=== PATIENT | male | born 1950 | race Caucasian/White ===

== ENCOUNTER 2016-12-30 13:12 | Emergency (ER) | payer MEDICARE, BC ==
[~2016-12-30] VITALS: Ht 177.8 cm; Wt 104.3 kg
[~2016-12-30 13:12] MED LIST: ACHD5005 PO; ASPI-808 PO; ASPI-983 PO; ASPI-999 PO; CIPR500T4 PO; CLOP75TA28 PO; CPR500T PO; LEVO100T PO; LEVOTHROID; LISI-556 PO; MELO15TA39 PO; NAPR-243 PO; OMEP20CA12 PO; OXYC-471 PO; PRAV40TA2 PO
--- OUTSIDE RECORDS SUMMARY | 2016-12-30 13:22 | XMS REPORT | Continuity of Care Document ---
Author Author [facility] Organization [facility] Address Unknown Phone Unavailable Allergies Active Description Code Type Severity Reaction Onset Reported/Identified Relationship to Patient Clinical Status Yes NKANo Known Allergies NKA Miscellaneous Allergy Unknown N/ A 09/03/2007 Medications Problems Date Dx Coded Attending Type Code Diagnosis Diagnosed By 08/11/2013 SASHA AGUILAR MD Ot 592.0 CALCULUS OF KIDNEY 08/11/2013 SASHA AGUILAR MD Ot 789.00 ABDOMINAL PAIN, UNSPECIFIED SITE 09/15/2015 SASHA AGUILAR MD Ot F12.10 CANNABIS ABUSE, UNCOMPLICATED 09/15/2015 SASHA AGUILAR MD Ot F17.210 NICOTINE DEPENDENCE, CIGARETTES, UNCOMPL 09/15/2015 SASHA AGUILAR MD Ot N39.0 URINARY TRACT INFECTION, SITE NOT SPECIF 08/17/2016 BAIMA, ELSA L JANITOR AND CLEANER Ot I10 ESSENTIAL (PRIMARY) HYPERTENSION 08/17/2016 BAIMA, ELSA L JANITOR AND CLEANER Ot R06.02 SHORTNESS OF BREATH 08/17/2016 BAIMA, ELSA L JANITOR AND CLEANER Ot R07.89 OTHER CHEST PAIN 08/17/2016 BAIMA, ELSA L JANITOR AND CLEANER Ot I10 ESSENTIAL (PRIMARY) HYPERTENSION 08/17/2016 BAIMA, ELSA L JANITOR AND CLEANER Ot R06.02 SHORTNESS OF BREATH 08/17/2016 BAIMA, ELSA L JANITOR AND CLEANER Ot R07.89 OTHER CHEST PAIN 09/06/2016 BAIMA, ELSA L JANITOR AND CLEANER Ot I10 ESSENTIAL (PRIMARY) HYPERTENSION 09/06/2016 BAIMA, ELSA L JANITOR AND CLEANER Ot R06.02 SHORTNESS OF BREATH 09/06/2016 BAIMA, ELSA L JANITOR AND CLEANER Ot R07.89 OTHER CHEST PAIN 09/09/2016 BAIMA, ELSA L JANITOR AND CLEANER Ot I10 ESSENTIAL (PRIMARY) HYPERTENSION 09/09/2016 BAIMA, ELSA L JANITOR AND CLEANER Ot R06.02 SHORTNESS OF BREATH 09/09/2016 BAIMA, ELSA L JANITOR AND CLEANER Ot R07.89 OTHER CHEST PAIN 09/16/2016 PATRICIA WELLS L Ot F17.210 NICOTINE DEPENDENCE, CIGARETTES, UNCOMPL 09/16/2016 PATRICIA WELLS L Ot I10 ESSENTIAL (PRIMARY) HYPERTENSION 09/16/2016 PATRICIA WELLS Ot I44.4 LEFT ANTERIOR FASCICULAR BLOCK 09/16/2016 PATRICIA WELLS L Ot I45.10 UNSPECIFIED RIGHT BUNDLE-BRANCH BLOCK 09/16/2016 PATRICIA WELLS L Ot R07.89 OTHER CHEST PAIN 09/16/2016 PATRICIA WELLS Ot R07.9 CHEST PAIN, UNSPECIFIED 09/16/2016 PATRICIA WELLS Ot Z79.899 OTHER PENITENTIARY (CURRENT) DRUG THERAPY 09/19/2016 PATRICIA WELLS Ot F17.210 NICOTINE DEPENDENCE, CIGARETTES, UNCOMPL 09/19/2016 PATRICIA WELLS Ot I10 ESSENTIAL (PRIMARY) HYPERTENSION 09/19/2016 PATRICIA WELLS Ot I44.4 LEFT ANTERIOR FASCICULAR BLOCK 09/19/2016 PATRICIA WELLS Ot I45.10 UNSPECIFIED RIGHT BUNDLE-BRANCH BLOCK 09/19/2016 PATRICIA WELLS Ot R07.89 OTHER CHEST PAIN 09/19/2016 PATRICIA WELLS L Ot R07.9 CHEST PAIN, UNSPECIFIED 09/19/2016 PATRICIA WELLS Ot Z79.899 OTHER PENITENTIARY (CURRENT) DRUG THERAPY 09/19/2016 BAIELSA BOJORQUEZ JANITOR AND CLEANER Ot I10 ESSENTIAL (PRIMARY) HYPERTENSION 09/19/2016 BAIELSA BOJORQUEZ JANITOR AND CLEANER Ot R06.02 SHORTNESS OF BREATH 09/19/2016 BAIMAELSA L JANITOR AND CLEANER Ot R07.89 OTHER CHEST PAIN 09/28/2016 VALERIE COSTELLO FACC, RADHIKA FACP CCDS Ot B19.20 UNSPECIFIED VIRAL HEPATITIS C WITHOUT HE 09/28/2016 VALERIE COSTELLO FACC, ALI FACP CCDS Ot E03.9 HYPOTHYROIDISM, UNSPECIFIED 09/28/2016 VALERIE COSTELLO FACC, ALI FACP CCDS Ot F17.210 NICOTINE DEPENDENCE, CIGARETTES , UNCOMPL 09/28/2016 VALERIE COSTELLO FACC, ALI FACP CCDS Ot I25.10 ATHSCL HEART DISEASE OF [place] CORONARY 09/28/2016 VALERIE COSTELLO FACC, RADHIKA FACP CCDS Ot I49.3 VENTRICULAR PREMATURE DEPOLARIZATION 09/28/2016 VALERIE COSTELLO FACC, RADHIKA FACP CCDS Ot R06.02 SHORTNESS OF BREATH 09/28/2016 VALERIE COSTELLO FACC, ALI FACP CCDS Ot R07.2 PRECORDIAL PAIN 09/28/2016 VALERIE COSTELLO FACC, ALI FACP CCDS Ot R94.39 ABNORMAL RESULT OF OTHER CARDIOVASCULAR 09/28/2016 VALERIE COSTELLO FACC, RADHIKA FACP CCDS Ot Z79.02 PENITENTIARY (CURRENT) USE OF ANTITHROMBOTI 09/28/2016 VALERIE COSTELLO FACC, RADHIKA FACP CCDS Ot Z79.899 OTHER PENITENTIARY (CURRENT) DRUG THERAPY 10/07/2016 ELSA SANDHU JANITOR AND CLEANER Ot I10 ESSENTIAL (PRIMARY) HYPERTENSION 10/07/2016 ELSA SANDHU JANITOR AND CLEANER Ot R06.02 SHORTNESS OF BREATH 10/07/2016 ELSA SANDHU JANITOR AND CLEANER Ot R07.89 OTHER CHEST PAIN 10/07/2016 JEANCARLOS CARROLL SKOOG MACHINE OPERATOR Ot I10 ESSENTIAL (PRIMARY) HYPERTENSION 10/07/2016 JEANCARLOS CARROLL SKOOG MACHINE OPERATOR Ot 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 10/07/2016 JEANCARLOS CARROLL SKOOG MACHINE OPERATOR Ot Z79.02 VOCATIONAL COUNSELOR (CURRENT) USE OF ANTITHROMBOTI 10/07/2016 JEANCARLOS CARROLL SKOOG MACHINE OPERATOR Ot Z79.82 PENITENTIARY (CURRENT) USE OF ASPIRIN 10/07/2016 JEANCARLOS CARROLL SKOOG MACHINE OPERATOR Ot Z79.899 OTHER PENITENTIARY (CURRENT) DRUG THERAPY 10/10/2016 JEANCARLOS CARROLL SKOOG MACHINE OPERATOR Ot I10 ESSENTIAL (PRIMARY) HYPERTENSION 10/10/2016 JEANCARLOS CARROLL SKOOG MACHINE OPERATOR Ot 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 10/10/2016 JEANCARLOS CARROLL SKOOG MACHINE OPERATOR Ot Z79.02 VOCATIONAL COUNSELOR (CURRENT) USE OF ANTITHROMBOTI 10/10/2016 JEANCARLOS CARROLL SKOOG MACHINE OPERATOR Ot Z79.82 PENITENTIARY (CURRENT) USE OF ASPIRIN 10/10/2016 JEANCARLOS CARROLL SKOOG MACHINE OPERATOR Ot Z79.899 OTHER PENITENTIARY (CURRENT) DRUG THERAPY 11/01/2016 VALERIE MD FACC, ALI FACP CCDS Ot B19.20 UNSPECIFIED VIRAL HEPATITIS C WITHOUT HE 11/01/2016 VALERIE COSTELLO FACC, ALI FACP CCDS Ot E03.9 HYPOTHYROIDISM, UNSPECIFIED 11/01/2016 VALERIE COSTELLO FACC, ALI FACP CCDS Ot F17.210 NICOTINE DEPENDENCE, CIGARETTES , UNCOMPL 11/01/2016 VALERIE COSTELLO FACC, ALI FACP CCDS Ot I25.10 ATHSCL HEART DISEASE OF [place] CORONARY 11/01/2016 VALERIE COSTELLO FACC, ALI FACP CCDS Ot I49.3 VENTRICULAR PREMATURE DEPOLARIZATION 11/01/2016 VALERIE COSTELLO FACC, ALI FACP CCDS Ot R06.02 SHORTNESS OF BREATH 11/01/2016 VALERIE COSTELLO FACC, ALI FACP CCDS Ot R07.2 PRECORDIAL PAIN 11/01/2016 VALERIE COSTELLO FACC, ALI FACP CCDS Ot R94.39 ABNORMAL RESULT OF OTHER CARDIOVASCULAR 11/01/2016 VALERIE GANNC, ALI FACP CCDS Ot Z79.02 PENITENTIARY (CURRENT) USE OF ANTITHROMBOTI 11/01/2016 VALERIE GANN, ALI FACP CCDS Ot Z79.899 OTHER VOCATIONAL COUNSELOR (CURRENT) DRUG THERAPY 11/03/2016 VALERIE GANNC, ALI FACP CCDS Ot B19.20 UNSPECIFIED VIRAL HEPATITIS C WITHOUT HE 11/03/2016 VALERIE GANN, ALI FACP CCDS Ot E03.9 HYPOTHYROIDISM, UNSPECIFIED 11/03/2016 VALERIE GANNC, ALI FACP CCDS Ot F17.210 NICOTINE DEPENDENCE, CIGARETTES , UNCOMPL 11/03/2016 VALERIE COSTELLO FACC, ALI FACP CCDS Ot I25.10 ATHSCL HEART DISEASE OF [place] CORONARY 11/03/2016 VALERIE COSTELLO FACC, ALI FACP CCDS Ot I49.3 VENTRICULAR PREMATURE DEPOLARIZATION 11/03/2016 VALERIE COSTELLO FACC, ALI FACP CCDS Ot R06.02 SHORTNESS OF BREATH 11/03/2016 VALERIE COSTELLO FACC, ALI FACP CCDS Ot R07.2 PRECORDIAL PAIN 11/03/2016 VALERIE COSTELLO FACC, ALI FACP CCDS Ot R94.39 ABNORMAL RESULT OF OTHER CARDIOVASCULAR 11/03/2016 VALERIE GANNC, ALI FACP CCDS Ot Z79.02 PENITENTIARY (CURRENT) USE OF ANTITHROMBOTI 11/03/2016 VALERIE COSTELLO FAC, RADHIKA JOLLEY CCDS Ot Z79.899 OTHER VOCATIONAL COUNSELOR (CURRENT) DRUG THERAPY Procedures Results Test Result Range Complete blood count (CBC) with automated white blood cell (WBC) differential - 09/16/16 16:00 Blood leukocytes automated count (number/volume) 8.3 10*3/ uL 4.3-11.0 Blood erythrocytes automated count (number/volume) 4.50 10*6 /uL 4.35-5.85 Venous blood hemoglobin measurement (mass/volume) 15.0 g/dL 13.3-17.7 Blood hematocrit (volume fraction) 43 % 40-54 Automated erythrocyte mean corpuscular volume 96 [foz_us] 80-99 Automated erythrocyte mean corpuscular hemoglobin (mass per erythrocyte) 33 pg 25-34 Automated erythrocyte mean corpuscular hemoglobin concentration measurement ( mass/volume) 35 g/dL 32-36 Automated erythrocyte distribution width ratio 13.0 % 10.0-14.5 Automated blood platelet count (count/volume) 188 10*3/uL 130-400 Automated blood platelet mean volume measurement 12.8 [foz_ us] 7.4-10.4 Automated blood neutrophils/100 leukocytes 60 % 42-75 Automated blood lymphocytes/100 leukocytes 29 % 12-44 Blood monocytes/100 leukocytes 10 % 0-12 Automated blood eosinophils/100 leukocytes 2 % 0-10 Automated blood basophils/100 leukocytes 0 % 0-10 Blood neutrophils automated count (number/volume) 4.9 10*3 1.8-7.8 Blood lymphocytes automated count (number/volume) 2.4 10*3 1.0-4.0 Blood monocytes automated count (number/volume) 0.8 10*3 0.0-1.0 Automated eosinophil count 0.1 10*3/uL 0.0-0.3 Automated blood basophil count (count/volume) 0.0 10*3/uL 0.0-0.1 PT panel in platelet poor plasma by coagulation assay - 09/16/16 16:00 Prothrombin time (PT) in platelet poor plasma by coagulation assay 14.6 s 12.2-14.7 INR in platelet poor plasma or blood by coagulation assay 1.2 0.8-1.4 Activated partial thromboplastin time (aPTT) in platelet poor plasma bycoagulation assay - 09/16/16 16:00 Activated partial thromboplastin time (aPTT) in platelet poor plasma bycoagulation assay 41 s 24-35 Comprehensive metabolic panel - 09/16/16 16:00 Serum or plasma sodium measurement (moles/volume) 138 mmol/ L 135-145 Serum or plasma potassium measurement (moles/volume) 4.4 mmol/L 3.6-5.0 Serum or plasma chloride measurement (moles/volume) 105 mmol /L 98-107 Carbon dioxide 23 mmol/L 21-32 Serum or plasma anion gap determination (moles/volume) 10 mmol/L 5-14 Serum or plasma urea nitrogen measurement (mass/volume) 23 mg/dL 7-18 Serum or plasma creatinine measurement (mass/volume) 0.79 mg /dL 0.60-1.30 Serum or plasma urea nitrogen/creatinine mass ratio 29 NRG Serum or plasma creatinine measurement with calculation of estimated glomerular filtration rate > NRG Serum or plasma glucose measurement (mass/volume) 94 mg/dL 70-105 Serum or plasma calcium measurement (mass/volume) 9.2 mg/dL 8.5-10.1 Serum or plasma total bilirubin measurement (mass/volume) 0.4 mg/dL 0.1-1.0 Serum or plasma alkaline phosphatase measurement (enzymatic activity/volume) 113 U/L 40-136 Serum or plasma aspartate aminotransferase measurement (enzymatic activity/ volume) 31 U/L 5-34 Serum or plasma alanine aminotransferase measurement (enzymatic activity/volume ) 29 U/L 0-55 Serum or plasma protein measurement (mass/volume) 6.7 g/dL 6.4-8.2 Serum or plasma albumin measurement (mass/volume) 4.3 g/dL 3.2-4.5 Magnesium - 09/16/16 16:00 Magnesium 2.3 mg/dL 1.8-2.4 Serum or plasma troponin i.cardiac measurement (mass/volume) - 09/16/16 16:00 Serum or plasma troponin i.cardiac measurement (mass/volume) < ng/mL <0.30 Myoglobin, serum - 09/16/16 16:00 Myoglobin, serum 56.5 ng/mL 10.0-92.0 Fibrin D-dimer FEU measurement in platelet poor plasma (mass/volume) - 16:00 Fibrin D-dimer FEU measurement in platelet poor plasma (mass/volume) 0.35 ug/mL 0.00-0.49 Serum or plasma troponin i.cardiac measurement (mass/volume) - 09/16/16 18:15 Serum or plasma troponin i.cardiac measurement (mass/volume) < ng/mL <0.30 Automated blood complete blood count (hemogram) panel - 09/27/16 09:38 Blood leukocytes automated count (number/volume) 9.1 10*3/ uL 4.3-11.0 Blood erythrocytes automated count (number/volume) 4.93 10*6 /uL 4.35-5.85 Venous blood hemoglobin measurement (mass/volume) 16.3 g/dL 13.3-17.7 Blood hematocrit (volume fraction) 47 % 40-54 Automated erythrocyte mean corpuscular volume 96 [foz_us] 80-99 Automated erythrocyte mean corpuscular hemoglobin (mass per erythrocyte) 33 pg 25-34 Automated erythrocyte mean corpuscular hemoglobin concentration measurement ( mass/volume) 35 g/dL 32-36 Automated erythrocyte distribution width ratio 13.0 % 10.0-14.5 Automated blood platelet count (count/volume) 201 10*3/uL 130-400 Automated blood platelet mean volume measurement 11.1 [foz_ us] 7.4-10.4 PT panel in platelet poor plasma by coagulation assay - 09/27/16 09:38 Prothrombin time (PT) in platelet poor plasma by coagulation assay 13.3 s 12.2-14.7 INR in platelet poor plasma or blood by coagulation assay 1.0 0.8-1.4 Activated partial thromboplastin time (aPTT) in platelet poor plasma bycoagulation assay - 09/27/16 09:38 Activated partial thromboplastin time (aPTT) in platelet poor plasma bycoagulation assay 38 s 24-35 Comprehensive metabolic panel - 09/27/16 09:38 Serum or plasma sodium measurement (moles/volume) 140 mmol/ L 135-145 Serum or plasma potassium measurement (moles/volume) 4.3 mmol/L 3.6-5.0 Serum or plasma chloride measurement (moles/volume) 106 mmol /L 98-107 Carbon dioxide 28 mmol/L 21-32 Serum or plasma anion gap determination (moles/volume) 6 mmol/L 5-14 Serum or plasma urea nitrogen measurement (mass/volume) 22 mg/dL 7-18 Serum or plasma creatinine measurement (mass/volume) 0.85 mg /dL 0.60-1.30 Serum or plasma urea nitrogen/creatinine mass ratio 26 NRG Serum or plasma creatinine measurement with calculation of estimated glomerular filtration rate > NRG Serum or plasma glucose measurement (mass/volume) 93 mg/dL 70-105 Serum or plasma calcium measurement (mass/volume) 9.3 mg/dL 8.5-10.1 Serum or plasma total bilirubin measurement (mass/volume) 0.7 mg/dL 0.1-1.0 Serum or plasma alkaline phosphatase measurement (enzymatic activity/volume) 107 U/L 40-136 Serum or plasma aspartate aminotransferase measurement (enzymatic activity/ volume) 25 U/L 5-34 Serum or plasma alanine aminotransferase measurement (enzymatic activity/volume ) 32 U/L 0-55 Serum or plasma protein measurement (mass/volume) 7.3 g/dL 6.4-8.2 Serum or plasma albumin measurement (mass/volume) 4.6 g/dL 3.2-4.5 Lipid 1996 panel - 09/27/16 09:38 Serum or plasma triglyceride measurement (mass/volume) 65 mg /dL <150 Serum or plasma cholesterol measurement (mass/volume) 138 mg /dL < 200 Serum or plasma cholesterol in HDL measurement (mass/volume) 49 mg/dL 40-60 Cholesterol in LDL [mass/volume] in serum or plasma by direct assay 73 mg/dL 1-129 Serum or plasma cholesterol in VLDL measurement (mass/volume) 13 mg/dL 5-40 Methicillin resistant Staphylococcus aureus (MRSA) screening culture - 09:38 MRSA SCREEN RESULT MRSA [facility] Automated blood complete blood count (hemogram) panel - 09/28/16 05:35 Blood leukocytes automated count (number/volume) 9.9 10*3/ uL 4.3-11.0 Blood erythrocytes automated count (number/volume) 4.55 10*6 /uL 4.35-5.85 Venous blood hemoglobin measurement (mass/volume) 15.1 g/dL 13.3-17.7 Blood hematocrit (volume fraction) 44 % 40-54 Automated erythrocyte mean corpuscular volume 97 [foz_us] 80-99 Automated erythrocyte mean corpuscular hemoglobin (mass per erythrocyte) 33 pg 25-34 Automated erythrocyte mean corpuscular hemoglobin concentration measurement ( mass/volume) 34 g/dL 32-36 Automated erythrocyte distribution width ratio 13.1 % 10.0-14.5 Automated blood platelet count (count/volume) 176 10*3/uL 130-400 Automated blood platelet mean volume measurement 11.8 [foz_ us] 7.4-10.4 Whole blood basic metabolic panel - 09/28/16 05:35 Serum or plasma sodium measurement (moles/volume) 138 mmol/ L 135-145 Serum or plasma potassium measurement (moles/volume) 4.2 mmol/L 3.6-5.0 Serum or plasma chloride measurement (moles/volume) 105 mmol /L 98-107 Carbon dioxide 24 mmol/L 21-32 Serum or plasma anion gap determination (moles/volume) 9 mmol/L 5-14 Serum or plasma urea nitrogen measurement (mass/volume) 19 mg/dL 7-18 Serum or plasma creatinine measurement (mass/volume) 0.76 mg /dL 0.60-1.30 Serum or plasma urea nitrogen/creatinine mass ratio 25 NRG Serum or plasma creatinine measurement with calculation of estimated glomerular filtration rate > NRG Serum or plasma glucose measurement (mass/volume) 86 mg/dL 70-105 Serum or plasma calcium measurement (mass/volume) 8.8 mg/dL 8.5-10.1 Complete blood count (CBC) with automated white blood cell (WBC) differential - 10/07/16 15:10 Blood leukocytes automated count (number/volume) 8.5 10*3/ uL 4.3-11.0 Blood erythrocytes automated count (number/volume) 4.37 10*6 /uL 4.35-5.85 Venous blood hemoglobin measurement (mass/volume) 14.4 g/dL 13.3-17.7 Blood hematocrit (volume fraction) 42 % 40-54 Automated erythrocyte mean corpuscular volume 97 [foz_us] 80-99 Automated erythrocyte mean corpuscular hemoglobin (mass per erythrocyte) 33 pg 25-34 Automated erythrocyte mean corpuscular hemoglobin concentration measurement ( mass/volume) 34 g/dL 32-36 Automated erythrocyte distribution width ratio 12.8 % 10.0-14.5 Automated blood platelet count (count/volume) 213 10*3/uL 130-400 Automated blood platelet mean volume measurement 11.1 [foz_ us] 7.4-10.4 Automated blood neutrophils/100 leukocytes 66 % 42-75 Automated blood lymphocytes/100 leukocytes 22 % 12-44 Blood monocytes/100 leukocytes 8 % 0-12 Automated blood eosinophils/100 leukocytes 3 % 0-10 Automated blood basophils/100 leukocytes 1 % 0-10 Blood neutrophils automated count (number/volume) 5.6 10*3 1.8-7.8 Blood lymphocytes automated count (number/volume) 1.9 10*3 1.0-4.0 Blood monocytes automated count (number/volume) 0.7 10*3 0.0-1.0 Automated eosinophil count 0.3 10*3/uL 0.0-0.3 Automated blood basophil count (count/volume) 0.0 10*3/uL 0.0-0.1 Encounters ACCT No. Visit Date/Time Discharge Status Pt. Type Provider Facility Loc./Unit Complaint [id number] 10/07/2016 14:22:00 2015 15:45:00 DIS Emergency JEANCARLOS CARROLL APRN [facility] ER POST CATH LEG BRUISING/KNOT [id number] 09/27/2016 09:08:00 2015 10:50:00 DIS Outpatient VALERIE COSTELLO FACC, RADHIKA JOLLEY CCDS [facility] CATH CAD,ANGINA,SOB,HTN [id number] 09/16/2016 15:56:00 2015 19:14:00 DIS Emergency PATRICIA WELLS [facility] ER CHEST PAIN [id number] 09/15/2015 08:19:00 2014 10:22:00 DIS Emergency SASHA AGUILAR MD [facility] ER KIDNEY PAIN [id number] 01/02/2014 11:28:00 2013 23:59:59 CLS Outpatient [id number] 08/10/2013 23:02:00 2012 01:57:00 DIS Emergency SASHA AGUILAR MD [facility] ER L SIDE PAIN; NO INJ [id number] 12/30/2016 13:16:00 ACT Emergency SASHA AGUILAR MD [facility] ER BACK/NECK/LEG PAIN [id number] 08/16/2016 07:57:00 ACT Outpatient ELSA SANDHU [facility] CARD SOB,CHEST DISCOMFORT,HTN
[2016-12-30] MEDS ORDERED: CYCL5TAB PO (13:58)
[2016-12-30 14:44] LABS: BASOPHILS # (AUTO) 0.1 10^3/uL (0.0-0.1); BASOPHILS % (AUTO) 1 % (0-10); EOSINOPHILS # (AUTO) 0.1 10^3/uL (0.0-0.3); EOSINOPHILS % (AUTO) 1 % (0-10); LYMPHOCYTES # (AUTO) 1.4 X 10^3 (1.0-4.0); LYMPHOCYTES % (AUTO) 17 % (12-44); MEAN CORPUSCULAR HEMOGLOBIN 33 PG (25-34); MEAN CORPUSCULAR HGB CONC 34 G/DL (32-36); MEAN CORPUSCULAR VOLUME 97 FL (80-99); MEAN PLATELET VOLUME 11.9 FL (7.4-10.4); MONOCYTES # (AUTO) 0.7 X 10^3 (0.0-1.0); MONOCYTES % (AUTO) 8 % (0-12); NEUTROPHILS % (AUTO) 73 % (42-75); PLATELET COUNT 194 10^3/uL (130-400); RED BLOOD COUNT 3.98 10^6/uL (4.35-5.85); RED CELL DISTRIBUTION WIDTH 13.5 % (10.0-14.5); WHITE BLOOD COUNT 8.3 10^3/uL (4.3-11.0)
--- NOTE | 2016-12-30 14:45 | ED Back Pain ---
General Chief Complaint: Back Problems Stated Complaint: BACK/NECK/LEG PAIN Nursing Triage Note: pt reports he has lower back, neck, l shoulder, and r leg pain. pt denies any injury. pt reports he talked to DR. Parker yesterday and was placed on muscle relaxers. Pt reprots he has trouble sleeping because of the pain. Nursing Sepsis Screen: No Definite Risk Source of Information: Patient Exam Limitations: No Limitations History of Present Illness Time Seen by Provider: 14:42 Initial Comments To ER with 3 days of severe neck and low back pain that radiates down right leg. No injury, fevers, or chills. [facility]. Currently a patient of Dr Cliff Parker who placed pt on muscle relaxers a few days ago, pt denies improvement. No loss of bowel or bladder control. Hes been taking quite a bit of aleve and tylenol at home for the pain with initially some improvement. However, it no longer seems to be helping. 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 Location: C-Spine, Lumbar Spine Severity: Moderate Associated Symptoms: No numbness in legs/feet, No tingling in legs/feet, No sensory/motor loss, lower back painNo loss of bladder control, No loss of bowel control Allergies and Home Medications Allergies Coded Allergies: NKANo Known Allergies (Verified Allergy, Unknown, 09/03/07) Home Medications Aspirin 81 Mg Tablet. 81 MG PO DAILY (Reported) Clopidogrel Bisulfate 75 Mg Tablet 75 MG PO DAILY (Reported) Cyclobenzaprine HCl 5 Mg Tablet 5 MG PO TID (Reported) Hydrocodone/Acetaminophen 1 Each Tablet #14 1 EACH PO Q4H PRN PRN SEVERE PAIN Prescribed by: JEANCARLOS CARROLL on 12/30/161538 Levothyroxine Sodium 100 Mcg Tablet 100 MCG PO DAILY (Reported) Lisinopril 5 Mg Tablet 5 MG PO DAILY (Reported) Meloxicam 15 Mg Tablet 15 MG PO DAILY (Reported) Omeprazole 20 Mg Capsule. 20 MG PO DAILY (Reported) Pravastatin Sodium 40 Mg Tablet 20 MG PO DAILY (Reported) TAKES 1/2 (40MG) TABLET Prednisone 20 Mg Tab #8 40 MG PO DAILY Prescribed by: JEANCARLOS CARROLL on 12/30/161538 Constitutional: see HPINo chills, No fever EENTM: see HPI Respiratory: no symptoms reported Cardiovascular: no symptoms reported Genitourinary: no symptoms reported Musculoskeletal: no symptoms reported Skin: no symptoms reported Psychiatric/Neurological: No Symptoms Reported Past Iwrjcnd-Wlhkze-Frrlif Hx Patient Social History Alcohol Use: Past History Recreational Drug Use: No Smoking Status: Former Smoker Type Used: Cigarettes Recent Foreign Travel: No Contact w/Someone Who Travel: No Recent Infectious Disease Expo: No Recent Hopitalizations: No Immunizations Up To Date Date of Pneumonia Vaccine: May 24, 2016 Date of Influenza Vaccine: Jul 11, 2016 Surgeries HX Surgeries: Yes Surgeries: Adenoidectomy, Coronary Stent, Tonsillectomy Respiratory Hx Respiratory Disorders: No Cardiovascular Hx Cardiac Disorders: Yes Cardiac Disorders: Coronary Artery Disease, High Cholesterol, Hypertension Neurological Hx Neurological Disorders: No Reproductive System Hx Reproductive Disorders: No Genitourinary Hx Genitourinary Disorders: No Genitourinary Disorders: Kidney Stones Gastrointestinal Hx Gastrointestinal Disorders: Yes Gastrointestinal Disorders: Gastroesophageal Reflux Musculoskeletal Hx Musculoskeletal Disorders: Yes (TORN LIGAMENTS IN BACK,COMP.FX.) Musculoskeletal Disorders: Chronic Back Pain Endocrine Hx Endocrine Disorders: Yes Endocrine Disorders: Hypothyroidsim HEENT HX ENT Disorders: No Cancer Hx Cancer: No Psychosocial Hx Psychiatric Problems: No Blood Transfusions Hx Blood Disorders: No Family Medical History Significant Family History: No Pertinent Family Hx Physical Exam Vital Signs Vital Sign - Last 12Hours 12/30/16 13:51 Temp 98.8 Pulse 107 Resp 16 B/P 124/94 Pulse Ox 93 Capillary Refill : Less Than 3 Seconds General Appearance: No Apparent Distress WD/WN HEENT: PERRL/EOMI TMs Normal Neck: Full Range of Motion Normal Inspection Respiratory: Normal Breath Sounds No Accessory Muscle Use No Respiratory Distress Gastrointestinal: Normal Bowel Sounds Non Tender Soft Back: Normal Inspection Other (c spine tender to palpation on right side. ) Extremity: Normal Capillary Refill Normal Inspection Neurologic/Psychiatric: Alert Oriented x3 No Motor/Sensory Deficits Skin: Normal Color Warm/Dry Progress/Results/Core Measures Results/Orders Lab Results Laboratory Tests Test 12/30/16 14:35 12/30/16 15:38 Range/Units Anion Gap 11 5-14 MMOL/L BUN/Creatinine Ratio 34 Basophils # (Auto) 0.1 0.0-0.1 10^3/uL Basophils (%) (Auto) 1 0-10 % Blood Urea Nitrogen 31 H 7-18 MG/DL Calcium Level 9.3 8.5-10.1 MG/DL Carbon Dioxide Level 21 21-32 MMOL/L Chloride Level 107 98-107 MMOL/L Creatinine 0.92 0.60-1.30 MG/DL Eosinophils # (Auto) 0.1 0.0-0.3 10^3/uL Eosinophils (%) (Auto) 1 0-10 % Estimat Glomerular Filtration Rate > 60 Glucose Level 117 H 70-105 MG/DL Hematocrit 39 L 40-54 % Hemoglobin 13.2 L 13.3-17.7 G/DL Lymphocytes # (Auto) 1.4 1.0-4.0 X 10^3 Lymphocytes (%) (Auto) 17 12-44 % Mean Corpuscular Hemoglobin 33 25-34 PG Mean Corpuscular Hemoglobin Concent 34 32-36 G/DL Mean Corpuscular Volume 97 80-99 FL Mean Platelet Volume 11.9 H 7.4-10.4 FL Monocytes # (Auto) 0.7 0.0-1.0 X 10^3 Monocytes (%) (Auto) 8 0-12 % Neutrophils # (Auto) 6.0 1.8-7.8 X 10^3 Neutrophils (%) (Auto) 73 42-75 % Platelet Count 194 130-400 10^3/uL Potassium Level 4.9 3.6-5.0 MMOL/L Red Blood Count 3.98 L 4.35-5.85 10^6/uL Red Cell Distribution Width 13.5 10.0-14.5 % Sodium Level 139 135-145 MMOL/L White Blood Count 8.3 4.3-11.0 10^3/uL Ur Tricyclic Antidepressants Screen NEGATIVE NEGATIVE Urine Amphetamines Screen NEGATIVE NEGATIVE Urine Bacteria MODERATE H /HPF Urine Barbiturates Screen NEGATIVE NEGATIVE Urine Benzodiazepines Screen NEGATIVE NEGATIVE Urine Bilirubin NEGATIVE NEGATIVE Urine Cannabinoids Screen POSITIVE H NEGATIVE Urine Casts NONE /LPF Urine Clarity CLEAR Urine Cocaine Screen NEGATIVE NEGATIVE Urine Color YELLOW Urine Crystals NONE /LPF Urine Culture Indicated NO Urine Glucose (UA) NEGATIVE NEGATIVE Urine Ketones NEGATIVE NEGATIVE Urine Leukocyte Esterase 1+ H NEGATIVE Urine Methadone Screen NEGATIVE NEGATIVE Urine Methamphetamines Screen NEGATIVE NEGATIVE Urine Mucus NEGATIVE /LPF Urine Nitrite NEGATIVE NEGATIVE Urine Opiates Screen NEGATIVE NEGATIVE Urine Oxycodone Screen NEGATIVE NEGATIVE Urine Phencyclidine Screen NEGATIVE NEGATIVE Urine Propoxyphene Screen NEGATIVE NEGATIVE Urine Protein 1+ H NEGATIVE Urine RBC NONE /HPF Urine RBC (Auto) 1+ H NEGATIVE Urine Specific [place] 1.025 H 1.016-1.022 Urine Squamous Epithelial Cells 2-5 /HPF Urine Urobilinogen NORMAL NORMAL MG/DL Urine WBC NONE /HPF Urine pH 5 5-9 My Orders Orders-JEANCARLOS CARROLL APRN Cbc With Automated Diff (12/30/16 14:22) Ua Culture If Indicated (12/30/16 14:22) Basic Metabolic Panel (12/30/16 14:22) Drug Screen Stat (Urine) (12/30/16 14:22) Saline Lock/Iv-Start (12/30/16 14:22) Ct Cervical Spine Wo (12/30/16 14:39) Ct Lumbar Spine Wo (12/30/16 14:39) Fentanyl Injection (Sublimaze Injection (12/30/16 14:45) Fentanyl Injection (Sublimaze Injection (12/30/16 15:30) Chest 1 View, Ap/Pa Only (12/30/16 15:33) Medications Given in ED Current Medications Medications Dose Ordered Sig/Dariusz Route Start Time Stop Time Status Last Admin Dose Admin Fentanyl Citrate 50 mcg ONCE ONCE IVP 12/30/16 14:45 12/30/16 14:46 DC 12/30/16 14:49 50 MCG Fentanyl Citrate 50 mcg ONCE ONCE IVP 12/30/16 15:30 12/30/16 15:31 DC 12/30/16 15:49 50 MCG Vital Signs/I&O Vital Sign - Last 12Hours 12/30/16 13:51 Temp 98.8 Pulse 107 Resp 16 B/P 124/94 Pulse Ox 93 Blood Pressure Mean: 104 Diagnostic Imaging Diagonstic Imaging: Xray Comments NAME: NICK TRACY [facility] REC#: [id number] PT STATUS: REG ER : 1950 PHYSICIAN: JEANCARLOS CARROLL APRN ADMIT DATE: 12/30/16/ER Draft Date of Exam:12/30/16 CT CERVICAL SPINE WO PROCEDURE: CT cervical spine without contrast. TECHNIQUE: Multiple contiguous axial images were obtained through the cervical spine without the use of intravenous contrast. Sagittal and coronal reformations were then performed. INDICATION: Neck pain. No known injury. CORRELATION STUDY: None. FINDINGS: There is reversal of normal cervical lordosis. Trace anterolisthesis C2 on C3. There is moderate anterior wedging and loss of height of the C4 vertebral body. Intervertebral disc herniation is noted in the posterior superior C4 endplate. Odontoid intact. C2-C3 level with mild loss of height. No significant canal or foraminal narrowing. C3-C4 level with moderate to marked loss of disc space height. Prominent asymmetric endplate spurring noted on the left with significant left foraminal narrowing. Right foramina with minimal narrowing. There is slight asymmetric splaying of the posterior elements with facets otherwise normal in alignment. C4-C5 level with very mild loss of disc space height. Mild endplate osteophyte formation is noted. There is slight asymmetric right foraminal narrowing with left foramina maintained. C5-C6 level with moderate loss of disc space height. Posterior disc and osteophyte formation which results in rather significant bilateral foraminal narrowing flattening the ventral thecal sac. AP dimension of spinal canal at 7-8 mm. C6-C7 level with moderate loss of disc space height. Rather prominent endplate osteophyte results in rather significant bilateral foraminal narrowing. Slight asymmetric right spinal canal narrowing. Overall dimension of the AP dimension of spinal canal narrowed to 8 mm. C7-T1 level unremarkable. Paraspinal soft tissues demonstrate prevertebral soft tissue to be unremarkable. There is some asymmetry at the inferior margin of the hypopharynx slightly more prominent on the left compared to the right just below the arytenoid cartilage. IMPRESSION: 1. Straightening of normal cervical lordosis, likely chronic. 2. Rather pronounced multilevel cervical spondylosis. Rather marked severity endplate osteophyte formation results in significant spinal canal and foraminal narrowing most pronounced at C5-C6 and C6-C7 levels and to a lesser degree C3-C4 level on the left. 3. Suggestion of asymmetric appearance about the soft tissues of the inferior hypopharynx. Clinical correlation regarding symptoms or clinical findings in this area. Dictated on workstation # [id number] Dict: 12/30/16 1512 Trans: 12/30/16 1526 [id number] Interpreted by: ALONZO LOPEZ DO Electronically signed by: NAME: NICK TRACY [facility] REC#: [id number] PT STATUS: REG ER : 1950 PHYSICIAN: JEANCARLOS CARROLL APRN ADMIT DATE: 12/30/16/ER Draft Date of Exam:12/30/16 CT LUMBAR SPINE WO PROCEDURE: CT lumbar spine without contrast. TECHNIQUE: Multiple contiguous axial images were obtained through the lumbar spine without the use of intravenous contrast. Sagittal and coronal reformations were then performed. INDICATION: Lumbar spine pain. Right hip into the right leg pain. No known injury. FINDINGS: Reformatted images demonstrate relatively normal alignment of the lumbar spine. There is moderate loss of height of approximately 50% of the superior L3 vertebral body, appearing to be nonacute. Remaining lumbar vertebral body heights overall are fairly well preserved without evidence for acute-appearing compression deformity. L5-S1 level with llogyqhr-wi-elpioy loss of disc space height. Prominent endplate osteophytes result in mild bilateral foraminal narrowing, slightly greater on the left where there is slight flattening of the exiting nerve roots. L4-L5 level with hypertrophy of the ligamentum flavum and facet joints resulting in moderate trefoil-type spinal canal narrowing. Disc and osteophyte formation results in mild bilateral foraminal narrowing with slight abutment of the exiting nerve roots. L3-L4 level with mild loss of disc space height. Ligamentum and facet hypertrophy result in mild trefoil-type spinal canal configuration. Foramina are without significant stenosis. L2-L3 level with mild loss of disc space height. Mild broad-based disc bulge and osteophyte formation without significant foraminal narrowing. Minimal trefoil-type spinal canal configuration. L1 and L2 level is without significant canal or foraminal narrowing. T12-L1 level is unremarkable. IMPRESSION: 1. Negative for acute compression deformity of the lumbar spine. Nonacute compression deformity with less than 50% vertebral body height at L2 level. 2. Rather prominent multilevel lumbar spondylosis with disc and osteophyte formation resulting in mild foraminal narrowing along with scattered areas of trefoil-type spinal canal narrowing owing to ligamentum and facet hypertrophy. Most pronounced area of foraminal narrowing is at L5-S1 level. Dictated on workstation # [id number] Dict: 12/30/16 1517 Trans: 12/30/16 1531 [id number] Interpreted by: ALONZO LOPEZ DO Electronically signed by: Departure Impression Impression: Primary Impression: Back pain Qualified Code: M54.5 - Low back pain Disposition: 01 HOME, SELF-CARE Condition: Stable Departure-Patient Inst. Decision time for Depature: 15:38 Referrals: CLIFF PARKER MD (PCP/Family) Primary Care Physician Patient Instructions: Low Back Pain (DC), Upper Back Pain (DC) Add. Discharge Instructions: 1. Medication as directed 2. Follow-up with Dr. Parker next week. I will send him a copy of these reports 3. All discharge instructions reviewed with patient and/or family. Voiced understanding. Scripts Hydrocodone/Acetaminophen ([place] 5-325 Tablet)1 Each Tablet1 Each PO Q4H PRN SEVERE PAIN #14 TAB Prov:JEANCARLOS CARROLL APRN 12/30/16 Prednisone 20 Mg Tab40 Mg PO DAILY #8 TAB Prov:JEANCARLOS CARROLL APRN 12/30/16 Copy Copies To 1: CLIFF PARKER MD, PETER J APRN Dec 30, 2016 14:45
[2016-12-30] MEDS: fentaNYL INJECTION 100 MCG/2 ML AMP IVP ONE ×2 (14:49→15:49)
[2016-12-30 15:00] LABS: ANION GAP 11 MMOL/L (5-14); BLOOD UREA NITROGEN 31 MG/DL (7-18); BUN/CREATININE RATIO 34; CALCIUM 9.3 MG/DL (8.5-10.1); CARBON DIOXIDE 21 MMOL/L (21-32); CHLORIDE 107 MMOL/L (98-107); CREATININE SERUM 0.92 MG/DL (0.60-1.30); GFR ESTIMATED > 60; GLUCOSE 117 MG/DL (70-105); SODIUM 139 MMOL/L (135-145)
[2016-12-30 15:01] LABS: POTASSIUM 4.9 MMOL/L (3.6-5.0)
--- NOTE | 2016-12-30 15:26 | Diagnostic Imaging Report ---
PROCEDURE: CT cervical spine without contrast. TECHNIQUE: Multiple contiguous axial images were obtained through the cervical spine without the use of intravenous contrast. Sagittal and coronal reformations were then performed. INDICATION: Neck pain. No known injury. CORRELATION STUDY: None. FINDINGS: There is reversal of normal cervical lordosis. Trace anterolisthesis C2 on C3. There is moderate anterior wedging and loss of height of the C4 vertebral body. Intervertebral disc herniation is noted in the posterior superior C4 endplate. Odontoid intact. C2-C3 level with mild loss of height. No significant canal or foraminal narrowing. C3-C4 level with moderate to marked loss of disc space height. Prominent asymmetric endplate spurring noted on the left with significant left foraminal narrowing. Right foramina with minimal narrowing. There is slight asymmetric splaying of the posterior elements with facets otherwise normal in alignment. C4-C5 level with very mild loss of disc space height. Mild endplate osteophyte formation is noted. There is slight asymmetric right foraminal narrowing with left foramina maintained. C5-C6 level with moderate loss of disc space height. Posterior disc and osteophyte formation which results in rather significant bilateral foraminal narrowing flattening the ventral thecal sac. AP dimension of spinal canal at 7-8 mm. C6-C7 level with moderate loss of disc space height. Rather prominent endplate osteophyte results in rather significant bilateral foraminal narrowing. Slight asymmetric right spinal canal narrowing. Overall dimension of the AP dimension of spinal canal narrowed to 8 mm. C7-T1 level unremarkable. Paraspinal soft tissues demonstrate prevertebral soft tissue to be unremarkable. There is some asymmetry at the inferior margin of the hypopharynx slightly more prominent on the left compared to the right just below the arytenoid cartilage. IMPRESSION: 1. Straightening of normal cervical lordosis, likely chronic. 2. Rather pronounced multilevel cervical spondylosis. Rather marked severity endplate osteophyte formation results in significant spinal canal and foraminal narrowing most pronounced at C5-C6 and C6-C7 levels and to a lesser degree C3-C4 level on the left. 3. Suggestion of asymmetric appearance about the soft tissues of the inferior hypopharynx. Clinical correlation regarding symptoms or clinical findings in this area. Dictated by: Dictated on workstation # [id number]
--- NOTE | 2016-12-30 15:32 | Diagnostic Imaging Report ---
PROCEDURE: CT lumbar spine without contrast. TECHNIQUE: Multiple contiguous axial images were obtained through the lumbar spine without the use of intravenous contrast. Sagittal and coronal reformations were then performed. INDICATION: Lumbar spine pain. Right hip into the right leg pain. No known injury. FINDINGS: Reformatted images demonstrate relatively normal alignment of the lumbar spine. There is moderate loss of height of approximately 50% of the superior L3 vertebral body, appearing to be nonacute. Remaining lumbar vertebral body heights overall are fairly well preserved without evidence for acute-appearing compression deformity. L5-S1 level with ckktttdm-ry-nqolbt loss of disc space height. Prominent endplate osteophytes result in mild bilateral foraminal narrowing, slightly greater on the left where there is slight flattening of the exiting nerve roots. L4-L5 level with hypertrophy of the ligamentum flavum and facet joints resulting in moderate trefoil-type spinal canal narrowing. Disc and osteophyte formation results in mild bilateral foraminal narrowing with slight abutment of the exiting nerve roots. L3-L4 level with mild loss of disc space height. Ligamentum and facet hypertrophy result in mild trefoil-type spinal canal configuration. Foramina are without significant stenosis. L2-L3 level with mild loss of disc space height. Mild broad-based disc bulge and osteophyte formation without significant foraminal narrowing. Minimal trefoil-type spinal canal configuration. L1 and L2 level is without significant canal or foraminal narrowing. T12-L1 level is unremarkable. IMPRESSION: 1. Negative for acute compression deformity of the lumbar spine. Nonacute compression deformity with less than 50% vertebral body height at L2 level. 2. Rather prominent multilevel lumbar spondylosis with disc and osteophyte formation resulting in mild foraminal narrowing along with scattered areas of trefoil-type spinal canal narrowing owing to ligamentum and facet hypertrophy. Most pronounced area of foraminal narrowing is at L5-S1 level. Dictated by: Dictated on workstation # [id number]
[2016-12-30] MEDS ORDERED: HYDR-757 PO (15:39)
[2016-12-30] MEDS ORDERED: PRD20T PO (15:39)
[2016-12-30 15:46] LABS: BILIRUBIN,URINE NEGATIVE (NEGATIVE); KETONES,URINE NEGATIVE (NEGATIVE); LEUKOCYTE ESTERASE ,URINE 1+ (NEGATIVE); NITRITE,URINE NEGATIVE (NEGATIVE); PH,URINE 5 (5-9); PROTEIN,URINE 1+ (NEGATIVE); UROBILINOGEN,URINE NORMAL (NORMAL)
--- NOTE | 2016-12-30 16:07 | Diagnostic Imaging Report ---
INDICATION: Back and left shoulder pain. FINDINGS: There is again noted chronic elevation of left hemidiaphragm with blunting of left costophrenic angle. No acute infiltrates are seen. The lungs are well-aerated. The heart is not enlarged. No hilar adenopathy. No evidence of pulmonary edema. No pneumothorax or pleural effusion. IMPRESSION: 1. No acute abnormalities with chronic elevation of the left hemidiaphragm and blunting of left costophrenic angle. Dictated by: Dictated on workstation # [id number]
[2016-12-30 16:24] VITALS: BP 126/71
== END 2016-12-30 16:24 | disposition home or self-care (01) ==
LOC: EDUNIT# 13:12 → ER 13:16
DX: M47.812 Spondylosis without myelopathy or radiculopathy, cervical region (principal); M47.26 Other spondylosis with radiculopathy, lumbar region; M48.06 Spinal stenosis, lumbar region; I10 Essential (primary) hypertension; I25.10 Atherosclerotic heart disease of native coronary artery without angina pectoris; Z79.899 Other long term (current) drug therapy; Z79.82 Long term (current) use of aspirin; Z95.5 Presence of coronary angioplasty implant and graft
CPT/HCPCS: 36415; 71010; 72125; 72131; 80048; 80306; 81000; 85025; 96374; 96376

== ENCOUNTER 2017-01-10 18:30 | Inpatient (IN) | payer MEDICARE, BC ==
[~2017-01-10] VITALS: Ht 177.8 cm; Wt 98.4 kg
[~2017-01-10 18:30] MED LIST changes: -DEXA4TAB PO; -DOCU-143 PO; -DOCU100C37 PO; -FAMO20TA3 PO; -FAMO20TA5 PO; -FENT1PAT10 TD; -FENT1PAT59 TD; -FENT1PAT8 TD; -FENT1PAT9 TD; -FURO40TA4 PO; -IPRA3AMP IH; -IPRA3AMP INH; -LACT10SO PO; -LACT20SO2 PO; -MORP-34 PO; -MORP15TA PO; -OXYC10TA7 PO; -OXYC5TAB71 PO; -Oxycodone Hcl PO; -POLY17PO23 PO; -POTA10TA10 PO; -PRAV20TA3 PO; -RT-ALBUINH IH; -TRAZ-28 PO; -[UNRECOGNIZED DRUG - CODE] TD
[2017-01-10 19:00] VITALS: BP 112/77
--- NOTE | 2017-01-10 19:23 | History & Physical ---
History of Present Illness History of Present Illness Reason for visit/HPI 66 yo M well known to me from clinic- with intractable back pain- MRI obtained today for evaluation of his back pain. The MRI demonstrated suspected metastatic disease to infracarina and diffuse involvement of the cervical/ thoracic/lumbar spine, with lesions in the portion of the visualized liver. Patient is having unrelenting back pain- oxycodone 5mg is not helping much- he is unable to sleep. Duration for past couple weeks with worsening. I made the decision to admit him for pain control as well as obtain CT head/chest/abdomen/ pelvis for further evaluation. Suspect the primary cancer is hepatic. Pt has history of hepatitis C that was treated with interferon in 1998. Recent labs demonstrated + hep c antibody but undetectable hepatitis C RNA. Patient has not had a colonoscopy. He quit smoking September 2016 after he got a RCA stent placed by Dr. Mesa. He has not drank etoh for years. Patient would like to be full code until he can get a Will written then would like to change it to DNR. Date of Admission Jan 10, 2017 at 18:36 I consulted on this patient on 01/10/17 19:14 Attending Physician Cliff Parker MD Admitting Physician Cliff Parker MD Consult Allergies and Home Medications Allergies Coded Allergies: NKANo Known Allergies (Verified Allergy, Unknown, 09/03/07) Home Medications Aspirin 81 Mg Tablet. 81 MG PO DAILY (Reported) Clopidogrel Bisulfate 75 Mg Tablet 75 MG PO DAILY (Reported) Cyclobenzaprine HCl 5 Mg Tablet 5 MG PO TID (Reported) Hydrocodone/Acetaminophen 1 Each Tablet #14 1 EACH PO Q4H PRN PRN SEVERE PAIN Prescribed by: JEANCARLOS CARROLL on 12/30/16 1539 Levothyroxine Sodium 100 Mcg Tablet 100 MCG PO DAILY (Reported) Lisinopril 5 Mg Tablet 5 MG PO DAILY (Reported) Meloxicam 15 Mg Tablet 15 MG PO DAILY (Reported) Omeprazole 20 Mg Capsule. 20 MG PO DAILY (Reported) Pravastatin Sodium 40 Mg Tablet 20 MG PO DAILY (Reported) TAKES 1/2 (40MG) TABLET Prednisone 20 Mg Tab #8 40 MG PO DAILY Prescribed by: JEANCARLOS CARROLL on 12/30/16 1539 Past Lxoygqx-Gjnuja-Vvzjni Hx Patient Social History Marrital Status: single Employed/Student: employed Alcohol Use: Denies Use Smoking Status: Former Smoker Type Used: Cigarettes Recent Foreign Travel: No Contact w/other who traveled: No Recent Hopitalizations: No Immunizations Up To Date Date of Pneumonia Vaccine: May 24, 2016 Date of Influenza Vaccine: Jul 11, 2016 Surgeries HX Surgeries: Yes Surgeries: Adenoidectomy, Coronary Stent (Sep 2016), Tonsillectomy Respiratory Hx Respiratory Disorders: No Cardiovascular Hx Cardiovascular Disorders: Yes Cardiac Disorders: Coronary Artery Disease, High Cholesterol, Hypertension Neurological Hx Neurological Disorders: No Reproductive System Hx Reproductive Disorders: No Genitourinary Hx Genitourinary Disorders: No Genitourinary Disorders: Kidney Stones Gastrointestinal Hx Gastrointestinal Disorders: Yes Gastrointestinal Disorders: Gastroesophageal Reflux Musculoskeletal Hx Musculoskeletal Disorders: Yes (TORN LIGAMENTS IN BACK,COMP.FX.) Musculoskeletal Disorders: Chronic Back Pain Endocrine Hx Endocrine Disorders: Yes Endocrine Disorders: Hypothyroidsim HEENT HX ENT Disorders: No Cancer Hx Cancer: No Psychosocial Hx Psychiatric Problems: No Blood Transfusions Hx Blood Disorders: No Family Medical History Significant Family History: No Pertinent Family Hx Review of Systems Review of Systems General: No Chills, Night Sweats HEENT: No Head Aches, No Visual Changes Pulmonary: Dyspnea Cough Cardiovascular: : Chest Pain (right side, upper abdomen) Gastrointestinal: : Constipation: NauseaNo: Abdominal Pain, Vomiting Genitourinary: No Dysuria, No Frequency Musculoskeletal: : back pain (intractable): neck painNo: shoulder pain Neurological: : Weakness Physical Exam Vital Signs Vital Sign - Last 12Hours 01/10/17 19:00 Temp 97.3 Pulse 124 Resp 22 B/P 112/77 Pulse Ox 92 O2 Delivery Room Air Capillary Refill : General Appearance: WD/WN Anxious Mild Distress (due to pain) HEENT: PERRL/EOMI Neck: Non Tender Supple Respiratory: Chest Non Tender Lungs Clear No Accessory Muscle Use No Respiratory Distress Cardiovascular: Regular Rate, Rhythm Other (trace edema-lower legs) Gastrointestinal: Non Tender Soft Distended (seems to be distended) Rectal: Deferred Back: No CVA Tenderness Vertebral Tenderness Extremity: Non Tender No Calf Tenderness Neurologic/Psychiatric: Alert Oriented x3 Normal Mood/Affect Skin: Warm/Dry (some bruising noted on arms) Assessment/Plan Assessment/Plan Assessment/Plan 66 yo M directly admitted 01/10/17 for : Intractable 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 cervical spinal stenosis- severe at C5/6, moderate C7 -pain management leukocytosis- no overt infection. rechecking CBC. hypothyroidism- continue levothyroxine h/o hepatitis C - treated with interferon 1998 coronary artery disease- s/p RCA stent 09/2016, Dr. Mesa continue plavix h/o kidney stone- stable, no issues COPD - MAT protocol Dispo: obtaining CT head/chest/ab/pelvis, will consult oncology. Likely will need radiation for palliative pain management. 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 Problems: Clinical Quality Measures DVT/VTE Risk/Contraindication: Contraindications-Pharm: Other *list below* Other: on plavix CLIFF PARKER MD Jan 10, 2017 19:23
[2017-01-10] MEDS ORDERED: CATHETER FLUSH 10 ML SYR IV PRN (19:30)
[2017-01-10] MEDS: NS IV 1000 ML 1,000 ML IV SCH (20:30)
[2017-01-10 20:44] LABS: BASOPHILS % (AUTO) 0 % (0-10); EOSINOPHILS % (AUTO) 0 % (0-10); LYMPHOCYTES # (AUTO) 1.2 X 10^3 (1.0-4.0); LYMPHOCYTES % (AUTO) 7 % (12-44); MEAN CORPUSCULAR HEMOGLOBIN 34 PG (25-34); MEAN CORPUSCULAR HGB CONC 35 G/DL (32-36); MEAN CORPUSCULAR VOLUME 95 FL (80-99); MEAN PLATELET VOLUME 10.9 FL (7.4-10.4); MONOCYTES # (AUTO) 1.2 X 10^3 (0.0-1.0); MONOCYTES % (AUTO) 7 % (0-12); NEUTROPHILS # (AUTO) 15.3 X 10^3 (1.8-7.8); NEUTROPHILS % (AUTO) 86 % (42-75); PLATELET COUNT 248 10^3/uL (130-400); RED BLOOD COUNT 4.11 10^6/uL (4.35-5.85); RED CELL DISTRIBUTION WIDTH 13.9 % (10.0-14.5); WHITE BLOOD COUNT 17.7 10^3/uL (4.3-11.0)
[2017-01-10] MEDS: fentaNYL PCA 300 MCG/30 ML VIAL IV PRN (20:44)
[2017-01-10 21:01] LABS: BAND NEUTROPHILS 1 %; BASOPHILS % (MANUAL) 1 %; EOSINOPHILS % (MANUAL) 0 %; LYMPHOCYTES % (MANUAL) 9 %; NEUTROPHILS % (MANUAL) 85 %
[2017-01-10 21:09] LABS: ALANINE AMINOTRANSFERASE 246 U/L (0-55); ALBUMIN 3.6 G/DL (3.2-4.5); ANION GAP 12 MMOL/L (5-14); ASPARTATE AMINO TRANSFERASE 166 U/L (5-34); BILIRUBIN,TOTAL 1.3 MG/DL (0.1-1.0); BLOOD UREA NITROGEN 30 MG/DL (7-18); BUN/CREATININE RATIO 32; CARBON DIOXIDE 21 MMOL/L (21-32); CHLORIDE 101 MMOL/L (98-107); CREATININE SERUM 0.95 MG/DL (0.60-1.30); GFR ESTIMATED > 60; GLUCOSE 101 MG/DL (70-105); LACTATE DEHYDROGENASE 1573 U/L (125-220); POTASSIUM 4.3 MMOL/L (3.6-5.0); SODIUM 134 MMOL/L (135-145); TOTAL PROTEIN 6.8 G/DL (6.4-8.2)
[2017-01-10 23:00] VITALS: BP 159/85
[2017-01-10] MEDS: DOCUSATE SODIUM 100 MG (COLACE) CAP PO SCH (23:13)
[2017-01-10] MEDS: POLYETHYLENE GLYCOL 17 GM (MIRALAX) PACK PO SCH (23:13)
[2017-01-11] MEDS: RT-ALBUTEROL/IPRATROPIUM 3 ML (DUONEB) VIAL INH PRN (01:08)
[2017-01-11 04:20] VITALS: BP 135/63
[2017-01-11] MEDS: NS IV 1000 ML 1,000 ML IV SCH ×4 (04:24→22:53)
[2017-01-11 05:49] LABS: BASOPHILS % (AUTO) 0 % (0-10); EOSINOPHILS % (AUTO) 0 % (0-10); LYMPHOCYTES # (AUTO) 1.1 X 10^3 (1.0-4.0); LYMPHOCYTES % (AUTO) 7 % (12-44); MEAN CORPUSCULAR HEMOGLOBIN 34 PG (25-34); MEAN CORPUSCULAR HGB CONC 35 G/DL (32-36); MEAN CORPUSCULAR VOLUME 96 FL (80-99); MEAN PLATELET VOLUME 10.6 FL (7.4-10.4); MONOCYTES # (AUTO) 1.1 X 10^3 (0.0-1.0); MONOCYTES % (AUTO) 7 % (0-12); NEUTROPHILS # (AUTO) 13.8 X 10^3 (1.8-7.8); NEUTROPHILS % (AUTO) 86 % (42-75); PLATELET COUNT 209 10^3/uL (130-400); RED BLOOD COUNT 3.72 10^6/uL (4.35-5.85); RED CELL DISTRIBUTION WIDTH 13.9 % (10.0-14.5); WHITE BLOOD COUNT 16.1 10^3/uL (4.3-11.0)
[2017-01-11 05:58] LABS: INR 1.2 (0.8-1.4); PROTHROMBIN TIME PATIENT 15.1 SEC (12.2-14.7)
[2017-01-11 06:07] LABS: ANION GAP 8 MMOL/L (5-14); BLOOD UREA NITROGEN 27 MG/DL (7-18); BUN/CREATININE RATIO 32; CALCIUM 8.9 MG/DL (8.5-10.1); CARBON DIOXIDE 23 MMOL/L (21-32); CHLORIDE 104 MMOL/L (98-107); CREATININE SERUM 0.84 MG/DL (0.60-1.30); GFR ESTIMATED > 60; GLUCOSE 111 MG/DL (70-105); MAGNESIUM 1.8 MG/DL (1.8-2.4); PHOSPHORUS 3.6 MG/DL (2.3-4.7); SODIUM 135 MMOL/L (135-145)
[2017-01-11] MEDS: RT-ALBUTEROL/IPRATROPIUM 3 ML (DUONEB) VIAL INH SCH ×3 (07:08→19:15)
[2017-01-11] MEDS: fentaNYL PCA 300 MCG/30 ML VIAL IV PRN ×2 (07:22→22:58)
--- NOTE | 2017-01-11 07:30 | Progress Note (SOAP) ---
Subjective Subjective 66 yo M with intractable neck and back pain- fentanyl has helped. Pt and nurse both report he did not sleep much at all. He is a worrier and stresses about things. He reports his neck pain is worse than his back pain. He looks forward to getting the CTs, eating a little bit and then hopefully fall asleep as he says he is exhausted from not sleeping much. Review of Systems General: No Chills, Night Sweats HEENT: No Head Aches, No Visual Changes Pulmonary: Dyspnea, Cough Cardiovascular: Chest Pain (right side, upper abdomen) Gastrointestinal: Constipation, Nausea, No: Abdominal Pain, Vomiting Genitourinary: No Dysuria, No Frequency Musculoskeletal: back pain (intractable), neck pain, No: shoulder pain Neurological: Weakness Objective Exam Vital Signs Vital Sign - Last 12Hours 01/10/17 01/11/17 19:00 04:20 Temp 97.3 Pulse 124 Resp 22 B/P (MAP) 112/77 Pulse Ox 92 O2 Delivery Room Air O2 Flow Rate 1.00 Capillary Refill : General Appearance: WD/WN, Anxious, Mild Distress (due to pain) HEENT: PERRL/EOMI Neck: Non Tender, Supple Respiratory: Chest Non Tender, Lungs Clear, No Accessory Muscle Use, No Respiratory Distress Cardiovascular: Regular Rate, Rhythm, Other (trace edema-lower legs) Gastrointestinal: Soft, Distended (seems to be distended from previous visits.) , Tenderness (mid abdomen) Rectal: Deferred Back: No CVA Tenderness, Vertebral Tenderness Extremity: Non Tender, No Calf Tenderness Neurologic/Psychiatric: Alert, Oriented x3, Normal Mood/Affect Skin: Warm/Dry (some bruising noted on arms) Results Lab Laboratory Tests 01/10/17 20:32: White Blood Count 17.7H, Red Blood Count 4.11L, Hemoglobin 13.8, Hematocrit 39L , Mean Corpuscular Volume 95, Mean Corpuscular Hemoglobin 34, Mean Corpuscular Hemoglobin Concent 35, Red Cell Distribution Width 13.9, Platelet Count 248, Mean Platelet Volume 10.9H, Neutrophils (%) (Auto) 86H, Lymphocytes (%) (Auto) 7L, Monocytes (%) (Auto) 7, Eosinophils (%) (Auto) 0, Basophils (%) (Auto) 0, Neutrophils # (Auto) 15.3H, Lymphocytes # (Auto) 1.2, Monocytes # (Auto) 1.2H, Eosinophils # (Auto) 0.0, Basophils # (Auto) 0.0, Neutrophils % (Manual) 85, Lymphocytes % (Manual) 9, Monocytes % (Manual) 4, Eosinophils % (Manual) 0, Basophils % (Manual) 1, Band Neutrophils 1, Blood Morphology Comment NORMAL, Sodium Level 134L, Potassium Level 4.3, Chloride Level 101, Carbon Dioxide Level 21, Anion Gap 12, Blood Urea Nitrogen 30H, Creatinine 0.95, Estimat Glomerular Filtration Rate > 60, BUN/Creatinine Ratio 32, Glucose Level 101, Calcium Level 10.0, Total Bilirubin 1.3H, Aspartate Amino Transf (AST/SGOT) 166H , Alanine Aminotransferase (ALT/SGPT) 246H, Alkaline Phosphatase 360H, Lactate Dehydrogenase 1573H, Total Protein 6.8, Albumin 3.6 01/11/17 05:41: White Blood Count 16.1H, Red Blood Count 3.72L, Hemoglobin 12.5L, Hematocrit 36L , Mean Corpuscular Volume 96, Mean Corpuscular Hemoglobin 34, Mean Corpuscular Hemoglobin Concent 35, Red Cell Distribution Width 13.9, Platelet Count 209, Mean Platelet Volume 10.6H, Neutrophils (%) (Auto) 86H, Lymphocytes (%) (Auto) 7L, Monocytes (%) (Auto) 7, Eosinophils (%) (Auto) 0, Basophils (%) (Auto) 0, Neutrophils # (Auto) 13.8H, Lymphocytes # (Auto) 1.1, Monocytes # (Auto) 1.1H, Eosinophils # (Auto) 0.0, Basophils # (Auto) 0.0, Sodium Level 135, Potassium Level 4.0, Chloride Level 104, Carbon Dioxide Level 23, Anion Gap 8, Blood Urea Nitrogen 27H, Creatinine 0.84, Estimat Glomerular Filtration Rate > 60, BUN/ Creatinine Ratio 32, Glucose Level 111H, Calcium Level 8.9, Albumin 3.0L, Prothrombin Time 15.1H, INR Comment 1.2, Phosphorus Level 3.6, Magnesium Level 1.8 Assessment/Plan Assessment/Plan Assessment/Plan 66 yo M directly admitted 01/10/17 for : 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 cervical spinal stenosis- severe at C5/6, moderate C7 -pain management leukocytosis- no overt infection. rechecking CBC. hypothyroidism- continue levothyroxine h/o hepatitis C - treated with interferon 1998 - hep C RNA undetected December 2016 coronary artery disease- s/p RCA stent 09/2016, Dr. Mesa continue plavix h/o kidney stone- stable, no issues COPD - MAT protocol Dispo: obtaining CT head/chest/ab/pelvis, will consult oncology. Likely will need radiation for palliative pain management. Case management consulted. Problems: Clinical Quality Measures DVT/VTE Risk/Contraindication: Risk Factor Score Per Nursin RFS Level Per Nursing on Admit: 2=Moderate Contraindications-Pharm: Other *list below* Other: on plavix JEFFREY PARKER MD Jan 11, 2017 07:30
[2017-01-11] MEDS ORDERED: IOHEXOL 350 MG/ML 150 ML (OMNIPAQUE 350) VIAL IV ONE (07:45)
[2017-01-11] MEDS ORDERED: CATHETER FLUSH 10 ML SYR IV PRN (07:45)
[2017-01-11] MEDS ORDERED: NS 100 ML (IVPB) BAG IV ONE (07:45)
[2017-01-11 08:00] VITALS: BP 157/79
[2017-01-11] MEDS ORDERED: PRAV20TA3 PO (08:30)
[2017-01-11] MEDS ORDERED: CLOPIDOGREL 75 MG (PLAVIX) TABLET PO SCH (09:00)
[2017-01-11] MEDS: DOCUSATE SODIUM 100 MG (COLACE) CAP PO SCH ×2 (09:25→20:32)
[2017-01-11] MEDS: ASPIRIN 81 MG CHEW (CHILDREN'S ASA) PO SCH (09:25)
--- NOTE | 2017-01-11 09:37 | Diagnostic Imaging Report ---
PROCEDURE: CT head with and without contrast. TECHNIQUE: Multiple contiguous axial images were obtained through the brain before and after the administration of intravenous contrast. INDICATION: Metastatic cancer evaluation. CONTRAST: 140 mL of intravenous contrast (Omnipaque 350) was administered intravenously. FINDINGS: The unenhanced phase demonstrates no intracranial hemorrhage, edema, or mass effect. Post contrast images demonstrate curvilinear enhancement in the right frontal lobe, compatible with a developmental venous anomaly. There is no suspicious enhancing mass identified. No hydrocephalus. No extra-axial fluid collection is seen. A mucus retention cyst in the left maxillary sinus is seen. The orbits appear symmetric. IMPRESSION: No intracranial hemorrhage. No evidence of metastasis. Dictated by: Dictated on workstation # [id number]
[2017-01-11] MEDS ORDERED: LEVOTHYROXINE 100 MCG (LEVOTHROID) TAB PO NR (10:15)
[2017-01-11] MEDS ORDERED: OXYC5TAB71 PO (10:36)
[2017-01-11] MEDS ORDERED: [UNRECOGNIZED DRUG - CODE] TD (10:36)
[2017-01-11] MEDS ORDERED: RT-ALBUINH IH (10:36)
--- NOTE | 2017-01-11 10:57 | Diagnostic Imaging Report ---
EXAMINATION: CT angiogram of the chest with multiplanar MIP technique reconstructions and CT scan of the abdomen performed with and without contrast. INDICATION: Dyspnea. Liver and chest masses suggested based on MRI studies of the spine. CONTRAST: 140 mL of Omnipaque 350 was administered intravenously. FINDINGS: CTA CHEST: There are encased branches of the left lower lobe pulmonary artery seen related to a large left hilar mass with narrowing and mostly partial occlusion involving particularly the lingular branches of the left pulmonary artery. There is also encasement and occlusion of the left lower lobe pulmonary vein. The mass also compresses the left lower lobe and the left upper lobe bronchi without complete occlusion. The maximum dimensions of the mass in the axial plane are 5.5 x 4.1 cm. There is also an infracarinal mass measuring 7.2 x 3.2 cm and there are enlarged right hilar lymph nodes up to 2.1 cm in size. Other mediastinal enlarged lymph nodes in the subaortic station measuring 1.9 cm and right paratracheal 1.9 cm nodes are also seen. Other than the encasement by tumor, the pulmonary arteries demonstrate no significant filling defects to suggest pulmonary embolism. There is a patchy area of consolidation seen in the lingula which could relate to atelectasis and other areas of minimal bibasilar atelectasis are seen. Mild nodularity is seen along the left major fissure, concerning for early pleural involvement by malignancy. There is no definitive dominant lung mass. Another nonspecific nodule measuring 8 mm along the minor fissure is seen. The heart size is slightly prominent. No pericardial effusion. No significant pleural effusion. The thoracic aorta is normal in caliber. There is no axillary lymphadenopathy. The widespread spine metastasis seen on the MRI is largely occult by CT scan. CT ABDOMEN AND PELVIS: There are innumerable liver masses, compatible with metastatic disease. The largest mass is in the inferior aspect of the right hepatic lobe measuring 7.3 cm. The entire liver parenchyma, however, is involved with masses with all hepatic segments involved. There are mildly enlarged lymph nodes seen in the mable hepatis and peripancreatic region including a 1.4 cm node abutting the anterior aspect of the pancreas. There is also a left adrenal nodule measuring 1.6 x 2.4 cm. An indeterminate splenic lesion measuring 1.5 cm is also seen. The gallbladder and right adrenal gland appear unremarkable. There is question of thickening along the posterior wall of the gastric antrum which is not well from the pancreas. There is no definite primary pancreatic parenchymal mass seen. The kidneys have symmetric enhancement and contrast excretion. A right perirenal retroperitoneal 1 cm presumably metastatic nodule is seen. The prostate is enlarged at 5.4 cm in transverse dimension. A tiny amount of free fluid in the pelvis is seen. There is no obvious colonic mass identified. The abdominal aorta is normal in caliber. No periaortic significantly enlarged lymph node is seen. The osseous structures demonstrate fusion of the SI joints. There is heterogenous density in the bone marrow with a mild degree of sclerosis and likely old L2 vertebral body fracture. The bone changes are suggestive of bone marrow metastasis with correlating mild sclerosis and significant occult component by CT scan, only seen by MRI. IMPRESSION: CTA CHEST: 1. There are large masses in the left hilum and infracarinal station with mildly enlarged right hilar and other mediastinal lymph nodes, compatible with metastasis. Left hilar lung cancer primary is a possibility. 2. There is encasement of bronchial and vascular branches around the left hilum as described. CT ABDOMEN AND PELVIS: 1. Innumerable liver masses with left adrenal, mable hepatis, splenic, and retroperitoneal metastasis seen. 2. Thickening in the posterior wall of the distal stomach not well from the adjacent portion of the pancreas raises the possibility of a gastric cancer primary. Consider endoscopic correlation. The findings were discussed with Dr. Cliff Lynch by Dr. Cabral at the time of dictation. Dictated by: Dictated on workstation # [id number]
[2017-01-11 12:00] VITALS: BP 161/84
--- NOTE | 2017-01-11 13:48 | Consultation ---
History of Present Illness History of Present Illness Patient Consulted On(ondina/time) 01/11/17 13:43 Date of Admission This is a 66-year-old male with a [id number] smoking history who quit late August 2016 when he was told that he had major occlusion of a coronary vessel and would need stent placement. He has known history of COPD, remote history of chronic hepatitis C treated with interferon in 1998 with SVR at serial testing. He reports putting in his sink about 3 weeks ago and developing low back pain as well as neck and shoulder pain which has been progressive and very severe. MRIs of C-spine, T-spine, and lumbar spine were done and revealed diffuse bony metastasis, no evidence of significant cord compression although moderate C5/6 spinal stenosis a mild S1 nerve root compression was seen. Lung and liver masses were noted on the study and subsequent CT scan of the chest and abdomen showed widespread liver metastasis as well as large hilar lymph node masses. Patient is currently taking Plavix and had had a dose this morning prior to my seeing him. I have reviewed the imaging studies with Dr. Cabral, radiologist's who feels that most likely primary is either lung or stomach. Patient has markedly abnormal LFTs now which were normal in September 2016. Allergies and Home Medications Allergies Coded Allergies: Norris Known Allergies (Verified Allergy, Unknown, 09/03/07) Home Medications Albuterol Sulfate 1 Puff Puff, 2 PUFF IH Q4H PRN for SHORTNESS OF BREATH, ( Reported) Aspirin 81 Mg Tablet.dr, 81 MG PO DAILY, (Reported) Clopidogrel Bisulfate 75 Mg Tablet, 75 MG PO DAILY, (Reported) Levothyroxine Sodium 100 Mcg Tablet, 100 MCG PO DAILY, (Reported) Lidocaine 700 Mg Adh..patch, 1 PATCH TD DAILY PRN for PAIN, (Reported) Lisinopril 5 Mg Tablet, 5 MG PO DAILY, (Reported) Omeprazole 20 Mg Capsule.dr, 20 MG PO DAILY, (Reported) Oxycodone HCl 5 Mg Tablet, 5 MG PO Q6H PRN for SEVERE PAIN, (Reported) Pravastatin Sodium 20 Mg Tablet, 20 MG PO DAILY, (Reported) Past [id number]-[id number] Hx Patient Social History Alcohol Use: Denies Use Recreational Drug Use: Yes Drug of Choice: MARIJUANA - COUPLE WEEKS AGO Smoking Status: Former Smoker Type Used: Cigarettes Recent Foreign Travel: No Contact w/Someone Who Travel: No Recent Infectious Disease Expo: No Recent Hopitalizations: No Physical Abuse Screen: No Sexual Abuse: No Immunizations Up To Date Date of Pneumonia Vaccine: May 24, 2016 Date of Influenza Vaccine: Jul 11, 2016 Seasonal Allergies Seasonal Allergies: No Surgeries HX Surgeries: Yes Surgeries: Adenoidectomy, Coronary Stent (Sep 2016), Tonsillectomy Respiratory Hx Respiratory Disorders: No Cardiovascular Hx Cardiac Disorders: Yes Cardiac Disorders: Coronary Artery Disease, High Cholesterol, Hypertension Neurological Hx Neurological Disorders: No Reproductive System Hx Reproductive Disorders: No Genitourinary Hx Genitourinary Disorders: No Genitourinary Disorders: Kidney Stones Gastrointestinal Hx Gastrointestinal Disorders: Yes Gastrointestinal Disorders: Gastroesophageal Reflux Musculoskeletal Hx Musculoskeletal Disorders: Yes (TORN LIGAMENTS IN BACK,COMP.FX.) Musculoskeletal Disorders: Chronic Back Pain Endocrine Hx Endocrine Disorders: Yes Endocrine Disorders: Hypothyroidsim HEENT HX ENT Disorders: No Cancer Hx Cancer: No Psychosocial Hx Psychiatric Problems: No Blood Transfusions Hx Blood Disorders: No Family Medical History Significant Family History: No Pertinent Family Hx Family Medial History: Patient reports no known family medical history. Review of Systems-General Respiratory: short of breath Musculoskeletal: back pain, neck pain, other (right shoulder pain) Physical Exam-General Problems Physical Exam Vital Signs Vital Sign - Last 12Hours 01/10/17 01/11/17 19:00 04:20 Temp 97.3 Pulse 124 Resp 22 B/P (MAP) 112/77 Pulse Ox 92 O2 Delivery Room Air O2 Flow Rate 1.00 Capillary Refill : General Appearance: no apparent distress HEENT: PERRL/EOMI Neck: non-tender Cardiovascular: regular rate, rhythm, no JVD Gastrointestinal: normal bowel sounds, non tender, soft, no organomegaly Rectal: deferred Back: no CVA tenderness, no vertebral tenderness Extremities: no pedal edema, no calf tenderness Neurologic/Psychiatric: clinical manager home care II-XII nml as tested, no motor/sensory deficits, alert, normal mood/affect, oriented x 3 Comments Laboratory Tests 01/10/17 20:32 01/11/17 05:41 Laboratory Tests 01/10/17 20:32: White Blood Count 17.7H, Red Blood Count 4.11L, Hematocrit 39L, Mean Platelet Volume 10.9H, Neutrophils (%) (Auto) 86H, Lymphocytes (%) (Auto) 7L, Neutrophils # (Auto) 15.3H, Monocytes # (Auto) 1.2H, Sodium Level 134L, Blood Urea Nitrogen 30H, Total Bilirubin 1.3H, Aspartate Amino Transf (AST/SGOT) 166H , Alanine Aminotransferase (ALT/SGPT) 246H, Alkaline Phosphatase 360H, Lactate Dehydrogenase 1573H 01/11/17 05:41: White Blood Count 16.1H, Red Blood Count 3.72L, Hematocrit 36L, Mean Platelet Volume 10.6H, Neutrophils (%) (Auto) 86H, Lymphocytes (%) (Auto) 7L, Neutrophils # (Auto) 13.8H, Monocytes # (Auto) 1.1H, Blood Urea Nitrogen 27H, Hemoglobin 12.5L, Prothrombin Time 15.1H, Glucose Level 111H, Albumin 3.0L 01/11/17 14:25: MRI of the C-spine done 01/10/17: The spinal canal demonstrates normal caliber, contour, and signal of the spinal cord. The foramen magnum and the upper cervical canal are widely patent. C2/3: No disc herniation or spinal canal stenosis. There is facet arthropathy with [id number] stenosis of the left neural foramen. The right neural foramen is patent. C3/4: No disc herniation and no spinal canal stenosis. The foramina demonstrate bilateral moderate stenosis. C4/5: There is a minimal disc spur complex with no significant spinal canal stenosis. There is bilateral foraminal stenosis,severe on the right and moderate on the left. C5/6: There is spur disc complex and posterior ligamentous thickening. This is associated with moderate spinal canal stenosis reducing the AP dimension of the central canal to 7.7 mm and resulting in minimal cord compression along the right side of the spinal cord with no cord signal abnormality. Bilateral severe foraminal stenosis is seen at this level. C6/7: There is a mild disc spur complex and posterior ligamentous hypertrophy reducing the AP dimension of the central canal to 8.6 mm, moderate canal stenosis with no cord compression. There is bilateral severe foraminal stenosis , worse on the right. C7/T1: No disc herniation, no spinal canal or foraminal stenosis. IMPRESSION: 1. Diffuse bone marrow abnormalities in the spine likely related to metastatic disease. 2. Multilevel degenerative changes with neural foraminal and spinal canal stenosis. 3. There is a likely old mild compression fracture of L4 vertebral body. MRI of the T-spine done 01/10/17:There is minimal disc herniation at the T3-4 level without significant spinal canal stenosis or cord compression. There is no spinal cord abnormality with normal caliber, contour, and signal. There is no significant spinal canal stenosis or foraminal narrowing at any level. There are diffuse bone marrow signal abnormalities in the thoracic spine, suggestive of metastasis. There are partially visualized multiple liver masses seen. There is also question of infracarinal enlarged lymph nodes. IMPRESSION: The findings are compatible with diffuse osseous metastasis with suggestion of liver metastasis and an infracarinal mass. Further evaluation with a CT scan of the chest, abdomen, and pelvis is recommended. MRI of the lumbar spine done in 01/10/17:IMPRESSION: 1. Diffuse metastases in the lumbar spine, the sacrum, and inthe liver. CT studies to look for primary neoplasm is suggested. 2. A 50% compression fracture of L2 vertebral body, likely old. 3. Tumor extension into the anterior epidural space in the upper sacrum and at the posterolateral aspect of the lower L3 level. The descending left S1 nerve root is compressed by the mass extension into the right lateral recess and the upper sacrum. Other findings as above. CT Angio of Chest and CT SCAN of Abdomen and Pelvis done 01/10/17: IMPRESSION: CTA CHEST: 1. There are large masses in the left hilum and infracarinal station with mildly enlarged right hilar and other mediastinal lymph nodes, compatible with metastasis. Left hilar lung cancer primary is a possibility. 2. There is encasement of bronchial and vascular branches around the left hilum as described. CT ABDOMEN AND PELVIS: 1. Innumerable liver masses with left adrenal, mable hepatis, splenic, and retroperitoneal metastasis seen. 2. Thickening in the posterior wall of the distal stomach not well from the adjacent portion of the pancreas raises the possibility of a gastric cancer primary. Consider endoscopic correlation. Assessment/Plan Assessment/Plan Admission Diagnosis/Plan 1. Uncontrolled cancer pain-receiving fentanyl RENTAL AGENT with adequate pain relief at present 2. Widespread metastatic disease involving liver, bone, diffuse vertebral body metastasis, multiple lymph nodes sites and possibly stomach; needs cancer evaluation and biopsy for tissue diagnosis. 3. Markedly abnormal LFTs of recent onset. LFTs were normal in September 2016. 4. History of hepatitis C treated in 1998 with interferon with successive noted negative viral titers 5. COPD 6. Ex heavy smoker 7. COPD status post stent placement and has been on Plavix 8. Hypothyroidism on levothyroxine PLAN: 1. Continue fentanyl RENTAL AGENT with medication adjustment to achieve effective pain control 2. Add Decadron 4mg po thrice (3X) daily. It will assist with controll of his bone pains. Cover mucosal linings with PPIs (Pepcid). 3. Hold Plavix for impending liver mass biopsy. (He received a dose of Plavix this morning). Hold aspirin also, if no objection from Dr. Chan dye tub tender. 4. AFP, PSA, beta-hCG today 5. Thank you for the opportunity to participate in this gentleman's care. We' ll follow with you Clinical Quality Measures DVT/VTE Risk/Contraindication: Risk Factor Score Per Nursin RFS Level Per Nursing on Admit: 2=Moderate Contraindications-Pharm: Other *list below* Other: on plavix NANCY WORTHY MD Jan 11, 2017 13:48
[2017-01-11 16:00] VITALS: BP 144/85
[2017-01-11 20:00] VITALS: BP 142/84
[2017-01-11] MEDS: FAMOTIDINE 20MG/2ML IV (PEPCID) IVP SCH (20:26)
[2017-01-11] MEDS: POLYETHYLENE GLYCOL 17 GM (MIRALAX) PACK PO SCH (20:26)
[2017-01-11] MEDS: DEXAMETHASONE 4 MG TAB (DECADRON) PO SCH (20:26)
[2017-01-12] VITALS: BP 139/81
[2017-01-12] MEDS: RT-ALBUTEROL/IPRATROPIUM 3 ML (DUONEB) VIAL INH PRN ×2 (02:06→11:36)
[2017-01-12] MEDS: DEXAMETHASONE 4 MG TAB (DECADRON) PO SCH ×3 (02:21→17:17)
[2017-01-12 03:51] VITALS: BP 155/75
[2017-01-12 05:52] LABS: BASOPHILS % (AUTO) 0 % (0-10); EOSINOPHILS % (AUTO) 0 % (0-10); LYMPHOCYTES # (AUTO) 0.6 X 10^3 (1.0-4.0); LYMPHOCYTES % (AUTO) 3 % (12-44); MEAN CORPUSCULAR HEMOGLOBIN 33 PG (25-34); MEAN CORPUSCULAR HGB CONC 34 G/DL (32-36); MEAN CORPUSCULAR VOLUME 96 FL (80-99); MEAN PLATELET VOLUME 11.1 FL (7.4-10.4); MONOCYTES # (AUTO) 0.8 X 10^3 (0.0-1.0); MONOCYTES % (AUTO) 4 % (0-12); NEUTROPHILS # (AUTO) 17.3 X 10^3 (1.8-7.8); NEUTROPHILS % (AUTO) 93 % (42-75); PLATELET COUNT 264 10^3/uL (130-400); RED BLOOD COUNT 4.12 10^6/uL (4.35-5.85); RED CELL DISTRIBUTION WIDTH 14.1 % (10.0-14.5); WHITE BLOOD COUNT 18.6 10^3/uL (4.3-11.0)
[2017-01-12] MEDS: LEVOTHYROXINE 100 MCG (LEVOTHROID) TAB PO SCH (06:10)
[2017-01-12 06:11] LABS: ALANINE AMINOTRANSFERASE 261 U/L (0-55); ALBUMIN 3.4 G/DL (3.2-4.5); ANION GAP 13 MMOL/L (5-14); ASPARTATE AMINO TRANSFERASE 209 U/L (5-34); BILIRUBIN,TOTAL 1.3 MG/DL (0.1-1.0); BLOOD UREA NITROGEN 22 MG/DL (7-18); BUN/CREATININE RATIO 27; CALCIUM 9.2 MG/DL (8.5-10.1); CARBON DIOXIDE 17 MMOL/L (21-32); CHLORIDE 104 MMOL/L (98-107); CREATININE SERUM 0.82 MG/DL (0.60-1.30); GFR ESTIMATED > 60; GLUCOSE 113 MG/DL (70-105); POTASSIUM 4.6 MMOL/L (3.6-5.0); SODIUM 134 MMOL/L (135-145); TOTAL PROTEIN 6.5 G/DL (6.4-8.2)
[2017-01-12] MEDS: fentaNYL PCA 300 MCG/30 ML VIAL IV PRN (07:11)
[2017-01-12 07:24] LABS: HCG TUMOR MARKER <2 mIU/mL (0-4)
[2017-01-12 07:25] LABS: ALPHA-FETO PROTEIN MARKER <1.5 ng/mL (1.5-10.0)
[2017-01-12 08:00] VITALS: BP 136/78
[2017-01-12] MEDS: RT-ALBUTEROL/IPRATROPIUM 3 ML (DUONEB) VIAL INH SCH ×3 (08:17→19:33)
--- NOTE | 2017-01-12 08:52 | Progress Note (SOAP) ---
Subjective Subjective 66 yo M with intractable neck and back pain- fentanyl has helped. Slept some during the day yesterday- his pain is not as bad during the day- but at night it worsens. Eating okay. No new complaints- he would like to go home for a few hours to gather his paperwork so he can work on his last will and testament. Dr. Katz oncology talked with pt yesterday and is on the case. Review of Systems General: No Chills, Night Sweats HEENT: No Head Aches, No Visual Changes Pulmonary: Dyspnea, Cough Cardiovascular: Chest Pain (right side, upper abdomen) Gastrointestinal: Constipation, Nausea, No: Abdominal Pain, Vomiting Genitourinary: No Dysuria, No Frequency Musculoskeletal: back pain (intractable), neck pain, No: shoulder pain Neurological: Weakness Objective Exam Vital Signs Vital Sign - Last 12Hours 01/10/17 01/11/17 19:00 04:20 Temp 97.3 Pulse 124 Resp 22 B/P (MAP) 112/77 Pulse Ox 92 O2 Delivery Room Air O2 Flow Rate 1.00 Capillary Refill : General Appearance: WD/WN, Anxious, Mild Distress (due to pain) HEENT: PERRL/EOMI Neck: Non Tender, Supple Respiratory: Chest Non Tender, Lungs Clear (decreased breath sounds in bases), No Accessory Muscle Use, No Respiratory Distress Cardiovascular: Regular Rate, Rhythm, Other (trace edema-lower legs) Gastrointestinal: Soft, Distended (seems to be distended from previous visits.) , Tenderness (mid abdomen) Rectal: Deferred Back: No CVA Tenderness, Vertebral Tenderness Extremity: Non Tender, No Calf Tenderness Neurologic/Psychiatric: Alert, Oriented x3, Normal Mood/Affect Skin: Warm/Dry (some bruising noted on arms) Results Lab Laboratory Tests 01/11/17 14:25: Alpha Fetoprotein <1.5, Prostate Specific Antigen 0.82, Tumor Marker HCG <2 01/12/17 05:06: White Blood Count 18.6H, Red Blood Count 4.12L, Hemoglobin 13.5, Hematocrit 40, Mean Corpuscular Volume 96, Mean Corpuscular Hemoglobin 33, Mean Corpuscular Hemoglobin Concent 34, Red Cell Distribution Width 14.1, Platelet Count 264, Mean Platelet Volume 11.1H, Neutrophils (%) (Auto) 93H, Lymphocytes (%) (Auto) 3L, Monocytes (%) (Auto) 4, Eosinophils (%) (Auto) 0, Basophils (%) (Auto) 0, Neutrophils # (Auto) 17.3H, Lymphocytes # (Auto) 0.6L, Monocytes # (Auto) 0.8, Eosinophils # (Auto) 0.0, Basophils # (Auto) 0.0, Sodium Level 134L, Potassium Level 4.6, Chloride Level 104, Carbon Dioxide Level 17L, Anion Gap 13, Blood Urea Nitrogen 22H, Creatinine 0.82, Estimat Glomerular Filtration Rate > 60, BUN /Creatinine Ratio 27, Glucose Level 113H, Calcium Level 9.2, Total Bilirubin 1.3H, Aspartate Amino Transf (AST/SGOT) 209H, Alanine Aminotransferase (ALT/SGPT ) 261H, Alkaline Phosphatase 402H, Total Protein 6.5, Albumin 3.4 Assessment/Plan Assessment/Plan Assessment/Plan 66 yo M directly admitted 01/10/17 for : Intractable back pain likely due to overuse, stenosis, metastatic cancer- fentanyl etcher enameling , oxycodone 10mg for breakthrough , dexamethasone 4mg -diffuse mets to cervical/thoracic/lumbar vertebra, hepatic lesions, infracarinal mass, upper sacral mass- anterior epidural space seen on MRI -suspect lung vs stomach as primary -CT head/chest/ab/pelvis 01/11/17 - lesions in hilar region, liver, posterior stomach- - LDH elevated >1500 new diagnosed cancer with metastasis- liver biopsy Monday01/16/17- holding plavix for 5 days. AFP, HCG, PSA- not elevated Dr. Katz consulted Elevated LFTs/Acute transaminitis- will monitor, suspect secondary from cancer involving the liver. cervical spinal stenosis- severe at C5/6, moderate C7 -pain management leukocytosis- no overt infection. monitor CBC. hypothyroidism- continue levothyroxine h/o hepatitis C - treated with interferon 1998 - hep C RNA undetected December 2016 coronary artery disease- s/p RCA stent 09/2016, Dr. Mesa holding plavix h/o kidney stone- stable, no issues COPD - MAT protocol h/o tobaccoism- quit ~Aug 2016 DVT ppx: SCDs Dispo: liver biopsy scheduled for 01.16.17 after holding plavix for 5 days.- Pt is working on his last will and testament. Problems: Clinical Quality Measures DVT/VTE Risk/Contraindication: Risk Factor Score Per Nursin RFS Level Per Nursing on Admit: 2=Moderate Contraindications-Pharm: Other *list below* Other: on plavix JEFFREY PARKER MD Jan 12, 2017 08:52
[2017-01-12] MEDS: ASPIRIN 81 MG CHEW (CHILDREN'S ASA) PO SCH (09:27)
[2017-01-12] MEDS: FAMOTIDINE 20MG/2ML IV (PEPCID) IVP SCH (09:27)
[2017-01-12] MEDS: DOCUSATE SODIUM 100 MG (COLACE) CAP PO SCH ×2 (09:27→20:34)
[2017-01-12] MEDS: NS IV 1000 ML 1,000 ML IV SCH (09:34)
[2017-01-12 12:00] VITALS: BP 139/91
--- NOTE | 2017-01-12 13:50 | Progress Note (SOAP) ---
Subjective Subjective/Events-last exam Pain is much better controlled. Objective Exam Vital Signs Date Time Temp Pulse Resp B/P (MAP) Pulse Ox O2 Delivery O2 Flow Rate FiO2 01/12/17 11:37 100 1.50 01/12/17 09:00 95 Room Air 01/12/17 08:18 94 1.50 01/12/17 08:00 97.7 112 22 136/78 94 Nasal Cannula 1.00 01/12/17 07:11 18 01/12/17 03:51 98.6 107 18 155/75 92 Nasal Cannula 1.00 01/12/17 02:07 92 2.00 01/12/17 00:00 98.7 94 18 139/81 93 Nasal Cannula 1.00 01/11/17 22:58 18 01/11/17 22:11 93 2.00 01/11/17 21:00 93 Room Air 01/11/17 20:00 98.0 112 18 142/84 92 Nasal Cannula 1.00 01/11/17 19:16 92 2.00 01/11/17 16:00 98.1 91 18 144/85 93 Nasal Cannula 1.00 01/11/17 14:15 93 1.00 I & O 01/12/17 07:00 Intake Total 2930 ml Output Total 1325 ml Balance 1605 ml Capillary Refill : General Appearance: No Apparent Distress, Chronically ill HEENT: PERRL/EOMI Respiratory: Crackles, Wheezing Cardiovascular: Regular Rate, Rhythm Gastrointestinal: normal bowel sounds, non tender, soft, no organomegaly Extremity: Non Tender, No Calf Tenderness Neurologic/Psychiatric: Alert, Oriented x3, No Motor/Sensory Deficits, Normal Mood/Affect, shirt finisher II-XII Norm as Tested Results Lab Laboratory Tests 01/10/17 20:32 01/11/17 05:41 01/12/17 05:06 Laboratory Tests 01/11/17 14:25: Alpha Fetoprotein <1.5, Prostate Specific Antigen 0.82, Tumor Marker HCG <2 01/12/17 05:06: White Blood Count 18.6H, Red Blood Count 4.12L, Hemoglobin 13.5, Hematocrit 40, Mean Corpuscular Volume 96, Mean Corpuscular Hemoglobin 33, Mean Corpuscular Hemoglobin Concent 34, Red Cell Distribution Width 14.1, Platelet Count 264, Mean Platelet Volume 11.1H, Neutrophils (%) (Auto) 93H, Lymphocytes (%) (Auto) 3L, Monocytes (%) (Auto) 4, Eosinophils (%) (Auto) 0, Basophils (%) (Auto) 0, Neutrophils # (Auto) 17.3H, Lymphocytes # (Auto) 0.6L, Monocytes # (Auto) 0.8, Eosinophils # (Auto) 0.0, Basophils # (Auto) 0.0, Sodium Level 134L, Potassium Level 4.6, Chloride Level 104, Carbon Dioxide Level 17L, Anion Gap 13, Blood Urea Nitrogen 22H, Creatinine 0.82, Estimat Glomerular Filtration Rate > 60, BUN /Creatinine Ratio 27, Glucose Level 113H, Calcium Level 9.2, Total Bilirubin 1.3H, Aspartate Amino Transf (AST/SGOT) 209H, Alanine Aminotransferase (ALT/SGPT ) 261H, Alkaline Phosphatase 402H, Total Protein 6.5, Albumin 3.4 Assessment/Plan Assessment/Plan Assess & Plan/Chief Complaint 1. Uncontrolled cancer pain-receiving fentanyl DIETARY ASSISTANT with adequate pain relief at present 2. Widespread metastatic disease involving liver, bone, diffuse vertebral body metastasis, multiple lymph nodes sites and possibly stomach; receiving cancer evaluation and biopsy for tissue diagnosis is pending and is planned for . a. PSA, beta-hCG today AFP are all normal; b. Markedly elevated LDH related to malignancy with a rapid cell turnover (possible lymphoma versus previously suggested lung <eg small cell> versus stomach); 3. Markedly abnormal LFTs of recent onset. LFTs were normal in September 2016. 4. History of hepatitis C treated in 1998 with interferon with successive noted negative viral titers 5. COPD 6. Ex heavy smoker 7. COPD status post stent placement and has been on Plavix 8. Hypothyroidism on levothyroxine PLAN: 1. Continue fentanyl DIETARY ASSISTANT with medication adjustment to achieve effective pain control 2. Add Decadron 4mg po thrice (3X) daily. It will assist with controll of his bone pains. Cover mucosal linings with PPIs (Pepcid). 3. Hold Plavix for impending liver mass biopsy. Clinical Quality Measures DVT/VTE Risk/Contraindication: Risk Factor Score Per Nursin RFS Level Per Nursing on Admit: 2=Moderate Contraindications-Pharm: Other *list below* Other: on plavix NANCY WORTHY MD Jan 12, 2017 13:50
[2017-01-12 16:00] VITALS: BP 137/84
[2017-01-12 20:00] VITALS: BP 149/82
[2017-01-12] MEDS: POLYETHYLENE GLYCOL 17 GM (MIRALAX) PACK PO SCH (20:34)
[2017-01-12] MEDS: FAMOTIDINE 20 MG (PEPCID) TABLET PO SCH (20:34)
[2017-01-13] VITALS: BP 141/83
[2017-01-13] MEDS: fentaNYL PCA 300 MCG/30 ML VIAL IV PRN ×2 (01:20→20:46)
[2017-01-13] MEDS: DEXAMETHASONE 4 MG TAB (DECADRON) PO SCH ×3 (01:27→20:47)
[2017-01-13 04:00] VITALS: BP 161/79
[2017-01-13 05:02] LABS: BASOPHILS % (AUTO) 0 % (0-10); EOSINOPHILS % (AUTO) 0 % (0-10); LYMPHOCYTES # (AUTO) 0.7 X 10^3 (1.0-4.0); LYMPHOCYTES % (AUTO) 4 % (12-44); MEAN CORPUSCULAR HEMOGLOBIN 33 PG (25-34); MEAN CORPUSCULAR HGB CONC 34 G/DL (32-36); MEAN CORPUSCULAR VOLUME 97 FL (80-99); MONOCYTES # (AUTO) 1.2 X 10^3 (0.0-1.0); MONOCYTES % (AUTO) 6 % (0-12); NEUTROPHILS # (AUTO) 16.9 X 10^3 (1.8-7.8); NEUTROPHILS % (AUTO) 90 % (42-75); PLATELET COUNT 236 10^3/uL (130-400); RED BLOOD COUNT 3.78 10^6/uL (4.35-5.85); RED CELL DISTRIBUTION WIDTH 14.2 % (10.0-14.5); WHITE BLOOD COUNT 18.7 10^3/uL (4.3-11.0)
[2017-01-13 05:21] LABS: ALANINE AMINOTRANSFERASE 235 U/L (0-55); ALBUMIN 3.2 G/DL (3.2-4.5); ANION GAP 12 MMOL/L (5-14); ASPARTATE AMINO TRANSFERASE 182 U/L (5-34); BILIRUBIN,TOTAL 1.2 MG/DL (0.1-1.0); BLOOD UREA NITROGEN 23 MG/DL (7-18); BUN/CREATININE RATIO 29; CALCIUM 9.1 MG/DL (8.5-10.1); CARBON DIOXIDE 18 MMOL/L (21-32); CHLORIDE 105 MMOL/L (98-107); CREATININE SERUM 0.79 MG/DL (0.60-1.30); GFR ESTIMATED > 60; GLUCOSE 112 MG/DL (70-105); POTASSIUM 4.6 MMOL/L (3.6-5.0); SODIUM 135 MMOL/L (135-145); TOTAL PROTEIN 6.1 G/DL (6.4-8.2)
[2017-01-13] MEDS: LEVOTHYROXINE 100 MCG (LEVOTHROID) TAB PO SCH (05:41)
[2017-01-13] MEDS: RT-ALBUTEROL/IPRATROPIUM 3 ML (DUONEB) VIAL INH SCH ×3 (07:08→20:27)
[2017-01-13 08:00] VITALS: BP 167/83
--- NOTE | 2017-01-13 08:50 | Progress Note (SOAP) ---
Subjective Subjective 66 yo M with intractable neck and back pain- No overnight events. Pt does feel weaker each day- He does get up to walk the halls and sit in the chair. Tolerating diet. Has not had a bowel movement in 3 days and would like to have one today. He has decreased his anxiety and stressing as he stated Dr. Katz did a great job talking with him yesterday and answers a lot of his questions. Pt really appreciated Dr. Katz updating him. Pt plans to go home 01/16 or as he has friends that are going to help him with his last will and testament. He has not told his aunt yet. Review of Systems General: No Chills, Night Sweats HEENT: No Head Aches, No Visual Changes Pulmonary: Dyspnea, Cough Cardiovascular: Chest Pain (right side, upper abdomen) Gastrointestinal: Constipation, Nausea, No: Abdominal Pain, Vomiting Genitourinary: No Dysuria, No Frequency Musculoskeletal: back pain (intractable), neck pain, No: shoulder pain Neurological: Weakness Objective Exam Vital Signs Vital Sign - Last 12Hours 01/10/17 01/11/17 19:00 04:20 Temp 97.3 Pulse 124 Resp 22 B/P (MAP) 112/77 Pulse Ox 92 O2 Delivery Room Air O2 Flow Rate 1.00 Capillary Refill : General Appearance: WD/WN, Mild Distress HEENT: PERRL/EOMI Neck: Non Tender, Supple Respiratory: No Accessory Muscle Use, Decreased Breath Sounds (bases), Wheezing Cardiovascular: Regular Rate, Rhythm, No Edema Gastrointestinal: Soft, Distended, Tenderness (mid abdomen) Rectal: Deferred Back: No CVA Tenderness, Vertebral Tenderness Extremity: Non Tender, No Calf Tenderness Neurologic/Psychiatric: Alert, Oriented x3, No Motor/Sensory Deficits, Normal Mood/Affect Skin: Warm/Dry (some bruising noted on arms) Results Lab Laboratory Tests 01/13/17 04:35: White Blood Count 18.7H, Red Blood Count 3.78L, Hemoglobin 12.6L, Hematocrit 37L , Mean Corpuscular Volume 97, Mean Corpuscular Hemoglobin 33, Mean Corpuscular Hemoglobin Concent 34, Red Cell Distribution Width 14.2, Platelet Count 236, Mean Platelet Volume 11.0H, Neutrophils (%) (Auto) 90H, Lymphocytes (%) (Auto) 4L, Monocytes (%) (Auto) 6, Eosinophils (%) (Auto) 0, Basophils (%) (Auto) 0, Neutrophils # (Auto) 16.9H, Lymphocytes # (Auto) 0.7L, Monocytes # (Auto) 1.2H, Eosinophils # (Auto) 0.0, Basophils # (Auto) 0.0, Sodium Level 135, Potassium Level 4.6, Chloride Level 105, Carbon Dioxide Level 18L, Anion Gap 12, Blood Urea Nitrogen 23H, Creatinine 0.79, Estimat Glomerular Filtration Rate > 60, BUN /Creatinine Ratio 29, Glucose Level 112H, Calcium Level 9.1, Total Bilirubin 1.2H, Aspartate Amino Transf (AST/SGOT) 182H, Alanine Aminotransferase (ALT/SGPT ) 235H, Alkaline Phosphatase 366H, Total Protein 6.1L, Albumin 3.2 Assessment/Plan Assessment/Plan Assessment/Plan 66 yo M directly admitted 01/10/17 for : Intractable back pain likely due to overuse, stenosis, metastatic cancer- fentanyl glue maker bone , oxycodone 10mg for breakthrough , dexamethasone 4mg -diffuse mets to cervical/thoracic/lumbar vertebra, hepatic lesions, infracarinal mass, upper sacral mass- anterior epidural space seen on MRI -suspect lung vs stomach vs lymphoma as primary -CT head/chest/ab/pelvis 01/11/17 - lesions in hilar region, liver, posterior stomach- - LDH elevated >1500 new diagnosed cancer with metastasis- liver biopsy Monday01/16/17- holding plavix for 5 days. AFP, HCG, PSA- not elevated Dr. Katz consulted Elevated LFTs/Acute transaminitis- will monitor, suspect secondary from cancer involving the liver. cervical spinal stenosis- severe at C5/6, moderate C7 -pain management leukocytosis- no overt infection. monitor CBC. hypothyroidism- continue levothyroxine h/o hepatitis C - treated with interferon 1998 - hep C RNA undetected December 2016 coronary artery disease- s/p RCA stent 09/2016, Dr. Mesa holding plavix h/o kidney stone- stable, no issues COPD - MAT protocol h/o tobaccoism- quit ~Aug 2016 DVT ppx: SCDs Dispo: Pt will be inpatient over the weekend- liver biopsy scheduled for 01.16.17 after holding plavix for 5 days.- Plan to d/c same day as biopsy or following day depending on how pt does. added a 50mcg fentanyl patch today to try and get him off the fentanyl glue maker bone. Problems: Clinical Quality Measures DVT/VTE Risk/Contraindication: Risk Factor Score Per Nursin RFS Level Per Nursing on Admit: 2=Moderate Contraindications-Pharm: Other *list below* Other: on plavix JEFFREY PARKER MD Jan 13, 2017 08:50
[2017-01-13] MEDS: fentaNYL PATCH 50 MCG (DURAGESIC) TD SCH (08:51)
[2017-01-13] MEDS: NS IV 1000 ML 1,000 ML IV SCH (08:51)
[2017-01-13] MEDS: FAMOTIDINE 20 MG (PEPCID) TABLET PO SCH ×2 (08:52→20:47)
[2017-01-13] MEDS: LACTULOSE SYRUP 10GM/15ML (ENULOSE) 30ML UDC PO SCH ×2 (08:53→20:47)
[2017-01-13] MEDS: DOCUSATE SODIUM 100 MG (COLACE) CAP PO SCH ×2 (08:53→20:47)
[2017-01-13] MEDS: ASPIRIN 81 MG CHEW (CHILDREN'S ASA) PO SCH (08:53)
[2017-01-13 12:00] VITALS: BP 168/103
--- NOTE | 2017-01-13 12:55 | Progress Note (SOAP) ---
Subjective Subjective/Events-last exam Sitting up in chair in no apparent distress. Today he appears more hopeful regarding possibly receiving treatment for his widespread metastatic disease. Objective Exam Vital Signs Date Time Temp Pulse Resp B/P (MAP) Pulse Ox O2 Delivery O2 Flow Rate FiO2 01/13/17 10:08 93 1.50 01/13/17 09:30 98.4 01/13/17 09:12 94 01/13/17 08:53 98.4 01/13/17 08:51 98.4 01/13/17 08:04 Room Air 01/13/17 08:00 98.9 103 20 167/83 94 Nasal Cannula 1.00 01/13/17 07:08 94 1.50 01/13/17 04:00 98.4 96 22 161/79 93 Nasal Cannula 1.00 01/13/17 02:18 95 1.00 01/13/17 00:00 97.8 98 20 141/83 94 Nasal Cannula 1.00 01/12/17 21:00 Room Air 01/12/17 20:00 98.6 107 22 149/82 94 Nasal Cannula 1.00 01/12/17 19:34 98 1.00 01/12/17 16:00 98.5 111 18 137/84 100 Nasal Cannula 1.00 01/12/17 15:16 100 1.50 I & O 01/13/17 07:00 Intake Total 3075 ml Output Total 1250 ml Balance 1825 ml Capillary Refill : General Appearance: No Apparent Distress, Obese HEENT: PERRL/EOMI Neck: Full Range of Motion, Normal Inspection, Non Tender, Supple Respiratory: Decreased Breath Sounds, Wheezing Cardiovascular: Regular Rate, Rhythm, No Gallop, No JVD Gastrointestinal: normal bowel sounds, non tender, soft, no organomegaly Extremity: Non Tender, No Calf Tenderness Neurologic/Psychiatric: Alert, Oriented x3, No Motor/Sensory Deficits, Normal Mood/Affect, cardiology consultants II-XII Norm as Tested Results Lab Laboratory Tests 01/12/17 05:06 01/13/17 04:35 Laboratory Tests 01/13/17 04:35: White Blood Count 18.7H, Red Blood Count 3.78L, Hemoglobin 12.6L, Hematocrit 37L , Mean Corpuscular Volume 97, Mean Corpuscular Hemoglobin 33, Mean Corpuscular Hemoglobin Concent 34, Red Cell Distribution Width 14.2, Platelet Count 236, Mean Platelet Volume 11.0H, Neutrophils (%) (Auto) 90H, Lymphocytes (%) (Auto) 4L, Monocytes (%) (Auto) 6, Eosinophils (%) (Auto) 0, Basophils (%) (Auto) 0, Neutrophils # (Auto) 16.9H, Lymphocytes # (Auto) 0.7L, Monocytes # (Auto) 1.2H, Eosinophils # (Auto) 0.0, Basophils # (Auto) 0.0, Sodium Level 135, Potassium Level 4.6, Chloride Level 105, Carbon Dioxide Level 18L, Anion Gap 12, Blood Urea Nitrogen 23H, Creatinine 0.79, Estimat Glomerular Filtration Rate > 60, BUN /Creatinine Ratio 29, Glucose Level 112H, Calcium Level 9.1, Total Bilirubin 1.2H, Aspartate Amino Transf (AST/SGOT) 182H, Alanine Aminotransferase (ALT/SGPT ) 235H, Alkaline Phosphatase 366H, Total Protein 6.1L, Albumin 3.2 Assessment/Plan Assessment/Plan Assess & Plan/Chief Complaint 1. Uncontrolled cancer pain-receiving fentanyl CROP PULLER with adequate pain relief at present; has also been started on fentanyl patch today; 2. Widespread metastatic disease involving liver, bone, diffuse vertebral body metastasis, multiple lymph nodes sites and possibly stomach; receiving cancer evaluation and biopsy for tissue diagnosis is pending and is planned for . a. PSA, beta-hCG today AFP are all normal; b. Markedly elevated LDH related to malignancy with a rapid cell turnover (possible lymphoma versus previously suggested lung <eg small cell> versus stomach); 3. Markedly abnormal LFTs of recent onset. LFTs were normal in September 2016. 4. History of hepatitis C treated in 1998 with interferon with successive noted negative viral titers 5. COPD 6. Ex heavy smoker 7. COPD status post stent placement and has been on Plavix 8. Hypothyroidism on levothyroxine PLAN: 1. Continue fentanyl CROP PULLER with medication adjustment to achieve effective pain control 2. May decrease Decadron 4mg po to twice daily since pain is now better controlled. Cover mucosal linings with PPIs (Pepcid). 3. Hold Plavix and ASA for impending liver mass biopsy. 4. Dr. Michaud will be covering the weekend. Clinical Quality Measures DVT/VTE Risk/Contraindication: Risk Factor Score Per Nursin RFS Level Per Nursing on Admit: 2=Moderate Contraindications-Pharm: Other *list below* Other: on plavix NANCY WORTHY MD Jan 13, 2017 12:55
[2017-01-13 16:00] VITALS: BP 138/85
[2017-01-13 20:00] VITALS: BP 150/79
[2017-01-13] MEDS: POLYETHYLENE GLYCOL 17 GM (MIRALAX) PACK PO SCH (20:47)
[2017-01-14] VITALS (7 sets, daily range): BP systolic 126–154; BP diastolic 74–84
[2017-01-14 04:43] LABS: BASOPHILS % (AUTO) 0 % (0-10); EOSINOPHILS % (AUTO) 0 % (0-10); LYMPHOCYTES # (AUTO) 0.8 X 10^3 (1.0-4.0); LYMPHOCYTES % (AUTO) 5 % (12-44); MEAN CORPUSCULAR HEMOGLOBIN 33 PG (25-34); MEAN CORPUSCULAR HGB CONC 34 G/DL (32-36); MEAN CORPUSCULAR VOLUME 97 FL (80-99); MEAN PLATELET VOLUME 10.9 FL (7.4-10.4); MONOCYTES % (AUTO) 6 % (0-12); NEUTROPHILS # (AUTO) 14.3 X 10^3 (1.8-7.8); NEUTROPHILS % (AUTO) 88 % (42-75); PLATELET COUNT 226 10^3/uL (130-400); RED BLOOD COUNT 3.68 10^6/uL (4.35-5.85); WHITE BLOOD COUNT 16.1 10^3/uL (4.3-11.0)
[2017-01-14 05:13] LABS: ALANINE AMINOTRANSFERASE 211 U/L (0-55); ALBUMIN 3.1 G/DL (3.2-4.5); ANION GAP 9 MMOL/L (5-14); ASPARTATE AMINO TRANSFERASE 173 U/L (5-34); BILIRUBIN,TOTAL 1.4 MG/DL (0.1-1.0); BLOOD UREA NITROGEN 22 MG/DL (7-18); BUN/CREATININE RATIO 28; CALCIUM 8.9 MG/DL (8.5-10.1); CARBON DIOXIDE 21 MMOL/L (21-32); CHLORIDE 101 MMOL/L (98-107); CREATININE SERUM 0.78 MG/DL (0.60-1.30); GFR ESTIMATED > 60; GLUCOSE 93 MG/DL (70-105); SODIUM 131 MMOL/L (135-145); TOTAL PROTEIN 5.6 G/DL (6.4-8.2)
[2017-01-14] MEDS: LEVOTHYROXINE 100 MCG (LEVOTHROID) TAB PO SCH (06:19)
[2017-01-14] MEDS: RT-ALBUTEROL/IPRATROPIUM 3 ML (DUONEB) VIAL INH SCH ×3 (07:34→19:45)
[2017-01-14] MEDS: DEXAMETHASONE 4 MG TAB (DECADRON) PO SCH ×2 (09:19→20:09)
[2017-01-14] MEDS: FAMOTIDINE 20 MG (PEPCID) TABLET PO SCH ×2 (09:19→20:09)
[2017-01-14] MEDS: DOCUSATE SODIUM 100 MG (COLACE) CAP PO SCH ×2 (09:19→20:09)
[2017-01-14] MEDS: lisINopril 5 MG (PRINIVIL) TABLET PO SCH (09:19)
[2017-01-14] MEDS: LACTULOSE SYRUP 10GM/15ML (ENULOSE) 30ML UDC PO SCH ×2 (09:20→20:10)
[2017-01-14] MEDS: NS IV 1000 ML 1,000 ML IV SCH (09:30)
[2017-01-14] MEDS: fentaNYL PCA 300 MCG/30 ML VIAL IV PRN ×2 (09:31→20:58)
[2017-01-14] MEDS: POLYETHYLENE GLYCOL 17 GM (MIRALAX) PACK PO SCH (20:09)
[2017-01-15] MEDS: RT-ALBUTEROL/IPRATROPIUM 3 ML (DUONEB) VIAL INH PRN (02:48)
[2017-01-15 03:55] VITALS: BP 123/77
[2017-01-15] MEDS: LEVOTHYROXINE 100 MCG (LEVOTHROID) TAB PO SCH (06:08)
[2017-01-15] MEDS: fentaNYL PCA 300 MCG/30 ML VIAL IV PRN ×3 (06:25→22:02)
[2017-01-15] MEDS: RT-ALBUTEROL/IPRATROPIUM 3 ML (DUONEB) VIAL INH SCH ×5 (07:00→21:14)
[2017-01-15 08:28] VITALS: BP 129/78
[2017-01-15] MEDS: lisINopril 5 MG (PRINIVIL) TABLET PO SCH (08:29)
[2017-01-15] MEDS: DOCUSATE SODIUM 100 MG (COLACE) CAP PO SCH ×2 (08:29→20:34)
[2017-01-15] MEDS: LACTULOSE SYRUP 10GM/15ML (ENULOSE) 30ML UDC PO SCH ×2 (08:29→20:33)
[2017-01-15] MEDS: FAMOTIDINE 20 MG (PEPCID) TABLET PO SCH ×2 (08:29→20:34)
[2017-01-15] MEDS: DEXAMETHASONE 4 MG TAB (DECADRON) PO SCH ×2 (08:29→20:34)
--- NOTE | 2017-01-15 08:41 | Progress Note (SOAP) ---
Subjective Subjective/Events-last exam intractable back pain and neck pain. Metastatic cancer to bone and liver and lungs. Patient has appointment with Dr. Mesa this week and want to see him. Patient anxious. Patient not sleeping at night and put on trazodone. Patient doesn't want anything for his anxiety at this moment Objective Exam Vital Signs Date Time Temp Pulse Resp B/P (MAP) Pulse Ox O2 Delivery O2 Flow Rate FiO2 01/15/17 08:28 98.0 98 18 129/78 93 Nasal Cannula 2.00 01/15/17 07:01 94 2.00 01/15/17 06:25 20 01/15/17 06:07 20 01/15/17 03:55 97.2 99 18 123/77 93 Nasal Cannula 2.00 01/15/17 02:48 91 01/15/17 02:48 91 2.00 01/14/17 23:25 98.5 79 23 126/81 94 Nasal Cannula 2.00 01/14/17 21:57 93 2.00 01/14/17 21:00 Nasal Cannula 2.00 01/14/17 21:00 20 01/14/17 20:58 20 01/14/17 19:46 94 2.00 01/14/17 19:45 98.5 87 18 153/84 94 Nasal Cannula 2.00 01/14/17 18:00 20 01/14/17 16:00 97.9 103 20 131/81 94 Nasal Cannula 2.00 01/14/17 13:16 91 1.50 01/14/17 12:00 97.6 91 22 131/74 92 Nasal Cannula 2.00 01/14/17 10:20 95 1.50 01/14/17 09:31 20 I & O 01/15/17 07:00 Intake Total 1590 ml Output Total 1200 ml Balance 390 ml Capillary Refill : General Appearance: No Apparent Distress, WD/WN HEENT: Normal ENT Inspection Neck: Normal Inspection Respiratory: Chest Non Tender, No Accessory Muscle Use, No Respiratory Distress Cardiovascular: Regular Rate, Rhythm, No Murmur Assessment/Plan Assessment/Plan Assess & Plan/Chief Complaint intractable back pain. Metastatic cancer to lung, liver, and bone. Patient not sleeping at night put on trazodone. Patient to see his office support associate and consult ordered. Patient stopped smoking in August 24. Coronary artery disease. Stent placement. History of hepatitis C treated with interferon in 1998 Clinical Quality Measures DVT/VTE Risk/Contraindication: Risk Factor Score Per Nursin RFS Level Per Nursing on Admit: 2=Moderate Contraindications-Pharm: Other *list below* Other: on plavix JOSUE LIEBERMAN DO Jan 15, 2017 08:41
[2017-01-15 08:52] LABS: BASOPHILS % (AUTO) 0 % (0-10); EOSINOPHILS % (AUTO) 0 % (0-10); LYMPHOCYTES # (AUTO) 0.7 X 10^3 (1.0-4.0); LYMPHOCYTES % (AUTO) 5 % (12-44); MEAN CORPUSCULAR HEMOGLOBIN 33 PG (25-34); MEAN CORPUSCULAR HGB CONC 35 G/DL (32-36); MEAN CORPUSCULAR VOLUME 96 FL (80-99); MEAN PLATELET VOLUME 10.6 FL (7.4-10.4); MONOCYTES % (AUTO) 7 % (0-12); NEUTROPHILS # (AUTO) 12.4 X 10^3 (1.8-7.8); NEUTROPHILS % (AUTO) 88 % (42-75); PLATELET COUNT 229 10^3/uL (130-400); RED BLOOD COUNT 3.73 10^6/uL (4.35-5.85)
[2017-01-15 09:13] LABS: ALANINE AMINOTRANSFERASE 250 U/L (0-55); ALBUMIN 3.1 G/DL (3.2-4.5); ANION GAP 10 MMOL/L (5-14); ASPARTATE AMINO TRANSFERASE 209 U/L (5-34); BILIRUBIN,TOTAL 1.4 MG/DL (0.1-1.0); BLOOD UREA NITROGEN 21 MG/DL (7-18); BUN/CREATININE RATIO 28; CARBON DIOXIDE 22 MMOL/L (21-32); CHLORIDE 98 MMOL/L (98-107); CREATININE SERUM 0.76 MG/DL (0.60-1.30); GFR ESTIMATED > 60; GLUCOSE 105 MG/DL (70-105); POTASSIUM 4.6 MMOL/L (3.6-5.0); SODIUM 130 MMOL/L (135-145); TOTAL PROTEIN 5.9 G/DL (6.4-8.2)
[2017-01-15] MEDS: NS IV 1000 ML 1,000 ML IV SCH (10:40)
[2017-01-15 12:00] VITALS: BP 141/85
--- NOTE | 2017-01-15 14:44 | ECHOCARDIOGRAPHY REPORT ---
PROCEDURE PHYSICIAN: RADHIKA MESA DATE OF PROCEDURE: 01/15/2017 TWO DIMENSIONAL ECHOCARDIOGRAM REPORT PRIMARY PHYSICIAN: Dr. Lynch ATTENDING PHYSICIAN: Dr. Wilcox OTHER PHYSICIAN: REFERRING PHYSICIAN: ORDERING PHYSICIAN: Dr. Mesa INDICATION FOR THE PROCEDURE: Chest pain. MEASUREMENTS DERIVED VALUES LV DIAMETER (LAX) NORMALS NORMALS Diastolic 4.3 (3.6-5.2) Eject. Fract. (60%+/-6%) Systolic (2.3-3.9) Diastolic Vol. % Shortening (0.22-0.42) Systolic Vol. Aortic Root 3.4 IVS THICKNESS Diastolic 0.9 (0.6-1.1) LVPW THICKNESS Diastolic 1. (0.6-1.1) LA DIAMETER Systolic 3.8 (2.1-3.7) DESCRIPTION: Two-dimension echocardiography shows normal global left ventricular function and normal regional wall motion. The aortic, mitral and tricuspid valve leaflets show good leaflet excursion. There is no significant pericardial effusion. This is a technically difficult study. On the views available, there are no distinct regional wall motion abnormalities. Doppler imaging is also difficult. On the views available, there does not appear to be significant valvular regurgitation or stenosis. Pulmonary artery systolic pressure is estimated to be within normal limits. No distinct evidence of intracardiac shunt is seen on this study. Inferior vena cava appears to be of normal size. CONCLUSIONS: 1. Technically difficult study. 2. Normal global left ventricular systolic function with an ejection fraction of approximately 60%. 3. No significant valvular regurgitation or stenosis is seen on this study. 4. Pulmonary artery systolic pressure is estimated to be approximately 20 mmHg. Job ID: [id number] Dictated Date: 01/15/2017 13:17:26 Instrument Checker Date: 01/15/2017 14:38:11 / josie
--- NOTE | 2017-01-15 15:23 | Consultation-Cardiology ---
HPI-Cardiology Cardiology Consultation: Date of Consultation 01/15/17 Date of Admission 01/10/17 Attending Physician Cliff Lynch MD Admitting Physician Cliff Lynch MD Consulting Physician RADHIKA PADILLA MD, FACP, FACC, [facility], CCDS Physician requesting consult: Dr Wilcox HPI: Chief Complaint: Back and gen body pain 66 yo man admitted to Dr Lynch on 01/10/17 with gen body pain and newly diagnosed widespread metastatic cancer, including to the liver. Dr Wilcox, who is covering for Dr Lynch, has asked for a card consult today. Dr Lynch stopped patient's antiplatelet therapy at time of admission in anticipation of a liver biopsy that is, apparently, to be done tomorrow Mr Strauss has gen body and back pain He has chronic mod exertional shortness of breath He does not report palp or syncope or ankle swelling Review of Systems-Cardiology Review of Systems Constitutional: No weight loss, No weight gain Eyes: No vision change Ears/Nose/Throat: No ear discharge, No nasal drainage, No recent hearing loss Respiratory: As described under HPI Cardiovascular: As described under HPI Gastrointestinal: No constipation, No diarrhea, No nausea, No vomiting Genitourinary: No dysuria, No hematuria, No urine frequency changes Musculoskeletal: As describe under HPI Skin: No rash, No ulcerations Psychiatric/Neurological: No focal weakness, No seizure, No syncope Hematologic: No bleeding abnormalities CNR-[id number]-[id number] Hx Patient Social History Marrital Status: single Employed/Student: employed Alcohol Use: Denies Use Recreational Drug Use: Yes Drug of Choice: MARIJUANA - COUPLE WEEKS AGO Smoking Status: Former Smoker Type Used: Cigarettes Recent Foreign Travel: No Recent Infectious Disease Expo: No Physical Abuse Screen: No Sexual Abuse: No Immunizations Up To Date Date of Pneumonia Vaccine: May 24, 2016 Date of Influenza Vaccine: Jul 11, 2016 Past Medical History PMH As described under Assessment. Family Medical History Family Medical History: He does not report fam h/o early CAD or SCD Family History: Patient reports no known family medical history. Allergies and Home Medications Allergies Coded Allergies: NKANo Known Allergies (Verified Allergy, Unknown, 09/03/07) Home Medications Albuterol Sulfate 1 Puff Puff, 2 PUFF IH Q4H PRN for SHORTNESS OF BREATH, ( Reported) Aspirin 81 Mg Tablet.dr, 81 MG PO DAILY, (Reported) Clopidogrel Bisulfate 75 Mg Tablet, 75 MG PO DAILY, (Reported) Levothyroxine Sodium 100 Mcg Tablet, 100 MCG PO DAILY, (Reported) Lidocaine 700 Mg Adh..patch, 1 PATCH TD DAILY PRN for PAIN, (Reported) Lisinopril 5 Mg Tablet, 5 MG PO DAILY, (Reported) Omeprazole 20 Mg Capsule.dr, 20 MG PO DAILY, (Reported) Oxycodone HCl 5 Mg Tablet, 5 MG PO Q6H PRN for SEVERE PAIN, (Reported) Pravastatin Sodium 20 Mg Tablet, 20 MG PO DAILY, (Reported) Physical Exam-Cardiology Physical Exam Vital Signs/I&O Vital Sign - Last 12Hours 01/15/17 01/15/17 01/15/17 01/15/17 03:55 06:07 06:25 07:01 Temp 97.2 Pulse 99 Resp 18 20 20 B/P (MAP) 123/77 Pulse Ox 93 94 O2 Delivery Nasal Cannula O2 Flow Rate 2.00 2.00 01/15/17 01/15/17 01/15/17 01/15/17 08:20 08:28 12:00 14:14 Temp 98.0 97.0 Pulse 98 100 Resp 18 20 B/P (MAP) 129/78 141/85 Pulse Ox 93 96 92 O2 Delivery Nasal Cannula Nasal Cannula Nasal Cannula O2 Flow Rate 2.00 2.00 2.00 2.00 01/15/17 14:53 Resp 20 Intake and Output 01/15/17 00:00 Intake Total 1290 ml Output Total 600 ml Balance 690 ml Capillary Refill : Constitutional: AAO x 3, well-developed, well-nourished HEENT: PERRL, EOMI, hearing is well preserved, oral hygience is good, No xanthelasmas are seen Neck: carotid pulses are 2 + bilaterally, with good upstrokes Respiratory: No accessory muscle use, lungs clear to percussion, other (good bilateral air entry) Cardiovascular: regular rate-rhythm, S1 and S2, systolic murmur (soft SIRI at card base) Gastrointestinal: No tender, soft, No guarding, No rebound, audible bowel sounds Extremities: No clubbing, No cyanosis, No significant edema Neurologic/Psychiatric: oriented x 3, grossly intact, power is 5/5 both on sides Skin: No rash on exposed areas, No ulcerations on exposed areas Data Review Labs Laboratory Tests 01/15/17 08:43: White Blood Count 14.0H, Red Blood Count 3.73L, Hemoglobin 12.4L, Hematocrit 36L , Mean Corpuscular Volume 96, Mean Corpuscular Hemoglobin 33, Mean Corpuscular Hemoglobin Concent 35, Red Cell Distribution Width 14.0, Platelet Count 229, Mean Platelet Volume 10.6H, Neutrophils (%) (Auto) 88H, Lymphocytes (%) (Auto) 5L, Monocytes (%) (Auto) 7, Eosinophils (%) (Auto) 0, Basophils (%) (Auto) 0, Neutrophils # (Auto) 12.4H, Lymphocytes # (Auto) 0.7L, Monocytes # (Auto) 1.0, Eosinophils # (Auto) 0.0, Basophils # (Auto) 0.0, Sodium Level 130L, Potassium Level 4.6, Chloride Level 98, Carbon Dioxide Level 22, Anion Gap 10, Blood Urea Nitrogen 21H, Creatinine 0.76, Estimat Glomerular Filtration Rate > 60, BUN/ Creatinine Ratio 28, Glucose Level 105, Calcium Level 9.0, Total Bilirubin 1.4H , Aspartate Amino Transf (AST/SGOT) 209H, Alanine Aminotransferase (ALT/SGPT) 250H, Alkaline Phosphatase 368H, Total Protein 5.9L, Albumin 3.1L Laboratory Tests 01/14/17 04:10 01/15/17 08:43 A/P-Cardiology Assessment/Admission Diagnosis Back and gen body pain (including R chest pain) due to widespread metastatic CA to liver, vertebrae, bone, and lymph nodes. Pt is awaiting liver biopsy Coronary disease, Card cath of 09/27/16 showed CAD primarily consisting of 99% proximal stenosis of the right coronary artery to which successful stenting was carried out with Xience Alpine 4 x 18 mm stent, which reduced the stenosis to 0 % residual stenosis. Elsewhere, there is mild coronary artery disease. Normal left ventricular end-diastolic pressure. Posterobasal and diaphragmatic hypokinesis. Impairment of global left ventricular systolic function with an ejection fraction of approximately 45%. No significant mitral regurgitation. Echo of 01/15/17 showed LVEF 60%, no significant valvular lesion, normal PASP Abnormal ECG: Chronic RBBB, LAFB, frequent PVCs (isolated, monomorphic) Chronic elevation of left hemidiaphragm, as reported on a study of 12/30/16 H/o PVCs Hypothyroidism, treated with throid replacement therapy and followed by pcp Chronic tobacco use, quit 09/12/16. We have advised him to continue to refrain from tobacco use Hep C, treated with interferon in 1998, followed by pcp Carotid u/s of August 23, 2016 showed mild bilat carotid disease Discussion and Recomendations * Complex management due to multiple comorbidities * At high risk for stent thrombosis without antiplatelet therapy that is being held back in anticipation of liver biopsy. Please proceed with liver biopsy and resume aspirin and Plavix as soon as possible after liver biopsy * Lovenox today (given short length of action, this should not interfere with liver biopsy tomorrow) * Monitor labs * I discussed all of the above with him at length and answered his questions Clinical Quality Measures DVT/VTE Risk/Contraindication: Risk Factor Score Per Nursin RFS Level Per Nursing on Admit: 2=Moderate Contraindications-Pharm: Other *list below* Other: on plavix RADHIKA PADILLA MD FACP FAC CCDS Jan 15, 2017 15:23
[2017-01-15] MEDS ORDERED: ENOXAPARIN 100 MG/1 ML (LOVENOX) SYR SC NR (15:30)
[2017-01-15 19:40] VITALS: BP 134/73
[2017-01-15] MEDS: traZODone 50 MG (DESYREL) TAB PO SCH (20:33)
[2017-01-15] MEDS: POLYETHYLENE GLYCOL 17 GM (MIRALAX) PACK PO SCH (20:33)
[2017-01-16] VITALS (9 sets, daily range): BP systolic 112–153; BP diastolic 65–80
[2017-01-16] MEDS ORDERED: RT-ALBUTEROL/IPRATROPIUM 3 ML (DUONEB) VIAL INH PRN (02:00)
[2017-01-16] MEDS: RT-ALBUTEROL/IPRATROPIUM 3 ML (DUONEB) VIAL INH SCH ×6 (02:13→22:09)
[2017-01-16] MEDS: NS IV 1000 ML 1,000 ML IV SCH (03:29)
[2017-01-16] MEDS: fentaNYL PCA 300 MCG/30 ML VIAL IV PRN (04:48)
[2017-01-16 05:01] LABS: BASOPHILS % (AUTO) 0 % (0-10); EOSINOPHILS % (AUTO) 0 % (0-10); LYMPHOCYTES # (AUTO) 0.7 X 10^3 (1.0-4.0); LYMPHOCYTES % (AUTO) 5 % (12-44); MEAN CORPUSCULAR HEMOGLOBIN 33 PG (25-34); MEAN CORPUSCULAR HGB CONC 35 G/DL (32-36); MEAN CORPUSCULAR VOLUME 96 FL (80-99); MEAN PLATELET VOLUME 11.1 FL (7.4-10.4); MONOCYTES # (AUTO) 0.9 X 10^3 (0.0-1.0); MONOCYTES % (AUTO) 7 % (0-12); NEUTROPHILS # (AUTO) 12.1 X 10^3 (1.8-7.8); NEUTROPHILS % (AUTO) 88 % (42-75); PLATELET COUNT 217 10^3/uL (130-400); RED BLOOD COUNT 3.61 10^6/uL (4.35-5.85); RED CELL DISTRIBUTION WIDTH 14.1 % (10.0-14.5); WHITE BLOOD COUNT 13.8 10^3/uL (4.3-11.0)
[2017-01-16 05:20] LABS: ALANINE AMINOTRANSFERASE 240 U/L (0-55); ALBUMIN 2.9 G/DL (3.2-4.5); ANION GAP 10 MMOL/L (5-14); ASPARTATE AMINO TRANSFERASE 188 U/L (5-34); BILIRUBIN,TOTAL 1.4 MG/DL (0.1-1.0); BLOOD UREA NITROGEN 19 MG/DL (7-18); BUN/CREATININE RATIO 23; CALCIUM 8.7 MG/DL (8.5-10.1); CARBON DIOXIDE 23 MMOL/L (21-32); CHLORIDE 101 MMOL/L (98-107); CREATININE SERUM 0.81 MG/DL (0.60-1.30); GFR ESTIMATED > 60; GLUCOSE 113 MG/DL (70-105); POTASSIUM 4.3 MMOL/L (3.6-5.0); SODIUM 134 MMOL/L (135-145); TOTAL PROTEIN 5.6 G/DL (6.4-8.2)
[2017-01-16] MEDS: LEVOTHYROXINE 100 MCG (LEVOTHROID) TAB PO SCH (06:16)
[2017-01-16] MEDS ORDERED: PATCH REMOVAL TP SCH (08:30)
--- NOTE | 2017-01-16 08:34 | Progress Note (SOAP) ---
Subjective Subjective 66 yo M with intractable neck and back pain- No overnight events. Oxygen requirement has increased likely due to him being less mobile- Pt does get up though and over the weekend- he walked down to the cafeteria (twice because his money fell out of his pocket). He said he really enjoyed the cheetos he bought. He is hungry and thirsty this AM but is NPO due to likely having the liver bx today. [facility] awaiting results. Review of Systems General: No Chills HEENT: No Head Aches, No Visual Changes Pulmonary: Dyspnea, Cough Cardiovascular: Chest Pain (right side, upper abdomen) Gastrointestinal: Constipation (improved- having bowel movements), Nausea, No: Abdominal Pain, Vomiting Genitourinary: No Dysuria, No Frequency Musculoskeletal: back pain (intractable), neck pain, No: shoulder pain Neurological: Weakness Objective Exam Vital Signs Vital Signs Date Time Temp Pulse Resp B/P (MAP) Pulse Ox O2 Delivery O2 Flow Rate FiO2 01/16/17 07:36 93 4.00 01/16/17 06:06 20 01/16/17 04:48 20 01/16/17 04:00 97.6 94 18 130/67 93 Nasal Cannula 2.00 01/16/17 02:13 92 2.00 01/16/17 00:51 98.7 97 20 121/65 93 Nasal Cannula 2.00 01/15/17 22:02 18 01/15/17 21:16 20 01/15/17 21:16 Nasal Cannula 2.00 01/15/17 21:14 94 2.00 01/15/17 19:40 100.0 116 20 134/73 93 Nasal Cannula 2.00 01/15/17 19:00 20 01/15/17 18:14 93 2.00 01/15/17 14:53 20 01/15/17 14:14 92 2.00 01/15/17 12:00 97.0 100 20 141/85 96 Nasal Cannula 2.00 I & O 01/16/17 07:00 Intake Total 2360 ml Output Total 2025 ml Balance 335 ml General Appearance: No Apparent Distress, WD/WN HEENT: Normal ENT Inspection Neck: Normal Inspection Respiratory: Chest Non Tender, No Accessory Muscle Use, No Respiratory Distress , Other (coarse breath sounds throughout ) Cardiovascular: Regular Rate, Rhythm, No Murmur Gastrointestinal: Soft, Distended, Tenderness (mid abdomen) Rectal: Deferred Back: No CVA Tenderness, Vertebral Tenderness Extremity: Non Tender, No Calf Tenderness Neurologic/Psychiatric: Alert, Oriented x3, No Motor/Sensory Deficits, Normal Mood/Affect, director of clinical trials II-XII Norm as Tested Skin: Warm/Dry (some bruising noted on arms) Results Lab Laboratory Tests 01/15/17 08:43: White Blood Count 14.0H, Red Blood Count 3.73L, Hemoglobin 12.4L, Hematocrit 36L , Mean Corpuscular Volume 96, Mean Corpuscular Hemoglobin 33, Mean Corpuscular Hemoglobin Concent 35, Red Cell Distribution Width 14.0, Platelet Count 229, Mean Platelet Volume 10.6H, Neutrophils (%) (Auto) 88H, Lymphocytes (%) (Auto) 5L, Monocytes (%) (Auto) 7, Eosinophils (%) (Auto) 0, Basophils (%) (Auto) 0, Neutrophils # (Auto) 12.4H, Lymphocytes # (Auto) 0.7L, Monocytes # (Auto) 1.0, Eosinophils # (Auto) 0.0, Basophils # (Auto) 0.0, Sodium Level 130L, Potassium Level 4.6, Chloride Level 98, Carbon Dioxide Level 22, Anion Gap 10, Blood Urea Nitrogen 21H, Creatinine 0.76, Estimat Glomerular Filtration Rate > 60, BUN/ Creatinine Ratio 28, Glucose Level 105, Calcium Level 9.0, Total Bilirubin 1.4H , Aspartate Amino Transf (AST/SGOT) 209H, Alanine Aminotransferase (ALT/SGPT) 250H, Alkaline Phosphatase 368H, Total Protein 5.9L, Albumin 3.1L 01/16/17 04:15: White Blood Count 13.8H, Red Blood Count 3.61L, Hemoglobin 12.0L, Hematocrit 35L , Mean Corpuscular Volume 96, Mean Corpuscular Hemoglobin 33, Mean Corpuscular Hemoglobin Concent 35, Red Cell Distribution Width 14.1, Platelet Count 217, Mean Platelet Volume 11.1H, Neutrophils (%) (Auto) 88H, Lymphocytes (%) (Auto) 5L, Monocytes (%) (Auto) 7, Eosinophils (%) (Auto) 0, Basophils (%) (Auto) 0, Neutrophils # (Auto) 12.1H, Lymphocytes # (Auto) 0.7L, Monocytes # (Auto) 0.9, Eosinophils # (Auto) 0.0, Basophils # (Auto) 0.0, Sodium Level 134L, Potassium Level 4.3, Chloride Level 101, Carbon Dioxide Level 23, Anion Gap 10, Blood Urea Nitrogen 19H, Creatinine 0.81, Estimat Glomerular Filtration Rate > 60, BUN /Creatinine Ratio 23, Glucose Level 113H, Calcium Level 8.7, Total Bilirubin 1.4H, Aspartate Amino Transf (AST/SGOT) 188H, Alanine Aminotransferase (ALT/SGPT ) 240H, Alkaline Phosphatase 368H, Total Protein 5.6L, Albumin 2.9L Assessment/Plan Assessment/Plan Assessment/Plan 66 yo M directly admitted 01/10/17 for : Intractable back pain likely due to overuse, stenosis, 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 AFP, HCG, PSA- not elevated Dr. Katz consulted Elevated LFTs/Acute transaminitis- will monitor, suspect secondary from cancer involving the liver. stable cervical spinal stenosis- severe at C5/6, moderate C7 -pain management leukocytosis- no overt infection. monitor CBC. hypothyroidism- continue levothyroxine h/o hepatitis C - treated with interferon 1998 - hep C RNA undetected December 2016 coronary artery disease- s/p RCA stent 09/2016, Dr. Mesa holding plavix, lovenox- resuming plavix after procedure h/o kidney stone- stable, no issues COPD with hypoxia - MAT protocol, requiring 2L NC h/o tobaccoism- quit ~Aug 2016 insomnia- trazodone 50mg helped DVT ppx: SCDs Dispo: liver biopsy today- will need to resume plavix, asa after procedure. Case management is working with pt - pt to go to [facility] after the biopsy- he will need to leave [facility] 01/17/17 on a day pass (if this is permitted)- he has a lot of errands he needs to run- I would be okay with him doing this and returning to [facility] [place] after he completes his errands. Problems: Clinical Quality Measures DVT/VTE Risk/Contraindication: Risk Factor Score Per Nursin RFS Level Per Nursing on Admit: 2=Moderate Contraindications-Pharm: Other *list below* Other: on plavix JEFFREY PARKER MD Jan 16, 2017 08:34
[2017-01-16] MEDS ORDERED: FENT1PAT9 TD (09:03)
[2017-01-16] MEDS ORDERED: Oxycodone Hcl PO (09:03)
--- NOTE | 2017-01-16 09:25 | Progress Note-Cardiology ---
Cardiology SOAP Progress Note Subjective: Has gen body pain, but better than before Denies palp or syncope or shortness of breath Objective: I&O/Vital Signs Vital Sign - Last 12Hours 01/15/17 01/16/17 01/16/17 01/16/17 22:02 00:51 02:13 04:00 Temp 98.7 97.6 Pulse 97 94 Resp 18 20 18 B/P (MAP) 121/65 130/67 Pulse Ox 93 92 93 O2 Delivery Nasal Cannula Nasal Cannula O2 Flow Rate 2.00 2.00 2.00 01/16/17 01/16/17 01/16/17 01/16/17 04:48 06:06 07:36 08:00 Temp 98.2 Pulse 98 Resp 20 B/P (MAP) 153/79 Pulse Ox 93 93 O2 Delivery Nasal Cannula O2 Flow Rate 4.00 2.00 Intake and Output 01/16/17 00:00 Intake Total 1360 ml Output Total 975 ml Balance 385 ml Weight (Pounds): 217 Weight (Ounces): 0.0 Weight (Calculated Kilograms): 98.881400 Constitutional: AAO x 3, well-developed, well-nourished Respiratory: No accessory muscle use, lungs clear to percussion, other (good bilateral air entry) Cardiovascular: regular rate-rhythm, S1 and S2, systolic murmur (soft SIRI at card base) Gastrointestional: No tender, soft, No guarding, No rebound, audible bowel sounds Extremities: No clubbing, No cyanosis, No significant edema Neurologic/Psychiatric: oriented x 3, grossly intact, power is 5/5 both on sides Skin: No rash on exposed areas, No ulcerations on exposed areas Results/Procedures: Labs Laboratory Tests 01/16/17 04:15: White Blood Count 13.8H, Red Blood Count 3.61L, Hemoglobin 12.0L, Hematocrit 35L , Mean Corpuscular Volume 96, Mean Corpuscular Hemoglobin 33, Mean Corpuscular Hemoglobin Concent 35, Red Cell Distribution Width 14.1, Platelet Count 217, Mean Platelet Volume 11.1H, Neutrophils (%) (Auto) 88H, Lymphocytes (%) (Auto) 5L, Monocytes (%) (Auto) 7, Eosinophils (%) (Auto) 0, Basophils (%) (Auto) 0, Neutrophils # (Auto) 12.1H, Lymphocytes # (Auto) 0.7L, Monocytes # (Auto) 0.9, Eosinophils # (Auto) 0.0, Basophils # (Auto) 0.0, Sodium Level 134L, Potassium Level 4.3, Chloride Level 101, Carbon Dioxide Level 23, Anion Gap 10, Blood Urea Nitrogen 19H, Creatinine 0.81, Estimat Glomerular Filtration Rate > 60, BUN /Creatinine Ratio 23, Glucose Level 113H, Calcium Level 8.7, Total Bilirubin 1.4H, Aspartate Amino Transf (AST/SGOT) 188H, Alanine Aminotransferase (ALT/SGPT ) 240H, Alkaline Phosphatase 368H, Total Protein 5.6L, Albumin 2.9L 01/16/17 09:09: Laboratory Tests 01/15/17 08:43 01/16/17 04:15 A/P: Assessment: Back and gen body pain (including R chest pain) due to widespread metastatic CA to liver, vertebrae, bone, and lymph nodes. Pt is awaiting liver biopsy Coronary disease, Card cath of 09/27/16 showed CAD primarily consisting of 99% proximal stenosis of the right coronary artery to which successful stenting was carried out with Xience Alpine 4 x 18 mm stent, which reduced the stenosis to 0 % residual stenosis. Elsewhere, there is mild coronary artery disease. Normal left ventricular end-diastolic pressure. Posterobasal and diaphragmatic hypokinesis. Impairment of global left ventricular systolic function with an ejection fraction of approximately 45%. No significant mitral regurgitation. Echo of 01/15/17 showed LVEF 60%, no significant valvular lesion, normal PASP Abnormal ECG: Chronic RBBB, LAFB, frequent PVCs (isolated, monomorphic) Chronic elevation of left hemidiaphragm, as reported on a study of 12/30/16 H/o PVCs Hypothyroidism, treated with throid replacement therapy and followed by pcp Chronic tobacco use, quit 09/12/16. We have advised him to continue to refrain from tobacco use Hep C, treated with interferon in 1998, followed by pcp Carotid u/s of August 23, 2016 showed mild bilat carotid disease Plan: * Complex management due to multiple comorbidities * At high risk for stent thrombosis without antiplatelet therapy that is being held back in anticipation of liver biopsy * I discussed his case with Dr Lynch this morning and advised resumption of aspirin and Plavix as soon as possible after liver biopsy (which is scheduled for today) * I discussed all of the above with him at length and answered his questions * Outpatient card f/u is advised RADHIKA PADILLA MD FACP FAC CCDS Jan 16, 2017 09:25
[2017-01-16 09:31] LABS: INR 1.2 (0.8-1.4); PROTHROMBIN TIME PATIENT 14.7 SEC (12.2-14.7)
[2017-01-16] MEDS ORDERED: LIDOCAINE 1% INJ 20 ML (XYLOCAINE) VIAL ONE (09:42)
[2017-01-16] MEDS: fentaNYL PATCH 50 MCG (DURAGESIC) TD SCH (10:05)
[2017-01-16] MEDS ORDERED: fentaNYL INJECTION 100 MCG/2 ML AMP ONE (10:06)
[2017-01-16] MEDS ORDERED: fentaNYL INJECTION 100 MCG/2 ML AMP IVP PRN (10:30)
[2017-01-16] MEDS ORDERED: LIDOCAINE 1% INJ 20 ML (XYLOCAINE) VIAL INJ ONE (10:30)
--- NOTE | 2017-01-16 10:38 | Pre-Procedure Progress Note ---
Standard Progress Note Progress Notes/Assess & Plan Progress/Assessment & Plan H&P was reviewed without change. Liver masses. Final Diagnosis Liver masses. DENISHA ALLISON MD Jan 16, 2017 10:38
[2017-01-16] MEDS ORDERED: HYDROcodone/APAP 5 MG/325 MG (LORTAB) TAB PO PRN (10:45)
[2017-01-16] MEDS ORDERED: FENTANYL PCA INJ SCH ×2 (11:00)
[2017-01-16] MEDS ORDERED: NS INJ SCH ×2 (11:00)
--- NOTE | 2017-01-16 11:45 | Diagnostic Imaging Report ---
EXAMINATION: US-guided core biopsy-liver. INDICATION: Liver masses. Current history and physical and other medical records are reviewed prior to the procedure. CONSENT: Informed consent was obtained from the patient. The risks, benefits, potential complications and alternatives were reviewed and all questions answered to the patient's satisfaction. The patient's vital signs, cardiac rhythm, and pulse oximetry with observed throughout the procedure by qualified nursing personnel. Medications: Fentanyl 25 mcg IV FINDINGS: Multiple liver masses. PROCEDURE: After maximal sterile barrier technique preparation and draping, 1% lidocaine was utilized for local anesthesia. With the patient in supine position, and via anterior approach, a 17-gauge guide needle is introduced into the right hepatic lobe mass under live ultrasound guidance. After confirming adequate positioning with saved ultrasound images, multiple 18 gauge core biopsy specimens were obtained. Gelfoam injected in the tract as the guide needle was removed The patient tolerated the procedure well with no immediate complications. IMPRESSION: Successful US-guided core biopsy of right hepatic lobe mass. Dictated by: Dictated on workstation # [id number]
[2017-01-16] MEDS: DOCUSATE SODIUM 100 MG (COLACE) CAP PO SCH ×2 (12:22→20:55)
[2017-01-16] MEDS: DEXAMETHASONE 4 MG TAB (DECADRON) PO SCH ×2 (12:23→20:55)
[2017-01-16] MEDS: LACTULOSE SYRUP 10GM/15ML (ENULOSE) 30ML UDC PO SCH ×2 (12:24→20:56)
[2017-01-16] MEDS: lisINopril 5 MG (PRINIVIL) TABLET PO SCH (12:24)
[2017-01-16] MEDS: FAMOTIDINE 20 MG (PEPCID) TABLET PO SCH ×2 (12:24→20:55)
--- NOTE | 2017-01-16 15:24 | Progress Note (SOAP) ---
Subjective Subjective/Events-last exam Patient seen this morning prior to liver biopsy; Sitting up in chair and receiving nasal cannula O2. Pain is presently well controlled with MEMORANDUM STATEMENT CLERK. We will increase Duragesic Patch and his breakthrough medications after biopsy to taper off MEMORANDUM STATEMENT CLERK. Objective Exam Vital Signs Date Time Temp Pulse Resp B/P (MAP) Pulse Ox O2 Delivery O2 Flow Rate FiO2 01/16/17 13:53 98.3 01/16/17 13:26 98.3 01/16/17 13:25 20 01/16/17 13:25 20 01/16/17 11:08 98.3 90 28 125/71 95 Nasal Cannula 4.00 01/16/17 10:55 96 4.00 01/16/17 10:52 98.2 01/16/17 10:52 98.2 01/16/17 10:14 98.4 89 20 138/78 95 Nasal Cannula 4.00 01/16/17 10:05 98.2 01/16/17 08:00 20 01/16/17 08:00 Nasal Cannula 2.00 01/16/17 08:00 98.2 98 27 153/79 93 Nasal Cannula 2.00 01/16/17 07:36 93 4.00 01/16/17 06:06 20 01/16/17 04:48 20 01/16/17 04:00 97.6 94 18 130/67 93 Nasal Cannula 2.00 01/16/17 02:13 92 2.00 01/16/17 00:51 98.7 97 20 121/65 93 Nasal Cannula 2.00 01/15/17 22:02 18 01/15/17 21:16 20 01/15/17 21:16 Nasal Cannula 2.00 01/15/17 21:14 94 2.00 01/15/17 19:40 100.0 116 20 134/73 93 Nasal Cannula 2.00 01/15/17 19:00 20 01/15/17 18:14 93 2.00 I & O 01/16/17 07:00 Intake Total 2360 ml Output Total 2025 ml Balance 335 ml Capillary Refill : General Appearance: No Apparent Distress, Obese HEENT: PERRL/EOMI Neck: Normal Inspection, Non Tender, Supple Respiratory: Decreased Breath Sounds (left base decreased breath sounds;) Cardiovascular: Regular Rate, Rhythm Gastrointestinal: normal bowel sounds, non tender, soft Extremity: Non Tender, No Calf Tenderness Neurologic/Psychiatric: Alert, Oriented x3, No Motor/Sensory Deficits Results Lab Laboratory Tests 01/15/17 08:43 01/16/17 04:15 Laboratory Tests 01/16/17 04:15: White Blood Count 13.8H, Red Blood Count 3.61L, Hemoglobin 12.0L, Hematocrit 35L , Mean Corpuscular Volume 96, Mean Corpuscular Hemoglobin 33, Mean Corpuscular Hemoglobin Concent 35, Red Cell Distribution Width 14.1, Platelet Count 217, Mean Platelet Volume 11.1H, Neutrophils (%) (Auto) 88H, Lymphocytes (%) (Auto) 5L, Monocytes (%) (Auto) 7, Eosinophils (%) (Auto) 0, Basophils (%) (Auto) 0, Neutrophils # (Auto) 12.1H, Lymphocytes # (Auto) 0.7L, Monocytes # (Auto) 0.9, Eosinophils # (Auto) 0.0, Basophils # (Auto) 0.0, Sodium Level 134L, Potassium Level 4.3, Chloride Level 101, Carbon Dioxide Level 23, Anion Gap 10, Blood Urea Nitrogen 19H, Creatinine 0.81, Estimat Glomerular Filtration Rate > 60, BUN /Creatinine Ratio 23, Glucose Level 113H, Calcium Level 8.7, Total Bilirubin 1.4H, Aspartate Amino Transf (AST/SGOT) 188H, Alanine Aminotransferase (ALT/SGPT ) 240H, Alkaline Phosphatase 368H, Total Protein 5.6L, Albumin 2.9L 01/16/17 09:09: Prothrombin Time 14.7, INR Comment 1.2, Activated Partial Thromboplast Time 34 Assessment/Plan Assessment/Plan Assess & Plan/Chief Complaint 1. Uncontrolled cancer pain-receiving fentanyl MEMORANDUM STATEMENT CLERK with adequate pain relief at present; Increase fentanyl patch today; Taper MEMORANDUM STATEMENT CLERK after biopsy is completed. 2. Widespread metastatic disease involving liver, bone, diffuse vertebral body metastasis, multiple lymph nodes sites and possibly stomach; receiving cancer evaluation and biopsy for tissue diagnosis is pending and is planned for . a. PSA, beta-hCG today AFP are all normal; b. Markedly elevated LDH related to malignancy with a rapid cell turnover (possible lymphoma versus previously suggested lung <eg small cell> versus stomach); 3. Markedly abnormal LFTs of recent onset. LFTs were normal in September 2016. 4. History of hepatitis C treated in 1998 with interferon with successive noted negative viral titers 5. COPD 6. Ex heavy smoker 7. COPD status post stent placement and has been on Plavix 8. Hypothyroidism on levothyroxine PLAN: 1. Taper fentanyl MEMORANDUM STATEMENT CLERK and increase oral breakthrough meds and Fentanyl Patch after biopsy. 2. May decrease Decadron 2mg po to twice daily since pain is now better controlled. Cover mucosal linings with PPIs (Pepcid). 3. May restart 6 hours Plavix and ASA 6 hours after liver mass biopsy. Clinical Quality Measures DVT/VTE Risk/Contraindication: Risk Factor Score Per Nursin RFS Level Per Nursing on Admit: 2=Moderate Contraindications-Pharm: Other *list below* Other: on plavix NANCY WORTHY MD Jan 16, 2017 15:24
[2017-01-16] MEDS ORDERED: FENTANYL PATCH REMOVAL TP SCH (16:39)
[2017-01-16] MEDS ORDERED: fentaNYL PATCH 75 MCG (DURAGESIC) TOP SCH (16:40)
[2017-01-16] MEDS: ASPIRIN E.C. 81 MG (ECOTRIN) TAB PO SCH (19:30)
[2017-01-16] MEDS: CLOPIDOGREL 75 MG (PLAVIX) TABLET PO SCH (19:30)
[2017-01-16] MEDS: traZODone 50 MG (DESYREL) TAB PO SCH (20:55)
[2017-01-16] MEDS: POLYETHYLENE GLYCOL 17 GM (MIRALAX) PACK PO SCH (20:56)
[2017-01-17] MEDS: RT-ALBUTEROL/IPRATROPIUM 3 ML (DUONEB) VIAL INH SCH ×2 (02:20→06:12)
[2017-01-17 04:51] VITALS: BP 123/62
[2017-01-17] MEDS: LEVOTHYROXINE 100 MCG (LEVOTHROID) TAB PO SCH (05:40)
[2017-01-17 06:12] LABS: BASOPHILS % (AUTO) 0 % (0-10); EOSINOPHILS % (AUTO) 0 % (0-10); LYMPHOCYTES # (AUTO) 0.9 X 10^3 (1.0-4.0); LYMPHOCYTES % (AUTO) 6 % (12-44); MEAN CORPUSCULAR HEMOGLOBIN 33 PG (25-34); MEAN CORPUSCULAR HGB CONC 34 G/DL (32-36); MEAN CORPUSCULAR VOLUME 98 FL (80-99); MEAN PLATELET VOLUME 10.6 FL (7.4-10.4); MONOCYTES % (AUTO) 7 % (0-12); NEUTROPHILS # (AUTO) 13.1 X 10^3 (1.8-7.8); NEUTROPHILS % (AUTO) 87 % (42-75); PLATELET COUNT 237 10^3/uL (130-400); RED BLOOD COUNT 3.69 10^6/uL (4.35-5.85); RED CELL DISTRIBUTION WIDTH 14.3 % (10.0-14.5)
[2017-01-17 07:40] VITALS: BP 145/81
--- NOTE | 2017-01-17 08:17 | Discharge Summary ---
Diagnosis/Chief Complaint Date of Admission Jan 10, 2017 at 18:36 Date of Discharge December Admission Diagnosis Admission Diagnosis Intractable back pain likely due to metastatic cancer- Elevated LFTs- cervical spinal stenosis- leukocytosis- hypothyroidism- h/o hepatitis C - coronary artery disease- h/o kidney stone- COPD - Discharge Diagnosis Intractable back pain likely due to overuse, stenosis, metastatic cancer- new diagnosed cancer with metastasis- Elevated LFTs/Acute transaminitis- cervical spinal stenosis- leukocytosis- hypothyroidism- h/o hepatitis C - coronary artery disease- h/o kidney stone- COPD with hypoxia - h/o tobaccoism- insomnia- Reason Hospital Visit 66 yo M well known to me from clinic- with intractable back pain- MRI obtained today for evaluation of his back pain. The MRI demonstrated suspected metastatic disease to infracarina and diffuse involvement of the cervical/ thoracic/lumbar spine, with lesions in the portion of the visualized liver. Patient is having unrelenting back pain- oxycodone 5mg is not helping much- he is unable to sleep. Duration for past couple weeks with worsening. I made the decision to admit him for pain control as well as obtain CT head/chest/abdomen/ pelvis for further evaluation. Suspect the primary cancer is hepatic. Pt has history of hepatitis C that was treated with interferon in 1998. Recent labs demonstrated + hep c antibody but undetectable hepatitis C RNA. Patient has not had a colonoscopy. He quit smoking September 2016 after he got a RCA stent placed by Dr. Mesa. He has not drank etoh for years. Patient would like to be full code until he can get a Will written then would like to change it to DNR. Discharge Summary Hospital Course Hospital Course 66 yo M directly admitted 01/10/17 for intractable back pain. His pain was controlled with fentanyl coal pulverizing operator, oxycodone 10mg and dexamethasone. Prior to discharge to [facility] the fentanyl coal pulverizing operator was discontinued and a fentanyl patch applied. Dr. Katz was consulted for new diagnosis of cancer. On 01/16/[address] guided liver biopsy without complication. Dr. Mesa was consulted because he is the patient's clutch specialist. In order to obtain the liver biopsy his plavix was held and resumed post 6 hours after the biopsy. Hemoglobin remained stable. Patient denied chest pain throughout his inpatient stay. Patient did get up to 4L of oxygen per nasal canula but was on room air the day of transfer to [facility]. Patient's LFTs were elevated but plateaued suspect from cancer involving the liver. See problem list below. Intractable back pain likely due to overuse, stenosis, metastatic cancer- fentanyl coal pulverizing operator , oxycodone 10mg for breakthrough , dexamethasone 4mg -diffuse mets to cervical/thoracic/lumbar vertebra, hepatic lesions, infracarinal mass, upper sacral mass- anterior epidural space seen on MRI -suspect lung vs stomach vs lymphoma as primary -CT head/chest/ab/pelvis 01/11/17 - lesions in hilar region, liver, posterior stomach- - LDH elevated >1500 new diagnosed cancer with metastasis- liver biopsy Monday01/16/17- holding plavix for 5 days. AFP, HCG, PSA- not elevated Dr. Katz consulted Elevated LFTs/Acute transaminitis- will monitor, suspect secondary from cancer involving the liver. stable cervical spinal stenosis- severe at C5/6, moderate C7 -pain management leukocytosis- no overt infection. monitor CBC. hypothyroidism- continue levothyroxine h/o hepatitis C - treated with interferon 1998 - hep C RNA undetected December 2016 coronary artery disease- s/p RCA stent 09/2016, Dr. Mesa continue plavix h/o kidney stone- stable, no issues COPD with hypoxia - MAT protocol h/o tobaccoism- quit ~Aug 2016 insomnia- trazodone 50mg helped Patient will be at [facility] in interval. He will follow up with PAULETTE in [address] Mesa in 1 week. He will follow up with Dr. Katz after biopsy results. Labs Laboratory Tests 01/15/17 08:43: White Blood Count 14.0H, Red Blood Count 3.73L, Hemoglobin 12.4L, Hematocrit 36L , Mean Platelet Volume 10.6H, Neutrophils (%) (Auto) 88H, Lymphocytes (%) (Auto ) 5L, Neutrophils # (Auto) 12.4H, Lymphocytes # (Auto) 0.7L, Sodium Level 130L, Blood Urea Nitrogen 21H, Total Bilirubin 1.4H, Aspartate Amino Transf (AST/SGOT ) 209H, Alanine Aminotransferase (ALT/SGPT) 250H, Alkaline Phosphatase 368H, Total Protein 5.9L, Albumin 3.1L 01/16/17 04:15: White Blood Count 13.8H, Red Blood Count 3.61L, Hemoglobin 12.0L, Hematocrit 35L , Mean Platelet Volume 11.1H, Neutrophils (%) (Auto) 88H, Lymphocytes (%) (Auto ) 5L, Neutrophils # (Auto) 12.1H, Lymphocytes # (Auto) 0.7L, Sodium Level 134L, Blood Urea Nitrogen 19H, Total Bilirubin 1.4H, Aspartate Amino Transf (AST/SGOT ) 188H, Alanine Aminotransferase (ALT/SGPT) 240H, Alkaline Phosphatase 368H, Total Protein 5.6L, Albumin 2.9L, Glucose Level 113H 01/16/17 09:09: 01/17/17 05:40: White Blood Count 15.0H, Red Blood Count 3.69L, Hemoglobin 12.2L, Hematocrit 36L , Mean Platelet Volume 10.6H, Neutrophils (%) (Auto) 87H, Lymphocytes (%) (Auto ) 6L, Neutrophils # (Auto) 13.1H, Lymphocytes # (Auto) 0.9L Other Pending Tests liver biopsy see inpatient chart Procedures None. Consultations Dr. Sterling Mesa Discharge Physical Examination Allergies: Coded Allergies: NKANo Known Allergies (Verified Allergy, Unknown, 09/03/07) Vitals & I&Os Vital Signs Date Time Temp Pulse Resp B/P (MAP) Pulse Ox O2 Delivery O2 Flow Rate FiO2 01/17/17 09:00 Room Air 01/17/17 07:40 98.5 120 18 145/81 92 4.00 General Appearance: Alert, Oriented X3 HEENT: Atraumatic, PERRLA Respiratory: Other (coarse breath sounds left lung field > right lung field, wheezing throughout) Cardiovascular: Other (tachycardic- just got out of the shower- some irregular beat- PVCs) Abdominal: Normal Bowel Sounds, Soft Extremities: No Clubbing, No Cyanosis Skin: No Rashes Neuro: Normal Gait, Strength at 5/5 X4 Ext Psych/Mental Status: Mental Status NL, Mood NL Discharge Home Medications Reviewed and agree with Discharge Medication list on patient's Discharge Instruction sheet Condition at Discharge Stable, improved Instructions to Patient/Family Please see electronic discharge instructions given to patient. Clinical Quality Measures DVT/VTE Risk/Contraindication: Risk Factor Score Per Nursin RFS Level Per Nursing on Admit: 2=Moderate Contraindications-Pharm: Other *list below* Other: on plavix JEFFREY PARKER MD Jan 17, 2017 08:17
[2017-01-17] MEDS ORDERED: LACT20SO2 PO (08:27)
[2017-01-17] MEDS ORDERED: DEXA4TAB PO (08:27)
[2017-01-17] MEDS ORDERED: DOCU100C37 PO (08:27)
[2017-01-17] MEDS ORDERED: FENT1PAT10 TD (08:27)
[2017-01-17] MEDS ORDERED: IPRA3AMP INH (08:27)
[2017-01-17] MEDS ORDERED: TRAZ-28 PO (08:27)
[2017-01-17] MEDS ORDERED: FAMO20TA5 PO (08:27)
[2017-01-17] MEDS ORDERED: CLOPIDOGREL 75 MG (PLAVIX) TABLET PO SCH (09:00)
[2017-01-17] MEDS ORDERED: ASPIRIN E.C. 81 MG (ECOTRIN) TAB PO SCH (09:00)
--- NOTE | 2017-01-17 09:07 | Progress Note-Cardiology ---
Cardiology SOAP Progress Note Subjective: Up ambulating in the room. States he is going to [facility] today. No c /o CP or palpitations. Mild to mod exertional dyspnea. Objective: I&O/Vital Signs Vital Sign - Last 12Hours 01/16/17 01/16/17 01/17/17 01/17/17 22:11 23:20 02:20 04:51 Temp 98.5 97.1 Pulse 110 112 Resp 22 20 B/P (MAP) 139/72 123/62 Pulse Ox 93 93 93 92 O2 Delivery Nasal Cannula Nasal Cannula O2 Flow Rate 4.00 4.00 4.00 4.00 01/17/17 01/17/17 06:12 07:40 Temp 98.5 Pulse 120 Resp 18 B/P (MAP) 145/81 Pulse Ox 92 92 O2 Delivery Nasal Cannula O2 Flow Rate 4.00 4.00 Intake and Output 01/17/17 00:00 Intake Total 660 ml Output Total 625 ml Balance 35 ml Weight (Pounds): 217 Weight (Ounces): 0.0 Weight (Calculated Kilograms): 98.407134 Constitutional: AAO x 3, well-developed, well-nourished Respiratory: No accessory muscle use, lungs clear to percussion, other (good bilateral air entry) Cardiovascular: regular rate-rhythm, S1 and S2, systolic murmur (soft SIRI at card base) Gastrointestional: No tender, soft, No guarding, No rebound, audible bowel sounds Extremities: No clubbing, No cyanosis, significant edema (mild bilat LE edema) Neurologic/Psychiatric: oriented x 3, grossly intact, power is 5/5 both on sides Skin: No rash on exposed areas, No ulcerations on exposed areas Results/Procedures: Labs Laboratory Tests 01/16/17 09:09: Prothrombin Time 14.7, INR Comment 1.2, Activated Partial Thromboplast Time 34 01/17/17 05:40: White Blood Count 15.0H, Red Blood Count 3.69L, Hemoglobin 12.2L, Hematocrit 36L , Mean Corpuscular Volume 98, Mean Corpuscular Hemoglobin 33, Mean Corpuscular Hemoglobin Concent 34, Red Cell Distribution Width 14.3, Platelet Count 237, Mean Platelet Volume 10.6H, Neutrophils (%) (Auto) 87H, Lymphocytes (%) (Auto) 6L, Monocytes (%) (Auto) 7, Eosinophils (%) (Auto) 0, Basophils (%) (Auto) 0, Neutrophils # (Auto) 13.1H, Lymphocytes # (Auto) 0.9L, Monocytes # (Auto) 1.0, Eosinophils # (Auto) 0.0, Basophils # (Auto) 0.0 A/P: Assessment: Back and gen body pain (including R chest pain) due to widespread metastatic CA to liver, vertebrae, bone, and lymph nodes. Pt is awaiting liver biopsy Coronary disease, Card cath of 09/27/16 showed CAD primarily consisting of 99% proximal stenosis of the right coronary artery to which successful stenting was carried out with Xience Alpine 4 x 18 mm stent, which reduced the stenosis to 0 % residual stenosis. Elsewhere, there is mild coronary artery disease. Normal left ventricular end-diastolic pressure. Posterobasal and diaphragmatic hypokinesis. Impairment of global left ventricular systolic function with an ejection fraction of approximately 45%. No significant mitral regurgitation. Echo of 01/15/17 showed LVEF 60%, no significant valvular lesion, normal PASP Abnormal ECG: Chronic RBBB, LAFB, frequent PVCs (isolated, monomorphic) Chronic elevation of left hemidiaphragm, as reported on a study of 12/30/16 H/o PVCs Hypothyroidism, treated with throid replacement therapy and followed by pcp Chronic tobacco use, quit 09/12/16. We have advised him to continue to refrain from tobacco use Hep C, treated with interferon in 1998, followed by pcp Carotid u/s of August 23, 2016 showed mild bilat carotid disease Plan: * Complex management due to multiple comorbidities * Liver biopsy completed yesterday * Plavix and ASA has been resumed * Dr. Mesa discussed his case with Dr Lynch this morning and advised resumption of aspirin and Plavix as soon as possible after liver biopsy (which is scheduled for today) * Dr. Mesa discussed all of the above with him at length and answered his questions * Outpatient card f/u is advised in one week * Plan per medical services is to discharge him to [facility] later today ELSA SANDHU Jan 17, 2017 09:07
--- NOTE | 2017-01-17 09:23 | Discharge Inst-Skilled Nursing ---
Discharge Inst-Skilled NF Patient Instructions Patient Problems: metastatic cancer- primary unknown neck/back pain Patient Instructions: May go out with a designated company driver- to do his errands- He is not allowed to drive at this time. Consult/Follow Up/Orders Follow Up Appt.: 2 weeks at [facility] Skilled NF Admit to: [facility] ([facility]) I certify that SNF services are required to be given on an inpatient basis because of the above named patient's need for assisted care on a continuing basis for the conditions(s) for which he/she was receiving inpatient hospital services prior to his/her transfer to the SNF. [facility] Facility Order: Production Staff Worker-Evaluate & Treat, Physical Therapy-Evaluate & Treat Discharge Diet: Cardiac Diet Daily Activity as Tolerated: Yes New & Resume Previous Orders Other Instructions May go out with a designated company driver- to do his errands- He is not allowed to drive at this time. Any questions call or page Dr. Cliff Parker Jan 17, 2017 09:18 CLIFF PARKER MD Jan 17, 2017 09:23
[2017-01-17] MEDS: NS IV 1000 ML 1,000 ML IV SCH (09:30)
[2017-01-17] MEDS: ASPIRIN E.C. 81 MG (ECOTRIN) TAB PO SCH (09:47)
[2017-01-17] MEDS: CLOPIDOGREL 75 MG (PLAVIX) TABLET PO SCH (09:47)
[2017-01-17] MEDS: DOCUSATE SODIUM 100 MG (COLACE) CAP PO SCH (09:48)
[2017-01-17] MEDS: lisINopril 5 MG (PRINIVIL) TABLET PO SCH (09:48)
[2017-01-17] MEDS: DEXAMETHASONE 4 MG TAB (DECADRON) PO SCH (09:48)
[2017-01-17] MEDS: FAMOTIDINE 20 MG (PEPCID) TABLET PO SCH (09:48)
[2017-01-17] MEDS: LACTULOSE SYRUP 10GM/15ML (ENULOSE) 30ML UDC PO SCH (09:49)
[2017-01-19] MEDS ORDERED: FENTANYL PATCH REMOVAL TP SCH (08:44)
[2017-01-19] MEDS ORDERED: fentaNYL PATCH 75 MCG (DURAGESIC) TOP SCH (08:45)
== END 2017-01-17 10:30 | DRG 948 ==
LOC: DELPENDDIS → 4TH 18:36
PROVIDERS: ADMIT Family Medicine; ATTEND Family Medicine
PROC: 0FB13ZX Excision of Right Lobe Liver, Percutaneous Approach, Diagnostic (ICD-10-PCS; principal; 2017-01-16)
DX: G89.3 Neoplasm related pain (acute) (chronic) (principal); C16.9 Malignant neoplasm of stomach, unspecified; C78.7 Secondary malignant neoplasm of liver and intrahepatic bile duct; C79.51 Secondary malignant neoplasm of bone; C77.1 Secondary and unspecified malignant neoplasm of intrathoracic lymph nodes; M48.02 Spinal stenosis, cervical region; J44.9 Chronic obstructive pulmonary disease, unspecified; I25.10 Atherosclerotic heart disease of native coronary artery without angina pectoris; I10 Essential (primary) hypertension; E03.9 Hypothyroidism, unspecified; K21.9 Gastro-esophageal reflux disease without esophagitis; E78.00 Pure hypercholesterolemia, unspecified; D72.829 Elevated white blood cell count, unspecified; G47.00 Insomnia, unspecified; F41.9 Anxiety disorder, unspecified; Z87.891 Personal history of nicotine dependence; Z79.02 Long term (current) use of antithrombotics/antiplatelets; Z87.442 Personal history of urinary calculi; Z86.19 Personal history of other infectious and parasitic diseases; Z95.5 Presence of coronary angioplasty implant and graft
CPT/HCPCS: 36415; 70470; 71275; 74178; 76942; 80053; 80069; 82105; 83615; 83735; 84153; 84702; 85007; 85025; 85027; 85610; 85730; 88307; 88341; 88342; 93005; 93306; 94640; 94760

== ENCOUNTER → 2017-01-10 | Outpatient (CLI) | payer MEDICARE, BC ==
[~2017-01-10] MED LIST changes: +CYCL5TAB PO; +DEXA4TAB PO; +DOCU-143 PO; +DOCU100C37 PO; +FAMO20TA3 PO; +FAMO20TA5 PO; +FENT1PAT10 TD; +FENT1PAT59 TD; +FENT1PAT8 TD; +FENT1PAT9 TD; +FURO40TA4 PO; +HYDR-757 PO; +IPRA3AMP IH; +IPRA3AMP INH; +LACT10SO PO; +LACT20SO2 PO; +MORP-34 PO; +MORP15TA PO; +OXYC10TA7 PO; +OXYC5TAB71 PO; +Oxycodone Hcl PO; +POLY17PO23 PO; +POTA10TA10 PO; +PRAV20TA3 PO; +PRD20T PO; +RT-ALBUINH IH; +TRAZ-28 PO; +[UNRECOGNIZED DRUG - CODE] TD
--- NOTE | 2017-01-10 16:53 | Diagnostic Imaging Report ---
PROCEDURE: MR imaging cervical spine without contrast. TECHNIQUE: Multiplanar, multisequence MR imaging of the cervical spine was performed without contrast. INDICATION: Neck pain. FINDINGS: There is reversal of the lordotic curvature. There is a compression fracture of L4 vertebral body, which is age indeterminate but has appearance suggestive of chronicity. The alignment of the posterior spinal line is satisfactory. There is multilevel disc desiccation and disc height loss. The bone marrow demonstrates multilevel abnormal signal with a suggestion of bone marrow infiltration with lesions concerning for malignancy. The largest involvement is in C7 vertebral body where the area involved is at least 2 cm in size involving most of the central aspect of the vertebral body. The spinal canal demonstrates normal caliber, contour, and signal of the spinal cord. The foramen magnum and the upper cervical canal are widely patent. C2/3: No disc herniation or spinal canal stenosis. There is facet arthropathy with sdesvhvi-xk-lpuuoo stenosis of the left neural foramen. The right neural foramen is patent. C3/4: No disc herniation and no spinal canal stenosis. The foramina demonstrate bilateral moderate stenosis. C4/5: There is a minimal disc spur complex with no significant spinal canal stenosis. There is bilateral foraminal stenosis, severe on the right and moderate on the left. C5/6: There is spur disc complex and posterior ligamentous thickening. This is associated with moderate spinal canal stenosis reducing the AP dimension of the central canal to 7.7 mm and resulting in minimal cord compression along the right side of the spinal cord with no cord signal abnormality. Bilateral severe foraminal stenosis is seen at this level. C6/7: There is a mild disc spur complex and posterior ligamentous hypertrophy reducing the AP dimension of the central canal to 8.6 mm, moderate canal stenosis with no cord compression. There is bilateral severe foraminal stenosis, worse on the right. C7/T1: No disc herniation, no spinal canal or foraminal stenosis. IMPRESSION: 1. Diffuse bone marrow abnormalities in the spine likely related to metastatic disease. 2. Multilevel degenerative changes with neural foraminal and spinal canal stenosis. 3. There is a likely old mild compression fracture of L4 vertebral body. Dictated by: Dictated on workstation # [id number]
--- NOTE | 2017-01-10 17:26 | Diagnostic Imaging Report ---
TECHNIQUE: A multiplanar/multisequence MRI of the thoracic spine was performed without intravenous contrast. INDICATION: Neck and mid back pain. FINDINGS: The alignment at the posterior spinal line is satisfactory. The vertebral body heights are preserved. The disc signal is diffusely dehydrated, compatible with desiccation. No significant disc height loss at any level. There is minimal disc herniation at the T3-4 level without significant spinal canal stenosis or cord compression. There is no spinal cord abnormality with normal caliber, contour, and signal. There is no significant spinal canal stenosis or foraminal narrowing at any level. There are diffuse bone marrow signal abnormalities in the thoracic spine, suggestive of metastasis. There are partially visualized multiple liver masses seen. There is also question of infracarinal enlarged lymph nodes. IMPRESSION: The findings are compatible with diffuse osseous metastasis with suggestion of liver metastasis and an infracarinal mass. Further evaluation with a CT scan of the chest, abdomen, and pelvis is recommended. Report faxed to Dr. Lynch at [phone] at 5:15 p.m. 01/10/2017/jose Dictated by: Dictated on workstation # [id number]
--- NOTE | 2017-01-10 17:27 | Diagnostic Imaging Report ---
PROCEDURE: MRI lumbar spine. TECHNIQUE: Multiplanar, multisequence MRI of the lumbar spine was performed without contrast. INDICATION: Back pain. FINDINGS: There is diffuse infiltration of the bone marrow in the lumbar spine and the sacrum with mild expansion in the upper sacrum seen slightly bulging posteriorly towards the upper sacral spinal canal. There is a 50% compression fracture of the L2 vertebral body. This is perhaps old as there is no significant superimposed bone marrow edema identified, although this can be masked by the bone marrow infiltration. There is an anterior epidural mass in the right paracentral posterolateral region at the lower L3 level related to extraosseous extension of metastasis into the spinal canal mildly compressing the right lateral recess at this level and narrowing the medial aspect of the right L3/4 neural foramen. There is satisfactory alignment of the posterior spinal line. There is no significant disc herniation at any level. No central canal stenosis. The above-mentioned posterior extension from the upper sacrum mass into the anterior epidural space compresses the lateral recess bilaterally more on the right side at the S1 level compressing the descending right S1 nerve root and abutting the descending left S1 nerve root without significant compression. In addition, there is facet hypertrophy resulting in moderate foraminal stenosis on the left side at L5/S1. There is otherwise no significant spinal canal stenosis or foraminal narrowing at other levels. The surrounding soft tissues demonstrate liver metastases. IMPRESSION: 1. Diffuse metastases in the lumbar spine, the sacrum, and in the liver. CT studies to look for primary neoplasm is suggested. 2. A 50% compression fracture of L2 vertebral body, likely old. 3. Tumor extension into the anterior epidural space in the upper sacrum and at the posterolateral aspect of the lower L3 level. The descending left S1 nerve root is compressed by the mass extension into the right lateral recess and the upper sacrum. Other findings as above. Dictated by: Dictated on workstation # [id number]
== END ==
LOC: RAD 14:46
PROVIDERS: ATTEND Family Medicine
DX: M54.2 Cervicalgia (principal); M54.5 Low back pain; M54.6 Pain in thoracic spine
CPT/HCPCS: 72141; 72146; 72148

== ENCOUNTER 2017-01-26 12:58 | Outpatient (RCR) | payer MEDICARE, BC ==
[2017-01-25 09:56] LABS: BASOPHILS % (AUTO) 0 % (0-10); EOSINOPHILS % (AUTO) 0 % (0-10); LYMPHOCYTES # (AUTO) 0.8 X 10^3 (1.0-4.0); LYMPHOCYTES % (AUTO) 4 % (12-44); MEAN CORPUSCULAR HEMOGLOBIN 33 PG (25-34); MEAN CORPUSCULAR HGB CONC 34 G/DL (32-36); MEAN CORPUSCULAR VOLUME 96 FL (80-99); MEAN PLATELET VOLUME 10.4 FL (7.4-10.4); MONOCYTES % (AUTO) 6 % (0-12); NEUTROPHILS # (AUTO) 16.7 X 10^3 (1.8-7.8); NEUTROPHILS % (AUTO) 90 % (42-75); PLATELET COUNT 283 10^3/uL (130-400); RED BLOOD COUNT 4.03 10^6/uL (4.35-5.85); RED CELL DISTRIBUTION WIDTH 14.9 % (10.0-14.5); WHITE BLOOD COUNT 18.5 10^3/uL (4.3-11.0)
[2017-01-25 10:21] LABS: BILIRUBIN,TOTAL 2.8 MG/DL (0.1-1.0); CALCIUM 9.2 MG/DL (8.5-10.1); CREATININE SERUM 1.24 MG/DL (0.60-1.30); MAGNESIUM 2.1 MG/DL (1.8-2.4); POTASSIUM 4.8 MMOL/L (3.6-5.0); TOTAL PROTEIN 5.9 G/DL (6.4-8.2)
[~2017-01-26] VITALS: Ht 180.3 cm; Wt 102.5 kg
[~2017-01-26 12:58] MED LIST changes: +CARBOPLATIN 400 MG in D5W 50 ML IV(CANCER CTR) 50 ML IV SCH; +CARBOPLATIN IV SCH; +D5W IV SCH; +DEXA4TAB PO; +DOCU100C37 PO; +ETOPOSIDE 100 MG in NORMAL SALINE (CANCER CENTER) 500 ML IV SCH; +FAMO20TA5 PO; +FAMOTIDINE 20MG/2ML IV (CANCER CTR) IV SCH; +FENT1PAT10 TD; +FENT1PAT9 TD; +FOSAPREPITANT 150 MG/NS 150 MG IVPB (CANCER CTR) IV PRN; +IPRA3AMP INH; +LACT20SO2 PO; +NS (IVPB) CANCER CENTER 250 ML ONE; +NS IV 500 ML (CANCER CENTER) IV SCH; +ONDANSETRON MDV (CANCER CENTER 16 MG, DEXAMETHASONE PF INJ (CANCER C 12 MG in NS (IVPB)... IV SCH; +OXYC5TAB71 PO; +Oxycodone Hcl PO; +PALONOSETRON HCL 0.25 MG, DEXAMETHASONE PF INJ (CANCER C 12 MG in NS (IVPB) CANCER CENT... IV PRN; +PEGFILGRASTIM 6 MG/0.6 ML KIT SQ SCH; +PEGFILGRASTIM 6 MG/0.6ML NEULASTA SC SCH; +PRAV20TA3 PO; +RT-ALBUINH IH; +TRAZ-28 PO; +[UNRECOGNIZED DRUG - CODE] TD
[2017-01-27] MEDS ORDERED: OXYC10TA7 PO (09:09)
[2017-01-27] MEDS ORDERED: FENT1PAT59 TD (09:09)
[2017-01-27] MEDS ORDERED: FAMO20TA3 PO (09:09)
[2017-01-27] MEDS ORDERED: DEXA4TAB PO (09:09)
[2017-01-27] MEDS ORDERED: FURO40TA4 PO (09:09)
[2017-01-27] MEDS ORDERED: POTA10TA10 PO (09:09)
[2017-01-27] MEDS ORDERED: TRAZ-28 PO (09:09)
[2017-01-27] MEDS ORDERED: IPRA3AMP IH (09:09)
[2017-01-27] MEDS ORDERED: DOCU-143 PO (09:09)
[2017-01-27] MEDS ORDERED: LACT10SO PO (09:09)
[2017-01-27] MEDS ORDERED: LACT20SO2 PO (09:19)
[2017-02-08] MEDS ORDERED: POLY17PO23 PO (09:34)
[2017-02-08] MEDS ORDERED: MORP15TA PO (09:34)
[2017-02-08] MEDS ORDERED: FENT1PAT8 TD (09:34)
[2017-02-08] MEDS ORDERED: MORP-34 PO (09:34)
== END 2017-04-25 | disposition home or self-care (01) ==
LOC: ONC 12:58
PROVIDERS: ATTEND Internal Medicine Hematology & Oncology
DX: Z51.11 Encounter for antineoplastic chemotherapy (principal); C34.92 Malignant neoplasm of unspecified part of left bronchus or lung; C79.51 Secondary malignant neoplasm of bone; C77.1 Secondary and unspecified malignant neoplasm of intrathoracic lymph nodes; C78.7 Secondary malignant neoplasm of liver and intrahepatic bile duct; I25.10 Atherosclerotic heart disease of native coronary artery without angina pectoris; E03.9 Hypothyroidism, unspecified; I10 Essential (primary) hypertension; E78.5 Hyperlipidemia, unspecified; I65.23 Occlusion and stenosis of bilateral carotid arteries; J44.9 Chronic obstructive pulmonary disease, unspecified; Z87.891 Personal history of nicotine dependence; Z79.899 Other long term (current) drug therapy
CPT/HCPCS: 36415; 80053; 83735; 85025; 96367; 96375; 96413; 96417; 99213

== ENCOUNTER 2017-01-26 16:45 | Inpatient (IN) | payer MEDICARE, BC ==
[~2017-01-26] VITALS: Ht 177.8 cm; Wt 121.1 kg
[~2017-01-26 16:45] MED LIST changes: -CARBOPLATIN 400 MG in D5W 50 ML IV(CANCER CTR) 50 ML IV SCH; -CARBOPLATIN IV SCH; -D5W IV SCH; -ETOPOSIDE 100 MG in NORMAL SALINE (CANCER CENTER) 500 ML IV SCH; -FAMOTIDINE 20MG/2ML IV (CANCER CTR) IV SCH; -FOSAPREPITANT 150 MG/NS 150 MG IVPB (CANCER CTR) IV PRN; -NS (IVPB) CANCER CENTER 250 ML ONE; -NS IV 500 ML (CANCER CENTER) IV SCH; -ONDANSETRON MDV (CANCER CENTER 16 MG, DEXAMETHASONE PF INJ (CANCER C 12 MG in NS (IVPB)... IV SCH; -PALONOSETRON HCL 0.25 MG, DEXAMETHASONE PF INJ (CANCER C 12 MG in NS (IVPB) CANCER CENT... IV PRN; -PEGFILGRASTIM 6 MG/0.6 ML KIT SQ SCH; -PEGFILGRASTIM 6 MG/0.6ML NEULASTA SC SCH
[2017-01-26] MEDS ORDERED: morphine INJ 10 MG/ML 1ML (SYR OR VIAL) IVP STA (17:06)
[2017-01-26 17:11] LABS: BASOPHILS % (AUTO) 0 % (0-10); EOSINOPHILS # (AUTO) 0.3 10^3/uL (0.0-0.3); EOSINOPHILS % (AUTO) 1 % (0-10); LYMPHOCYTES # (AUTO) 0.4 X 10^3 (1.0-4.0); LYMPHOCYTES % (AUTO) 2 % (12-44); MEAN CORPUSCULAR HEMOGLOBIN 33 PG (25-34); MEAN CORPUSCULAR HGB CONC 35 G/DL (32-36); MEAN CORPUSCULAR VOLUME 95 FL (80-99); MONOCYTES # (AUTO) 0.5 X 10^3 (0.0-1.0); MONOCYTES % (AUTO) 3 % (0-12); NEUTROPHILS # (AUTO) 17.4 X 10^3 (1.8-7.8); NEUTROPHILS % (AUTO) 94 % (42-75); PLATELET COUNT 350 10^3/uL (130-400); RED BLOOD COUNT 4.13 10^6/uL (4.35-5.85); RED CELL DISTRIBUTION WIDTH 15.2 % (10.0-14.5); WHITE BLOOD COUNT 18.6 10^3/uL (4.3-11.0)
[2017-01-26 17:15] LABS: INR 1.3 (0.8-1.4); PROTHROMBIN TIME PATIENT 15.8 SEC (12.2-14.7)
[2017-01-26] MEDS ORDERED: ASPIRIN 81 MG CHEW (CHILDREN'S ASA) PO ONE (17:15)
[2017-01-26 17:23] LABS: ALANINE AMINOTRANSFERASE 200 U/L (0-55); ALBUMIN 2.9 G/DL (3.2-4.5); ANION GAP 12 MMOL/L (5-14); ASPARTATE AMINO TRANSFERASE 238 U/L (5-34); BLOOD UREA NITROGEN 72 MG/DL (7-18); BUN/CREATININE RATIO 47; CALCIUM 8.3 MG/DL (8.5-10.1); CARBON DIOXIDE 23 MMOL/L (21-32); CHLORIDE 94 MMOL/L (98-107); CREATININE SERUM 1.53 MG/DL (0.60-1.30); GFR ESTIMATED 45; GLUCOSE 127 MG/DL (70-105); MAGNESIUM 2.7 MG/DL (1.8-2.4); POTASSIUM 6.1 MMOL/L (3.6-5.0); SODIUM 129 MMOL/L (135-145); TOTAL PROTEIN 6.1 G/DL (6.4-8.2)
[2017-01-26 17:27] LABS: BAND NEUTROPHILS 0 %; BASOPHILS % (MANUAL) 0 %; EOSINOPHILS % (MANUAL) 0 %; LYMPHOCYTES % (MANUAL) 1 %; NEUTROPHILS % (MANUAL) 98 %
--- NOTE | 2017-01-26 17:33 | ED Chest Pain ---
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 Nursing Sepsis Screen: No Definite Risk Source: patient Exam Limitations: no limitations History of Present Illness Time seen by provider: 17:10 Initial Comments Here with complaint of left-sided chest pain. 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 Pain is much worse today after starting chemotherapy and is on the left side. Patient also has cardiac disease and has had stenting as recently as September. [facility]. His pain has been worsening over the last several weeks. Currently he is on fentanyl patch plus hydrocodone. His oncologist requested IV medication here and prescription for stronger meds including Dilaudid. Patient to be evaluated. His main complaint is the chest pain and left shoulder and back pain. Timing/Duration: 1-2 days Severity/Quality: moderate, severe Location: central Radiation: shoulders, back Activities at Onset: none ASA po STOCK OR DELIVERY CLERK: Yes NTG SL STOCK OR DELIVERY CLERK: No Associated Symptoms: No abdominal pain, back pain, No edema, nausea/vomiting, shortness of breath Allergies and Home Medications Allergies Coded Allergies: NKANo Known Allergies (Verified Allergy, Unknown, 09/03/07) Home Medications Albuterol Sulfate 1 Puff Puff, 2 PUFF IH Q4H PRN for SHORTNESS OF BREATH, ( Reported) Aspirin 81 Mg Tablet.dr, 81 MG PO DAILY, (Reported) Clopidogrel Bisulfate 75 Mg Tablet, 75 MG PO DAILY, (Reported) Dexamethasone 4 Mg Tablet, 2 MG PO BID for 30 Days, #60 Prescribed by: CLIFF PARKER on 01/17/17826 Docusate Sodium 100 Mg Capsule, 100 MG PO BID for 30 Days, #60 Ref 5 Prescribed by: CLIFF PARKER on 01/17/17826 Famotidine 20 Mg Tablet, 20 MG PO BID for 30 Days, #60 Ref 1 Prescribed by: CLIFF PARKER on 01/17/17826 Fentanyl 1 Each Patch.td72, 75 MCG TD Q72H for 30 Days, #10 Prescribed by: CLIFF PARKER on 01/17/17826 Ipratropium/Albuterol Sulfate 3 Ml Ampul.neb, 3 ML INH RTQ4HR for 30 Days, #1 Ref 5 Prescribed by: CLIFF PARKER on 01/17/17826 Lactulose 20 Gm/30 Ml Solution, 10 GM PO BID for 30 Days, #900 Prescribed by: CLIFF PARKER on 01/17/17826 Levothyroxine Sodium 100 Mcg Tablet, 100 MCG PO DAILY, (Reported) Lisinopril 5 Mg Tablet, 5 MG PO DAILY, (Reported) Pravastatin Sodium 20 Mg Tablet, 20 MG PO DAILY, (Reported) Trazodone HCl 50 Mg Tablet, 50 MG PO HS for 30 Days, #30 Prescribed by: CLIFF PARKER on 01/17/17826 [Oxycodone Hcl] 5 MG TAB, 10 MG PO Q4H PRN for BREAKTHROUGH PAIN, #120 Prescribed by: CLIFF PARKER on 01/16/17902 Review of Systems Constitutional: see HPI, No chills, No fever EENTM: No Symptoms Reported Respiratory: See HPI Cardiovascular: See HPI, Chest Pain Gastrointestinal: No Symptoms Reported Genitourinary: No Symptoms Reported Musculoskeletal: see HPI, back pain, neck pain All Other Systems Reviewed Negative Unless Noted: Yes Past Wyfpjjm-Mprmne-Gvecyn Hx Patient Social History Alcohol Use: Denies Use Recreational Drug Use: No Drug of Choice: MARIJUANA - COUPLE WEEKS AGO Smoking Status: Former Smoker Type Used: Cigarettes Recent Foreign Travel: No Contact w/Someone Who Travel: No Recent Infectious Disease Expo: No Recent Hopitalizations: No Immunizations Up To Date Date of Pneumonia Vaccine: May 24, 2016 Date of Influenza Vaccine: Jul 11, 2016 Seasonal Allergies Seasonal Allergies: No Surgeries HX Surgeries: Yes (T&A) Surgeries: Adenoidectomy, Coronary Stent, Tonsillectomy Respiratory Hx Respiratory Disorders: No Cardiovascular Hx Cardiac Disorders: Yes Cardiac Disorders: Coronary Artery Disease, High Cholesterol, Hypertension Neurological Hx Neurological Disorders: No Reproductive System Hx Reproductive Disorders: No Genitourinary Hx Genitourinary Disorders: No Genitourinary Disorders: Kidney Stones Gastrointestinal Hx Gastrointestinal Disorders: Yes Gastrointestinal Disorders: Gastroesophageal Reflux Musculoskeletal Hx Musculoskeletal Disorders: Yes (TORN LIGAMENTS IN BACK,COMP.FX.) Musculoskeletal Disorders: Chronic Back Pain Endocrine Hx Endocrine Disorders: Yes Endocrine Disorders: Hypothyroidsim HEENT HX ENT Disorders: No Cancer Hx Cancer: No Psychosocial Hx Psychiatric Problems: No Integumentary HX Skin/Integumentary Disorder: No Blood Transfusions Hx Blood Disorders: No Reviewed Nursing Assessment Reviewed/Agree w Nursing PMH: Yes Family Medical History Significant Family History: No Pertinent Family Hx Family Medial History: Patient reports no known family medical history. Physical Exam Vital Signs Vital Sign - Last 12Hours Capillary Refill : Less Than 3 Seconds General Appearance: WD/WN, Chronically ill, Moderate Distress HEENT: PERRL/EOMI, Pharynx Normal Neck: Non Tender, Supple Respiratory: Lungs Clear, Normal Breath Sounds Cardiovascular: Regular Rate, Rhythm, No Murmur Gastrointestinal: Non Tender, Soft Extremity: Non Tender, No Calf Tenderness Neurologic/Psychiatric: Alert, Oriented x3 Skin: Normal Color, Warm/Dry Progress/Results/Core Measures Results/Orders Lab Results Laboratory Tests Test 01/26/17 16:59 Range/Units White Blood Count 18.6 H 4.3-11.0 10^3/uL Red Blood Count 4.13 L 4.35-5.85 10^6/uL Hemoglobin 13.8 13.3-17.7 G/DL Hematocrit 39 L 40-54 % Mean Corpuscular Volume 95 80-99 FL Mean Corpuscular Hemoglobin 33 25-34 PG Mean Corpuscular Hemoglobin Concent 35 32-36 G/DL Red Cell Distribution Width 15.2 H 10.0-14.5 % Platelet Count 350 130-400 10^3/uL Mean Platelet Volume 11.0 H 7.4-10.4 FL Neutrophils (%) (Auto) 94 H 42-75 % Lymphocytes (%) (Auto) 2 L 12-44 % Monocytes (%) (Auto) 3 0-12 % Eosinophils (%) (Auto) 1 0-10 % Basophils (%) (Auto) 0 0-10 % Neutrophils # (Auto) 17.4 H 1.8-7.8 X 10^3 Lymphocytes # (Auto) 0.4 L 1.0-4.0 X 10^3 Monocytes # (Auto) 0.5 0.0-1.0 X 10^3 Eosinophils # (Auto) 0.3 0.0-0.3 10^3/uL Basophils # (Auto) 0.0 0.0-0.1 10^3/uL Neutrophils % (Manual) 98 % Lymphocytes % (Manual) 1 % Monocytes % (Manual) 1 % Eosinophils % (Manual) 0 % Basophils % (Manual) 0 % Band Neutrophils 0 % Blood Morphology Comment NORMAL Prothrombin Time 15.8 H 12.2-14.7 SEC INR Comment 1.3 0.8-1.4 Activated Partial Thromboplast Time 27 24-35 SEC Sodium Level 129 L 135-145 MMOL/L Potassium Level 6.1 H 3.6-5.0 MMOL/L Chloride Level 94 L 98-107 MMOL/L Carbon Dioxide Level 23 21-32 MMOL/L Anion Gap 12 5-14 MMOL/L Blood Urea Nitrogen 72 H 7-18 MG/DL Creatinine 1.53 H 0.60-1.30 MG/DL Estimat Glomerular Filtration Rate 45 BUN/Creatinine Ratio 47 Glucose Level 127 H 70-105 MG/DL Uric Acid 15.3 *H 2.6-7.2 MG/DL Calcium Level 8.3 L 8.5-10.1 MG/DL Magnesium Level 2.7 H 1.8-2.4 MG/DL Total Bilirubin 3.0 H 0.1-1.0 MG/DL Aspartate Amino Transf (AST/SGOT) 238 H 5-34 U/L Alanine Aminotransferase (ALT/SGPT) 200 H 0-55 U/L Alkaline Phosphatase 340 H 40-136 U/L Myoglobin 1317.9 H 10.0-92.0 NG/ML Troponin I < 0.30 <0.30 NG/ML Total Protein 6.1 L 6.4-8.2 G/DL Albumin 2.9 L 3.2-4.5 G/DL My Orders Orders - SASHA AGUILAR MD Cbc With Automated Diff (01/26/17 17:05) Magnesium (01/26/17 17:05) Chest 1 View, Ap/Pa Only (01/26/17 17:05) Ekg Tracing (01/26/17 17:05) Cardiac Profile 1 (01/26/17 17:05) Comprehensive Metabolic Panel (01/26/17 17:05) Myoglobin Serum (01/26/17 17:05) Protime With Inr (01/26/17 17:05) Partial Thromboplastin Time (01/26/17 17:05) O2 (01/26/17 17:05) Monitor-Rhythm Ecg Trace Only (01/26/17 17:05) Lipid Panel (01/27/17 06:00) Aspirin Chewable Tablet (Baby Aspirin Ch (01/26/17 17:15) Saline Lock/Iv-Start (01/26/17 17:05) Morphine Injection (Morphine Injection (01/26/17 17:06) Manual Differential (01/26/17 16:59) Ns Iv 500 Ml (Sodium Chloride 0.9%) (01/26/17 18:09) Uric Acid (01/26/17 18:13) Allopurinol Tablet (Zyloprim Tablet) (01/26/17 19:00) Medications Given in ED Current Medications Medications Dose Ordered Sig/Dariusz Route Start Time Stop Time Status Last Admin Dose Admin Aspirin 324 mg ONCE ONCE PO 01/26/17 17:15 01/26/17 17:16 DC 01/26/17 17:20 324 MG Sodium Chloride 500 ml @ 0 mls/hr Q0M ONCE IV 01/26/17 18:09 01/26/17 18:10 DC 01/26/17 18:16 0 MLS/HR Vital Signs/I&O Vital Sign - Last 12Hours 01/26/17 01/26/17 16:45 16:45 Temp 98.0 Pulse 101 Resp 18 B/P (MAP) Pulse Ox 94 O2 Delivery Nasal Cannula Nasal Cannula O2 Flow Rate 4.00 4.00 Progress Note : Progress Note Seen and evaluated. IV, labs, EKG and chest x-ray ordered. Morphine 10 mg IV. This did make the patient much more comfortable. I did discuss the case with Dr. Malou Katz. Patient has intractable pain due to his cancer. We will evaluate uric acid. If this is okay then [facility] can [facility] with Dilaudid 4 mg by mouth every 6 hours if the penitentiary can get this. The nurse did discuss this with the penitentiary and they would be able to get it if needed. Uric acid came back quite elevated. Concerns for tumor lysis syndrome in the setting of recent chemotherapy and small cell carcinoma. Patient also has elevated serum creatinine and potassium, also related likely to tumor lysis syndrome. We will hydrate the patient and monitor for continued potassium increase. He will also be admitted for evaluation of his chest pain. He does have significant cardiac disease and had recent cardiac catheter with stenting of a 99 percent blockage in the RCA. Pain is resolved now after morphine and this is pain likely related to his cancer syndrome. I did discuss the case with Dr. Cliff Parker at 1844 and he accepts patient for admission, inpatient status with Dr. Katz and Dr. Mesa on consult. Dr. Mesa to be called in the morning. Patient agrees with plan. ECG Initial ECG Impression Date: Jan 26, 2017 Initial ECG Impression Time: 16:55 Initial ECG Rate: 98 Initial ECG Rhythm: Normal Sinus Comment Sinus rhythm with right bundle branch block and left anterior fascicular block. No evidence of ST elevation NE. Left axis deviation. Interpreted by me. Similar to previous of 01/15/17. Diagnostic Imaging Diagonstic Imaging: Xray Plain Films/CT/US/NM/MRI: chest Comments [place], [place] NAME: NICK TRACY [facility] REC#: [id number] PT STATUS: REG ER : 1950 PHYSICIAN: SASHA AGUILAR MD ADMIT DATE: 01/26/17/ER Signed Date of Exam:01/26/17 CHEST 1 VIEW, AP/PA ONLY INDICATION: Left-sided chest pain. EXAMINATION: Frontal chest was obtained at 5:34 p.m. COMPARISON: 12/30/16. FINDINGS: Heart is mildly enlarged. There is very poor inspiration which limits this study. There is some minimal left basilar atelectatic change. There is prominence of the left hilum which, in correlation with previous CT study of 01/11/17, is compatible with adenopathy. IMPRESSION: Poor inspiration limits the study. There is some minimal left basilar atelectatic change. There is no pneumothorax or pleural fluid. There is fullness in the left hilum which, in correlation with previous CT of 01/11/17, is likely significant for adenopathy. Dictated by: Dictated on workstation # [id number] Dict: 01/26/17 1737 Trans: 01/26/171821 [facility] [id number] Interpreted by: DON PÉREZ MD Electronically signed by: DON PÉREZ MD 01/26/171821 Reviewed: Reviewed by Me Departure Communication Time/Spoke to Admitting Phy: 18:44 Time/Spoke to Consulting Physi: 18:35 Impression Impression: Primary Impression: Tumor lysis syndrome following antineoplastic drug therapy Additional Impressions: intractable pain due to cancer Chest pain Qualified Codes: R07.9 - Chest pain, unspecified Disposition: 09 ADMITTED INPATIENT Condition: Stable Decision to Admit Reason: Admit from ER (General) Decision to Admit/Date: Jan 26, 2017 Time/Decision to Admit Time: 18:35 Departure-Patient Inst. Referrals: CLIFF PARKER MD (PCP/Family) Primary Care Physician SASHA AGUILAR MD Jan 26, 2017 17:33
--- NOTE | 2017-01-26 17:44 | Diagnostic Imaging Report ---
INDICATION: Left-sided chest pain. EXAMINATION: Frontal chest was obtained at 5:34 p.m. COMPARISON: 12/30/16. FINDINGS: Heart is mildly enlarged. There is very poor inspiration which limits this study. There is some minimal left basilar atelectatic change. There is prominence of the left hilum which, in correlation with previous CT study of 01/11/17, is compatible with adenopathy. IMPRESSION: Poor inspiration limits the study. There is some minimal left basilar atelectatic change. There is no pneumothorax or pleural fluid. There is fullness in the left hilum which, in correlation with previous CT of 01/11/17, is likely significant for adenopathy. Dictated by: Dictated on workstation # [id number]
[2017-01-26 17:46] LABS: MYOGLOBIN SERUM 1317.9 NG/ML (10.0-92.0)
[2017-01-26] MEDS ORDERED: NS IV 500 ML 500 ML IV ONE (18:09)
[2017-01-26] MEDS ORDERED: ALLOPURINOL 300 MG (ZYLOPRIM) TAB PO SCH (19:00)
[2017-01-26] MEDS ORDERED: NS IV 1000 ML 1,000 ML ONE (20:14)
[2017-01-26] MEDS: NS IV 1000 ML 1,000 ML IV SCH ×2 (20:25→20:45)
[2017-01-26] MEDS ORDERED: ONDANSETRON 4 MG/2 ML (SDV) Z0FRAN IV PRN (20:45)
[2017-01-26] MEDS ORDERED: CATHETER FLUSH 10 ML SYR IV PRN (20:45)
[2017-01-26 20:58] VITALS: BP 142/90
[2017-01-26] MEDS: HYDROmorphone (DILAUDID) 2 MG/ML VIAL IV PRN ×2 (21:20→23:35)
[2017-01-26 21:41] LABS: CALCIUM 8.1 MG/DL (8.5-10.1); CREATININE SERUM 1.6 MG/DL (0.60-1.30); POTASSIUM 5.6 MMOL/L (3.6-5.0)
[2017-01-26 22:22] LABS: CREATINE KINASE 371 U/L (30-200)
[2017-01-26 22:44] LABS: TROPONIN I < 0.30 NG/ML (<0.30)
[2017-01-26 22:45] LABS: MYOGLOBIN SERUM 1435.9 NG/ML (10.0-92.0)
[2017-01-27] VITALS (7 sets, daily range): BP systolic 108–142; BP diastolic 64–78
[2017-01-27] MEDS: HYDROmorphone (DILAUDID) 2 MG/ML VIAL IV PRN ×2 (03:48→08:18)
[2017-01-27] MEDS: NS IV 1000 ML 1,000 ML IV SCH ×3 (06:34→23:00)
[2017-01-27 06:39] LABS: BASOPHILS % (AUTO) 0 % (0-10); EOSINOPHILS % (AUTO) 0 % (0-10); LYMPHOCYTES # (AUTO) 0.6 X 10^3 (1.0-4.0); LYMPHOCYTES % (AUTO) 4 % (12-44); MEAN CORPUSCULAR HEMOGLOBIN 33 PG (25-34); MEAN CORPUSCULAR HGB CONC 35 G/DL (32-36); MEAN CORPUSCULAR VOLUME 95 FL (80-99); MEAN PLATELET VOLUME 10.6 FL (7.4-10.4); MONOCYTES # (AUTO) 0.5 X 10^3 (0.0-1.0); MONOCYTES % (AUTO) 3 % (0-12); NEUTROPHILS # (AUTO) 16.9 X 10^3 (1.8-7.8); NEUTROPHILS % (AUTO) 94 % (42-75); PLATELET COUNT 244 10^3/uL (130-400); RED BLOOD COUNT 3.94 10^6/uL (4.35-5.85); RED CELL DISTRIBUTION WIDTH 14.8 % (10.0-14.5)
[2017-01-27 07:14] LABS: ALBUMIN 2.7 G/DL (3.2-4.5); BILIRUBIN,TOTAL 2.5 MG/DL (0.1-1.0); CALCIUM 7.9 MG/DL (8.5-10.1); CREATININE SERUM 1.7 MG/DL (0.60-1.30); TOTAL PROTEIN 5.2 G/DL (6.4-8.2)
[2017-01-27 07:15] LABS: CHOLESTEROL 165 MG/DL (< 200); DIRECT LDL 111 MG/DL (1-129); TRIGLYCERIDES 149 MG/DL (<150); VLDL CHOLESTEROL 30 MG/DL (5-40)
[2017-01-27] MEDS ORDERED: DEXTROSE 50% 50 ML (IMS) SYR IV NR (07:45)
[2017-01-27] MEDS ORDERED: SODIUM BICARB 8.4% 50 MEQ/50 ML (ABBOTT) SYR IV NR (07:45)
[2017-01-27] MEDS ORDERED: CALCIUM GLUC. 10% 4.65 MEQ/10 ML VIAL IV ONE (07:45)
[2017-01-27] MEDS ORDERED: FUROSEMIDE 40 MG/4 ML INJ (LASIX) IVP NR (07:45)
[2017-01-27] MEDS ORDERED: inSUlin (REGULAR) HUMAN 1 UNIT/0.01 ML (CHARGE PER UNIT) SC NR (07:45)
[2017-01-27] MEDS ORDERED: CALCIUM GLUCONATE 10% INJ 4.65 MEQ in NS (IVPB) 50 ML IV NR (08:18)
--- NOTE | 2017-01-27 08:40 | History & Physical ---
History of Present Illness History of Present Illness Reason for visit/HPI 66 yo M admitted 01/26/17 for tumor lysis syndrome as he started chemotherapy 01/25 for newly diagnosed cancer 2 weeks ago. 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 Although on the biopsy report lymphoma could not be ruled out. Pt initially presented to [facility] ER for uncontrolled pain management and was going to be discharged back to [facility] when his labs indicated tumor lysis syndrome. He did have some chest pain but troponins were <0.3. No issues urinating but does not remember having a bowel movement recently. Respiratory status is stable on 3.5L oxygen via NC. Since admission he was started on IVF and allopurinol with dilaudid iv for pain management. Labs from this AM are not improving. He is making urine and he notes improvement since getting IV fluids overnight. No other overnight events but Chao would like his pain controlled better- he does admit though that he does not like any pain and anticipates it, so his worrying likely makes it worse. Date of Admission Jan 26, 2017 at 19:08 I consulted on this patient on 01/27/17 08:26 Attending Physician Cliff Parker MD Admitting Physician Cliff Parker MD Consult Malou Katz MD oncology Allergies and Home Medications Allergies Coded Allergies: NKANo Known Allergies (Verified Allergy, Unknown, 09/03/07) Home Medications Albuterol Sulfate 1 Puff Puff, 2 PUFF IH Q4H PRN for SHORTNESS OF BREATH, ( Reported) Aspirin 81 Mg Tablet.dr, 81 MG PO DAILY, (Reported) Clopidogrel Bisulfate 75 Mg Tablet, 75 MG PO DAILY, (Reported) Dexamethasone 4 Mg Tablet, 2 MG PO BID, (Reported) TAKES 1/2 (4MG) TABLET Docusate Sodium 100 Mg Capsule, 100 MG PO BID, (Reported) Famotidine 20 Mg Tablet, 20 MG PO BID, (Reported) Fentanyl 1 Each Patch.td72, 75 MCG TD Q72H, (Reported) Furosemide 40 Mg Tablet, 40 MG PO DAILY, (Reported) Ipratropium/Albuterol Sulfate 3 Ml Ampul.neb, 3 ML IH Q4H, (Reported) Lactulose 20 Gm/30 Ml Solution, 15 ML PO BID, (Reported) Levothyroxine Sodium 100 Mcg Tablet, 100 MCG PO DAILY, (Reported) Lisinopril 5 Mg Tablet, 5 MG PO DAILY, (Reported) Oxycodone HCl 10 Mg Tablet, 10 MG PO Q4H PRN for PAIN-BREAKTHROUGH, (Reported) Potassium Chloride 10 Meq Tablet.er, 10 MEQ PO DAILY, (Reported) Pravastatin Sodium 20 Mg Tablet, 20 MG PO DAILY, (Reported) Trazodone HCl 50 Mg Tablet, 50 MG PO HS, (Reported) Past Bpwpxty-Wgbsao-Cxletn Hx Patient Social History Marrital Status: single Alcohol Use: Denies Use Recreational Drug Use: No Drug of Choice: MARIJUANA - COUPLE WEEKS AGO Smoking Status: Former Smoker Type Used: Cigarettes Physical Abuse Screen: No Sexual Abuse: No Recent Foreign Travel: No Contact w/other who traveled: No Recent Hopitalizations: No Recent Infectious Disease Expo: No Immunizations Up To Date Date of Pneumonia Vaccine: May 24, 2016 Date of Influenza Vaccine: Jul 11, 2016 Seasonal Allergies Seasonal Allergies: No Surgeries HX Surgeries: Yes (T&A) Surgeries: Adenoidectomy, Coronary Stent, Tonsillectomy Respiratory Hx Respiratory Disorders: No Cardiovascular Hx Cardiovascular Disorders: Yes Cardiac Disorders: Coronary Artery Disease, High Cholesterol, Hypertension Neurological Hx Neurological Disorders: No Reproductive System Hx Reproductive Disorders: No Genitourinary Hx Genitourinary Disorders: No Genitourinary Disorders: Kidney Stones Gastrointestinal Hx Gastrointestinal Disorders: Yes Gastrointestinal Disorders: Gastroesophageal Reflux Musculoskeletal Hx Musculoskeletal Disorders: Yes (TORN LIGAMENTS IN BACK,COMP.FX.) Musculoskeletal Disorders: Chronic Back Pain Endocrine Hx Endocrine Disorders: Yes Endocrine Disorders: Hypothyroidsim HEENT HX ENT Disorders: No Cancer Hx Cancer: No Psychosocial Hx Psychiatric Problems: No Integumentary HX Skin/Integumentary Disorder: No Blood Transfusions Hx Blood Disorders: No Adverse Reaction to a Blood Tr: No Reviewed Nursing Assessment Reviewed/Agree w Nursing PMH: Yes Family Medical History Significant Family History: No Pertinent Family Hx Family Hx: Patient reports no known family medical history. Review of Systems Review of Systems General: No Chills, No Night Sweats HEENT: No Head Aches, No Visual Changes, No Eye Pain Pulmonary: Dyspnea, Cough Cardiovascular: Chest Pain, No: Palpitations Gastrointestinal: No: Abdominal Pain, Nausea, Vomiting Genitourinary: No Dysuria, Frequency Musculoskeletal: back pain, neck pain Neurological: Weakness All Other Systems Reviewed All Other Systems Reviewed: Yes Physical Exam Vital Signs Vital Sign - Last 12Hours 01/26/17 20:58 B/P (MAP) 142/90 Capillary Refill : Less Than 3 Seconds General Appearance: Anxious, Moderate Distress HEENT: PERRL/EOMI Neck: Full Range of Motion, Supple Respiratory: Chest Non Tender, Rhonci (coarse breath sounds throughout) Cardiovascular: Regular Rate, Rhythm Gastrointestinal: Normal Bowel Sounds, Non Tender, Soft Rectal: Deferred Back: Decreased Range of Motion (pain with movement) Extremity: Non Tender, Pedal Edema (2+ up to knee) Neurologic/Psychiatric: Alert, Oriented x3, No Motor/Sensory Deficits, Normal Mood/Affect Skin: Warm/Dry Assessment/Plan Assessment/Plan Assessment/Plan 66 yo M admitted 01/26/17 Tumor lysis syndrome -rasburicase 0.2mg/kg x 3 days -hyperkalemia, hyperphosphatemia, hypocalemia- acute kidney injury , uric acid elevated -CaGlu 1g, D50, 10units reg insulin, kayexalate, lasix 20mg IV -IVF NS @125ml/hr -Dr. 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 Dr. Katz consulted transaminitis- will monitor, suspect secondary from cancer involving the liver. cervical spinal stenosis- severe at C5/6, moderate C7 -pain management leukocytosis- no overt infection. monitor CBC. hypothyroidism- continue levothyroxine h/o hepatitis C - treated with interferon 1998 - hep C RNA undetected December 2016 coronary artery disease- s/p RCA stent 09/2016, Dr. Mesa COPD with hypoxia - MAT protocol, requiring 3.5L NC h/o tobaccoism- quit ~Aug 2016 insomnia- trazodone Prognosis: guarded Dispo: worsening tumor lysis syndrome from chemotherapy initiated 01/25/17- measures to correct hyperkalemia, hyperuricemia, acute renal injury as above. Rechecking renal function panel at 1030am Problems: Clinical Quality Measures AMI/AHF: ASA po Prior to arrival: Yes DVT/VTE Risk/Contraindication: Risk Factor Score Per Nursin RFS Level Per Nursing on Admit: 4+=Very High CLIFF PARKER MD Jan 27, 2017 08:39
[2017-01-27] MEDS ORDERED: NS IV 1000 ML 1,000 ML IV SCH (08:50)
[2017-01-27] MEDS ORDERED: diphenhydrAMINE 50 MG/ML INJ (BENADRYL) IV PRN (09:00)
[2017-01-27] MEDS ORDERED: ASPIRIN E.C. 325 MG (ECOTRIN) TABLET PO SCH (09:00)
[2017-01-27] MEDS ORDERED: ONDANSETRON 4 MG/2 ML (SDV) Z0FRAN IV PRN (09:00)
[2017-01-27] MEDS ORDERED: NALOXONE 0.4 MG/ML 1 ML (NARCAN) VIAL IV PRN (09:00)
[2017-01-27] MEDS ORDERED: SOD POLYSTERENE 15 GM/60 ML (KAYEXALATE) UNIT DOSE PO SCH (09:00)
[2017-01-27] MEDS ORDERED: ALLOPURINOL 300 MG (ZYLOPRIM) TAB PO SCH (09:00)
[2017-01-27] MEDS ORDERED: METOCLOPRAMIDE INJ 10 MG/2 ML (REGLAN) IV PRN (09:00)
[2017-01-27] MEDS ORDERED: DOCU-143 PO (09:09)
[2017-01-27] MEDS ORDERED: DEXA4TAB PO (09:09)
[2017-01-27] MEDS ORDERED: FENT1PAT59 TD (09:09)
[2017-01-27] MEDS ORDERED: LACT10SO PO (09:09)
[2017-01-27] MEDS ORDERED: IPRA3AMP IH (09:09)
[2017-01-27] MEDS ORDERED: FURO40TA4 PO (09:09)
[2017-01-27] MEDS ORDERED: TRAZ-28 PO (09:09)
[2017-01-27] MEDS ORDERED: FAMO20TA3 PO (09:09)
[2017-01-27] MEDS ORDERED: POTA10TA10 PO (09:09)
[2017-01-27] MEDS ORDERED: OXYC10TA7 PO (09:09)
[2017-01-27] MEDS ORDERED: LACT20SO2 PO (09:19)
[2017-01-27] MEDS: SENNA W/DOCUSATE (SENOKOT S) TABLET PO SCH (10:11)
[2017-01-27] MEDS: NS IV SCH (10:12)
[2017-01-27] MEDS: RASBURICASE IV SCH (10:12)
[2017-01-27] MEDS: HYDROmorphone PCA 0.2 MG/ML 30 ML (DILAUDID) IV PRN ×2 (11:28→17:30)
[2017-01-27 11:36] LABS: ALBUMIN 2.6 G/DL (3.2-4.5); CALCIUM 7.7 MG/DL (8.5-10.1); CREATININE SERUM 1.68 MG/DL (0.60-1.30); PHOSPHORUS 7.6 MG/DL (2.3-4.7); POTASSIUM 5.1 MMOL/L (3.6-5.0)
--- NOTE | 2017-01-27 14:42 | Consultation ---
History of Present Illness History of Present Illness Patient Consulted On(ondina/time) 01/27/17 14:13 Date of Admission 01/26/17 History of Present Illness This is a 66-year-old male who has extensive disease small cell lung cancer with bulky tumor load in the liver bone and multiple lymph nodes sites. TTF-1 was positive on the liver biopsy. He has received 2 days of carboplatin and etoposide and is currently admitted with uncontrolled pain. His chemotherapy dose was attenuated/reduced because of his liver dysfunction and renal dysfunction. He also has an elevated uric acid and potassium and electrolyte picture consistent with tumor lysis. Allergies and Home Medications Allergies Coded Allergies: NKANo Known Allergies (Verified Allergy, Unknown, 09/03/07) Home Medications Albuterol Sulfate 1 Puff Puff, 2 PUFF IH Q4H PRN for SHORTNESS OF BREATH, ( Reported) Aspirin 81 Mg Tablet.dr, 81 MG PO DAILY, (Reported) Clopidogrel Bisulfate 75 Mg Tablet, 75 MG PO DAILY, (Reported) Dexamethasone 4 Mg Tablet, 2 MG PO BID, (Reported) TAKES 1/2 (4MG) TABLET Docusate Sodium 100 Mg Capsule, 100 MG PO BID, (Reported) Famotidine 20 Mg Tablet, 20 MG PO BID, (Reported) Fentanyl 1 Each Patch.td72, 75 MCG TD Q72H, (Reported) Furosemide 40 Mg Tablet, 40 MG PO DAILY, (Reported) Ipratropium/Albuterol Sulfate 3 Ml Ampul.neb, 3 ML IH Q4H, (Reported) Lactulose 20 Gm/30 Ml Solution, 15 ML PO BID, (Reported) Levothyroxine Sodium 100 Mcg Tablet, 100 MCG PO DAILY, (Reported) Lisinopril 5 Mg Tablet, 5 MG PO DAILY, (Reported) Oxycodone HCl 10 Mg Tablet, 10 MG PO Q4H PRN for PAIN-BREAKTHROUGH, (Reported) Potassium Chloride 10 Meq Tablet.er, 10 MEQ PO DAILY, (Reported) Pravastatin Sodium 20 Mg Tablet, 20 MG PO DAILY, (Reported) Trazodone HCl 50 Mg Tablet, 50 MG PO HS, (Reported) Past Kqoveqp-Rdsxih-Dvrvog Hx Patient Social History Alcohol Use: Denies Use Recreational Drug Use: No Drug of Choice: MARIJUANA - COUPLE WEEKS AGO Smoking Status: Former Smoker Type Used: Cigarettes Recent Foreign Travel: No Contact w/Someone Who Travel: No Recent Infectious Disease Expo: No Recent Hopitalizations: No Physical Abuse Screen: No Sexual Abuse: No Immunizations Up To Date Date of Pneumonia Vaccine: May 24, 2016 Date of Influenza Vaccine: Jul 11, 2016 Seasonal Allergies Seasonal Allergies: No Surgeries HX Surgeries: Yes (T&A) Surgeries: Adenoidectomy, Coronary Stent, Tonsillectomy Respiratory Hx Respiratory Disorders: No Cardiovascular Hx Cardiac Disorders: Yes Cardiac Disorders: Coronary Artery Disease, High Cholesterol, Hypertension Neurological Hx Neurological Disorders: No Reproductive System Hx Reproductive Disorders: No Genitourinary Hx Genitourinary Disorders: No Genitourinary Disorders: Kidney Stones Gastrointestinal Hx Gastrointestinal Disorders: Yes Gastrointestinal Disorders: Gastroesophageal Reflux Musculoskeletal Hx Musculoskeletal Disorders: Yes (TORN LIGAMENTS IN BACK,COMP.FX.) Musculoskeletal Disorders: Chronic Back Pain Endocrine Hx Endocrine Disorders: Yes Endocrine Disorders: Hypothyroidsim HEENT HX ENT Disorders: No Cancer Hx Cancer: No Psychosocial Hx Psychiatric Problems: No Integumentary HX Skin/Integumentary Disorder: No Blood Transfusions Hx Blood Disorders: No Adverse Reaction to a Blood Tr: No Reviewed Nursing Assessment Reviewed/Agree w Nursing PMH: Yes Family Medical History Significant Family History: No Pertinent Family Hx Family Medial History: Patient reports no known family medical history. 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, no motor/sensory deficits, alert Comments Laboratory Tests 01/26/17 16:59: White Blood Count 18.6H, Red Blood Count 4.13L, Hematocrit 39L, Red Cell Distribution Width 15.2H, Mean Platelet Volume 11.0H, Neutrophils (%) (Auto) 94H , Lymphocytes (%) (Auto) 2L, Neutrophils # (Auto) 17.4H, Lymphocytes # (Auto) 0.4L, Prothrombin Time 15.8H, Sodium Level 129L, Potassium Level 6.1H, Chloride Level 94L, Blood Urea Nitrogen 72H, Creatinine 1.53H, Glucose Level 127H, Uric Acid 15.3*H, Calcium Level 8.3L, Magnesium Level 2.7H, Total Bilirubin 3.0H, Aspartate Amino Transf (AST/SGOT) 238H, Alanine Aminotransferase (ALT/SGPT) 200H , Alkaline Phosphatase 340H, Myoglobin 1317.9H, Total Protein 6.1L, Albumin 2.9L 01/26/17 21:15: Sodium Level 127L, Potassium Level 5.6H, Chloride Level 94L, Blood Urea Nitrogen 74H, Creatinine 1.60H, Glucose Level 119H, Calcium Level 8.1L, Myoglobin 1435.9H, Total Creatine Kinase 371H 01/27/17 06:24: White Blood Count 18.0H, Red Blood Count 3.94L, Hematocrit 37L, Red Cell Distribution Width 14.8H, Mean Platelet Volume 10.6H, Neutrophils (%) (Auto) 94H , Lymphocytes (%) (Auto) 4L, Neutrophils # (Auto) 16.9H, Lymphocytes # (Auto) 0.6L, Sodium Level 127L, Potassium Level 6.0H, Chloride Level 96L, Blood Urea Nitrogen 83H, Creatinine 1.70H, Uric Acid 16.0*H, Calcium Level 7.9L, Total Bilirubin 2.5H, Aspartate Amino Transf (AST/SGOT) 208H, Alanine Aminotransferase (ALT/SGPT) 174H, Alkaline Phosphatase 309H, Total Protein 5.2L , Albumin 2.7L, Hemoglobin 13.1L, Phosphorus Level 8.3H, HDL Cholesterol 16L 01/27/17 11:09: Sodium Level 130L, Potassium Level 5.1H, Chloride Level 95L, Blood Urea Nitrogen 84H, Creatinine 1.68H, Glucose Level 114H, Calcium Level 7.7L, Albumin 2.6L, Phosphorus Level 7.6H Laboratory Tests 01/26/17 16:59 01/26/17 21:15 01/27/17 06:24 01/27/17 11:09 Assessment/Plan Assessment/Plan Admission Diagnosis/Plan 1. 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 Status Post Cycle 1 days 1-2 of 3; Hold day 3 etoposide; Start Granix 24hours post last chemotherapy dose and continue for 5-7 days ; 2. Tumor lysis syndrome arising from recent chemotherapy treatment inpatient with very bulky tumor load of small cell carcinoma. Administer IV rehydration. DC allopurinol and start rasburicase (done this morning). Monitor electrolytes and intervene accordingly. 3. Abnormal LFTs-arising from extensive liver involvement. 4. 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 Multiple comorbidities including CAD, COPD, hypothyroidism, history of hepatitis C, and history of cervical spinal stenosis. Clinical Quality Measures AMI/AHF: ASA po Prior to arrival: Yes DVT/VTE Risk/Contraindication: Risk Factor Score Per Nursin RFS Level Per Nursing on Admit: 4+=Very High NANCY WORTHY MD Jan 27, 2017 14:42
[2017-01-27] MEDS: RT-ALBUTEROL/IPRATROPIUM 3 ML (DUONEB) VIAL IH SCH ×3 (15:32→21:11)
[2017-01-27 16:30] LABS: ALBUMIN 2.6 G/DL (3.2-4.5); CALCIUM 7.4 MG/DL (8.5-10.1); CREATININE SERUM 1.58 MG/DL (0.60-1.30); PHOSPHORUS 7.7 MG/DL (2.3-4.7); URIC ACID 4.5 MG/DL (2.6-7.2)
[2017-01-27] MEDS: TBO-FILGRASTIM 480 MCG/0.8 ML (GRANIX) SQ SCH (16:40)
[2017-01-27 20:40] LABS: ALBUMIN 2.5 G/DL (3.2-4.5); CALCIUM 7.3 MG/DL (8.5-10.1); CREATININE SERUM 1.65 MG/DL (0.60-1.30); PHOSPHORUS 7.6 MG/DL (2.3-4.7)
[2017-01-27] MEDS: traZODone 50 MG (DESYREL) TAB PO SCH (20:44)
[2017-01-27] MEDS: FAMOTIDINE 20 MG (PEPCID) TABLET PO SCH (20:44)
[2017-01-27] MEDS: DEXAMETHASONE 4 MG TAB (DECADRON) PO SCH (20:44)
[2017-01-28] MEDS: NS IV 1000 ML 1,000 ML IV SCH ×3 (00:27→17:34)
[2017-01-28] MEDS: RT-ALBUTEROL/IPRATROPIUM 3 ML (DUONEB) VIAL IH SCH ×6 (02:12→22:58)
[2017-01-28 04:00] VITALS: BP 115/57
[2017-01-28 04:55] LABS: BASOPHILS % (AUTO) 0 % (0-10); EOSINOPHILS % (AUTO) 0 % (0-10); LYMPHOCYTES # (AUTO) 0.3 X 10^3 (1.0-4.0); LYMPHOCYTES % (AUTO) 1 % (12-44); MEAN CORPUSCULAR HEMOGLOBIN 33 PG (25-34); MEAN CORPUSCULAR HGB CONC 34 G/DL (32-36); MEAN CORPUSCULAR VOLUME 95 FL (80-99); MEAN PLATELET VOLUME 10.9 FL (7.4-10.4); MONOCYTES # (AUTO) 0.1 X 10^3 (0.0-1.0); MONOCYTES % (AUTO) 1 % (0-12); NEUTROPHILS # (AUTO) 22.5 X 10^3 (1.8-7.8); NEUTROPHILS % (AUTO) 98 % (42-75); PLATELET COUNT 186 10^3/uL (130-400); RED BLOOD COUNT 3.43 10^6/uL (4.35-5.85); RED CELL DISTRIBUTION WIDTH 14.7 % (10.0-14.5); WHITE BLOOD COUNT 22.9 10^3/uL (4.3-11.0)
[2017-01-28 05:17] LABS: ALBUMIN 2.5 G/DL (3.2-4.5); BILIRUBIN,TOTAL 2.3 MG/DL (0.1-1.0); CREATININE SERUM 1.45 MG/DL (0.60-1.30); PHOSPHORUS 7.2 MG/DL (2.3-4.7); POTASSIUM 4.9 MMOL/L (3.6-5.0); TOTAL PROTEIN 4.7 G/DL (6.4-8.2); URIC ACID 1.1 MG/DL (2.6-7.2)
[2017-01-28] MEDS: LEVOTHYROXINE 100 MCG (LEVOTHROID) TAB PO SCH (05:39)
[2017-01-28 07:28] VITALS: BP 97/59
[2017-01-28] MEDS ORDERED: SOD POLYSTERENE 15 GM/60 ML (KAYEXALATE) UNIT DOSE PO ONE (08:00)
[2017-01-28] MEDS: ASPIRIN E.C. 81 MG (ECOTRIN) TAB PO SCH (08:53)
[2017-01-28] MEDS: CLOPIDOGREL 75 MG (PLAVIX) TABLET PO SCH (08:53)
[2017-01-28] MEDS: SENNA W/DOCUSATE (SENOKOT S) TABLET PO SCH (08:53)
[2017-01-28] MEDS: DEXAMETHASONE 4 MG TAB (DECADRON) PO SCH (08:53)
[2017-01-28] MEDS: TBO-FILGRASTIM 480 MCG/0.8 ML (GRANIX) SQ SCH (08:56)
[2017-01-28] MEDS ORDERED: POLYETHYLENE GLYCOL 17 GM (MIRALAX) PACK PO PRN (10:15)
[2017-01-28] MEDS: NS IV SCH (10:57)
[2017-01-28] MEDS: RASBURICASE IV SCH (10:57)
[2017-01-28 11:39] VITALS: BP 120/66
--- NOTE | 2017-01-28 11:48 | Progress Note (SOAP) ---
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 Denies trouble breathing. He did get mad at staff today because he thought he was told that he had to give stool sample so he sat on the commode for a long time trying to have a bowel movement. Pain is well controlled. Review of Systems General: No Chills, No Night Sweats HEENT: No Head Aches, No Visual Changes, No Eye Pain Pulmonary: Dyspnea (at baseline- not worsening), Cough Cardiovascular: Chest Pain, No: Palpitations Gastrointestinal: No: Abdominal Pain, Nausea, Vomiting Genitourinary: No Dysuria, Frequency Musculoskeletal: back pain, neck pain Neurological: Weakness All Other Systems Reviewed All Other Systems Reviewed: Yes Objective Exam Vital Signs Vital Signs Date Time Temp Pulse Resp B/P (MAP) Pulse Ox O2 Delivery O2 Flow Rate FiO2 01/28/17 11:39 97.0 102 20 120/66 93 Nasal Cannula 6.00 01/28/17 10:09 89 6.00 01/28/17 07:28 97.4 114 20 97/59 91 Nasal Cannula 6.00 01/28/17 06:48 92 6.00 01/28/17 04:00 97.5 120 17 115/57 91 Nasal Cannula 6.00 01/28/17 02:12 91 6.00 01/28/17 01:00 111 01/27/17 23:13 99.3 123 22 108/64 91 Nasal Cannula 6.00 01/27/17 21:11 91 6.00 01/27/17 21:00 18 01/27/17 21:00 Nasal Cannula 5.00 01/27/17 19:10 98.4 119 19 110/68 91 Nasal Cannula 6.00 01/27/17 19:00 118 01/27/17 18:56 100 01/27/17 18:36 90 6.00 01/27/17 17:30 18 01/27/17 16:15 98.6 111 18 109/72 92 Nasal Cannula 5.50 01/27/17 15:32 90 6.00 I & O 01/28/17 07:00 Intake Total 3212 ml Output Total 1921 ml Balance 1291 ml General Appearance: Anxious, Mild Distress HEENT: PERRL/EOMI Neck: Full Range of Motion, Supple Respiratory: Chest Non Tender, Rhonci (coarse breath sounds throughout) Cardiovascular: Regular Rate, Rhythm, Tachycardia Gastrointestinal: Normal Bowel Sounds, Non Tender, Soft Rectal: Deferred Back: Decreased Range of Motion (pain with movement) Extremity: Non Tender, Pedal Edema (2+ up to knee) Neurologic/Psychiatric: Alert, Oriented x3, No Motor/Sensory Deficits, Normal Mood/Affect Skin: Warm/Dry Results Lab Laboratory Tests 01/27/17 16:03: Sodium Level 129L, Potassium Level 5.0, Chloride Level 95L, Carbon Dioxide Level 23, Anion Gap 11, Blood Urea Nitrogen 86H, Creatinine 1.58H, Estimat Glomerular Filtration Rate 44, BUN/Creatinine Ratio 54, Glucose Level 75, Uric Acid 4.5, Calcium Level 7.4L, Phosphorus Level 7.7H, Albumin 2.6L 01/27/17 20:05: Sodium Level 127L, Potassium Level 5.0, Chloride Level 93L, Carbon Dioxide Level 23, Anion Gap 11, Blood Urea Nitrogen 86H, Creatinine 1.65H, Estimat Glomerular Filtration Rate 42, BUN/Creatinine Ratio 52, Glucose Level 121H, Calcium Level 7.3L, Phosphorus Level 7.6H, Albumin 2.5L 01/28/17 04:12: White Blood Count 22.9H, Red Blood Count 3.43L, Hemoglobin 11.2L, Hematocrit 33L , Mean Corpuscular Volume 95, Mean Corpuscular Hemoglobin 33, Mean Corpuscular Hemoglobin Concent 34, Red Cell Distribution Width 14.7H, Platelet Count 186, Mean Platelet Volume 10.9H, Neutrophils (%) (Auto) 98H, Lymphocytes (%) (Auto) 1L, Monocytes (%) (Auto) 1, Eosinophils (%) (Auto) 0, Basophils (%) (Auto) 0, Neutrophils # (Auto) 22.5H, Lymphocytes # (Auto) 0.3L, Monocytes # (Auto) 0.1, Eosinophils # (Auto) 0.0, Basophils # (Auto) 0.0 01/28/17 04:17: Sodium Level 128L, Potassium Level 4.9, Chloride Level 94L, Carbon Dioxide Level 20L, Anion Gap 14, Blood Urea Nitrogen 83H, Creatinine 1.45H, Estimat Glomerular Filtration Rate 48, BUN/Creatinine Ratio 57, Glucose Level 108H, Uric Acid 1.1L, Calcium Level 7.0L, Phosphorus Level 7.2H, Albumin 2.5L, Total Bilirubin 2.3H, Aspartate Amino Transf (AST/SGOT) 233H, Alanine Aminotransferase (ALT/SGPT) 142H, Alkaline Phosphatase 272H, Total Protein 4.7L Assessment/Plan Assessment/Plan Assessment/Plan 66 yo M admitted 01/26/17 Tumor lysis syndrome - Improving -rasburicase 0.2mg/kg x 3 days, holding since uric acid has dropped. -hyperkalemia, hyperphosphatemia, hypocalemia- acute kidney injury , uric acid -CaGlu 1g, D50, 10units reg insulin, kayexalate, lasix 20mg IV x1 -IVF NS @125ml/hr -Dr. Katz consulted Intractable back pain due to metastatic cancer- dilaudid steel erector - good control today cancer with metastasis (small cell vs lymphoma)- lung primary? Dr. Katz consulted, started chemotherapy 01/25/17 transaminitis- will monitor, suspect secondary from cancer involving the liver. cervical spinal stenosis- severe at C5/6, moderate C7 -pain management leukocytosis- no overt infection. monitor CBC. hypothyroidism- continue levothyroxine h/o hepatitis C - treated with interferon 1998 - hep C RNA undetected December 2016 coronary artery disease- s/p RCA stent 09/2016, Dr. Tinoco covering for Dr. Mesa. systolic CHF- consider repeating ECHO, lasix iv COPD with hypoxia - MAT protocol, requiring oxygen NC h/o tobaccoism- quit ~Aug 2016 insomnia- trazodone Prognosis: guarded Dispo: Tumor lysis syndrome- improving with above measures. - lasix x1- loading with plavix 300mg x1 Problems: Clinical Quality Measures AMI/AHF: ASA po Prior to arrival: Yes DVT/VTE Risk/Contraindication: Risk Factor Score Per Nursin RFS Level Per Nursing on Admit: 4+=Very High JEFFREY PARKER MD Jan 28, 2017 11:48
--- NOTE | 2017-01-28 11:55 | Consultation-Cardiology ---
HPI-Cardiology Cardiology Consultation Date of Consultation 01/28/17 Date of Admission Indication: chest pain HPI 66 years old gentleman with history of coronary artery disease had a stent to the right coronary artery in September 2016, diagnosed with small cell lung cancer, started on chemotherapy and had tumor lysis syndrome. Admitted with acute renal failure, generalized weakness. Shortness of breath. Has been responding to IV fluid, have worsening pedal edema. Shortness of breath. Had some chest pain yesterday described as dull achiness in the retrosternal area, noted to be tachycardic, had right bundle branch block which has been persistent. No palpitation Home Medications & Allergies Allergies: Coded Allergies: NKANo Known Allergies (Verified Allergy, Unknown, 09/03/07) Home Medication List Reviewed: Yes [id number]-Aufstn-Cmupbx Hx Patient Social History Marital Status: single Alcohol Use: Denies Use Recreational Drug Use: No Drug of Choice: MARIJUANA - COUPLE WEEKS AGO Smoking Status: Former Smoker Type Used: Cigarettes Recent Foreign Travel: No Recent Infectious Disease Expo: No Recent Hopitalizations: No Physical Abuse Screen: No Sexual Abuse: No Immunizations Up To Date Date of Pneumonia Vaccine: May 24, 2016 Date of Influenza Vaccine: Jul 11, 2016 Past Medical History past medical history as discussed below Family Medical History Significant Family History: No Pertinent Family Hx Family History: Patient reports no known family medical history. Constitutional: see HPI, malaise, weakness, weight gain EENTM: no symptoms reported, see HPI Respiratory: see HPI, No cough, dyspnea on exertion, No hemoptysis, orthopnea, No phlegm, short of breath, No stridor, No wheezing, No other Cardiovascular: see HPI, chest pain, edema, No Hx of Intervention, palpitations , No syncope, No vascular heart diseas, No other Gastrointestinal: no symptoms reported, see HPI Genitourinary: no symptoms reported, see HPI Musculoskeletal: see HPI, back pain, joint pain Skin: see HPI Psychiatric/Neurological: No Symptoms Reported, See HPI Reviewed Test Results Reviewed Test Results Lab Laboratory Tests Test 01/27/17 16:03 01/27/17 20:05 01/28/17 04:12 01/28/17 04:17 Range/Units Sodium Level 129 L 127 L 128 L 135-145 MMOL/L Potassium Level 5.0 5.0 4.9 3.6-5.0 MMOL/L Chloride Level 95 L 93 L 94 L 98-107 MMOL/L Carbon Dioxide Level 23 23 20 L 21-32 MMOL/L Anion Gap 11 11 14 5-14 MMOL/L Blood Urea Nitrogen 86 H 86 H 83 H 7-18 MG/DL Creatinine 1.58 H 1.65 H 1.45 H 0.60-1.30 MG/DL Estimat Glomerular Filtration Rate 44 42 48 BUN/Creatinine Ratio 54 52 57 Glucose Level 75 121 H 108 H 70-105 MG/DL Uric Acid 4.5 1.1 L 2.6-7.2 MG/DL Calcium Level 7.4 L 7.3 L 7.0 L 8.5-10.1 MG/DL Phosphorus Level 7.7 H 7.6 H 7.2 H 2.3-4.7 MG/DL Albumin 2.6 L 2.5 L 2.5 L 3.2-4.5 G/DL White Blood Count 22.9 H 4.3-11.0 10^3/uL Red Blood Count 3.43 L 4.35-5.85 10^6/uL Hemoglobin 11.2 L 13.3-17.7 G/DL Hematocrit 33 L 40-54 % Mean Corpuscular Volume 95 80-99 FL Mean Corpuscular Hemoglobin 33 25-34 PG Mean Corpuscular Hemoglobin Concent 34 32-36 G/DL Red Cell Distribution Width 14.7 H 10.0-14.5 % Platelet Count 186 130-400 10^3/uL Mean Platelet Volume 10.9 H 7.4-10.4 FL Neutrophils (%) (Auto) 98 H 42-75 % Lymphocytes (%) (Auto) 1 L 12-44 % Monocytes (%) (Auto) 1 0-12 % Eosinophils (%) (Auto) 0 0-10 % Basophils (%) (Auto) 0 0-10 % Neutrophils # (Auto) 22.5 H 1.8-7.8 X 10^3 Lymphocytes # (Auto) 0.3 L 1.0-4.0 X 10^3 Monocytes # (Auto) 0.1 0.0-1.0 X 10^3 Eosinophils # (Auto) 0.0 0.0-0.3 10^3/uL Basophils # (Auto) 0.0 0.0-0.1 10^3/uL Total Bilirubin 2.3 H 0.1-1.0 MG/DL Aspartate Amino Transf (AST/SGOT) 233 H 5-34 U/L Alanine Aminotransferase (ALT/SGPT) 142 H 0-55 U/L Alkaline Phosphatase 272 H 40-136 U/L Total Protein 4.7 L 6.4-8.2 G/DL Physical Exam Vital Signs Vital Sign - Last 12Hours 01/26/17 20:58 B/P (MAP) 142/90 Capillary Refill : Less Than 3 Seconds General Appearance: WD/WN, Moderate Distress Eyes: Bilateral Eye EOMI, Bilateral Eye Normal Inspection, Bilateral Eye PERRL HEENT: PERRL/EOMI, TMs Normal, Normal ENT Inspection, Pharynx Normal Neck: Full Range of Motion, Normal Inspection, Non Tender, Supple Respiratory: Chest Non Tender, Crackles, Decreased Breath Sounds, Expiration, Inspiration Cardiovascular: No Gallop, No JVD, No Murmur, Systolic Murmur, Tachycardia Gastrointestinal: Normal Bowel Sounds, No Organomegaly, No Pulsatile Mass, Non Tender, Soft Back: Normal Inspection, No CVA Tenderness, No Vertebral Tenderness Extremity: Normal Capillary Refill, Normal Inspection, Normal Range of Motion, Non Tender, No Calf Tenderness Neurologic/Psychiatric: Alert, Oriented x3, No Motor/Sensory Deficits, Normal Mood/Affect Skin: Normal Color, Warm/Dry Lymphatic: No Adenopathy A/P-Cardiology Admission Diagnosis Chest pain nonspecific etiology Back pain Tumor lysis syndrome Coronary artery disease Assessment/Plan Tumor lysis syndrome, admitted back to the hospital, started on aggressive hydration, being monitored closely, worsening pedal edema. I'll give one dose of Lasix and monitor renal function and electrolytes closely. Chest pain, tachycardia, history of generalized body ache and back pain, had metastatic cancer to the liver, vertebrae, bone and lymph node, started on chemotherapy and followed by Dr. Katz. Coronary disease, Card cath of 09/27/16 showed CAD primarily consisting of 99% proximal stenosis of the right coronary artery to which successful stenting was carried out with Xience Alpine 4 x 18 mm stent, which reduced the stenosis to 0 % residual stenosis. Elsewhere, there is mild coronary artery disease. Normal left ventricular end-diastolic pressure. Posterobasal and diaphragmatic hypokinesis. Impairment of global left ventricular systolic function with an ejection fraction of approximately 45%. No significant mitral regurgitation. Plavix and aspirin were restarted today, I will give him a loading dose of Plavix 300 mg then continue on 75 mg daily, restarted on aspirin. Echo of 01/15/17 showed LVEF 60%, no significant valvular lesion, normal PASP, worsening pedal edema, I will reevaluate BNP, I will consider evaluating echo cardiogram Abnormal ECG: Chronic RBBB, LAFB, frequent PVCs (isolated, monomorphic)my T- wave inversion noted on his EKG, borderline tachycardic secondary to pain and comorbid condition. Continue to monitor closely. Acute renal failure, receiving IV fluid, continue to monitor renal function closely. H/o PVCs Hypothyroidism, followed and managed by primary care physician. Chronic tobacco use, quit 09/12/16. We have advised him to continue to refrain from tobacco use Hep C, treated with interferon in 1998, followed by pcp, elevated liver enzymes , continue to monitor Carotid u/s of August 23, 2016 showed mild bilateral carotid disease Clinical Quality Measures AMI/AHF: ASA po Prior to arrival: Yes DVT/VTE Risk/Contraindication: Risk Factor Score Per Nursin RFS Level Per Nursing on Admit: 4+=Very High KVNG RANGEL MD Jan 28, 2017 11:55
[2017-01-28] MEDS ORDERED: CLOPIDOGREL 300 MG (PLAVIX) TABLET PO NR (12:00)
[2017-01-28] MEDS ORDERED: FUROSEMIDE 40 MG/4 ML INJ (LASIX) ONE (12:12)
[2017-01-28] MEDS: HYDROmorphone PCA 0.2 MG/ML 30 ML (DILAUDID) IV PRN (13:53)
--- NOTE | 2017-01-28 15:47 | Progress Note (SOAP) ---
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 Objective Exam Vital Signs Date Time Temp Pulse Resp B/P (MAP) Pulse Ox O2 Delivery O2 Flow Rate FiO2 01/28/17 14:42 91 6.00 01/28/17 13:53 20 01/28/17 11:39 97.0 102 20 120/66 93 Nasal Cannula 6.00 01/28/17 10:09 89 6.00 01/28/17 08:20 18 01/28/17 08:20 Nasal Cannula 5.00 01/28/17 07:28 97.4 114 20 97/59 91 Nasal Cannula 6.00 01/28/17 06:48 92 6.00 01/28/17 04:00 97.5 120 17 115/57 91 Nasal Cannula 6.00 01/28/17 02:12 91 6.00 01/28/17 01:00 111 01/27/17 23:13 99.3 123 22 108/64 91 Nasal Cannula 6.00 01/27/17 21:11 91 6.00 01/27/17 21:00 18 01/27/17 21:00 Nasal Cannula 5.00 01/27/17 19:10 98.4 119 19 110/68 91 Nasal Cannula 6.00 01/27/17 19:00 118 01/27/17 18:56 100 01/27/17 18:36 90 6.00 01/27/17 17:30 18 01/27/17 16:15 98.6 111 18 109/72 92 Nasal Cannula 5.50 I & O 01/28/17 07:00 Intake Total 3212 ml Output Total 1921 ml Balance 1291 ml Capillary Refill : Less Than 3 Seconds General Appearance: Chronically ill, Obese HEENT: PERRL/EOMI Respiratory: Crackles, Decreased Breath Sounds Cardiovascular: Regular Rate, Rhythm Gastrointestinal: normal bowel sounds, soft, tenderness (mild tenderness RUQ, over Liver; ) Extremity: Pedal Edema Results Lab Laboratory Tests 01/27/17 16:03: Sodium Level 129L, Potassium Level 5.0, Chloride Level 95L, Carbon Dioxide Level 23, Anion Gap 11, Blood Urea Nitrogen 86H, Creatinine 1.58H, Estimat Glomerular Filtration Rate 44, BUN/Creatinine Ratio 54, Glucose Level 75, Uric Acid 4.5, Calcium Level 7.4L, Phosphorus Level 7.7H, Albumin 2.6L 01/27/17 20:05: Sodium Level 127L, Potassium Level 5.0, Chloride Level 93L, Carbon Dioxide Level 23, Anion Gap 11, Blood Urea Nitrogen 86H, Creatinine 1.65H, Estimat Glomerular Filtration Rate 42, BUN/Creatinine Ratio 52, Glucose Level 121H, Calcium Level 7.3L, Phosphorus Level 7.6H, Albumin 2.5L 01/28/17 04:12: White Blood Count 22.9H, Red Blood Count 3.43L, Hemoglobin 11.2L, Hematocrit 33L , Mean Corpuscular Volume 95, Mean Corpuscular Hemoglobin 33, Mean Corpuscular Hemoglobin Concent 34, Red Cell Distribution Width 14.7H, Platelet Count 186, Mean Platelet Volume 10.9H, Neutrophils (%) (Auto) 98H, Lymphocytes (%) (Auto) 1L, Monocytes (%) (Auto) 1, Eosinophils (%) (Auto) 0, Basophils (%) (Auto) 0, Neutrophils # (Auto) 22.5H, Lymphocytes # (Auto) 0.3L, Monocytes # (Auto) 0.1, Eosinophils # (Auto) 0.0, Basophils # (Auto) 0.0 01/28/17 04:17: Sodium Level 128L, Potassium Level 4.9, Chloride Level 94L, Carbon Dioxide Level 20L, Anion Gap 14, Blood Urea Nitrogen 83H, Creatinine 1.45H, Estimat Glomerular Filtration Rate 48, BUN/Creatinine Ratio 57, Glucose Level 108H, Uric Acid 1.1L, Calcium Level 7.0L, Phosphorus Level 7.2H, Albumin 2.5L, Total Bilirubin 2.3H, Aspartate Amino Transf (AST/SGOT) 233H, Alanine Aminotransferase (ALT/SGPT) 142H, Alkaline Phosphatase 272H, Total Protein 4.7L Laboratory Tests 01/26/17 16:59 01/26/17 21:15 01/27/17 06:24 01/27/17 11:09 01/27/17 16:03 01/27/17 20:05 01/28/17 04:12 01/28/17 04:17 Assessment/Plan Assessment/Plan Assess & Plan/Chief Complaint 1. 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 Status Post Cycle 1 days 1-2 of 3; Hold day 3 etoposide; Start Granix 24hours post last chemotherapy dose and continue for 5-7 days ; 2. Tumor lysis syndrome arising from recent chemotherapy treatment inpatient with very bulky tumor load of small cell carcinoma. Continue IV rehydration. Uric acid 1.1; K normal and Cr improved to 1.45. 3. Abnormal LFTs-arising from extensive liver involvement. 4. 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 Multiple comorbidities including CAD, COPD, hypothyroidism, history of hepatitis C, and history of cervical spinal stenosis. Clinical Quality Measures AMI/AHF: ASA po Prior to arrival: Yes DVT/VTE Risk/Contraindication: Risk Factor Score Per Nursin RFS Level Per Nursing on Admit: 4+=Very High NANCY WORTHY MD Jan 28, 2017 15:47
[2017-01-28 16:10] VITALS: BP 119/60
[2017-01-28 20:15] VITALS: BP 117/57
[2017-01-28] MEDS: traZODone 50 MG (DESYREL) TAB PO SCH (20:37)
[2017-01-28] MEDS: FAMOTIDINE 20 MG (PEPCID) TABLET PO SCH (20:38)
[2017-01-28] MEDS: LIDOCAINE (LIDODERM) 5% PATCH TOP SCH ×2 (21:56→22:00)
[2017-01-29] VITALS (26 sets, daily range): BP systolic 91–135; BP diastolic 49–99
[2017-01-29] MEDS: fentaNYL PATCH 25 MCG (DURAGESIC) TD SCH (01:33)
[2017-01-29] MEDS: NS IV 1000 ML 1,000 ML IV SCH ×3 (01:37→21:31)
[2017-01-29] MEDS ORDERED: LORazepam INJ 2 MG/ML (ATIVAN) VIAL IVP ONE (01:45)
[2017-01-29] MEDS: RT-ALBUTEROL/IPRATROPIUM 3 ML (DUONEB) VIAL IH SCH ×6 (02:29→21:36)
[2017-01-29] MEDS ORDERED: FUROSEMIDE 40 MG/4 ML INJ (LASIX) IVP ONE (04:00)
[2017-01-29 04:35] LABS: MEAN PLATELET VOLUME 11.1 FL (7.4-10.4); RED BLOOD COUNT 3.41 10^6/uL (4.35-5.85); RED CELL DISTRIBUTION WIDTH 14.8 % (10.0-14.5); WHITE BLOOD COUNT 19.4 10^3/uL (4.3-11.0)
[2017-01-29 04:56] LABS: ALANINE AMINOTRANSFERASE 142 U/L (0-55); ALBUMIN 2.4 G/DL (3.2-4.5); ANION GAP 14 MMOL/L (5-14); ASPARTATE AMINO TRANSFERASE 274 U/L (5-34); BILIRUBIN,TOTAL 2.5 MG/DL (0.1-1.0); BLOOD UREA NITROGEN 74 MG/DL (7-18); BUN/CREATININE RATIO 69; CARBON DIOXIDE 20 MMOL/L (21-32); CHLORIDE 97 MMOL/L (98-107); CREATININE SERUM 1.07 MG/DL (0.60-1.30); GFR ESTIMATED > 60; GLUCOSE 115 MG/DL (70-105); MAGNESIUM 2.3 MG/DL (1.8-2.4); SODIUM 131 MMOL/L (135-145); TOTAL PROTEIN 4.9 G/DL (6.4-8.2); URIC ACID 1.8 MG/DL (2.6-7.2)
[2017-01-29] MEDS: LEVOTHYROXINE 100 MCG (LEVOTHROID) TAB PO SCH (06:43)
--- NOTE | 2017-01-29 07:22 | Progress Note (SOAP) ---
Subjective Subjective 66 yo M with chemotherapy induced tumor lysis- transferred to ICU this AM- for continued respiratory distress- currently on vapotherm 25L, 85% oxygen, 33C Pt had a bad night- last evening he complained right chest wall pain worsened by deep breath so his oxygen sats were in the 80s. Lidocaine patch applied helped with the pain for a couple hours- followed by fentanyl 25mcg patch that helped a little- Pt was restless and sat in the chair - also got 1mg ativan for his restlessness which made him confused and actually overall a little worse. -Discussed with pt his code status wishes and he chose to stay full code for now but if he does not make improvement he will change to DNR. Jie his DPOA says he is DNR. We will respect Chao's wishes at this time. I did inform Chao that outcomes in the event of his heart stopping were not good if we did perform ACLS protocol. Review of Systems General: No Chills, No Night Sweats HEENT: No Head Aches, No Visual Changes, No Eye Pain Pulmonary: Dyspnea (at baseline- not worsening), Cough Cardiovascular: Chest Pain (right chest wall), Edema, No: Palpitations Gastrointestinal: No: Abdominal Pain, Nausea, Vomiting Genitourinary: No Dysuria, Frequency Musculoskeletal: back pain, neck pain Neurological: Weakness All Other Systems Reviewed All Other Systems Reviewed: Yes Objective Exam Vital Signs Vital Signs Date Time Temp Pulse Resp B/P (MAP) Pulse Ox O2 Delivery O2 Flow Rate FiO2 01/29/17 11:23 95 25.00 85 01/29/17 09:25 24 01/29/17 07:00 118 01/29/17 06:25 97 30.00 100 01/29/17 06:22 76 25.00 70 01/29/17 06:00 24 01/29/17 04:00 98.4 118 33 123/59 89 Nasal Cannula 6.00 01/29/17 03:00 97.6 114 24 135/71 93 Nasal Cannula 5.00 01/29/17 02:29 91 6.00 01/29/17 01:00 120 01/29/17 00:00 97.1 119 20 105/60 90 Nasal Cannula 5.00 01/28/17 22:58 92 6.00 01/28/17 21:10 Nasal Cannula 5.00 01/28/17 20:15 97.2 116 21 117/57 90 Nasal Cannula 5.00 01/28/17 19:00 117 01/28/17 18:37 90 6.00 01/28/17 16:10 97.8 103 21 119/60 91 Nasal Cannula 5.00 01/28/17 14:42 91 6.00 01/28/17 13:53 20 01/28/17 13:04 116 01/28/17 13:04 116 I & O 01/29/17 07:00 Intake Total 1420 ml Output Total 2150 ml Balance -730 ml General Appearance: Chronically ill, Obese Eyes: Bilateral Eye EOMI, Bilateral Eye Normal Inspection, Bilateral Eye PERRL HEENT: PERRL/EOMI Neck: Full Range of Motion, Supple Respiratory: Crackles, Decreased Breath Sounds (bases) Cardiovascular: Regular Rate, Rhythm, Tachycardia (some pvcs) Gastrointestinal: Normal Bowel Sounds, Non Tender, Soft Rectal: Deferred Back: Decreased Range of Motion (pain with movement) Extremity: Pedal Edema Neurologic/Psychiatric: Alert (more confused today but improving as the day progresses), No Motor/Sensory Deficits, Normal Mood/Affect Skin: Warm/Dry Lymphatic: No Adenopathy Results Lab Laboratory Tests 01/29/17 04:00: White Blood Count 19.4H, Red Blood Count 3.41L, Hemoglobin 11.3L, Hematocrit 32L , Mean Corpuscular Volume 94, Mean Corpuscular Hemoglobin 33, Mean Corpuscular Hemoglobin Concent 35, Red Cell Distribution Width 14.8H, Platelet Count 136, Mean Platelet Volume 11.1H, Sodium Level 131L, Potassium Level 4.0, Chloride Level 97L, Carbon Dioxide Level 20L, Anion Gap 14, Blood Urea Nitrogen 74H, Creatinine 1.07, Estimat Glomerular Filtration Rate > 60, BUN/Creatinine Ratio 69, Glucose Level 115H, Uric Acid 1.8L, Calcium Level 7.0L, Magnesium Level 2.3 , Total Bilirubin 2.5H, Aspartate Amino Transf (AST/SGOT) 274H, Alanine Aminotransferase (ALT/SGPT) 142H, Alkaline Phosphatase 258H, B-Type Natriuretic Peptide 42.9, Total Protein 4.9L, Albumin 2.4L Assessment/Plan Assessment/Plan Assessment/Plan 66 yo M admitted 01/26/17 Tumor lysis syndrome - Improving -rasburicase 0.2mg/kg x 1 dose Uric acid 1.8 -hyperkalemia, hyperphosphatemia, hypocalemia- acute kidney injury , uric acid - improved- IRAM- Cr normal -IVF NS @125ml/hr -Dr. Katz consulted Acute hypoxic Respiratory distress- shallow breathing contributing to this due to Right chest wall pain. 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 Dr. Katz consulted, started chemotherapy 01/25/17, chemo on hold transaminitis- will monitor, secondary from cancer involving the liver. hyperbilirubinemia- monitor cervical spinal stenosis- severe at C5/6, moderate C7 -pain management leukocytosis- no overt infection. monitor CBC. hypothyroidism- continue levothyroxine h/o hepatitis C - treated with interferon 1998 - hep C RNA undetected December 2016 coronary artery disease- s/p RCA stent 09/2016, Dr. Tinoco covering for Dr. Mesa. systolic CHF- consider repeating ECHO, lasix iv COPD with hypoxia - MAT protocol, requiring oxygen NC h/o tobaccoism- quit ~Aug 2016 insomnia- trazodone Prognosis: guarded Dispo: Tumor lysis syndrome- improved a great deal. - CXR today- no consolidation- work on getting pt back to [place] - monitor new right chest wall pain. Continue to monitor electrolytes -pt is full code- for now- he is considering DNR if he does not make improvements. I did discuss with pt that outcomes in his situation were not good if he was to code. Problems: Clinical Quality Measures AMI/AHF: ASA po Prior to arrival: Yes DVT/VTE Risk/Contraindication: Risk Factor Score Per Nursin RFS Level Per Nursing on Admit: 4+=Very High JEFFREY PARKER MD Jan 29, 2017 07:22
--- NOTE | 2017-01-29 08:48 | Cardiology Progress Note ---
Subjective Subjective/Events-last exam patient is laying down in bed, confused, short of breath, still having pain all over, mainly on the right side of his chest Review of Systems General: No Chills, No Night Sweats, Fatigue, Malaise, No Appetite, No Other HEENT: Head Aches, No Visual Changes, No Eye Pain, No Ear Pain, No Dysphasia, No Sinus Congestion, No Post Nasal Drip, No Sore Throat, No Other Pulmonary: Dyspnea, Cough, No Pleuritic Chest Pain, No Other Cardiovascular: Chest Pain, Edema, No: Lt Headedness, Orthopnea, Other, Palpitations, Paroxysmal Noc. Dyspnea Objective-Cardiology Exam Last Set of Vital Signs Vital Signs 01/29/17 01/29/17 01/29/17 01/29/17 04:00 06:00 06:25 07:00 Temp 98.4 Pulse 118 Resp 24 B/P (MAP) 123/59 Pulse Ox 97 O2 Delivery Nasal Cannula O2 Flow Rate 30.00 FiO2 100 Capillary Refill : Less Than 3 Seconds I&O Intake and Output 01/29/17 00:00 Intake Total 2640 ml Output Total 2550 ml Balance 90 ml Intake Oral 1640 ml IV Total 1000 ml Output Urine Total 2550 ml # Voids 2 # Bowel Movements 1 General: Alert, Cooperative, Severe Distress HEENT: Atraumatic, PERRLA Neck: Supple, No Thyromegaly Lungs: Normal Air Movement, Other (bilateral rhonchi) Heart: Normal S1, Normal S2, No Murmurs, Other (tachycardia, regular) Abdomen: Normal Bowel Sounds, Soft, No Tenderness, No Hepatosplenomegaly, No Masses Extremities: No Clubbing, No Cyanosis, Normal Pulses, Other Skin: No Rashes, No Breakdown, No Significant Lesion Neuro: Normal Speech, Normal Tone Psych/Mental Status: Other (depressed mood) Results Lab Laboratory Tests 01/29/17 04:00 Laboratory Tests Test 01/29/17 04:00 Range/Units White Blood Count 19.4 H 4.3-11.0 10^3/uL Red Blood Count 3.41 L 4.35-5.85 10^6/uL Hemoglobin 11.3 L 13.3-17.7 G/DL Hematocrit 32 L 40-54 % Mean Corpuscular Volume 94 80-99 FL Mean Corpuscular Hemoglobin 33 25-34 PG Mean Corpuscular Hemoglobin Concent 35 32-36 G/DL Red Cell Distribution Width 14.8 H 10.0-14.5 % Platelet Count 136 130-400 10^3/uL Mean Platelet Volume 11.1 H 7.4-10.4 FL Sodium Level 131 L 135-145 MMOL/L Potassium Level 4.0 3.6-5.0 MMOL/L Chloride Level 97 L 98-107 MMOL/L Carbon Dioxide Level 20 L 21-32 MMOL/L Anion Gap 14 5-14 MMOL/L Blood Urea Nitrogen 74 H 7-18 MG/DL Creatinine 1.07 0.60-1.30 MG/DL Estimat Glomerular Filtration Rate > 60 BUN/Creatinine Ratio 69 Glucose Level 115 H 70-105 MG/DL Uric Acid 1.8 L 2.6-7.2 MG/DL Calcium Level 7.0 L 8.5-10.1 MG/DL Magnesium Level 2.3 1.8-2.4 MG/DL Total Bilirubin 2.5 H 0.1-1.0 MG/DL Aspartate Amino Transf (AST/SGOT) 274 H 5-34 U/L Alanine Aminotransferase (ALT/SGPT) 142 H 0-55 U/L Alkaline Phosphatase 258 H 40-136 U/L B-Type Natriuretic Peptide 42.9 <100.0 PG/ML Total Protein 4.9 L 6.4-8.2 G/DL Albumin 2.4 L 3.2-4.5 G/DL A/P-Cardiology Admission Diagnosis Chest pain nonspecific etiology Back pain Tumor lysis syndrome Coronary artery disease Assessment/Plan Tumor lysis syndrome, secondary to chemotherapy, echo done last month showing normal LV function, BNP is normal. Acute respiratory failure, noncardiogenic pulmonary edema in addition to atelectasis. Transfer to the intensive care unit, managed by primary care physician. Chest pain, tachycardia, history of generalized body ache and back pain, had metastatic cancer to the liver, vertebrae, bone and lymph node, started on chemotherapy and followed by Dr. Katz. Coronary disease, Card cath of 09/27/16 showed CAD primarily consisting of 99% proximal stenosis of the right coronary artery to which successful stenting was carried out with Xience Alpine 4 x 18 mm stent, which reduced the stenosis to 0 % residual stenosis. Elsewhere, there is mild coronary artery disease. Normal left ventricular end-diastolic pressure. Posterobasal and diaphragmatic hypokinesis. Impairment of global left ventricular systolic function with an ejection fraction of approximately 45%. No significant mitral regurgitation. Plavix and aspirin were restarted today, I will give him a loading dose of Plavix 300 mg then continue on 75 mg daily, restarted on aspirin. Echo of 01/15/17 showed LVEF 60%, no significant valvular lesion, normal PASP, normal BNP. Continue to monitor. Noncardiogenic source of edema. Abnormal ECG: Chronic RBBB, LAFB, frequent PVCs (isolated, monomorphic)my T- wave inversion noted on his EKG, borderline tachycardic secondary to pain and comorbid condition. Continue to monitor closely. Acute renal failure, receiving IV fluid, continue to monitor renal function closely. H/o PVCs Hypothyroidism, followed and managed by primary care physician. Chronic tobacco use, quit 09/12/16. We have advised him to continue to refrain from tobacco use Hep C, treated with interferon in 1998, followed by pcp, elevated liver enzymes , continue to monitor Carotid u/s of August 23, 2016 showed mild bilateral carotid disease Clinical Quality Measures AMI/AHF: ASA po Prior to arrival: Yes DVT/VTE Risk/Contraindication: Risk Factor Score Per Nursin RFS Level Per Nursing on Admit: 4+=Very High KVNG RANGEL MD Jan 29, 2017 08:48
--- NOTE | 2017-01-29 08:50 | Diagnostic Imaging Report ---
INDICATION: Hypoxia, and respiratory distress. Comparison made with prior examination from 01/26/17. FINDINGS: There's cardiomegaly. There is some venous congestion. There is some bibasilar atelectasis and/or pneumonitis. There is no pleural effusion or pneumothorax. The mediastinum is unremarkable. IMPRESSION: Bibasilar atelectasis and/or pneumonitis. Cardiomegaly and mild central pulmonary venous congestion. Dictated by: Dictated on workstation # [id number]
[2017-01-29] MEDS: SENNA W/DOCUSATE (SENOKOT S) TABLET PO SCH (09:00)
[2017-01-29] MEDS: HYDROmorphone PCA 0.2 MG/ML 30 ML (DILAUDID) IV PRN (09:25)
[2017-01-29] MEDS: CLOPIDOGREL 75 MG (PLAVIX) TABLET PO SCH (09:48)
[2017-01-29] MEDS: ASPIRIN E.C. 81 MG (ECOTRIN) TAB PO SCH (09:48)
[2017-01-29] MEDS: FUROSEMIDE 40 MG/4 ML INJ (LASIX) IVP SCH (09:48)
[2017-01-29] MEDS: TBO-FILGRASTIM 480 MCG/0.8 ML (GRANIX) SQ SCH (10:37)
--- NOTE | 2017-01-29 13:08 | Progress Note (SOAP) ---
Subjective Subjective/Events-last exam Patient is somnolent but arouses to voice. He is currently in ICU after having drop in PO2. He developed tachycardia this afternoon with rates up to 150+. Cardiology is following. We will slow down fluids to 75 mL per hour. Objective Exam Vital Signs Date Time Temp Pulse Resp B/P (MAP) Pulse Ox O2 Delivery O2 Flow Rate FiO2 01/29/17 11:23 95 25.00 85 01/29/17 09:25 24 01/29/17 08:00 NIV/Bilevel 25.00 85 01/29/17 07:00 118 01/29/17 06:25 97 30.00 100 01/29/17 06:22 76 25.00 70 01/29/17 06:00 24 01/29/17 04:00 98.4 118 33 123/59 89 Nasal Cannula 6.00 01/29/17 03:00 97.6 114 24 135/71 93 Nasal Cannula 5.00 01/29/17 02:29 91 6.00 01/29/17 01:00 120 01/29/17 00:00 97.1 119 20 105/60 90 Nasal Cannula 5.00 01/28/17 22:58 92 6.00 01/28/17 21:10 Nasal Cannula 5.00 01/28/17 20:15 97.2 116 21 117/57 90 Nasal Cannula 5.00 01/28/17 19:00 117 01/28/17 18:37 90 6.00 01/28/17 16:10 97.8 103 21 119/60 91 Nasal Cannula 5.00 01/28/17 14:42 91 6.00 01/28/17 13:53 20 01/28/17 13:04 116 01/28/17 13:04 116 I & O 01/29/17 07:00 Intake Total 1420 ml Output Total 2150 ml Balance -730 ml Capillary Refill : Less Than 3 Seconds General Appearance: Chronically ill HEENT: PERRL/EOMI Neck: Normal Inspection, Supple Respiratory: Crackles, Decreased Breath Sounds Cardiovascular: Tachycardia Gastrointestinal: normal bowel sounds, soft Extremity: Pedal Edema, Swelling Results Lab Laboratory Tests 01/29/17 04:00: White Blood Count 19.4H, Red Blood Count 3.41L, Hemoglobin 11.3L, Hematocrit 32L , Mean Corpuscular Volume 94, Mean Corpuscular Hemoglobin 33, Mean Corpuscular Hemoglobin Concent 35, Red Cell Distribution Width 14.8H, Platelet Count 136, Mean Platelet Volume 11.1H, Sodium Level 131L, Potassium Level 4.0, Chloride Level 97L, Carbon Dioxide Level 20L, Anion Gap 14, Blood Urea Nitrogen 74H, Creatinine 1.07, Estimat Glomerular Filtration Rate > 60, BUN/Creatinine Ratio 69, Glucose Level 115H, Uric Acid 1.8L, Calcium Level 7.0L, Magnesium Level 2.3 , Total Bilirubin 2.5H, Aspartate Amino Transf (AST/SGOT) 274H, Alanine Aminotransferase (ALT/SGPT) 142H, Alkaline Phosphatase 258H, B-Type Natriuretic Peptide 42.9, Total Protein 4.9L, Albumin 2.4L Laboratory Tests 01/27/17 16:03 01/27/17 20:05 01/28/17 04:12 01/28/17 04:17 01/29/17 04:00 Assessment/Plan Assessment/Plan Assess & Plan/Chief Complaint 1. 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 Status Post Cycle 1 days 1-2 of 3; Held day 3 etoposide; Currently receiving Granix to be continued for 7 days 2. Tumor lysis syndrome arising from recent chemotherapy treatment inpatient with very bulky tumor load of small cell carcinoma. Continue IV rehydration. Uric acid 1.8; K normal and Cr improved to 1.07. 3. Hypoxemia and tachycardia-patient currently in ICU and on BiPAP; cardiology is following. 4. Abnormal LFTs-arising from extensive liver involvement. 5. 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 Multiple comorbidities including CAD, COPD, hypothyroidism, history of hepatitis C, and history of cervical spinal stenosis. Clinical Quality Measures AMI/AHF: ASA po Prior to arrival: Yes DVT/VTE Risk/Contraindication: Risk Factor Score Per Nursin RFS Level Per Nursing on Admit: 4+=Very High NANCY WORTHY MD Jan 29, 2017 13:08
[2017-01-29] MEDS ORDERED: meTOprolol 5 MG/5 ML (LOPRESSOR) VIAL IV NR (13:30)
[2017-01-29] MEDS: meTOprolol 5 MG/5 ML (LOPRESSOR) VIAL IV SCH (18:22)
[2017-01-29] MEDS: FAMOTIDINE 20 MG (PEPCID) TABLET PO SCH (20:22)
[2017-01-29] MEDS: traZODone 50 MG (DESYREL) TAB PO SCH (20:22)
[2017-01-30] VITALS (23 sets, daily range): BP systolic 85–126; BP diastolic 49–99
[2017-01-30] MEDS: NS IV 1000 ML 1,000 ML IV SCH ×2 (03:39→10:57)
[2017-01-30] MEDS: HYDROmorphone PCA 0.2 MG/ML 30 ML (DILAUDID) IV PRN (04:16)
[2017-01-30 04:28] LABS: BASOPHILS % (AUTO) 0 % (0-10); EOSINOPHILS % (AUTO) 0 % (0-10); LYMPHOCYTES # (AUTO) 0.2 X 10^3 (1.0-4.0); LYMPHOCYTES % (AUTO) 3 % (12-44); MEAN CORPUSCULAR HEMOGLOBIN 32 PG (25-34); MEAN CORPUSCULAR HGB CONC 34 G/DL (32-36); MEAN CORPUSCULAR VOLUME 95 FL (80-99); MONOCYTES % (AUTO) 0 % (0-12); NEUTROPHILS # (AUTO) 8.5 X 10^3 (1.8-7.8); NEUTROPHILS % (AUTO) 97 % (42-75); PLATELET COUNT 118 10^3/uL (130-400); RED BLOOD COUNT 3.12 10^6/uL (4.35-5.85); RED CELL DISTRIBUTION WIDTH 14.9 % (10.0-14.5); WHITE BLOOD COUNT 8.7 10^3/uL (4.3-11.0)
[2017-01-30 04:53] LABS: ANION GAP 13 MMOL/L (5-14); BLOOD UREA NITROGEN 70 MG/DL (7-18); BUN/CREATININE RATIO 74; CARBON DIOXIDE 23 MMOL/L (21-32); CHLORIDE 99 MMOL/L (98-107); CHOLESTEROL 143 MG/DL (< 200); CREATININE SERUM 0.94 MG/DL (0.60-1.30); DIRECT LDL 78 MG/DL (1-129); GFR ESTIMATED > 60; GLUCOSE 104 MG/DL (70-105); MAGNESIUM 2.5 MG/DL (1.8-2.4); PHOSPHORUS 4.6 MG/DL (2.3-4.7); POTASSIUM 3.6 MMOL/L (3.6-5.0); SODIUM 135 MMOL/L (135-145); TRIGLYCERIDES 113 MG/DL (<150); VLDL CHOLESTEROL 23 MG/DL (5-40)
[2017-01-30] MEDS: KCL 20 MEQ TAB (K-DUR) PO SCH (05:24)
[2017-01-30] MEDS: POTASSIUM CL 10MEQ/50ML IVPB 50 ML IV SCH (05:24)
[2017-01-30] MEDS: MAGNESIUM 1 GM/100 ML IVPB 100 ML IV SCH (05:24)
[2017-01-30] MEDS: meTOprolol 5 MG/5 ML (LOPRESSOR) VIAL IV SCH ×4 (06:00→17:50)
[2017-01-30] MEDS: LEVOTHYROXINE 100 MCG (LEVOTHROID) TAB PO SCH (06:14)
[2017-01-30] MEDS: RT-ALBUTEROL/IPRATROPIUM 3 ML (DUONEB) VIAL IH SCH ×5 (07:00→21:58)
--- NOTE | 2017-01-30 07:36 | Diagnostic Imaging Report ---
INDICATION: Atelectasis. COMPARISON: 01/29/2017. FINDINGS: Single frontal radiographic view of the chest was obtained and demonstrates stable cardiac silhouette and pulmonary vasculature. Lungs show low inspiratory volumes. There is also blunting of the lateral right costophrenic angle and associated right basilar airspace disease. There is no large effusion on the left. No pneumothorax seen on either side. IMPRESSION: 1. Low lung volumes with right basilar effusion and associated atelectasis and/or infiltrate. Dictated by: Dictated on workstation # [id number]
[2017-01-30] MEDS: CLOPIDOGREL 75 MG (PLAVIX) TABLET PO SCH (08:41)
[2017-01-30] MEDS: ASPIRIN E.C. 81 MG (ECOTRIN) TAB PO SCH (08:41)
[2017-01-30] MEDS: SENNA W/DOCUSATE (SENOKOT S) TABLET PO SCH (08:41)
[2017-01-30] MEDS: FUROSEMIDE 40 MG/4 ML INJ (LASIX) IVP SCH (08:41)
[2017-01-30] MEDS: LIDOCAINE (LIDODERM) 5% PATCH TOP SCH (08:41)
[2017-01-30] MEDS: TBO-FILGRASTIM 480 MCG/0.8 ML (GRANIX) SQ SCH (09:16)
--- NOTE | 2017-01-30 09:18 | Cardiology Progress Note ---
Subjective Subjective/Events-last exam Patient is in bed, complaining of generalized body ache and chest pain in addition to shortness of breath, edema Review of Systems General: No Chills, No Night Sweats, Fatigue, Malaise, Appetite, No Other HEENT: Head Aches, No Visual Changes, No Eye Pain, No Ear Pain, No Dysphasia, No Sinus Congestion, No Post Nasal Drip, No Sore Throat, No Other Pulmonary: Dyspnea, No Cough, Pleuritic Chest Pain, No Other Cardiovascular: Chest Pain, Edema, No: Lt Headedness, Orthopnea, Other, Palpitations, Paroxysmal Noc. Dyspnea Objective-Cardiology Exam Last Set of Vital Signs Vital Signs 01/30/17 01/30/17 07:50 07:51 Temp 96.8 Pulse 107 Resp 28 B/P (MAP) 114/72 Pulse Ox 92 O2 Delivery Nasal Cannula O2 Flow Rate 20.00 FiO2 65 Capillary Refill : Less Than 3 Seconds I&O Intake and Output 01/30/17 00:00 Intake Total 3400 ml Output Total 1500 ml Balance 1900 ml Intake Oral 1400 ml IV Total 2000 ml Output Urine Total 1500 ml General: Alert, Cooperative, Moderate Distress HEENT: Atraumatic, PERRLA Neck: Supple, No Thyromegaly Lungs: Normal Air Movement, Other (bilateral rhonchi) Heart: Normal S1, Normal S2, No Murmurs, Other (tachycardia, regular) Abdomen: Normal Bowel Sounds, Soft, No Tenderness, No Hepatosplenomegaly, No Masses Extremities: No Clubbing, No Cyanosis, Normal Pulses, Other (pedal edema) Skin: No Rashes, No Breakdown, No Significant Lesion Neuro: Normal Speech, Normal Tone Psych/Mental Status: Other (depressed mood) Results Lab Laboratory Tests 01/30/17 03:53 A/P-Cardiology Admission Diagnosis Chest pain nonspecific etiology Back pain Tumor lysis syndrome Coronary artery disease Assessment/Plan Tumor lysis syndrome, secondary to chemotherapy, echo done last month showing normal LV function, BNP is normal. Acute respiratory failure, noncardiogenic pulmonary edema in addition to atelectasis. slightly better today Chest pain, tachycardia, history of generalized body ache and back pain, had metastatic cancer to the liver, vertebrae, bone and lymph node, started on chemotherapy and followed by Dr. Katz. Tachycardia, SVT, started on Lopressor IV and HR is slightly better, continue to monitor Coronary disease, Card cath of 09/27/16 showed CAD primarily consisting of 99% proximal stenosis of the right coronary artery to which successful stenting was carried out with Xience Alpine 4 x 18 mm stent, which reduced the stenosis to 0 % residual stenosis. Elsewhere, there is mild coronary artery disease. Normal left ventricular end-diastolic pressure. Posterobasal and diaphragmatic hypokinesis. Impairment of global left ventricular systolic function with an ejection fraction of approximately 45%. No significant mitral regurgitation. Plavix and aspirin were restarted today, I will give him a loading dose of Plavix 300 mg then continue on 75 mg daily, restarted on aspirin. Echo of 01/15/17 showed LVEF 60%, no significant valvular lesion, normal PASP, normal BNP. Continue to monitor. Noncardiogenic source of edema. Abnormal ECG: Chronic RBBB, LAFB, frequent PVCs (isolated, monomorphic)my T- wave inversion noted on his EKG, borderline tachycardic secondary to pain and comorbid condition. Continue to monitor closely. Acute renal failure, receiving IV fluid, continue to monitor renal function closely. H/o PVCs Hypothyroidism, followed and managed by primary care physician. Chronic tobacco use, quit 09/12/16. We have advised him to continue to refrain from tobacco use Hep C, treated with interferon in 1998, followed by pcp, elevated liver enzymes , continue to monitor Carotid u/s of August 23, 2016 showed mild bilateral carotid disease Clinical Quality Measures AMI/AHF: ASA po Prior to arrival: Yes DVT/VTE Risk/Contraindication: Risk Factor Score Per Nursin RFS Level Per Nursing on Admit: 4+=Very High KVNG RANGEL MD Jan 30, 2017 09:18
--- NOTE | 2017-01-30 09:29 | Progress Note (SOAP) ---
Subjective Subjective 66 yo M with chemotherapy induced tumor lysis- Chao reports he fells better each day except yesterday am- he was wanting to . Vapotherm still being used but titrated down. Chao still endorses right chest pain with inspiration- none with expiration. He also spit up large white sputum when RT was working with him. Review of Systems General: No Chills, No Night Sweats, Fatigue, Malaise, No Other HEENT: Head Aches, No Visual Changes, No Eye Pain, No Ear Pain, No Dysphasia, No Sinus Congestion, No Post Nasal Drip, No Sore Throat, No Other Pulmonary: Dyspnea, No Cough, Pleuritic Chest Pain (right sided chest pain with inspiration.), No Other Cardiovascular: Chest Pain, Edema, No: Lt Headedness, Orthopnea, Other, Palpitations, Paroxysmal Noc. Dyspnea Gastrointestinal: No: Abdominal Pain, Nausea, Vomiting Genitourinary: No Dysuria, Frequency Musculoskeletal: back pain, neck pain Neurological: Weakness All Other Systems Reviewed All Other Systems Reviewed: Yes Objective Exam Vital Signs Vital Signs Date Time Temp Pulse Resp B/P (MAP) Pulse Ox O2 Delivery O2 Flow Rate FiO2 01/30/17 07:51 92 Nasal Cannula 20.00 65 01/30/17 07:50 96.8 107 28 114/72 92 FIO2 65.00 20.00 01/30/17 07:00 93 20.00 65 01/30/17 06:14 23 01/30/17 06:04 High Flow NC 65.00 20.00 01/30/17 06:00 108 25 126/92 93 NIV/Bilevel 55.00 01/30/17 05:00 104 16 122/58 100 NIV/Bilevel 55.00 01/30/17 04:16 16 01/30/17 04:05 97.5 NIV/Bilevel 55.00 01/30/17 04:00 95 Nasal Cannula 55.00 01/30/17 04:00 101 14 94/61 94 NIV/Bilevel 55.00 01/30/17 03:55 103 24 96 60.00 01/30/17 03:00 105 17 96/58 93 NIV/Bilevel 60.00 01/30/17 02:02 102 18 94 60.00 01/30/17 02:00 100 13 116/99 94 NIV/Bilevel 60.00 01/30/17 01:38 NIV/Bilevel 60.00 01/30/17 01:00 100 19 99/71 93 High Flow NC 20.00 01/30/17 01:00 100 01/30/17 00:52 93 20.00 65 01/30/17 00:49 High Flow NC 65.00 20.00 01/30/17 00:10 98.1 NIV/Bilevel 60.00 01/30/17 00:00 95 Nasal Cannula 60.00 01/30/17 00:00 93 18 96 65.00 01/30/17 00:00 92 12 91/61 96 NIV/Bilevel 60.00 01/29/17 23:00 100 27 122/99 97 NIV/Bilevel 65.00 01/29/17 22:00 92 11 95/49 96 NIV/Bilevel 65.00 01/29/17 21:40 90 13 95/54 96 NIV/Bilevel 65.00 01/29/17 21:36 99 23 97 70.00 01/29/17 21:36 NIV/Bilevel 65.00 01/29/17 21:00 80 13 94/51 96 NIV/Bilevel 70.00 01/29/17 20:05 NIV/Bilevel 70.00 01/29/17 20:00 89 12 108/80 92 NIV/Bilevel 75.00 01/29/17 19:57 97 16 97 75.00 01/29/17 19:49 95 Nasal Cannula 75.00 01/29/17 19:47 97.8 NIV/Bilevel 75.00 01/29/17 19:00 86 01/29/17 19:00 86 15 91/60 95 NIV/Bilevel 75.00 01/29/17 18:30 80 24 96 80.00 01/29/17 18:24 25 01/29/17 18:00 102 16 111/73 95 NIV/Bilevel 80.00 01/29/17 17:00 94 17 107/82 92 NIV/Bilevel 80.00 01/29/17 16:00 90 16 94/63 NIV/Bilevel 80.00 01/29/17 16:00 NIV/Bilevel 80 01/29/17 15:44 98.9 01/29/17 15:00 85 17 92/51 96 NIV/Bilevel 80.00 01/29/17 14:42 85 18 96 80.00 01/29/17 14:00 94 22 100/65 NIV/Bilevel 80.00 01/29/17 13:34 146 16 94 80.00 01/29/17 13:03 159 24 111/90 95 NIV/Bilevel 80.00 01/29/17 13:00 149 01/29/17 12:00 105 15 96/58 NIV/Bilevel 85.00 25.00 01/29/17 12:00 97.5 01/29/17 12:00 NIV/Bilevel 25.00 85 01/29/17 11:23 95 25.00 85 01/29/17 11:00 113 22 108/59 91 NIV/Bilevel 85.00 25.00 01/29/17 10:00 105 17 130/68 NIV/Bilevel 85.00 25.00 I & O 01/30/17 07:00 Intake Total 4050 ml Output Total 1925 ml Balance 2125 ml General Appearance: Chronically ill, Mild Distress (improved) Eyes: Bilateral Eye EOMI, Bilateral Eye Normal Inspection, Bilateral Eye PERRL HEENT: PERRL/EOMI Neck: Normal Inspection, Supple Respiratory: Decreased Breath Sounds, Rhonci (coarse throughout, quiet in the bases) Cardiovascular: Extra Beats (pvcs), Tachycardia Gastrointestinal: Normal Bowel Sounds, Non Tender, Soft Rectal: Deferred Back: Decreased Range of Motion Extremity: Pedal Edema, Swelling Neurologic/Psychiatric: Alert, No Motor/Sensory Deficits, Normal Mood/Affect Skin: Warm/Dry Lymphatic: No Adenopathy Results Lab Laboratory Tests 01/29/17 14:05: Troponin I < 0.30 01/29/17 19:57: Troponin I < 0.30 01/30/17 03:53: White Blood Count 8.7, Red Blood Count 3.12L, Hemoglobin 10.1L, Hematocrit 30L, Mean Corpuscular Volume 95, Mean Corpuscular Hemoglobin 32, Mean Corpuscular Hemoglobin Concent 34, Red Cell Distribution Width 14.9H, Platelet Count 118L, Mean Platelet Volume 11.0H, Neutrophils (%) (Auto) 97H, Lymphocytes (%) (Auto) 3L, Monocytes (%) (Auto) 0, Eosinophils (%) (Auto) 0, Basophils (%) (Auto) 0, Neutrophils # (Auto) 8.5H, Lymphocytes # (Auto) 0.2L, Monocytes # (Auto) 0.0, Eosinophils # (Auto) 0.0, Basophils # (Auto) 0.0, Sodium Level 135, Potassium Level 3.6, Chloride Level 99, Carbon Dioxide Level 23, Anion Gap 13, Blood Urea Nitrogen 70H, Creatinine 0.94, Estimat Glomerular Filtration Rate > 60, BUN/ Creatinine Ratio 74, Glucose Level 104, Calcium Level 7.0L, Phosphorus Level 4.6 , Magnesium Level 2.5H, B-Type Natriuretic Peptide 56.1, Triglycerides Level 113 , Cholesterol Level 143, LDL Cholesterol Direct 78, VLDL Cholesterol 23, HDL Cholesterol 19L Microbiology 01/29/17 MRSA Screen - Final, Complete Assessment/Plan Assessment/Plan Assessment/Plan 66 yo M admitted 01/26/17 Tumor lysis syndrome - Improved -rasburicase 0.2mg/kg x 1 dose Uric acid 1.8 -hyperkalemia, hyperphosphatemia, hypocalemia- acute kidney injury , uric acid - improved- IRAM- Cr normal -IVF NS @ 75 ml/hr -Dr. Katz consulted Acute hypoxic Respiratory distress- shallow breathing contributing to this due to Right chest wall pain. 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 Dr. Katz consulted, started chemotherapy 01/25/17, chemo on hold currently getting granix injection transaminitis- will monitor, secondary from cancer involving the liver. hyperbilirubinemia- monitor cervical spinal stenosis- severe at C5/6, moderate C7 -pain management leukocytosis- no overt infection. monitor CBC. hypothyroidism- continue levothyroxine h/o hepatitis C - treated with interferon 1998 - hep C RNA undetected December 2016 coronary artery disease- s/p RCA stent 09/2016, Dr. Tinoco covering for Dr. Mes[place]. systolic CHF- consider repeating ECHO, lasix iv COPD with hypoxia - MAT protocol, requiring oxygen NC h/o tobaccoism- quit ~Aug 2016 insomnia- trazodone Prognosis: guarded Dispo: Tumor lysis syndrome- labs are back to baseline - -pt is full code- for now- he is considering DNR - I did discuss with pt that outcomes in his situation were not good if he was to code. -Pt's wallet was found at [facility] and locked away with his checkbook- -Pt is looking forward towards going back to [facility]- he wants to know when his next chemotherapy is. -Pt would benefit from PT/OT -look to transfer back to the floor this afternoon or more likely tomorrow AM to see how far Vapotherm can be titrated down. Problems: Clinical Quality Measures AMI/AHF: ASA po Prior to arrival: Yes DVT/VTE Risk/Contraindication: Risk Factor Score Per Nursin RFS Level Per Nursing on Admit: 4+=Very High JEFFREY PARKER MD Jan 30, 2017 09:29
--- NOTE | 2017-01-30 13:12 | Progress Note (SOAP) ---
Subjective Subjective/Events-last exam Feeling better today. Breathing is easier. Objective Exam Vital Signs Date Time Temp Pulse Resp B/P (MAP) Pulse Ox O2 Delivery O2 Flow Rate FiO2 01/30/17 12:07 92 Nasal Cannula 20.00 65 01/30/17 12:06 96.2 109 23 113/77 92 FIO2 65.00 20.00 01/30/17 10:18 94 20.00 65 01/30/17 07:51 92 Nasal Cannula 20.00 65 01/30/17 07:50 96.8 107 28 114/72 92 FIO2 65.00 20.00 01/30/17 07:00 104 01/30/17 07:00 93 20.00 65 01/30/17 06:14 23 01/30/17 06:04 High Flow NC 65.00 20.00 01/30/17 06:00 108 25 126/92 93 NIV/Bilevel 55.00 01/30/17 05:00 104 16 122/58 100 NIV/Bilevel 55.00 01/30/17 04:16 16 01/30/17 04:05 97.5 NIV/Bilevel 55.00 01/30/17 04:00 95 Nasal Cannula 55.00 01/30/17 04:00 101 14 94/61 94 NIV/Bilevel 55.00 01/30/17 03:55 103 24 96 60.00 01/30/17 03:00 105 17 96/58 93 NIV/Bilevel 60.00 01/30/17 02:02 102 18 94 60.00 01/30/17 02:00 100 13 116/99 94 NIV/Bilevel 60.00 01/30/17 01:38 NIV/Bilevel 60.00 01/30/17 01:00 100 19 99/71 93 High Flow NC 20.00 01/30/17 01:00 100 01/30/17 00:52 93 20.00 65 01/30/17 00:49 High Flow NC 65.00 20.00 01/30/17 00:10 98.1 NIV/Bilevel 60.00 01/30/17 00:00 95 Nasal Cannula 60.00 01/30/17 00:00 93 18 96 65.00 01/30/17 00:00 92 12 91/61 96 NIV/Bilevel 60.00 01/29/17 23:00 100 27 122/99 97 NIV/Bilevel 65.00 01/29/17 22:00 92 11 95/49 96 NIV/Bilevel 65.00 01/29/17 21:40 90 13 95/54 96 NIV/Bilevel 65.00 01/29/17 21:36 99 23 97 70.00 01/29/17 21:36 NIV/Bilevel 65.00 01/29/17 21:00 80 13 94/51 96 NIV/Bilevel 70.00 01/29/17 20:05 NIV/Bilevel 70.00 01/29/17 20:00 89 12 108/80 92 NIV/Bilevel 75.00 01/29/17 19:57 97 16 97 75.00 01/29/17 19:49 95 Nasal Cannula 75.00 01/29/17 19:47 97.8 NIV/Bilevel 75.00 01/29/17 19:00 86 01/29/17 19:00 86 15 91/60 95 NIV/Bilevel 75.00 01/29/17 18:30 80 24 96 80.00 01/29/17 18:24 25 01/29/17 18:00 102 16 111/73 95 NIV/Bilevel 80.00 01/29/17 17:00 94 17 107/82 92 NIV/Bilevel 80.00 01/29/17 16:00 90 16 94/63 NIV/Bilevel 80.00 01/29/17 16:00 NIV/Bilevel 80 01/29/17 15:44 98.9 01/29/17 15:00 85 17 92/51 96 NIV/Bilevel 80.00 01/29/17 14:42 85 18 96 80.00 01/29/17 14:00 94 22 100/65 NIV/Bilevel 80.00 01/29/17 13:34 146 16 94 80.00 I & O 01/30/17 07:00 Intake Total 4050 ml Output Total 1925 ml Balance 2125 ml Capillary Refill : Less Than 3 Seconds General Appearance: Chronically ill HEENT: PERRL/EOMI Neck: Non Tender, Supple Respiratory: Crackles, Decreased Breath Sounds Cardiovascular: Tachycardia Gastrointestinal: normal bowel sounds, non tender, soft Extremity: Pedal Edema, Swelling Neurologic/Psychiatric: No Motor/Sensory Deficits Results Lab Laboratory Tests 01/29/17 14:05: Troponin I < 0.30 01/29/17 19:57: Troponin I < 0.30 01/30/17 03:53: White Blood Count 8.7, Red Blood Count 3.12L, Hemoglobin 10.1L, Hematocrit 30L, Mean Corpuscular Volume 95, Mean Corpuscular Hemoglobin 32, Mean Corpuscular Hemoglobin Concent 34, Red Cell Distribution Width 14.9H, Platelet Count 118L, Mean Platelet Volume 11.0H, Neutrophils (%) (Auto) 97H, Lymphocytes (%) (Auto) 3L, Monocytes (%) (Auto) 0, Eosinophils (%) (Auto) 0, Basophils (%) (Auto) 0, Neutrophils # (Auto) 8.5H, Lymphocytes # (Auto) 0.2L, Monocytes # (Auto) 0.0, Eosinophils # (Auto) 0.0, Basophils # (Auto) 0.0, Sodium Level 135, Potassium Level 3.6, Chloride Level 99, Carbon Dioxide Level 23, Anion Gap 13, Blood Urea Nitrogen 70H, Creatinine 0.94, Estimat Glomerular Filtration Rate > 60, BUN/ Creatinine Ratio 74, Glucose Level 104, Calcium Level 7.0L, Phosphorus Level 4.6 , Magnesium Level 2.5H, B-Type Natriuretic Peptide 56.1, Triglycerides Level 113 , Cholesterol Level 143, LDL Cholesterol Direct 78, VLDL Cholesterol 23, HDL Cholesterol 19L Microbiology 01/29/17 MRSA Screen - Final, Complete Laboratory Tests 01/29/17 04:00 01/30/17 03:53 Radiology Chest x-ray done in 01/30/17: FINDINGS: Single frontal radiographic view of the chest was obtained and demonstrates stable cardiac silhouette and pulmonary vasculature. Lungs show low inspiratory volumes. There is also blunting of the lateral right costophrenic angle and associated right basilar airspace disease. There is no large effusion on the left. No pneumothorax seen on either side. IMPRESSION: 1. Low lung volumes with right basilar effusion and associated atelectasis and/or infiltrate. Assessment/Plan Assessment/Plan Assess & Plan/Chief Complaint 1. 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 Status Post Cycle 1 days 1-2 of 3; Held day 3 etoposide; Currently receiving Granix to be continued for 7 days 2. Tumor lysis syndrome arising from recent chemotherapy treatment inpatient with very bulky tumor load of small cell carcinoma. Continue IV rehydration. Uric acid no longer elevated; K normal and Cr improved to 0.94. 3. Hypoxemia and tachycardia-patient currently in ICU and on BiPAP; cardiology is following. 4. Abnormal LFTs-arising from extensive liver involvement. 5. 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 Multiple comorbidities including CAD, COPD, hypothyroidism, history of hepatitis C, and history of cervical spinal stenosis. Clinical Quality Measures AMI/AHF: ASA po Prior to arrival: Yes DVT/VTE Risk/Contraindication: Risk Factor Score Per Nursin RFS Level Per Nursing on Admit: 4+=Very High NANCY WORTHY MD Jan 30, 2017 13:12
--- NOTE | 2017-01-30 14:01 | Physical Therapy Evaluation ---
PT Evaluation-General Medical Diagnosis Admission Date Jan 26, 2017 at 19:08 Medical Diagnosis: tumor lysis syndrome Onset Date: Jan 26, 2017 Therapy Diagnosis Therapy Diagnosis: generalized weakness Height/Weight Height (Feet): 5 Height (Inches): 10.00 Weight (Pounds): 216 Weight (Ounces): 0.0 Precautions Precautions/Isolations: Chemo Precautions, Fall Prevention, Standard Precautions Referral Physician: Cliff Lynch Reason for Referral: Evaluation/Treatment Medical History Pertinent Medical History: CAD, COPD, GERD, Hypothroidism, Smoking Additional Medical History hep. C; spnial stenosis C5-6 severe; C7 moderate Current History ER with uncontrolled pain; newly diagnosis cancer ~2 wks ago (small cell lung cancer with mets to liver and bone) Reviewed History: Yes Social History Home: Long Term Prior/[facility] FIM Prior Level of Function Functional [place] Measure 0=Not Assessed/NA 4=Minimal Assistance 1=Total Assistance 5=Supervision or Setup 2=Maximal Assistance 6=Modified [place] 3=Moderate Assistance 7=Complete [place] Bed Mobility: 4 Transfers (B,C,W/C) (FIM): 4 Gait: 4 limited functional mobility due to increase SOA and O2 use PT Evaluation-Current Subjective Patient agrees to up in recliner Pain Numeric Pain Scale: 0-No Pain Location: No Pain Reported Objective Patient Orientation: Confused Problem Solving: Poor Attachments: Oxygen (vapotherm), IV ROM/Strength ROM Lower Extremities bilateral LE limited due to 3+ edema Strenght Lower Extremities right knee flexion/extension 3+/5; hip flexion 3/5; ankle dorsi/plantarflexion 4 /5 left knee flexion/extension 3+/5; hip flexion 3/5; ankle dorsi/plantarflexion 4/ 5 Integumentary/Posture Integumentary "weeping" bilateral LE due to edema Posture WFL Neuromuscular (Tone, Coordination, Reflexes) diminished coordination due to 3+ pitting edema total body and weakness with mobility Sensory Vision: Wears Glasses Hearing: Functional Sensation Right Lower Extremit: Impaired Sensation Left Lower Extremity: Impaired Transfers Functional [place] Measure 0=Not Assessed/NA 4=Minimal Assistance 1=Total Assistance 5=Supervision or Setup 2=Maximal Assistance 6=Modified [place] 3=Moderate Assistance 7=Complete [place] Transfers (B, C, W/C) (FIM): 3 Scootin Supine to/from Sit: 3 Sit to/from Stand: 4 bed t/f WC(FIM only if WC use): 4 Patient is on vapotherm O2 and is limited with mobility due to O2/SAO2 Gait Mode of Locomotion: Both Anticipated Mode of Locomotion: Both Gait (FIM): 1 Distance (FIM): 1=up to 49 ft Distance: 5 steps Gait Level of Assist: 4 Gait Persons Needed: 1 Gait Assistive Device: FWW Comments/Gait Description Patient presents with increase safe mobility with use of FWW Balance Sitting Static: Normal Sitting Dynamic: Normal Standing Static: Fair Standing Dynamic: Fair Assessment/Needs 66 y.o. male, will benefit from short term skilled PT to address functional strength and mobility to improve current LOF. Patient is currently limited with cardiopulmonary functional with minimal activity. PT to increase activity as tolerated by patient. 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 Time Frame: Feb 13, 2017 Transfers (B,C,W/C) (FIM): 5 Gait (FIM): 2 Gait distance (FIM): 5=359-22 ft Distance: 75' Gait Level of Assist: 5 Gait Assistive Device: FWW PT Plan Problem List Problem List: Safety, Balance, Gait, Transfer, Bed Mobility, ROM Treatment/Plan Treatment Plan: Continue Plan of Care Treatment Plan: Bed Mobility, Education, Functional Activity Martha, Functional Strength, Gait, Safety, Therapeutic Exercise, Transfers Treatment Duration: Feb 13, 2017 # of days/week 6 Visits Per Week: 6 Pt/Family Agrees w/Plan: Yes Safety Risks/Education Patient Education: Safety Issues Teaching Recipient: Patient Teaching Methods: Demonstration, Discussion Response to Teaching: Verbalize Understanding, Return Demonstration Discharge Recommendations Therapy D/C Recommendations: Long Term Placement, Group Home (TCU/NH) Time/GCodes Time In: 1315 Time Out: 1345 Total Billed Treatment Time: 30 Total Billed Treatment 1 visit EVModC 30 min G Codes Necessary: KARMEN Back PT Jan 30, 2017 14:01
[2017-01-30] MEDS ORDERED: meTOprolol 5 MG/5 ML (LOPRESSOR) VIAL IV ONE ×2 (20:45→23:00)
[2017-01-30] MEDS ORDERED: ALBUMIN 5% 12.5 GM/250 ML 500 ML IV ONE (20:54)
[2017-01-30 21:41] LABS: POTASSIUM 3.3 MMOL/L (3.6-5.0)
[2017-01-30 21:57] LABS: TROPONIN I < 0.30 NG/ML (<0.30)
[2017-01-30] MEDS ORDERED: ALBUMIN 5% 12.5 GM/250 ML 250 ML IV SCH (22:30)
[2017-01-30] MEDS: traZODone 50 MG (DESYREL) TAB PO SCH (22:58)
[2017-01-30] MEDS: FAMOTIDINE 20 MG (PEPCID) TABLET PO SCH (22:58)
[2017-01-31] VITALS (33 sets, daily range): BP systolic 91–145; BP diastolic 45–103
[2017-01-31] MEDS: HYDROmorphone PCA 0.2 MG/ML 30 ML (DILAUDID) IV PRN ×2 (00:04→19:17)
[2017-01-31] MEDS: meTOprolol 5 MG/5 ML (LOPRESSOR) VIAL IV SCH ×4 (00:08→18:08)
[2017-01-31] MEDS: RT-ALBUTEROL/IPRATROPIUM 3 ML (DUONEB) VIAL IH SCH ×6 (02:14→22:15)
[2017-01-31] MEDS: NS IV 1000 ML 1,000 ML IV SCH ×2 (03:00→16:57)
[2017-01-31 05:21] LABS: BASOPHILS % (AUTO) 0 % (0-10); EOSINOPHILS % (AUTO) 0 % (0-10); LYMPHOCYTES # (AUTO) 0.3 X 10^3 (1.0-4.0); LYMPHOCYTES % (AUTO) 5 % (12-44); MEAN CORPUSCULAR HEMOGLOBIN 33 PG (25-34); MEAN CORPUSCULAR HGB CONC 35 G/DL (32-36); MEAN CORPUSCULAR VOLUME 96 FL (80-99); MEAN PLATELET VOLUME 10.7 FL (7.4-10.4); MONOCYTES # (AUTO) 0.1 X 10^3 (0.0-1.0); MONOCYTES % (AUTO) 1 % (0-12); NEUTROPHILS # (AUTO) 4.8 X 10^3 (1.8-7.8); NEUTROPHILS % (AUTO) 93 % (42-75); PLATELET COUNT 81 10^3/uL (130-400); RED BLOOD COUNT 2.72 10^6/uL (4.35-5.85); RED CELL DISTRIBUTION WIDTH 14.9 % (10.0-14.5); WHITE BLOOD COUNT 5.2 10^3/uL (4.3-11.0)
[2017-01-31 05:40] LABS: ANION GAP 11 MMOL/L (5-14); BLOOD UREA NITROGEN 46 MG/DL (7-18); BUN/CREATININE RATIO 70; CARBON DIOXIDE 23 MMOL/L (21-32); CHLORIDE 100 MMOL/L (98-107); CREATININE SERUM 0.66 MG/DL (0.60-1.30); GFR ESTIMATED > 60; GLUCOSE 101 MG/DL (70-105); MAGNESIUM 2.3 MG/DL (1.8-2.4); PHOSPHORUS 2.5 MG/DL (2.3-4.7); POTASSIUM 3.3 MMOL/L (3.6-5.0); SODIUM 134 MMOL/L (135-145); URIC ACID 2.9 MG/DL (2.6-7.2)
[2017-01-31] MEDS: POTASSIUM CL 10MEQ/50ML IVPB 50 ML IV SCH (06:00)
[2017-01-31] MEDS: MAGNESIUM 1 GM/100 ML IVPB 100 ML IV SCH (06:00)
[2017-01-31] MEDS: LEVOTHYROXINE 100 MCG (LEVOTHROID) TAB PO SCH (06:25)
[2017-01-31] MEDS: KCL 20 MEQ TAB (K-DUR) PO SCH (06:25)
--- NOTE | 2017-01-31 07:37 | Cardiology Progress Note ---
Subjective Subjective/Events-last exam patient is laying down in bed, had few episodes of SVT. On BiPAP machine at this time. Heart rate is better controlled. Significant edema. Review of Systems General: No Chills, No Night Sweats, Fatigue, Malaise, No Appetite, No Other HEENT: No Head Aches, No Visual Changes, No Eye Pain, No Ear Pain, No Dysphasia , No Sinus Congestion, No Post Nasal Drip, No Sore Throat, No Other Pulmonary: Dyspnea, Cough, No Pleuritic Chest Pain, No Other Cardiovascular: Chest Pain, No: Edema, Lt Headedness, Orthopnea, Other, Palpitations, Paroxysmal Noc. Dyspnea Objective-Cardiology Exam Last Set of Vital Signs Vital Signs 01/31/17 01/31/17 01/31/17 00:00 04:00 06:59 Temp 96.9 Pulse 76 Resp 22 Pulse Ox 95 O2 Flow Rate 55.00 FiO2 65 Capillary Refill : Less Than 3 Seconds I&O Intake and Output 01/31/17 00:00 Intake Total 4020 ml Output Total 3600 ml Balance 420 ml Intake Oral 2520 ml IV Total 1500 ml Output Urine Total 3600 ml # Voids 2 General: Alert, Cooperative, Moderate Distress HEENT: Atraumatic, PERRLA Neck: Supple, No Thyromegaly Lungs: Normal Air Movement, Other (bilateral rhonchi) Heart: Normal S1, Normal S2, No Murmurs, Other (irregular rhythm, rate controlled) Abdomen: Normal Bowel Sounds, Soft, No Tenderness, No Hepatosplenomegaly, No Masses Extremities: No Clubbing, No Cyanosis, Normal Pulses, Other (pedal edema) Skin: No Rashes, No Breakdown, No Significant Lesion Neuro: Normal Speech, Normal Tone Psych/Mental Status: Other (depressed mood) Results Lab Laboratory Tests 01/30/17 21:00 01/31/17 05:10 A/P-Cardiology Admission Diagnosis Chest pain nonspecific etiology Back pain Tumor lysis syndrome Coronary artery disease Assessment/Plan Tumor lysis syndrome, secondary to chemotherapy, echo done last month showing normal LV function, BNP is normal. Acute respiratory failure, noncardiogenic pulmonary edema in addition to atelectasis, on BiPAP machine, better while on the BiPAP machine. Chest pain, tachycardia, history of generalized body ache and back pain, had metastatic cancer to the liver, vertebrae, bone and lymph node, started on chemotherapy and followed by Dr. Katz. Tachycardia, SVT, started on Lopressor IV and HR is slightly better, continue to monitor Coronary disease, Card cath of 09/27/16 showed CAD primarily consisting of 99% proximal stenosis of the right coronary artery to which successful stenting was carried out with Xience Alpine 4 x 18 mm stent, which reduced the stenosis to 0 % residual stenosis. Elsewhere, there is mild coronary artery disease. Normal left ventricular end-diastolic pressure. Posterobasal and diaphragmatic hypokinesis. Impairment of global left ventricular systolic function with an ejection fraction of approximately 45%. No significant mitral regurgitation. Continue on aspirin and Plavix and monitor Echo of 01/15/17 showed LVEF 60%, no significant valvular lesion, normal PASP, normal BNP. Continue to monitor. Noncardiogenic source of edema. Abnormal ECG: Chronic RBBB, LAFB, frequent PVCs (isolated, monomorphic)my T- wave inversion noted on his EKG, borderline tachycardic secondary to pain and comorbid condition. Continue to monitor closely. Acute renal failure, receiving IV fluid, continue to monitor renal function closely. H/o PVCs Hypothyroidism, followed and managed by primary care physician. Chronic tobacco use, quit 09/12/16. We have advised him to continue to refrain from tobacco use Hep C, treated with interferon in 1998, followed by pcp, elevated liver enzymes , continue to monitor Carotid u/s of August 23, 2016 showed mild bilateral carotid disease Clinical Quality Measures AMI/AHF: ASA po Prior to arrival: Yes DVT/VTE Risk/Contraindication: Risk Factor Score Per Nursin RFS Level Per Nursing on Admit: 4+=Very High KVNG RANGEL MD Jan 31, 2017 07:37
--- NOTE | 2017-01-31 07:47 | Pulmonary Consultation ---
History of Present Illness History of Present Illness Date of Consultation 01/31/17 07:42 Date of Admission Reason for Visit: chest pain History of Present Illness 66yo with hx of extensive small cell lung cancer pt has been undergoing chemotherapy as out patient and was admitted secondary to pain control. Chemotherapy had to be reduced secondary to liver and kidney dysfunction. Unable to obtain ROS secondary to respiratory distress requiring BIPAP. Dr. Tinoco is consulting me for pulmonary management. Allergies and Home Medications Allergies Coded Allergies: NKANo Known Allergies (Verified Allergy, Unknown, 09/03/07) Home Medications Albuterol Sulfate 1 Puff Puff, 2 PUFF IH Q4H PRN for SHORTNESS OF BREATH, ( Reported) Aspirin 81 Mg Tablet.dr, 81 MG PO DAILY, (Reported) Clopidogrel Bisulfate 75 Mg Tablet, 75 MG PO DAILY, (Reported) Dexamethasone 4 Mg Tablet, 2 MG PO BID, (Reported) TAKES 1/2 (4MG) TABLET Docusate Sodium 100 Mg Capsule, 100 MG PO BID, (Reported) Famotidine 20 Mg Tablet, 20 MG PO BID, (Reported) Fentanyl 1 Each Patch.td72, 75 MCG TD Q72H, (Reported) Furosemide 40 Mg Tablet, 40 MG PO DAILY, (Reported) Ipratropium/Albuterol Sulfate 3 Ml Ampul.neb, 3 ML IH Q4H, (Reported) Lactulose 20 Gm/30 Ml Solution, 15 ML PO BID, (Reported) Levothyroxine Sodium 100 Mcg Tablet, 100 MCG PO DAILY, (Reported) Lisinopril 5 Mg Tablet, 5 MG PO DAILY, (Reported) Oxycodone HCl 10 Mg Tablet, 10 MG PO Q4H PRN for PAIN-BREAKTHROUGH, (Reported) Potassium Chloride 10 Meq Tablet.er, 10 MEQ PO DAILY, (Reported) Pravastatin Sodium 20 Mg Tablet, 20 MG PO DAILY, (Reported) Trazodone HCl 50 Mg Tablet, 50 MG PO HS, (Reported) Past [id number]-[id number]-Evnctx Hx Patient Social History Alcohol Use: Denies Use Recreational Drug Use: No Drug of Choice: MARIJUANA - COUPLE WEEKS AGO Smoking Status: Former Smoker Type Used: Cigarettes Recent Foreign Travel: No Contact w/Someone Who Travel: No Recent Infectious Disease Expo: No Recent Hopitalizations: No Physical Abuse Screen: No Sexual Abuse: No Immunizations Up To Date Date of Pneumonia Vaccine: May 24, 2016 Date of Influenza Vaccine: Jul 11, 2016 Seasonal Allergies Seasonal Allergies: No Surgeries HX Surgeries: Yes (T&A) Surgeries: Adenoidectomy, Coronary Stent, Tonsillectomy Respiratory Hx Respiratory Disorders: No Cardiovascular Hx Cardiac Disorders: Yes Cardiac Disorders: Coronary Artery Disease, High Cholesterol, Hypertension Neurological Hx Neurological Disorders: No Reproductive System Hx Reproductive Disorders: No Genitourinary Hx Genitourinary Disorders: No Genitourinary Disorders: Kidney Stones Gastrointestinal Hx Gastrointestinal Disorders: Yes Gastrointestinal Disorders: Gastroesophageal Reflux Musculoskeletal Hx Musculoskeletal Disorders: Yes (TORN LIGAMENTS IN BACK,COMP.FX.) Musculoskeletal Disorders: Chronic Back Pain Endocrine Hx Endocrine Disorders: Yes Endocrine Disorders: Hypothyroidsim HEENT HX ENT Disorders: No Cancer Hx Cancer: No Psychosocial Hx Psychiatric Problems: No Integumentary HX Skin/Integumentary Disorder: No Blood Transfusions Hx Blood Disorders: No Adverse Reaction to a Blood Tr: No Reviewed Nursing Assessment Reviewed/Agree w Nursing PMH: Yes Family Medical History Significant Family History: No Pertinent Family Hx Family Medial History: Patient reports no known family medical history. Exam Exam Vital Signs Date Time Temp Pulse Resp B/P (MAP) Pulse Ox O2 Delivery O2 Flow Rate FiO2 01/31/17 06:59 76 22 95 55.00 01/31/17 06:00 75 15 104/60 94 NIV/Bilevel 55.00 01/31/17 06:00 16 01/31/17 05:00 80 17 99/65 94 NIV/Bilevel 55.00 01/31/17 04:49 150 20 93 55.00 01/31/17 04:45 144 16 98/60 90 NIV/Bilevel 55.00 01/31/17 04:00 101 20 93/49 94 FIO2 60.00 20.00 01/31/17 04:00 91 Nasal Cannula 20.00 65 01/31/17 03:30 99 21 115/62 89 FIO2 60.00 20.00 01/31/17 03:00 90 13 98/57 90 NIV/Bilevel 55.00 01/31/17 02:14 75 19 95 55.00 01/31/17 02:00 89 22 111/57 94 NIV/Bilevel 55.00 01/31/17 01:00 79 01/31/17 01:00 79 16 102/71 97 NIV/Bilevel 55.00 01/31/17 00:20 75 24 96 55.00 01/31/17 00:04 20 01/31/17 00:00 91 NIV/Bilevel 55 01/31/17 00:00 96.9 97 13 111/68 93 NIV/Bilevel 55.00 01/30/17 23:00 99 12 100/49 93 NIV/Bilevel 55.00 01/30/17 22:00 103 15 101/59 92 NIV/Bilevel 55.00 01/30/17 21:58 99 16 94 55.00 01/30/17 21:00 105 13 94/62 94 NIV/Bilevel 55.00 01/30/17 20:05 93 NIV/Bilevel 55.00 01/30/17 20:00 165 18 85/65 92 NIV/Bilevel 55.00 01/30/17 19:50 156 18 90 55.00 01/30/17 19:00 105 01/30/17 19:00 105 16 107/53 93 NIV/Bilevel 55.00 01/30/17 18:13 93 20.00 65 01/30/17 18:00 95 13 110/60 91 FIO2 65.00 20.00 01/30/17 18:00 23 01/30/17 17:00 101 25 119/55 92 FIO2 65.00 20.00 01/30/17 15:51 91 Nasal Cannula 20.00 65 01/30/17 15:50 95.9 106 21 97/60 91 FIO2 65.00 20.00 01/30/17 14:17 90 20.00 65 01/30/17 14:00 111 27 112/60 FIO2 65.00 20.00 01/30/17 13:00 107 01/30/17 13:00 108 27 107/62 87 FIO2 65.00 20.00 01/30/17 12:07 92 Nasal Cannula 20.00 65 01/30/17 12:06 96.2 109 23 113/77 92 FIO2 65.00 20.00 01/30/17 11:00 114 19 117/81 96 FIO2 65.00 20.00 01/30/17 10:18 94 20.00 65 01/30/17 10:00 103 27 113/54 94 FIO2 65.00 20.00 01/30/17 09:00 105 19 100/50 91 FIO2 65.00 20.00 01/30/17 07:51 92 Nasal Cannula 20.00 65 01/30/17 07:50 96.8 107 28 114/72 92 FIO2 65.00 20.00 I & O 01/31/17 07:00 Intake Total 4460 ml Output Total 4075 ml Balance 385 ml General Appearance: Chronically ill HEENT: PERRL/EOMI Neck: Non Tender, Supple Respiratory: Crackles, Decreased Breath Sounds Cardiovascular: Tachycardia Capillary Refill: Less Than 3 Seconds Gastrointestinal: normal bowel sounds, non tender, soft Extremity: Pedal Edema, Swelling Neurologic/Psychiatric: No Motor/Sensory Deficits Skin: Warm/Dry Lymphatic: No Adenopathy Results Lab Laboratory Tests 01/30/17 03:53 01/30/17 21:00 01/31/17 05:10 Assessment/Plan Assessment/Plan Acute respiratory failure - requiring BiPAP RLL pleural effusion- -Check CT of chest - then probable pleurex catheter - Pt does not want thoracentesis since pleural effusion will probably return -He is considering pleurex catheter since he will be able to drain fluid without additional needle sticks. -Will consult Dr. Paz for pleurex catheter - --BNP is only 56 pt has pitting edema bilaterally Extensive small cell cancer with mets to liver and bone. 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
--- NOTE | 2017-01-31 08:49 | Diagnostic Imaging Report ---
EXAMINATION: Portable upright radiograph of the chest. INDICATION: Atelectasis. Tumor lysis syndrome. FINDINGS: When compared to 01/30/2017, there is improved vascular congestion. There are remaining large infiltrates in the mid and lower right lung zones and patchy left perihilar and left basilar infiltrates. There is suggestion of a moderate right pleural effusion. The heart margins are largely obscured. IMPRESSION: Bilateral perihilar and basilar infiltrates, larger on the right side, with no significant change. Dictated by: Dictated on workstation # [id number]
[2017-01-31] MEDS: TBO-FILGRASTIM 480 MCG/0.8 ML (GRANIX) SQ SCH (08:52)
[2017-01-31] MEDS: FUROSEMIDE 40 MG/4 ML INJ (LASIX) IVP SCH (08:52)
[2017-01-31] MEDS: LIDOCAINE (LIDODERM) 5% PATCH TOP SCH (08:52)
--- NOTE | 2017-01-31 08:55 | Occupational Therapy Eval ---
OT Evaluation-General/PLF Medical Diagnosis Admission Date Jan 26, 2017 at 19:08 Medical Diagnosis: tumor lysis syndrome Onset Date: Jan 26, 2017 Therapy Diagnosis Therapy Diagnosis: decreased self care, weakness, decr functional mobility Height/Weight Height (Feet): 5 Height (Inches): 10.00 Weight (Pounds): 231 Weight (Ounces): 8.0 Precautions Precautions/Isolations: Droplet Isolation, Fall Prevention, Standard Precautions Safety Interventions: None Referral Physician: Cliff Lynch Referral Reason: Evaluation/Treatment Medical History Pertinent Medical History: CAD, COPD, GERD, HTN, Hypothroidism, Smoking Additional Medical History New diagnosis small cell lung CA with mets to bone and liver. Hep C, spinal stenosis C5-6 severe, C7 moderate. Compression fx back, torn ligaments, Coronary stents. Chronic back pain Current History Admitted through ED for pain control. Had been getting chemotherapy. To have surgical procedure today - pleurex catheter. Reviewed History: Yes Social History Home: Residential ([facility]) ADL-Prior Level of Function ADL PLOF Comments Pt reported that he had been able to manage his basic self care needs at [facility]. 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 Has Vapotherm on so is difficult to hear answers and limits mobility. Pt reported pain 7/10 and self-medicated. Pt verbalized that he was scared of having surgery today. Appearance Alert, cooperative Mental Status/Objective Attachments: Central Line, IV, Telemetry, Other-See Comments (Vapotherm) Current Hand Dominance: Right Upper Extremity ROM Grossly WFL bilat Upper Extremity Strength grossly 4/5 bilat ADL-Treatment ADL-Current Pt was able to use his urinal once it was handed to him. Per PT, he needs mod assist to transfer to recliner, limited in part by monitor wires and tubes. Functional [place] Measure 0=Not Assessed/NA 4=Minimal Assistance 1=Total Assistance 5=Supervision or Setup 2=Maximal Assistance 6=Modified [place] 3=Moderate Assistance 7=Complete IndependenceIRFPAI Quality Coding Scale 6 Independent with activity with or without an assistive device 5 Patient requires set up or clean up by helper. Patient completes activity by themselves 4 Supervision or touching assist (CGA). [place] provide cues , steadying assist 3 The helper provides less than half the effort to complete the activity 2 The helper provides more than half the effort to complete the activity 1 Dependent. The helper does all the effort to complete an activity 7 Patient refused to complete or attempt activity 9 The patient did not perform the activity before the current illness or injury 88 Not attempted due to Medical conditions or safety concerns Other Treatments Pt education general treatment plan, with his agreement. Education OT Patient Education: Purpose of tx/functional activities, Rehab process OT Mcfp Goals Blue Split Trimmer Goals Time Frame: Feb 14, 2017 Eating (FIM): 6 Grooming(FIM): 5 Bathing(FIM): 4 Upper Body Dressing(FIM): 5 Lower Body Dressing(FIM): 5 Toileting(FIM): 5 Toilet/Commode Transfer(FIM): 5 Shower Transfer(FIM): 5 Additional Goals: 2-Verbalize Understanding, 3-ImproveStrength/Martha 1=Demonstrate adherence to instructed precautions during ADL tasks. 2=Patient will verbalize/demonstrate understanding of assistive devices/ modifications for ADL. 3=Patient will improve strength/tolerance for activity to enable patient to perform ADL's. OT Education/Plan Problem List/Assessment Assessment: Decreased Activ Tolerance, Decreased UE Strength, Impaired Bed Mobility, Impaired Funct Balance, Impaired Self-Care Skills Pt would benefit from skilled OT to increase his independence in basic self care to allow him to be as independent as possible and decrease caregiver burden Discharge Recommendations Plan/Recommendations: Continue POC Therapy D/C Recommendations: [facility] ([facility]) Treatment Plan/Plan of Care Treatment,Training & Education: Yes Patient would benefit from OT for education, treatment and training to promote independence in ADL's, mobility, safety and/or upper extremity function for ADL' s. Plan of Care: ADL Retraining, Functional Mobility, UE Funct Exercise/Act, UE Neuromus Re-Ed/Coord Treatment Duration: Feb 14, 2017 # of days/week 5 Visits Per Week: 5 Agreement: Yes Rehab Potential: Guarded Time/GCodes Start Time: 08:30 Stop Time: 08:45 Total Time Billed (hr/min): 15 Billed Treatment Time visit, 15 minutes evaluation moderate KEN CULLEN OT Jan 31, 2017 08:55
--- NOTE | 2017-01-31 08:58 | Progress Note (SOAP) ---
Subjective Subjective 66 yo M with chemotherapy induced tumor lysis- -Chao was doing decent yesterday but started having runs of SVT- CXR demonstrated Right pleural effusion- Dr. Barrera consulted and likely to be going to OR for pleurex catheter with Dr. Paz. Review of Systems General: No Chills, No Night Sweats, Fatigue, Malaise, No Appetite, No Other HEENT: No Head Aches, No Visual Changes, No Eye Pain, No Ear Pain, No Dysphasia , No Sinus Congestion, No Post Nasal Drip, No Sore Throat, No Other Pulmonary: Dyspnea, Cough, Pleuritic Chest Pain (right chest), No Other Cardiovascular: Chest Pain, No: Edema, Lt Headedness, Orthopnea, Other, Palpitations, Paroxysmal Noc. Dyspnea Gastrointestinal: No: Abdominal Pain, Nausea, Vomiting Genitourinary: No Dysuria, Frequency Musculoskeletal: back pain, neck pain Neurological: Weakness All Other Systems Reviewed All Other Systems Reviewed: Yes Objective Exam Vital Signs Vital Signs Date Time Temp Pulse Resp B/P (MAP) Pulse Ox O2 Delivery O2 Flow Rate FiO2 01/31/17 08:14 97 24 94 55.00 01/31/17 06:59 76 22 95 55.00 01/31/17 06:00 75 15 104/60 94 NIV/Bilevel 55.00 01/31/17 06:00 16 01/31/17 05:00 80 17 99/65 94 NIV/Bilevel 55.00 01/31/17 04:49 150 20 93 55.00 01/31/17 04:45 144 16 98/60 90 NIV/Bilevel 55.00 01/31/17 04:00 101 20 93/49 94 FIO2 60.00 20.00 01/31/17 04:00 91 Nasal Cannula 20.00 65 01/31/17 03:30 99 21 115/62 89 FIO2 60.00 20.00 01/31/17 03:00 90 13 98/57 90 NIV/Bilevel 55.00 01/31/17 02:14 75 19 95 55.00 01/31/17 02:00 89 22 111/57 94 NIV/Bilevel 55.00 01/31/17 01:00 79 01/31/17 01:00 79 16 102/71 97 NIV/Bilevel 55.00 01/31/17 00:20 75 24 96 55.00 01/31/17 00:04 20 01/31/17 00:00 91 NIV/Bilevel 55 01/31/17 00:00 96.9 97 13 111/68 93 NIV/Bilevel 55.00 01/30/17 23:00 99 12 100/49 93 NIV/Bilevel 55.00 01/30/17 22:00 103 15 101/59 92 NIV/Bilevel 55.00 01/30/17 21:58 99 16 94 55.00 01/30/17 21:00 105 13 94/62 94 NIV/Bilevel 55.00 01/30/17 20:05 93 NIV/Bilevel 55.00 01/30/17 20:00 165 18 85/65 92 NIV/Bilevel 55.00 01/30/17 19:50 156 18 90 55.00 01/30/17 19:00 105 01/30/17 19:00 105 16 107/53 93 NIV/Bilevel 55.00 01/30/17 18:13 93 20.00 65 01/30/17 18:00 95 13 110/60 91 FIO2 65.00 20.00 01/30/17 18:00 23 01/30/17 17:00 101 25 119/55 92 FIO2 65.00 20.00 01/30/17 15:51 91 Nasal Cannula 20.00 65 01/30/17 15:50 95.9 106 21 97/60 91 FIO2 65.00 20.00 01/30/17 14:17 90 20.00 65 01/30/17 14:00 111 27 112/60 FIO2 65.00 20.00 01/30/17 13:00 107 01/30/17 13:00 108 27 107/62 87 FIO2 65.00 20.00 01/30/17 12:07 92 Nasal Cannula 20.00 65 01/30/17 12:06 96.2 109 23 113/77 92 FIO2 65.00 20.00 01/30/17 11:00 114 19 117/81 96 FIO2 65.00 20.00 01/30/17 10:18 94 20.00 65 01/30/17 10:00 103 27 113/54 94 FIO2 65.00 20.00 01/30/17 09:00 105 19 100/50 91 FIO2 65.00 20.00 I & O 01/31/17 07:00 Intake Total 4460 ml Output Total 4075 ml Balance 385 ml General Appearance: Chronically ill, Mild Distress (respiratory) Eyes: Bilateral Eye EOMI, Bilateral Eye Normal Inspection, Bilateral Eye PERRL HEENT: PERRL/EOMI Neck: Non Tender, Supple Respiratory: Decreased Breath Sounds (right lung base.), Respiratory Distress ( coarse breath sounds throughout) Cardiovascular: Tachycardia Gastrointestinal: Normal Bowel Sounds, Non Tender, Soft Rectal: Deferred Back: Decreased Range of Motion Extremity: Pedal Edema, Swelling Neurologic/Psychiatric: No Motor/Sensory Deficits Skin: Warm/Dry Lymphatic: No Adenopathy Results Lab Laboratory Tests 01/30/17 21:00: Potassium Level 3.3L, Magnesium Level 2.0, Troponin I < 0.30 01/31/17 05:10: Potassium Level 3.3L, Magnesium Level 2.3, White Blood Count 5.2, Red Blood Count 2.72L, Hemoglobin 9.0L, Hematocrit 26L, Mean Corpuscular Volume 96, Mean Corpuscular Hemoglobin 33, Mean Corpuscular Hemoglobin Concent 35, Red Cell Distribution Width 14.9H, Platelet Count 81L, Mean Platelet Volume 10.7H, Neutrophils (%) (Auto) 93H, Lymphocytes (%) (Auto) 5L, Monocytes (%) (Auto) 1, Eosinophils (%) (Auto) 0, Basophils (%) (Auto) 0, Neutrophils # (Auto) 4.8, Lymphocytes # (Auto) 0.3L, Monocytes # (Auto) 0.1, Eosinophils # (Auto) 0.0, Basophils # (Auto) 0.0, Sodium Level 134L, Chloride Level 100, Carbon Dioxide Level 23, Anion Gap 11, Blood Urea Nitrogen 46H, Creatinine 0.66, Estimat Glomerular Filtration Rate > 60, BUN/Creatinine Ratio 70, Glucose Level 101, Uric Acid 2.9, Calcium Level 7.0L, Phosphorus Level 2.5 Microbiology 01/29/17 MRSA Screen - Final, Complete Assessment/Plan Assessment/Plan Assessment/Plan 66 yo M admitted 01/26/17 Tumor lysis syndrome - Improved -rasburicase 0.2mg/kg x 1 dose Uric acid 1.8 -hyperkalemia, hyperphosphatemia, hypocalemia- acute kidney injury , uric acid - improved- IRAM- Cr normal -IVF NS @ 75 ml/hr -Dr. Katz consulted Acute hypoxic Respiratory distress- shallow breathing contributing to this due to Right chest wall pain. Dr. Barrera consulted- RT consulted Right pleural effusion- suspect related to the cancer- Dr. Paz consulted for pleurex catheter placement 01/31/17 Intractable back pain due to metastatic cancer- dilaudid language assistant - fentanyl patch cancer with metastasis (small cell vs lymphoma)- lung primary? Dr. Katz consulted, started chemotherapy 01/25/17, chemo on hold currently getting granix injection cell lines are declining towards conrado. transaminitis- will monitor, secondary from cancer involving the liver. hyperbilirubinemia- monitor cervical spinal stenosis- severe at C5/6, moderate C7 -pain management leukocytosis- no overt infection. monitor CBC. hypothyroidism- continue levothyroxine h/o hepatitis C - treated with interferon 1998 - hep C RNA undetected December 2016 coronary artery disease- s/p RCA stent 09/2016, Dr. Tinoco covering for Dr. [place]. COPD with hypoxia - MAT protocol, requiring oxygen NC h/o tobaccoism- quit ~Aug 2016 insomnia- trazodone weakness-/deconditioning - PT/OT Prognosis: guarded continue ICU care Dispo: Tumor lysis syndrome- labs are back to baseline - -pt is full code- for now- he is considering DNR - I did discuss with pt that outcomes in his situation were not good if he was to code. Problems: Clinical Quality Measures AMI/AHF: ASA po Prior to arrival: Yes DVT/VTE Risk/Contraindication: Risk Factor Score Per Nursin RFS Level Per Nursing on Admit: 4+=Very High JEFFREY PARKER MD Jan 31, 2017 08:58
--- NOTE | 2017-01-31 09:51 | Physical Therapy Daily Note ---
PT Daily Note-Current Subjective Patient agrees to up in chair. RN present to assist with tubing/cords, etc. Pain Numeric Pain Scale: 0-No Pain Location: No Pain Reported Mental Status Patient Orientation: Person, Time, Situation Attachments: Oxygen (Bipap), IV Transfers Functional [place] Measure 0=Not Assessed/NA 4=Minimal Assistance 1=Total Assistance 5=Supervision or Setup 2=Maximal Assistance 6=Modified [place] 3=Moderate Assistance 7=Complete IndependenceIRFPAI Quality Coding Scale 6 Independent with activity with or without an assistive device 5 Patient requires set up or clean up by helper. Patient completes activity by themselves 4 Supervision or touching assist (CGA). [place] provide cues , steadying assist 3 The helper provides less than half the effort to complete the activity 2 The helper provides more than half the effort to complete the activity 1 Dependent. The helper does all the effort to complete an activity 7 Patient refused to complete or attempt activity 9 The patient did not perform the activity before the current illness or injury 88 Not attempted due to Medical conditions or safety concerns Transfers (B, C, W/C) (FIM): 3 Scootin Supine to/from Sit: 3 Sit to/from Stand: 3 Bed to/from Chair: 3 Patient requiring more assist on this date with mobility. Assessment Patient requires time to complete functional tasks. PT to decrease frequency to 5/wk due to Poor prognosis per dr report. PT Fdc Goals Funeral Planning Counselor Goals PT Funeral Planning Counselor Goals Time Frame: Feb 13, 2017 Transfers (B,C,W/C) (FIM): 5 Gait (FIM): 2 Gait distance (FIM): [phone] ft Distance: 75' Gait Level of Assist: 5 Gait Assistive Device: FWW PT Plan Treatment/Plan Treatment Plan: Modify Plan, see comments (frequency 5/wk) Treatment Plan: Bed Mobility, Education, Functional Activity Martha, Functional Strength, Gait, Safety, Therapeutic Exercise, Transfers Treatment Duration: Feb 13, 2017 Visits Per Week: 6 Time/GCodes Time In: 855 Time Out: 905 Total Billed Treatment Time: 10 Total Billed Treatment 1 visit FA 10 min KARMEN WRIGHT PT Jan 31, 2017 09:51
[2017-01-31] MEDS: ASPIRIN E.C. 81 MG (ECOTRIN) TAB PO SCH ×2 (10:17→17:56)
[2017-01-31] MEDS: SENNA W/DOCUSATE (SENOKOT S) TABLET PO SCH (10:17)
[2017-01-31] MEDS: CLOPIDOGREL 75 MG (PLAVIX) TABLET PO SCH ×2 (10:17→17:56)
--- NOTE | 2017-01-31 13:10 | Diagnostic Imaging Report ---
PROCEDURE: CT chest without contrast. TECHNIQUE: Multiple contiguous axial images were obtained through the chest without the use of intravenous contrast. INDICATION: Respiratory failure. FINDINGS: There is a large right pleural effusion with associated right lower lobe atelectasis and atelectasis of portions of the right upper lobe in dependent region. These findings are new from 01/11/2017. There is mediastinal lymphadenopathy with right paratracheal lymph node measuring 1.2 cm slightly smaller compared to the previous exam. Infracarinal enlarged lymph node measuring 1.7 cm also appears smaller compared to previous study where from the short-axis measurement was 3.3 cm. It is difficult to exactly measure the hilar lymph nodes on this unenhanced exam; however, there is decreased fullness in the left hilar gar[place] station. There is mild atelectasis in the left lung base. There are new left lower lobe patchy groundglass opacities suggestive of pneumonitis. There is a subacute lateral right rib fracture involving the right sixth rib with no definite underlying lesion seen. Sections of the upper abdomen demonstrate numerous liver metastases. Although it is hard to measure single metastatic lesions, there is an obvious decrease in the AP dimension of the left hepatic lobe suggestive of decreased tumor burden. There is fluid-density abutting the greater curvature of the stomach seen. Etiology is uncertain. The size of the collection is 5.6 x 8.5 cm. Etiology is uncertain. Gastritis with possible localized perforation is a possibility. IMPRESSION: 1. Large right pleural effusion with right lung atelectatic changes. 2. Areas of groundglass opacity in the left lower lobe may relate to pneumonitis. 3. Simple-appearing subacute lateral right sixth rib fracture. 4. Interval decrease in the size of mediastinal lymph nodes and liver metastases compared to 01/11/2017. 5. Development of prominent fluid collection abutting the posterior aspect of the stomach mostly near the fundus. This is concerning for deep gastritis and possible loculated perforation. Further evaluation with CT scan with oral contrast or with endoscopy is recommended. The findings were discussed with Dr. Katz by Dr. Cabral at time of dictation. Dictated by: Dictated on workstation # [id number]
--- NOTE | 2017-01-31 13:27 | Consultation ---
History of Present Illness History of Present Illness Patient Consulted On(ondina/time) 01/31/17 13:21 Date of Admission Reason for Visit: chest pain History of Present Illness Patient came into the hospital from a [facility] due to complaint of left- sided chest pain. 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 His pain has been worsening over the last several weeks. Currently he is on fentanyl patch plus hydrocodone. We were consulted by Dr. Barrera for insertion of Pleur-X catheter due to RLL pleural effusion- Allergies and Home Medications Allergies Coded Allergies: NKANo Known Allergies (Verified Allergy, Unknown, 09/03/07) Home Medications Albuterol Sulfate 1 Puff Puff, 2 PUFF IH Q4H PRN for SHORTNESS OF BREATH, ( Reported) Aspirin 81 Mg Tablet.dr, 81 MG PO DAILY, (Reported) Clopidogrel Bisulfate 75 Mg Tablet, 75 MG PO DAILY, (Reported) Dexamethasone 4 Mg Tablet, 2 MG PO BID, (Reported) TAKES 1/2 (4MG) TABLET Docusate Sodium 100 Mg Capsule, 100 MG PO BID, (Reported) Famotidine 20 Mg Tablet, 20 MG PO BID, (Reported) Fentanyl 1 Each Patch.td72, 75 MCG TD Q72H, (Reported) Furosemide 40 Mg Tablet, 40 MG PO DAILY, (Reported) Ipratropium/Albuterol Sulfate 3 Ml Ampul.neb, 3 ML IH Q4H, (Reported) Lactulose 20 Gm/30 Ml Solution, 15 ML PO BID, (Reported) Levothyroxine Sodium 100 Mcg Tablet, 100 MCG PO DAILY, (Reported) Lisinopril 5 Mg Tablet, 5 MG PO DAILY, (Reported) Oxycodone HCl 10 Mg Tablet, 10 MG PO Q4H PRN for PAIN-BREAKTHROUGH, (Reported) Potassium Chloride 10 Meq Tablet.er, 10 MEQ PO DAILY, (Reported) Pravastatin Sodium 20 Mg Tablet, 20 MG PO DAILY, (Reported) Trazodone HCl 50 Mg Tablet, 50 MG PO HS, (Reported) Past Ghpqbhq-Drknga-Kikadp Hx Patient Social History Alcohol Use: Denies Use Recreational Drug Use: No Drug of Choice: MARIJUANA - COUPLE WEEKS AGO Smoking Status: Former Smoker Type Used: Cigarettes Recent Foreign Travel: No Contact w/Someone Who Travel: No Recent Infectious Disease Expo: No Recent Hopitalizations: No Physical Abuse Screen: No Sexual Abuse: No Immunizations Up To Date Date of Pneumonia Vaccine: May 24, 2016 Date of Influenza Vaccine: Jul 11, 2016 Seasonal Allergies Seasonal Allergies: No Surgeries HX Surgeries: Yes (T&A) Surgeries: Adenoidectomy, Coronary Stent, Tonsillectomy Respiratory Hx Respiratory Disorders: No Cardiovascular Hx Cardiac Disorders: Yes Cardiac Disorders: Coronary Artery Disease, High Cholesterol, Hypertension Neurological Hx Neurological Disorders: No Reproductive System Hx Reproductive Disorders: No Genitourinary Hx Genitourinary Disorders: No Genitourinary Disorders: Kidney Stones Gastrointestinal Hx Gastrointestinal Disorders: Yes Gastrointestinal Disorders: Gastroesophageal Reflux Musculoskeletal Hx Musculoskeletal Disorders: Yes (TORN LIGAMENTS IN BACK,COMP.FX.) Musculoskeletal Disorders: Chronic Back Pain Endocrine Hx Endocrine Disorders: Yes Endocrine Disorders: Hypothyroidsim HEENT HX ENT Disorders: No Cancer Hx Cancer: No Psychosocial Hx Psychiatric Problems: No Integumentary HX Skin/Integumentary Disorder: No Blood Transfusions Hx Blood Disorders: No Adverse Reaction to a Blood Tr: No Reviewed Nursing Assessment Reviewed/Agree w Nursing PMH: Yes Family Medical History Significant Family History: No Pertinent Family Hx Family Medial History: Patient reports no known family medical history. Review of Systems-General Constitutional: weakness, other (Leftsided chest pain. ) EENTM: no symptoms reported Respiratory: no symptoms reported, see HPI Cardiovascular: no symptoms reported Gastrointestinal: no symptoms reported Genitourinary: no symptoms reported Musculoskeletal: no symptoms reported Skin: no symptoms reported Psychiatric/Neurological: No Symptoms Reported Physical Exam-General Problems Physical Exam Vital Signs Vital Sign - Last 12Hours 01/26/17 01/29/17 20:58 06:22 B/P (MAP) 142/90 FiO2 70 Capillary Refill : Less Than 3 Seconds General Appearance: mild distress (patient is on bi-pap) Neck: full range of motion, normal inspection Respiratory: rales Cardiovascular: regular rate, rhythm Gastrointestinal: non tender, soft Extremities: no calf tenderness, pedal edema (+2-+3 pitting Edema-bilat LE) Neurologic/Psychiatric: alert, oriented x 3 Skin: pallor Data Review Labs Laboratory Tests Test 01/29/17 14:05 01/29/17 19:57 01/30/17 03:53 01/30/17 21:00 Range/Units Troponin I < 0.30 < 0.30 < 0.30 <0.30 NG/ML White Blood Count 8.7 4.3-11.0 10^3/uL Red Blood Count 3.12 L 4.35-5.85 10^6/uL Hemoglobin 10.1 L 13.3-17.7 G/DL Hematocrit 30 L 40-54 % Mean Corpuscular Volume 95 80-99 FL Mean Corpuscular Hemoglobin 32 25-34 PG Mean Corpuscular Hemoglobin Concent 34 32-36 G/DL Red Cell Distribution Width 14.9 H 10.0-14.5 % Platelet Count 118 L 130-400 10^3/uL Mean Platelet Volume 11.0 H 7.4-10.4 FL Neutrophils (%) (Auto) 97 H 42-75 % Lymphocytes (%) (Auto) 3 L 12-44 % Monocytes (%) (Auto) 0 0-12 % Eosinophils (%) (Auto) 0 0-10 % Basophils (%) (Auto) 0 0-10 % Neutrophils # (Auto) 8.5 H 1.8-7.8 X 10^3 Lymphocytes # (Auto) 0.2 L 1.0-4.0 X 10^3 Monocytes # (Auto) 0.0 0.0-1.0 X 10^3 Eosinophils # (Auto) 0.0 0.0-0.3 10^3/uL Basophils # (Auto) 0.0 0.0-0.1 10^3/uL Sodium Level 135 135-145 MMOL/L Potassium Level 3.6 3.3 L 3.6-5.0 MMOL/L Chloride Level 99 98-107 MMOL/L Carbon Dioxide Level 23 21-32 MMOL/L Anion Gap 13 5-14 MMOL/L Blood Urea Nitrogen 70 H 7-18 MG/DL Creatinine 0.94 0.60-1.30 MG/DL Estimat Glomerular Filtration Rate > 60 BUN/Creatinine Ratio 74 Glucose Level 104 70-105 MG/DL Calcium Level 7.0 L 8.5-10.1 MG/DL Phosphorus Level 4.6 2.3-4.7 MG/DL Magnesium Level 2.5 H 2.0 1.8-2.4 MG/DL B-Type Natriuretic Peptide 56.1 <100.0 PG/ML Triglycerides Level 113 <150 MG/DL Cholesterol Level 143 < 200 MG/DL LDL Cholesterol Direct 78 1-129 MG/DL VLDL Cholesterol 23 5-40 MG/DL HDL Cholesterol 19 L 40-60 MG/DL Test 01/31/17 05:10 Range/Units White Blood Count 5.2 4.3-11.0 10^3/uL Red Blood Count 2.72 L 4.35-5.85 10^6/uL Hemoglobin 9.0 L 13.3-17.7 G/DL Hematocrit 26 L 40-54 % Mean Corpuscular Volume 96 80-99 FL Mean Corpuscular Hemoglobin 33 25-34 PG Mean Corpuscular Hemoglobin Concent 35 32-36 G/DL Red Cell Distribution Width 14.9 H 10.0-14.5 % Platelet Count 81 L 130-400 10^3/uL Mean Platelet Volume 10.7 H 7.4-10.4 FL Neutrophils (%) (Auto) 93 H 42-75 % Lymphocytes (%) (Auto) 5 L 12-44 % Monocytes (%) (Auto) 1 0-12 % Eosinophils (%) (Auto) 0 0-10 % Basophils (%) (Auto) 0 0-10 % Neutrophils # (Auto) 4.8 1.8-7.8 X 10^3 Lymphocytes # (Auto) 0.3 L 1.0-4.0 X 10^3 Monocytes # (Auto) 0.1 0.0-1.0 X 10^3 Eosinophils # (Auto) 0.0 0.0-0.3 10^3/uL Basophils # (Auto) 0.0 0.0-0.1 10^3/uL Sodium Level 134 L 135-145 MMOL/L Potassium Level 3.3 L 3.6-5.0 MMOL/L Chloride Level 100 98-107 MMOL/L Carbon Dioxide Level 23 21-32 MMOL/L Anion Gap 11 5-14 MMOL/L Blood Urea Nitrogen 46 H 7-18 MG/DL Creatinine 0.66 0.60-1.30 MG/DL Estimat Glomerular Filtration Rate > 60 BUN/Creatinine Ratio 70 Glucose Level 101 70-105 MG/DL Uric Acid 2.9 2.6-7.2 MG/DL Calcium Level 7.0 L 8.5-10.1 MG/DL Phosphorus Level 2.5 2.3-4.7 MG/DL Magnesium Level 2.3 1.8-2.4 MG/DL Laboratory Tests 01/30/17 21:00: Potassium Level 3.3L, Magnesium Level 2.0, Troponin I < 0.30 01/31/17 05:10: Potassium Level 3.3L, Magnesium Level 2.3, White Blood Count 5.2, Red Blood Count 2.72L, Hemoglobin 9.0L, Hematocrit 26L, Mean Corpuscular Volume 96, Mean Corpuscular Hemoglobin 33, Mean Corpuscular Hemoglobin Concent 35, Red Cell Distribution Width 14.9H, Platelet Count 81L, Mean Platelet Volume 10.7H, Neutrophils (%) (Auto) 93H, Lymphocytes (%) (Auto) 5L, Monocytes (%) (Auto) 1, Eosinophils (%) (Auto) 0, Basophils (%) (Auto) 0, Neutrophils # (Auto) 4.8, Lymphocytes # (Auto) 0.3L, Monocytes # (Auto) 0.1, Eosinophils # (Auto) 0.0, Basophils # (Auto) 0.0, Sodium Level 134L, Chloride Level 100, Carbon Dioxide Level 23, Anion Gap 11, Blood Urea Nitrogen 46H, Creatinine 0.66, Estimat Glomerular Filtration Rate > 60, BUN/Creatinine Ratio 70, Glucose Level 101, Uric Acid 2.9, Calcium Level 7.0L, Phosphorus Level 2.5 Microbiology 01/29/17 MRSA Screen - Final, Complete Assessment/Plan Assessment/Plan Assessment/Plan RLL pleural effusion- Consulted for Pleur-X Catheter. At this time, patient is currently on Plavix, Aspirin and Heparin subQ. Dr Barrera wants to wait for insertion of Pleur-x. 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 Patient with small cell carcinoma liklely lung primary with mets to liver, bone and lymph nodes. Patient was offered thoracentesis but patient does not want multiple needle sticks for drainage. Dr. Barrera discussed with patient about pleur-x catheter which patient is more agreeable to possibly. Patient states his breathing at this time is his main issues. He denies any abdominal pain at this time. He has had previous stent which he needs to be on Plavix and aspirin. He had a ct scan of the chest which also showed the stomach in close proximity to have a fluid collection questionable contained perforation. Ct abdomen pelvis with oral contrast did not show leakage of contrast out of the stomach. general patient having shortness of breath laboring to breath heart reg lungs labored breathing abdomen obese, soft no significant tenderness ext edematous small cell carcinoma with metastatsis right pleural effusion CAD Hep C, Tumor lysis syndrome Patient does not want thoracentesis but more willing to have pleur-x catheter placement. Would also consider pig tail catheter placement. Patient needs to remain on Plavix and Aspirin at this time unless emergent surgical intervention discussed this with Dr. Tinoco and believe we could place pleur-x catheter but would have increased risk of bleeding Will wait for patient and Dr. Barrera to decide if they wish me to proceed with right chest pleur-x catheter placement Clinical Quality Measures AMI/AHF: ASA po Prior to arrival: Yes DVT/VTE Risk/Contraindication: Risk Factor Score Per Nursin RFS Level Per Nursing on Admit: 4+=Very High CANELO BARAHONA APRN Jan 31, 2017 1:27 pm ARIK HATHAWAY DO Jan 31, 2017 5:30 pm
--- NOTE | 2017-01-31 14:02 | Progress Note (SOAP) ---
Subjective Subjective/Events-last exam Patient continues to have episodes of SVT. He has developed very large right pleural effusion. CT scan of the chest was done which I have reviewed with Dr. Cabral. He also has a fluid collection near the stomach and Dr. Cabral has requested CT of abdomen with oral contrast not IV contrast for further evaluation. Objective Exam Vital Signs Date Time Temp Pulse Resp B/P (MAP) Pulse Ox O2 Delivery O2 Flow Rate FiO2 01/31/17 12:23 104 18 93 55.00 01/31/17 12:00 96 NIV/Bilevel 55 01/31/17 11:00 108 24 109/64 NIV/Bilevel 55.00 01/31/17 10:31 99 21 96 55.00 01/31/17 10:00 86 16 139/72 93 NIV/Bilevel 55.00 01/31/17 09:00 93 29 101/72 93 NIV/Bilevel 55.00 01/31/17 08:14 97 24 94 55.00 01/31/17 08:00 96 NIV/Bilevel 55 01/31/17 08:00 97.7 01/31/17 08:00 93 18 134/60 95 NIV/Bilevel 55.00 01/31/17 07:00 76 12 121/78 95 NIV/Bilevel 55.00 01/31/17 07:00 89 01/31/17 06:59 76 22 95 55.00 01/31/17 06:00 75 15 104/60 94 NIV/Bilevel 55.00 01/31/17 06:00 16 01/31/17 05:00 80 17 99/65 94 NIV/Bilevel 55.00 01/31/17 04:49 150 20 93 55.00 01/31/17 04:45 144 16 98/60 90 NIV/Bilevel 55.00 01/31/17 04:00 101 20 93/49 94 FIO2 60.00 20.00 01/31/17 04:00 91 Nasal Cannula 20.00 65 01/31/17 03:30 99 21 115/62 89 FIO2 60.00 20.00 01/31/17 03:00 90 13 98/57 90 NIV/Bilevel 55.00 01/31/17 02:14 75 19 95 55.00 01/31/17 02:00 89 22 111/57 94 NIV/Bilevel 55.00 01/31/17 01:00 79 01/31/17 01:00 79 16 102/71 97 NIV/Bilevel 55.00 01/31/17 00:20 75 24 96 55.00 01/31/17 00:04 20 01/31/17 00:00 91 NIV/Bilevel 55 01/31/17 00:00 96.9 97 13 111/68 93 NIV/Bilevel 55.00 01/30/17 23:00 99 12 100/49 93 NIV/Bilevel 55.00 01/30/17 22:00 103 15 101/59 92 NIV/Bilevel 55.00 01/30/17 21:58 99 16 94 55.00 01/30/17 21:00 105 13 94/62 94 NIV/Bilevel 55.00 01/30/17 20:05 93 NIV/Bilevel 55.00 01/30/17 20:00 165 18 85/65 92 NIV/Bilevel 55.00 01/30/17 19:50 156 18 90 55.00 01/30/17 19:00 105 01/30/17 19:00 105 16 107/53 93 NIV/Bilevel 55.00 01/30/17 18:13 93 20.00 65 01/30/17 18:00 95 13 110/60 91 FIO2 65.00 20.00 01/30/17 18:00 23 01/30/17 17:00 101 25 119/55 92 FIO2 65.00 20.00 01/30/17 15:51 91 Nasal Cannula 20.00 65 01/30/17 15:50 95.9 106 21 97/60 91 FIO2 65.00 20.00 01/30/17 14:17 90 20.00 65 01/30/17 14:00 111 27 112/60 FIO2 65.00 20.00 I & O 01/31/17 07:00 Intake Total 4460 ml Output Total 4075 ml Balance 385 ml Capillary Refill : Less Than 3 Seconds General Appearance: Chronically ill HEENT: PERRL/EOMI Neck: Non Tender, Supple Respiratory: Crackles, Decreased Breath Sounds Cardiovascular: Tachycardia Gastrointestinal: normal bowel sounds, soft, tenderness (mild tenderness midepigastric area;), other Extremity: Pedal Edema, Swelling Results Lab Laboratory Tests 01/30/17 21:00: Potassium Level 3.3L, Magnesium Level 2.0, Troponin I < 0.30 01/31/17 05:10: Potassium Level 3.3L, Magnesium Level 2.3, White Blood Count 5.2, Red Blood Count 2.72L, Hemoglobin 9.0L, Hematocrit 26L, Mean Corpuscular Volume 96, Mean Corpuscular Hemoglobin 33, Mean Corpuscular Hemoglobin Concent 35, Red Cell Distribution Width 14.9H, Platelet Count 81L, Mean Platelet Volume 10.7H, Neutrophils (%) (Auto) 93H, Lymphocytes (%) (Auto) 5L, Monocytes (%) (Auto) 1, Eosinophils (%) (Auto) 0, Basophils (%) (Auto) 0, Neutrophils # (Auto) 4.8, Lymphocytes # (Auto) 0.3L, Monocytes # (Auto) 0.1, Eosinophils # (Auto) 0.0, Basophils # (Auto) 0.0, Sodium Level 134L, Chloride Level 100, Carbon Dioxide Level 23, Anion Gap 11, Blood Urea Nitrogen 46H, Creatinine 0.66, Estimat Glomerular Filtration Rate > 60, BUN/Creatinine Ratio 70, Glucose Level 101, Uric Acid 2.9, Calcium Level 7.0L, Phosphorus Level 2.5 Microbiology 01/29/17 MRSA Screen - Final, Complete Radiology Chest x-ray done 01/31/17:FINDINGS: When compared to 01/30/2017, there is improved vascular congestion. There are remaining large infiltrates in the mid and lower right lung zones and patchy left perihilar and left basilar infiltrates. There is suggestion of a moderate right pleural effusion. The heart margins are largely obscured. IMPRESSION:Bilateral perihilar and basilar infiltrates, larger on the right side , with no significant change. CT scan of the Chest done 01/31/17: IMPRESSION: 1. Large right pleural effusion with right lung atelectatic changes. 2. Areas of ground glass opacity in the left lower lobe may relate to pneumonitis. 3. Simple-appearing subacute lateral right sixth rib fracture. 4. Interval decrease in the size of mediastinal lymph nodes and liver metastases compared to 01/11/2017. 5. Development of prominent fluid collection abutting the posterior aspect of the stomach mostly near the fundus. This is concerning for deep gastritis and possible loculated perforation. Further evaluation with CT scan with oral contrast or with endoscopy is recommended. The findings were discussed with Dr. Katz by Dr. Cabral at time of dictation. Assessment/Plan Assessment/Plan Assess & Plan/Chief Complaint 1. 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 Status Post Cycle 1 days 1-2 of 3; Held day 3 etoposide; Currently receiving Granix to be continued for 7 days 2. Tumor lysis syndrome arising from recent chemotherapy treatment inpatient with very bulky tumor load of small cell carcinoma. Continue IV rehydration. Uric acid no longer elevated; K normal and Cr improved to 0.94. 3. Hypoxemia and tachycardia-patient currently in ICU and on BiPAP; cardiology is following. 4. Abnormal LFTs-arising from extensive liver involvement. 5. 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 Multiple comorbidities including CAD, COPD, hypothyroidism, history of hepatitis C, and history of cervical spinal stenosis. Clinical Quality Measures AMI/AHF: ASA po Prior to arrival: Yes DVT/VTE Risk/Contraindication: Risk Factor Score Per Nursin RFS Level Per Nursing on Admit: 4+=Very High NANCY KATZ MD Jan 31, 2017 14:02
--- NOTE | 2017-01-31 17:14 | Diagnostic Imaging Report ---
PROCEDURE: CT abdomen and pelvis without contrast. TECHNIQUE: Multiple contiguous axial images were obtained through the abdomen and pelvis without the use of intravenous contrast. INDICATION: Evaluate collection around the stomach. Oral contrast was given to the patient one and a half hours prior to the scan. Unfortunately oral contrast was not given also at the time of the scan. FINDINGS: There is oral contrast seen in the distal small bowel loops and in the colon. The oral contrast has already passed the stomach by the time of the scanning with no leakage of contrast seen into the fluid collection posterior to the gastric fundus measuring 8.7 x 4.8 x 3.2 CM. There is no free peritoneal air identified. There is no air-fluid level seen within the fluid collection. There are other areas of edema and fluid density smaller than the primary lesion seen along the peripancreatic region and along the posterior aspect of the distal stomach. There is also peripancreatic stranding. Correlate for possible pancreatitis. This could be related to a pseudocyst as well. There is a small amount of free fluid seen in the pelvis. There is no significant ascites in the upper abdomen. There is also soft tissue fullness near the pancreatic head which is not well identified and evaluated on this unenhanced exam. When compared to CTA chest from 01/11/2017, there is significant decrease in the size of the liver particularly at the left lobe compatible with tumor shrinkage. The gallbladder demonstrates no calcified stone. The spleen is not enlarged. The kidneys demonstrate no hydronephrosis. No urinary tract stones. No evidence of bowel obstruction. The osseous structures demonstrate degenerative changes in the thoracolumbar spine and prominent degenerative changes in the hip joints worse on the right side. There is a compression fracture of L2 vertebra which is probably chronic. The diffuse marrow involvement with disease in the lumbar spine as seen on prior MRI is largely occult by CT scan. There is a large right pleural effusion. IMPRESSION: 1. New fluid collection along the posterior aspect of the gastric fundus does not accumulate oral contrast precluding open communication to the stomach lumen. Possibility of a transient contained perforation is not entirely ruled out however. A more likely possibility perhaps is pseudocyst from pancreatitis as there is increased peripancreatic stranding compared with 01/11/2017. There is also fullness adjacent to the pancreatic head not well evaluated on this unenhanced exam and may represent a neoplasm. Other peripancreatic lymph nodes are unchanged. 2. Diffuse liver metastasis with interval decrease in the size of the liver compared to 01/11/2017. 3. Old L2 compression fracture. The diffuse marrow metastasis confirmed on previous MRI study is occult by CT. 4. Large right pleural effusion. Dictated by: Dictated on workstation # [id number]
[2017-01-31] MEDS: traZODone 50 MG (DESYREL) TAB PO SCH (20:41)
[2017-01-31] MEDS: FAMOTIDINE 20 MG (PEPCID) TABLET PO SCH (20:41)
[2017-02-01] VITALS (29 sets, daily range): BP systolic 75–122; BP diastolic 49–73
[2017-02-01] MEDS: meTOprolol 5 MG/5 ML (LOPRESSOR) VIAL IV SCH ×4 (00:34→18:48)
[2017-02-01] MEDS: fentaNYL PATCH 25 MCG (DURAGESIC) TD SCH (01:48)
[2017-02-01] MEDS: RT-ALBUTEROL/IPRATROPIUM 3 ML (DUONEB) VIAL IH SCH ×7 (02:12→22:34)
[2017-02-01 03:58] LABS: BASOPHILS % (AUTO) 0 % (0-10); EOSINOPHILS % (AUTO) 0 % (0-10); LYMPHOCYTES # (AUTO) 0.1 X 10^3 (1.0-4.0); LYMPHOCYTES % (AUTO) 4 % (12-44); MEAN CORPUSCULAR HEMOGLOBIN 32 PG (25-34); MEAN CORPUSCULAR HGB CONC 34 G/DL (32-36); MEAN CORPUSCULAR VOLUME 95 FL (80-99); MEAN PLATELET VOLUME 11.1 FL (7.4-10.4); MONOCYTES % (AUTO) 1 % (0-12); NEUTROPHILS # (AUTO) 2.7 X 10^3 (1.8-7.8); NEUTROPHILS % (AUTO) 95 % (42-75); PLATELET COUNT 65 10^3/uL (130-400); RED BLOOD COUNT 2.85 10^6/uL (4.35-5.85); WHITE BLOOD COUNT 2.8 10^3/uL (4.3-11.0)
[2017-02-01 04:20] LABS: ANION GAP 8 MMOL/L (5-14); BLOOD UREA NITROGEN 36 MG/DL (7-18); BUN/CREATININE RATIO 56; CALCIUM 7.4 MG/DL (8.5-10.1); CARBON DIOXIDE 28 MMOL/L (21-32); CHLORIDE 102 MMOL/L (98-107); CREATININE SERUM 0.64 MG/DL (0.60-1.30); GFR ESTIMATED > 60; GLUCOSE 105 MG/DL (70-105); MAGNESIUM 1.9 MG/DL (1.8-2.4); PHOSPHORUS 1.4 MG/DL (2.3-4.7); POTASSIUM 3.8 MMOL/L (3.6-5.0); SODIUM 138 MMOL/L (135-145)
[2017-02-01] MEDS: HYDROmorphone PCA 0.2 MG/ML 30 ML (DILAUDID) IV PRN ×2 (04:46→21:52)
[2017-02-01] MEDS: KCL 20 MEQ TAB (K-DUR) PO SCH (06:00)
[2017-02-01] MEDS: MAGNESIUM 1 GM/100 ML IVPB 100 ML IV SCH (06:00)
[2017-02-01] MEDS: POTASSIUM CL 10MEQ/50ML IVPB 50 ML IV SCH (06:00)
[2017-02-01] MEDS: LEVOTHYROXINE 100 MCG (LEVOTHROID) TAB PO SCH (06:41)
[2017-02-01] MEDS: NS IV 1000 ML 1,000 ML IV SCH ×5 (06:55→21:53)
--- NOTE | 2017-02-01 07:18 | Pulmonary Progress Note ---
Subjective Subjective/Events-last exam Pt is currently on high flow oxygen 15l/min. Exam Exam Vital Signs Date Time Temp Pulse Resp B/P (MAP) Pulse Ox O2 Delivery O2 Flow Rate FiO2 02/01/17 06:40 15.00 02/01/17 06:24 90 18 99 40.00 02/01/17 06:00 16 02/01/17 06:00 108 17 105/62 98 NIV/Bilevel 40.00 02/01/17 05:00 111 18 99/55 97 NIV/Bilevel 40.00 02/01/17 04:46 32 02/01/17 04:00 95 NIV/Bilevel 40 02/01/17 04:00 96.8 112 21 108/73 97 NIV/Bilevel 40.00 02/01/17 03:00 123 30 101/67 98 NIV/Bilevel 40.00 02/01/17 02:12 107 30 95 40.00 02/01/17 02:00 109 33 106/57 97 NIV/Bilevel 40.00 02/01/17 01:00 98 02/01/17 01:00 102 27 92/61 96 NIV/Bilevel 40.00 02/01/17 00:50 NIV/Bilevel 40.00 02/01/17 00:15 101 26 99 40.00 02/01/17 00:00 95 NIV/Bilevel 50 02/01/17 00:00 99.8 124 36 118/65 96 NIV/Bilevel 50.00 01/31/17 23:00 112 27 118/58 96 NIV/Bilevel 50.00 01/31/17 22:15 NIV/Bilevel 50.00 01/31/17 22:12 107 28 99 50.00 01/31/17 22:00 111 22 145/69 97 NIV/Bilevel 60.00 01/31/17 21:29 102 25 94 60.00 01/31/17 21:00 101 28 103/70 87 High Flow NC 15.00 01/31/17 20:00 95 High Flow NC 15.00 01/31/17 20:00 96.7 101 24 119/90 97 High Flow NC 15.00 01/31/17 19:17 16 01/31/17 19:00 98 01/31/17 19:00 92 26 108/79 96 OxyMask 15.00 01/31/17 18:58 91 15.00 01/31/17 18:10 16 01/31/17 18:00 97 21 107/76 94 OxyMask 15.00 01/31/17 17:00 96 30 91/47 94 OxyMask 15.00 01/31/17 16:00 95 OxyMask 15.00 01/31/17 16:00 102 20 131/67 88 OxyMask 15.00 01/31/17 15:00 98 22 135/103 94 OxyMask 15.00 01/31/17 14:33 98 15.00 01/31/17 14:00 81 16 120/45 99 OxyMask 15.00 01/31/17 14:00 OxyMask 15.00 01/31/17 13:00 82 15 100/54 93 NIV/Bilevel 55.00 01/31/17 13:00 84 01/31/17 12:23 104 18 93 55.00 01/31/17 12:00 96 NIV/Bilevel 55 01/31/17 12:00 91/47 NIV/Bilevel 55.00 01/31/17 11:00 108 24 109/64 NIV/Bilevel 55.00 01/31/17 10:31 99 21 96 55.00 01/31/17 10:00 86 16 139/72 93 NIV/Bilevel 55.00 01/31/17 09:00 93 29 101/72 93 NIV/Bilevel 55.00 01/31/17 08:14 97 24 94 55.00 01/31/17 08:00 96 NIV/Bilevel 55 01/31/17 08:00 97.7 01/31/17 08:00 93 18 134/60 95 NIV/Bilevel 55.00 I & O 02/01/17 07:00 Intake Total 2990 ml Output Total 2100 ml Balance 890 ml General Appearance: Chronically ill HEENT: PERRL/EOMI Neck: Non Tender, Supple Respiratory: Crackles, Decreased Breath Sounds Cardiovascular: Tachycardia Capillary Refill: Less Than 3 Seconds Gastrointestinal: non tender, soft Extremity: Pedal Edema, Swelling Neurologic/Psychiatric: No Motor/Sensory Deficits Skin: Warm/Dry Lymphatic: No Adenopathy Results Lab Laboratory Tests 01/30/17 21:00 01/31/17 05:10 02/01/17 03:40 Assessment/Plan Assessment/Plan Acute respiratory failure - requiring BiPAP RLL pleural effusion- probably malignant -Check CT of chest -pleurex catheter -will have garcia place --BNP is only 56 pt has pitting edema bilaterally Extensive small cell cancer with mets to liver and bone. 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
[2017-02-01 07:27] LABS: AMYLASE 36 U/L (25-125); LIPASE 8 U/L (8-78)
[2017-02-01] MEDS: FUROSEMIDE 40 MG/4 ML INJ (LASIX) IVP SCH (08:43)
[2017-02-01] MEDS: SENNA W/DOCUSATE (SENOKOT S) TABLET PO SCH (08:43)
[2017-02-01] MEDS: ASPIRIN E.C. 81 MG (ECOTRIN) TAB PO SCH ×2 (08:43→08:51)
[2017-02-01] MEDS: TBO-FILGRASTIM 480 MCG/0.8 ML (GRANIX) SQ SCH (08:44)
[2017-02-01] MEDS: CLOPIDOGREL 75 MG (PLAVIX) TABLET PO SCH (08:51)
[2017-02-01] MEDS: LIDOCAINE (LIDODERM) 5% PATCH TOP SCH (09:00)
--- NOTE | 2017-02-01 09:00 | Diagnostic Imaging Report ---
EXAMINATION: Portable upright radiograph of the chest. INDICATION: Atelectasis. FINDINGS: There is a moderate to large right pleural effusion with right perihilar and lower lobe atelectasis or consolidation. Patchy consolidation in the left lower lobe is seen. The heart size is at the upper limits of normal. There is no significant change when compared to 01/31/2017. IMPRESSION: Large right pleural effusion with consolidation and atelectasis in the mid and right lung base. Patchy right lower lobe infiltrate. Dictated by: Dictated on workstation # [id number]
--- NOTE | 2017-02-01 09:09 | Physical Therapy Progress Note ---
Therapy Progress Note Patient refused PT this morning. Nursing states he is going to get a drain for his lungs placed this morning. Will check back on him this afternoon. SWEETIE TYLER PT Feb 01, 2017 09:09
[2017-02-01] MEDS ORDERED: NS IV 500 ML 500 ML ONE (10:33)
--- NOTE | 2017-02-01 10:42 | Progress Note ---
Subjective Subjective/Events-last exam Patient with shortness of breath. Wants pleur-x catheter placed. Patient no abdominal pain. NPO at this time. Objective Exam Vital Signs Date Time Temp Pulse Resp B/P (MAP) Pulse Ox O2 Delivery O2 Flow Rate FiO2 02/01/17 09:50 97.4 02/01/17 08:00 101 17 92/55 97 02/01/17 08:00 95 High Flow NC 15.00 02/01/17 07:00 95 02/01/17 06:40 15.00 02/01/17 06:24 90 18 99 40.00 02/01/17 06:00 16 02/01/17 06:00 108 17 105/62 98 NIV/Bilevel 40.00 02/01/17 05:00 111 18 99/55 97 NIV/Bilevel 40.00 02/01/17 04:46 32 02/01/17 04:00 95 NIV/Bilevel 40 02/01/17 04:00 96.8 112 21 108/73 97 NIV/Bilevel 40.00 02/01/17 03:00 123 30 101/67 98 NIV/Bilevel 40.00 02/01/17 02:12 107 30 95 40.00 02/01/17 02:00 109 33 106/57 97 NIV/Bilevel 40.00 02/01/17 01:00 98 02/01/17 01:00 102 27 92/61 96 NIV/Bilevel 40.00 02/01/17 00:50 NIV/Bilevel 40.00 02/01/17 00:15 101 26 99 40.00 02/01/17 00:00 95 NIV/Bilevel 50 02/01/17 00:00 99.8 124 36 118/65 96 NIV/Bilevel 50.00 01/31/17 23:00 112 27 118/58 96 NIV/Bilevel 50.00 01/31/17 22:15 NIV/Bilevel 50.00 01/31/17 22:12 107 28 99 50.00 01/31/17 22:00 111 22 145/69 97 NIV/Bilevel 60.00 01/31/17 21:29 102 25 94 60.00 01/31/17 21:00 101 28 103/70 87 High Flow NC 15.00 01/31/17 20:00 95 High Flow NC 15.00 01/31/17 20:00 96.7 101 24 119/90 97 High Flow NC 15.00 01/31/17 19:17 16 01/31/17 19:00 98 01/31/17 19:00 92 26 108/79 96 OxyMask 15.00 01/31/17 18:58 91 15.00 01/31/17 18:10 16 01/31/17 18:00 97 21 107/76 94 OxyMask 15.00 01/31/17 17:00 96 30 91/47 94 OxyMask 15.00 01/31/17 16:00 95 OxyMask 15.00 01/31/17 16:00 102 20 131/67 88 OxyMask 15.00 01/31/17 15:00 98 22 135/103 94 OxyMask 15.00 01/31/17 14:33 98 15.00 01/31/17 14:00 81 16 120/45 99 OxyMask 15.00 01/31/17 14:00 OxyMask 15.00 01/31/17 13:00 82 15 100/54 93 NIV/Bilevel 55.00 01/31/17 13:00 84 01/31/17 12:23 104 18 93 55.00 01/31/17 12:00 96 NIV/Bilevel 55 01/31/17 12:00 91/47 NIV/Bilevel 55.00 01/31/17 11:00 108 24 109/64 NIV/Bilevel 55.00 I & O 02/01/17 07:00 Intake Total 2990 ml Output Total 2100 ml Balance 890 ml Capillary Refill : Less Than 3 Seconds General Appearance: Chronically ill HEENT: PERRL/EOMI Neck: Non Tender, Supple Respiratory: Crackles, Decreased Breath Sounds Cardiovascular: Tachycardia Gastrointestinal: non tender, soft Extremity: Pedal Edema Neurologic/Psychiatric: No Motor/Sensory Deficits Skin: Warm/Dry Lymphatic: No Adenopathy Results Lab Laboratory Tests 02/01/17 03:40: White Blood Count 2.8L, Red Blood Count 2.85L, Hemoglobin 9.2L, Hematocrit 27L, Mean Corpuscular Volume 95, Mean Corpuscular Hemoglobin 32, Mean Corpuscular Hemoglobin Concent 34, Red Cell Distribution Width 15.0H, Platelet Count 65L, Mean Platelet Volume 11.1H, Neutrophils (%) (Auto) 95H, Lymphocytes (%) (Auto) 4L, Monocytes (%) (Auto) 1, Eosinophils (%) (Auto) 0, Basophils (%) (Auto) 0, Neutrophils # (Auto) 2.7, Lymphocytes # (Auto) 0.1L, Monocytes # (Auto) 0.0, Eosinophils # (Auto) 0.0, Basophils # (Auto) 0.0, Sodium Level 138, Potassium Level 3.8, Chloride Level 102, Carbon Dioxide Level 28, Anion Gap 8, Blood Urea Nitrogen 36H, Creatinine 0.64, Estimat Glomerular Filtration Rate > 60, BUN/ Creatinine Ratio 56, Glucose Level 105, Calcium Level 7.4L, Phosphorus Level 1.4L, Magnesium Level 1.9, Amylase Level 36, Lipase 8 Microbiology 01/29/17 MRSA Screen - Final, Complete Assessment/Plan Assessment/Plan Assessment/Plan small cell carcinoma with metastatsis right pleural effusion CAD Hep C, Tumor lysis syndrome Patient does not want thoracentesis but wanting to have pleur-x catheter placement. Discussed higher risk of bleeding due to plavix and aspirin. He understands risks and benefits and wishes to proceed. Dr. Barrera is requesting due to patient likely to have malignant pleural effusion and will need further drainage. Clinical Quality Measures AMI/AHF: ASA po Prior to arrival: Yes DVT/VTE Risk/Contraindication: Risk Factor Score Per Nursin RFS Level Per Nursing on Admit: 4+=Very High ARIK HATHAWAY DO Feb 01, 2017 10:42
--- NOTE | 2017-02-01 10:52 | Cardiology Progress Note ---
Subjective Subjective/Events-last exam Patient is in bed. Denies any CP at this time. Review of Systems General: No Chills, No Night Sweats, Fatigue, Malaise HEENT: No Visual Changes, No Dysphasia, No Sore Throat Pulmonary: No Dyspnea, No Cough Cardiovascular: Edema, No: Chest Pain, Palpitations, Paroxysmal Noc. Dyspnea Gastrointestinal: No: Abdominal Pain Genitourinary: No Dysuria, No Frequency Musculoskeletal: No: neck pain Neurological: Weakness, No: Change in speech, Numbness Objective-Cardiology Exam Last Set of Vital Signs Vital Signs 02/01/17 02/01/17 02/01/17 04:00 08:00 10:40 Temp 98.2 Pulse 108 Resp 25 B/P (MAP) 91/62 Pulse Ox 95 O2 Delivery High Flow NC O2 Flow Rate 15.00 FiO2 40 Capillary Refill : Less Than 3 Seconds I&O Intake and Output 02/01/17 00:00 Intake Total 3640 ml Output Total 2800 ml Balance 840 ml Intake Oral 1640 ml IV Total 2000 ml Output Urine Total 2700 ml Stool Total 100 ml General: Alert, Cooperative, Moderate Distress HEENT: Atraumatic, PERRLA Neck: Supple, No Thyromegaly Lungs: Normal Air Movement, Other (bilateral rhonchi) Heart: Normal S1, Normal S2, No Murmurs, Other (irregular rhythm, rate controlled) Abdomen: Normal Bowel Sounds, Soft, No Tenderness, No Hepatosplenomegaly, No Masses Extremities: No Clubbing, No Cyanosis, Normal Pulses, Other (+2-3 BLE edema) Skin: No Rashes, No Breakdown, No Significant Lesion Neuro: Normal Speech, Normal Tone Psych/Mental Status: Other (depressed mood) Results Lab Laboratory Tests 02/01/17 03:40 A/P-Cardiology Admission Diagnosis Chest pain nonspecific etiology Back pain Tumor lysis syndrome Coronary artery disease Assessment/Plan Tumor lysis syndrome, secondary to chemotherapy, echo done last month showing normal LV function, BNP is normal. Acute respiratory failure, noncardiogenic pulmonary edema in addition to atelectasis, on BiPAP machine, better while on the BiPAP machine. Chest pain, tachycardia, history of generalized body ache and back pain, had metastatic cancer to the liver, vertebrae, bone and lymph node, started on chemotherapy and followed by Dr. Katz. Tachycardia, SVT, started on Lopressor IV and HR is slightly better, continue to monitor telemetry Coronary disease, Card cath of 09/27/16 showed CAD primarily consisting of 99% proximal stenosis of the right coronary artery to which successful stenting was carried out with Xience Alpine 4 x 18 mm stent, which reduced the stenosis to 0 % residual stenosis. Elsewhere, there is mild coronary artery disease. Normal left ventricular end-diastolic pressure. Posterobasal and diaphragmatic hypokinesis. Impairment of global left ventricular systolic function with an ejection fraction of approximately 45%. No significant mitral regurgitation. Continue on aspirin and Plavix and monitor Echo of 01/15/17 showed LVEF 60%, no significant valvular lesion, normal PASP, normal BNP. Continue to monitor. Noncardiogenic source of edema. Abnormal ECG: Chronic RBBB, LAFB, frequent PVCs (isolated, monomorphic)my T- wave inversion noted on his EKG, borderline tachycardic secondary to pain and comorbid condition. Continue to monitor closely. Acute renal failure, receiving IV fluid, continue to monitor renal function closely. H/o PVCs Hypothyroidism, followed and managed by primary care physician. Chronic tobacco use, quit 09/12/16. We have advised him to continue to refrain from tobacco use Hep C, treated with interferon in 1998, followed by pcp, elevated liver enzymes , continue to monitor Carotid u/s of August 23, 2016 showed mild bilateral carotid disease Clinical Quality Measures AMI/AHF: ASA po Prior to arrival: Yes DVT/VTE Risk/Contraindication: Risk Factor Score Per Nursin RFS Level Per Nursing on Admit: 4+=Very High CARMEN ARTHUR Feb 01, 2017 10:52
--- NOTE | 2017-02-01 11:38 | Progress Note (SOAP) ---
Subjective Subjective/Events-last exam Somnolent but Arouses to voice; currently denies pain. Objective Exam Vital Signs Date Time Temp Pulse Resp B/P (MAP) Pulse Ox O2 Delivery O2 Flow Rate FiO2 02/01/17 10:45 95 7.00 02/01/17 10:40 98.2 108 25 91/62 95 15.00 02/01/17 09:50 97.4 02/01/17 08:00 101 17 92/55 97 02/01/17 08:00 95 High Flow NC 15.00 02/01/17 07:00 95 02/01/17 06:40 15.00 02/01/17 06:24 90 18 99 40.00 02/01/17 06:00 16 02/01/17 06:00 108 17 105/62 98 NIV/Bilevel 40.00 02/01/17 05:00 111 18 99/55 97 NIV/Bilevel 40.00 02/01/17 04:46 32 02/01/17 04:00 95 NIV/Bilevel 40 02/01/17 04:00 96.8 112 21 108/73 97 NIV/Bilevel 40.00 02/01/17 03:00 123 30 101/67 98 NIV/Bilevel 40.00 02/01/17 02:12 107 30 95 40.00 02/01/17 02:00 109 33 106/57 97 NIV/Bilevel 40.00 02/01/17 01:00 98 02/01/17 01:00 102 27 92/61 96 NIV/Bilevel 40.00 02/01/17 00:50 NIV/Bilevel 40.00 02/01/17 00:15 101 26 99 40.00 02/01/17 00:00 95 NIV/Bilevel 50 02/01/17 00:00 99.8 124 36 118/65 96 NIV/Bilevel 50.00 01/31/17 23:00 112 27 118/58 96 NIV/Bilevel 50.00 01/31/17 22:15 NIV/Bilevel 50.00 01/31/17 22:12 107 28 99 50.00 01/31/17 22:00 111 22 145/69 97 NIV/Bilevel 60.00 01/31/17 21:29 102 25 94 60.00 01/31/17 21:00 101 28 103/70 87 High Flow NC 15.00 01/31/17 20:00 95 High Flow NC 15.00 01/31/17 20:00 96.7 101 24 119/90 97 High Flow NC 15.00 01/31/17 19:17 16 01/31/17 19:00 98 01/31/17 19:00 92 26 108/79 96 OxyMask 15.00 01/31/17 18:58 91 15.00 01/31/17 18:10 16 01/31/17 18:00 97 21 107/76 94 OxyMask 15.00 01/31/17 17:00 96 30 91/47 94 OxyMask 15.00 01/31/17 16:00 95 OxyMask 15.00 01/31/17 16:00 102 20 131/67 88 OxyMask 15.00 01/31/17 15:00 98 22 135/103 94 OxyMask 15.00 01/31/17 14:33 98 15.00 01/31/17 14:00 81 16 120/45 99 OxyMask 15.00 01/31/17 14:00 OxyMask 15.00 01/31/17 13:00 82 15 100/54 93 NIV/Bilevel 55.00 01/31/17 13:00 84 01/31/17 12:23 104 18 93 55.00 01/31/17 12:00 96 NIV/Bilevel 55 01/31/17 12:00 91/47 NIV/Bilevel 55.00 I & O 02/01/17 07:00 Intake Total 2990 ml Output Total 2100 ml Balance 890 ml Capillary Refill : Less Than 3 Seconds General Appearance: Chronically ill HEENT: PERRL/EOMI Neck: Non Tender, Supple Respiratory: Crackles, Decreased Breath Sounds Gastrointestinal: normal bowel sounds, non tender, soft Results Lab Laboratory Tests 02/01/17 03:40: White Blood Count 2.8L, Red Blood Count 2.85L, Hemoglobin 9.2L, Hematocrit 27L, Mean Corpuscular Volume 95, Mean Corpuscular Hemoglobin 32, Mean Corpuscular Hemoglobin Concent 34, Red Cell Distribution Width 15.0H, Platelet Count 65L, Mean Platelet Volume 11.1H, Neutrophils (%) (Auto) 95H, Lymphocytes (%) (Auto) 4L, Monocytes (%) (Auto) 1, Eosinophils (%) (Auto) 0, Basophils (%) (Auto) 0, Neutrophils # (Auto) 2.7, Lymphocytes # (Auto) 0.1L, Monocytes # (Auto) 0.0, Eosinophils # (Auto) 0.0, Basophils # (Auto) 0.0, Sodium Level 138, Potassium Level 3.8, Chloride Level 102, Carbon Dioxide Level 28, Anion Gap 8, Blood Urea Nitrogen 36H, Creatinine 0.64, Estimat Glomerular Filtration Rate > 60, BUN/ Creatinine Ratio 56, Glucose Level 105, Calcium Level 7.4L, Phosphorus Level 1.4L, Magnesium Level 1.9, Amylase Level 36, Lipase 8 Microbiology 01/29/17 MRSA Screen - Final, Complete Assessment/Plan Assessment/Plan Assess & Plan/Chief Complaint 1. 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 a. Status Post Cycle 1 days 1-2 of 3; Held day 3 etoposide; b. Currently receiving Granix and will continue until recovery from conrado c. Right pleural effusion likely related to patient's no malignancy. Thoracentesis with Pleurx catheter placement plan for later today, platelet transfusion prior to procedure. 2. Tumor lysis syndrome arising from recent chemotherapy treatment inpatient with very bulky tumor load of small cell carcinoma. Tumor lysis has resolved. Uric acid no longer elevated; K normal and Cr improved to 0.94. Decrease IV hydration. 3. Pancytopenia--myelosuppression arising from recent chemotherapy; continue Granix; we'll monitor. 4. Hypoxemia and tachycardia-patient currently in ICU and on BiPAP; cardiology is following. 5. Abnormal LFTs-arising from extensive liver involvement. 6. 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 Multiple comorbidities including CAD, COPD, hypothyroidism, history of hepatitis C, and history of cervical spinal stenosis. Clinical Quality Measures AMI/AHF: ASA po Prior to arrival: Yes DVT/VTE Risk/Contraindication: Risk Factor Score Per Nursin RFS Level Per Nursing on Admit: 4+=Very High NANCY WORTHY MD Feb 01, 2017 11:38
[2017-02-01] MEDS ORDERED: BUPIVACAINE 0.5% 30 ML (SENSORCAINE) VIAL ONE (11:55)
[2017-02-01] MEDS ORDERED: LIDOCAINE 1% INJ 20 ML (XYLOCAINE) VIAL ONE (11:56)
--- NOTE | 2017-02-01 11:58 | Progress Note (SOAP) ---
Subjective Subjective 66 yo M with chemotherapy induced tumor lysis- -confusion overnight from increase in dilaudid flavor extractor- a little more alert today- but groggy. -Chao reports he is optimistic about getting the pleurex catheter placed for draining the right pleural effusion- he is hopeful it will turn him around I discussed with him it may help him breath easier but will likely re-accumulate - he wants to be full code still as he feels like it would be giving up if he changed at this time. I did discuss that his outcome will not be good if he did code. Review of Systems General: No Chills, No Night Sweats, Fatigue, Malaise HEENT: No Head Aches, No Visual Changes, No Dysphasia, No Sore Throat Pulmonary: Dyspnea, Cough Cardiovascular: Chest Pain, Edema, No: Palpitations Gastrointestinal: No: Abdominal Pain, Nausea, Vomiting Genitourinary: No Dysuria, No Frequency Musculoskeletal: No: neck pain Neurological: Weakness, No: Change in speech, Numbness All Other Systems Reviewed All Other Systems Reviewed: Yes Objective Exam Vital Signs Vital Signs Date Time Temp Pulse Resp B/P (MAP) Pulse Ox O2 Delivery O2 Flow Rate FiO2 02/01/17 10:45 95 7.00 02/01/17 10:40 98.2 108 25 91/62 95 15.00 02/01/17 09:50 97.4 02/01/17 08:00 101 17 92/55 97 02/01/17 08:00 95 High Flow NC 15.00 02/01/17 07:00 95 02/01/17 06:40 15.00 02/01/17 06:24 90 18 99 40.00 02/01/17 06:00 16 02/01/17 06:00 108 17 105/62 98 NIV/Bilevel 40.00 02/01/17 05:00 111 18 99/55 97 NIV/Bilevel 40.00 02/01/17 04:46 32 02/01/17 04:00 95 NIV/Bilevel 40 02/01/17 04:00 96.8 112 21 108/73 97 NIV/Bilevel 40.00 02/01/17 03:00 123 30 101/67 98 NIV/Bilevel 40.00 02/01/17 02:12 107 30 95 40.00 02/01/17 02:00 109 33 106/57 97 NIV/Bilevel 40.00 02/01/17 01:00 98 02/01/17 01:00 102 27 92/61 96 NIV/Bilevel 40.00 02/01/17 00:50 NIV/Bilevel 40.00 02/01/17 00:15 101 26 99 40.00 02/01/17 00:00 95 NIV/Bilevel 50 02/01/17 00:00 99.8 124 36 118/65 96 NIV/Bilevel 50.00 01/31/17 23:00 112 27 118/58 96 NIV/Bilevel 50.00 01/31/17 22:15 NIV/Bilevel 50.00 01/31/17 22:12 107 28 99 50.00 01/31/17 22:00 111 22 145/69 97 NIV/Bilevel 60.00 01/31/17 21:29 102 25 94 60.00 01/31/17 21:00 101 28 103/70 87 High Flow NC 15.00 01/31/17 20:00 95 High Flow NC 15.00 01/31/17 20:00 96.7 101 24 119/90 97 High Flow NC 15.00 01/31/17 19:17 16 01/31/17 19:00 98 01/31/17 19:00 92 26 108/79 96 OxyMask 15.00 01/31/17 18:58 91 15.00 01/31/17 18:10 16 01/31/17 18:00 97 21 107/76 94 OxyMask 15.00 01/31/17 17:00 96 30 91/47 94 OxyMask 15.00 01/31/17 16:00 95 OxyMask 15.00 01/31/17 16:00 102 20 131/67 88 OxyMask 15.00 01/31/17 15:00 98 22 135/103 94 OxyMask 15.00 01/31/17 14:33 98 15.00 01/31/17 14:00 81 16 120/45 99 OxyMask 15.00 01/31/17 14:00 OxyMask 15.00 01/31/17 13:00 82 15 100/54 93 NIV/Bilevel 55.00 01/31/17 13:00 84 01/31/17 12:23 104 18 93 55.00 01/31/17 12:00 96 NIV/Bilevel 55 01/31/17 12:00 91/47 NIV/Bilevel 55.00 I & O 02/01/17 07:00 Intake Total 2990 ml Output Total 2100 ml Balance 890 ml General Appearance: Chronically ill, Mild Distress Eyes: Bilateral Eye EOMI, Bilateral Eye Normal Inspection, Bilateral Eye PERRL HEENT: PERRL/EOMI Neck: Non Tender, Supple Respiratory: Crackles, Decreased Breath Sounds (right lower lung field), Respiratory Distress Cardiovascular: Tachycardia Gastrointestinal: Normal Bowel Sounds, Non Tender, Soft, Distended Rectal: Deferred Back: Decreased Range of Motion Extremity: Pedal Edema (worsening R>L) Neurologic/Psychiatric: No Motor/Sensory Deficits Skin: Warm/Dry Lymphatic: No Adenopathy Results Lab Laboratory Tests 02/01/17 03:40: White Blood Count 2.8L, Red Blood Count 2.85L, Hemoglobin 9.2L, Hematocrit 27L, Mean Corpuscular Volume 95, Mean Corpuscular Hemoglobin 32, Mean Corpuscular Hemoglobin Concent 34, Red Cell Distribution Width 15.0H, Platelet Count 65L, Mean Platelet Volume 11.1H, Neutrophils (%) (Auto) 95H, Lymphocytes (%) (Auto) 4L, Monocytes (%) (Auto) 1, Eosinophils (%) (Auto) 0, Basophils (%) (Auto) 0, Neutrophils # (Auto) 2.7, Lymphocytes # (Auto) 0.1L, Monocytes # (Auto) 0.0, Eosinophils # (Auto) 0.0, Basophils # (Auto) 0.0, Sodium Level 138, Potassium Level 3.8, Chloride Level 102, Carbon Dioxide Level 28, Anion Gap 8, Blood Urea Nitrogen 36H, Creatinine 0.64, Estimat Glomerular Filtration Rate > 60, BUN/ Creatinine Ratio 56, Glucose Level 105, Calcium Level 7.4L, Phosphorus Level 1.4L, Magnesium Level 1.9, Amylase Level 36, Lipase 8 Microbiology 01/29/17 MRSA Screen - Final, Complete Assessment/Plan Assessment/Plan Assessment/Plan 66 yo M admitted 01/26/17 Tumor lysis syndrome - Improved -rasburicase 0.2mg/kg x 1 dose Uric acid 1.8 -hyperkalemia, hyperphosphatemia, hypocalemia- acute kidney injury , uric acid - improved- IRAM- Cr normal -IVF NS @ 75 ml/hr -Dr. Katz consulted Acute hypoxic Respiratory distress- shallow breathing contributing to this due to Right chest wall pain. Dr. Barrera consulted- RT consulted Right pleural effusion- suspect related to the cancer- Dr. Paz consulted for pleurex catheter placement Intractable back pain due to metastatic cancer- dilaudid flavor extractor - fentanyl patch cancer with metastasis (small cell vs lymphoma)- lung primary? Dr. Katz consulted, started chemotherapy 01/25/17, chemo on hold currently getting granix injection cell lines are declining towards conrado. continue to trend Pancytopenia due to chemotherapy - trend to conrado- on granix - platelets 02/01/17 transaminitis- will monitor, secondary from cancer involving the liver. hyperbilirubinemia- monitor cervical spinal stenosis- severe at C5/6, moderate C7 -pain management hypothyroidism- continue levothyroxine h/o hepatitis C - treated with interferon 1998 - hep C RNA undetected December 2016 coronary artery disease- s/p RCA stent 09/2016, Dr. Tinoco covering for Dr. Mes[place]. COPD with hypoxia - MAT protocol, requiring oxygen NC h/o tobaccoism- quit ~Aug 2016 insomnia- trazodone weakness-/deconditioning - PT/OT -DVT ppx- holding heparin. Prognosis: guarded/poor continue ICU care status is worsening- doubt he Dispo: Tumor lysis syndrome- labs are back to baseline - -pt is full code- for now- he is considering DNR - but not ready to commit to DNR as he feels like it would be giving up. - I did discuss with pt that outcomes in his situation were not good if he was to code. Need to open hospice discussion Problems: Clinical Quality Measures AMI/AHF: ASA po Prior to arrival: Yes DVT/VTE Risk/Contraindication: Risk Factor Score Per Nursin RFS Level Per Nursing on Admit: 4+=Very High JEFFREY PARKER MD Feb 01, 2017 11:58
[2017-02-01] MEDS ORDERED: LACTATED RINGERS 1,000 ML IV ONE ×2 (12:26→14:08)
[2017-02-01] MEDS ORDERED: ONDANSETRON 4 MG/2 ML (SDV) Z0FRAN ONE (12:26)
[2017-02-01] MEDS ORDERED: fentaNYL INJECTION 100 MCG/2 ML AMP ONE (12:26)
[2017-02-01] MEDS ORDERED: MIDAZOLAM 10 MG/2 ML (VERSED) VIAL ONE (12:27)
[2017-02-01] MEDS ORDERED: DESFLURANE (SUPRANE) 15 ML INHAL SOLN ONE (13:11)
[2017-02-01] MEDS ORDERED: ESMOLOL 100 MG/10 ML (BREVIBLOC) VIAL ONE (13:52)
--- NOTE | 2017-02-01 14:04 | Diagnostic Imaging Report ---
EXAMINATION: Ultrasound of the right chest. INDICATION: Check and cathleen pleural fluid. FINDINGS: There is a moderate right pleural effusion. IMPRESSION: Moderate-sized pleural effusion seen. Dictated by: Dictated on workstation # [id number]
[2017-02-01] MEDS ORDERED: DILTIAZEM 25 MG/5 ML INJ (CARDIZEM) VIAL ONE (14:10)
--- NOTE | 2017-02-01 14:13 | Diagnostic Imaging Report ---
INDICATION: Right Pleurx catheter placement. Portable chest at 2:05 p.m. FINDINGS: There is a Pleurx thoracostomy tube projecting over the right side of the chest. There is a tiny residual right pleural effusion but considerably smaller than preprocedural study. There is some atelectasis at the right lung base. There is some minimal left basilar atelectasis and a tiny left pleural effusion. IMPRESSION: Interval evacuation of the majority of the right pleural effusion following Pleurx catheter placement. There is no appreciable pneumothorax. Dictated by: Dictated on workstation # [id number]
--- NOTE | 2017-02-01 14:26 | Physical Therapy Progress Note ---
Therapy Progress Note Attempted treatment this afternoon. Patient is not in his room. He is having a procedure done, getting a pleurex catheter. SWEETIE TYLER PT Feb 01, 2017 14:26
--- NOTE | 2017-02-01 14:47 | Occ Therapy Progress Note ---
Therapy Progress Note 1445 Pt just back to his room and recovering from surgery. Will see tomorrow. KEN CULLEN OT Feb 01, 2017 14:47
--- NOTE | 2017-02-01 15:04 | Progress Note-Post Operative ---
Post-Operative Progess Note Surgeon (s)/Treating Plant Supervisor (s) Surgeon ARIK HATHAWAY DO Treating Plant Supervisor: 0 Pre-Operative Diagnosis right pleural effusion Post-Operative Diagnosis same Post-Op Procedure Note Date of Procedure: Feb 01, 2017 Name of Procedure Performed: right pleur-x catheter placement using u/s guidance Description of the Procedure: see note Findings of the Procedure see note Anesthesia Type mac c local Estimated blood loss (mL): minimal Specimen(s) collected/removed pleural fluid ARIK HATHAWAY DO Feb 01, 2017 15:04
[2017-02-01 15:19] LABS: GLUCOSE,BODY FLUID < 5 MG/DL; TOTAL PROTEIN,BODY FLUID 2.9 G/DL
[2017-02-01 15:49] LABS: LDH,BODY FLUID 5610 U/L
--- NOTE | 2017-02-01 16:05 | Cardiology Progress Note ---
Subjective Subjective/Events-last exam Patient is laying down in bed, underwent Pleurx catheter placement, during recovery he became tachycardic and hypotensive. Review of Systems General: No Chills, No Night Sweats, Fatigue, Malaise, No Appetite, No Other HEENT: No Head Aches, No Visual Changes, No Eye Pain, No Ear Pain, No Dysphasia , No Sinus Congestion, No Post Nasal Drip, No Sore Throat, No Other Pulmonary: Dyspnea, Cough, Pleuritic Chest Pain, No Other Cardiovascular: Chest Pain, No: Edema, Lt Headedness, Orthopnea, Other, Palpitations, Paroxysmal Noc. Dyspnea Objective-Cardiology Exam Last Set of Vital Signs Vital Signs 02/01/17 02/01/17 02/01/17 04:00 13:00 15:07 Temp 98.6 Pulse 113 Resp 12 B/P (MAP) 93/58 Pulse Ox 92 O2 Flow Rate 4.00 FiO2 40 Capillary Refill : Less Than 3 Seconds I&O Intake and Output 02/01/17 00:00 Intake Total 3640 ml Output Total 2800 ml Balance 840 ml Intake Oral 1640 ml IV Total 2000 ml Output Urine Total 2700 ml Stool Total 100 ml General: Alert, Cooperative, Moderate Distress HEENT: Atraumatic, PERRLA Neck: Supple, No Thyromegaly Lungs: Normal Air Movement, Other (bilateral rhonchi) Heart: Normal S1, Normal S2, No Murmurs, Other (Tachycardic) Abdomen: Normal Bowel Sounds, Soft, No Tenderness, No Hepatosplenomegaly, No Masses Extremities: No Clubbing, No Cyanosis, Normal Pulses, Other (+2-3 BLE edema) Skin: No Rashes, No Breakdown, No Significant Lesion Neuro: Normal Speech, Normal Tone Psych/Mental Status: Other (depressed mood) Results Lab Laboratory Tests 02/01/17 03:40 A/P-Cardiology Admission Diagnosis Chest pain nonspecific etiology Back pain Tumor lysis syndrome Coronary artery disease Assessment/Plan Tumor lysis syndrome, secondary to chemotherapy, echo done last month showing normal LV function, BNP is normal. Atrial fibrillation with rapid ventricular response, hypotensive at this time, patient is given IV fluid bolus, I will continue with IV fluid until his blood pressure stabilized and I will start blockers and /or calcium Blockers Acute respiratory failure, status post Pleurx catheter placement. Followed and managed by Dr. Barrera Chest pain, tachycardia, history of generalized body ache and back pain, had metastatic cancer to the liver, vertebrae, bone and lymph node, started on chemotherapy and followed by Dr. Katz. Coronary disease, Card cath of 09/27/16 showed CAD primarily consisting of 99% proximal stenosis of the right coronary artery to which successful stenting was carried out with Xience Alpine 4 x 18 mm stent, which reduced the stenosis to 0 % residual stenosis. Elsewhere, there is mild coronary artery disease. Normal left ventricular end-diastolic pressure. Posterobasal and diaphragmatic hypokinesis. Impairment of global left ventricular systolic function with an ejection fraction of approximately 45%. No significant mitral regurgitation. Continue on aspirin and Plavix and monitor Echo of 01/15/17 showed LVEF 60%, no significant valvular lesion, normal PASP, normal BNP. Continue to monitor. Noncardiogenic source of edema. Abnormal ECG: Chronic RBBB, LAFB, frequent PVCs (isolated, monomorphic)my T- wave inversion noted on his EKG, borderline tachycardic secondary to pain and comorbid condition. Continue to monitor closely. Acute renal failure, receiving IV fluid, continue to monitor renal function closely. H/o PVCs Hypothyroidism, followed and managed by primary care physician. Chronic tobacco use, quit 09/12/16. We have advised him to continue to refrain from tobacco use Hep C, treated with interferon in 1998, followed by pcp, elevated liver enzymes , continue to monitor Carotid u/s of August 23, 2016 showed mild bilateral carotid disease Clinical Quality Measures AMI/AHF: ASA po Prior to arrival: Yes DVT/VTE Risk/Contraindication: Risk Factor Score Per Nursin RFS Level Per Nursing on Admit: 4+=Very High KVNG RANGEL MD Feb 01, 2017 16:05
--- NOTE | 2017-02-01 19:46 | Diagnostic Imaging Report ---
INDICATION: Bilateral leg swelling. Bilateral lower extremity venous Doppler study was performed in the routine fashion with color flow Doppler and waveform analysis. FINDINGS: The common femoral veins, superficial femoral veins, popliteal veins and visualized portion of the tibial veins show normal compressibility and venous flow patterns. There is normal augmentation. Subcutaneous edema is noted in both lower extremities. IMPRESSION: No evidence of deep vein thrombosis in the major veins of both legs. Dictated by: Dictated on workstation # [id number]
[2017-02-01] MEDS: traZODone 50 MG (DESYREL) TAB PO SCH (21:01)
[2017-02-01] MEDS: FAMOTIDINE 20 MG (PEPCID) TABLET PO SCH (21:01)
[2017-02-02] VITALS (30 sets, daily range): BP systolic 81–113; BP diastolic 46–81
[2017-02-02] MEDS: VANCOMYCIN 1500 MG/NS 500 ML IVPB IV SCH ×4 (01:30→17:36)
[2017-02-02] MEDS ORDERED: CLINDAMYCIN 900 MG IVPB 50 ML IV SCH (01:30)
[2017-02-02] MEDS: MEROPENEM 1 GM/NS 100 ML IVPB IV SCH ×8 (01:30→19:57)
[2017-02-02] MEDS ORDERED: NS IV 500 ML 500 ML ONE ×2 (01:45→18:34)
[2017-02-02] MEDS ORDERED: VANCOMYCIN 750 MG/VIAL IV ONE (01:45)
[2017-02-02] MEDS ORDERED: MEROPENEM 500 MG VIAL (MERREM) IV ONE (01:47)
[2017-02-02] MEDS ORDERED: CLINDAMYCIN 600 MG/50 ML IV ONE (01:47)
[2017-02-02] MEDS ORDERED: NS (IVPB) 100 ML ONE (01:49)
[2017-02-02 02:28] LABS: BILIRUBIN,URINE 2+ (NEGATIVE); KETONES,URINE NEGATIVE (NEGATIVE); LEUKOCYTE ESTERASE ,URINE 1+ (NEGATIVE); NITRITE,URINE NEGATIVE (NEGATIVE); PH,URINE 6 (5-9); PROTEIN,URINE 1+ (NEGATIVE); UROBILINOGEN,URINE 8 MG/DL (NORMAL)
[2017-02-02] MEDS: RT-ALBUTEROL/IPRATROPIUM 3 ML (DUONEB) VIAL IH SCH ×6 (02:28→21:32)
[2017-02-02 02:35] LABS: WBC,URINE 0-2 /HPF
[2017-02-02 04:59] LABS: BASOPHILS % (AUTO) 0 % (0-10); EOSINOPHILS % (AUTO) 1 % (0-10); LYMPHOCYTES # (AUTO) 0.2 X 10^3 (1.0-4.0); LYMPHOCYTES % (AUTO) 15 % (12-44); MEAN CORPUSCULAR HEMOGLOBIN 32 PG (25-34); MEAN CORPUSCULAR HGB CONC 34 G/DL (32-36); MEAN CORPUSCULAR VOLUME 95 FL (80-99); MEAN PLATELET VOLUME 12.4 FL (7.4-10.4); MONOCYTES # (AUTO) 0.2 X 10^3 (0.0-1.0); MONOCYTES % (AUTO) 22 % (0-12); NEUTROPHILS # (AUTO) 0.7 X 10^3 (1.8-7.8); NEUTROPHILS % (AUTO) 62 % (42-75); PLATELET COUNT 45 10^3/uL (130-400); RED BLOOD COUNT 2.48 10^6/uL (4.35-5.85); RED CELL DISTRIBUTION WIDTH 15.2 % (10.0-14.5)
[2017-02-02 05:06] LABS: WHITE BLOOD COUNT 1.1 10^3/uL (4.3-11.0)
[2017-02-02 05:15] LABS: ANION GAP 12 MMOL/L (5-14); BLOOD UREA NITROGEN 32 MG/DL (7-18); BUN/CREATININE RATIO 49; CALCIUM 6.8 MG/DL (8.5-10.1); CARBON DIOXIDE 21 MMOL/L (21-32); CHLORIDE 107 MMOL/L (98-107); CREATININE SERUM 0.65 MG/DL (0.60-1.30); GFR ESTIMATED > 60; GLUCOSE 102 MG/DL (70-105); MAGNESIUM 1.7 MG/DL (1.8-2.4); PHOSPHORUS 2.2 MG/DL (2.3-4.7); POTASSIUM 4.1 MMOL/L (3.6-5.0); SODIUM 140 MMOL/L (135-145)
[2017-02-02] MEDS: KCL 20 MEQ TAB (K-DUR) PO SCH (06:00)
[2017-02-02] MEDS: POTASSIUM CL 10MEQ/50ML IVPB 50 ML IV SCH (06:00)
[2017-02-02] MEDS: MAGNESIUM 1 GM/100 ML IVPB 100 ML IV SCH ×3 (06:00→10:00)
[2017-02-02] MEDS: meTOprolol 5 MG/5 ML (LOPRESSOR) VIAL IV SCH ×4 (06:00→18:00)
[2017-02-02] MEDS: LEVOTHYROXINE 100 MCG (LEVOTHROID) TAB PO SCH (06:28)
--- NOTE | 2017-02-02 07:31 | Diagnostic Imaging Report ---
EXAM: CT ANGIO EXT LOWER RIGHT W INDICATION: Right leg swelling and pain. COMPARISON: None. FINDINGS: Mild scattered arterial calcifications in the right lower extremity without high-grade narrowing. The right common iliac, internal iliac, external iliac, common femoral, superficial femoral, profunda, popliteal, anterior tibial, posterior tibial and peroneal arteries are patent without aneurysm or dissection. There is extensive subcutaneous edema throughout the right lower extremity. Partially visualized skin thickening and fluid in the dorsum of the right foot and a focal area along the medial aspect of the right posterior foot. Mild tricompartmental degenerative changes in the right knee. No fractures. Moderate degenerative changes in the right hip. The visualized pelvic contents are unremarkable. IMPRESSION: 1. No high-grade arterial narrowing in the right lower extremity. 2. Extensive subcutaneous edema throughout the right lower extremity. There is more focal skin thickening and edema within the dorsum of the right foot and medial posterior right foot. Dictated by: Dictated on workstation # [id number]
--- NOTE | 2017-02-02 07:37 | Pulmonary Progress Note ---
Subjective Subjective/Events-last exam Pt is now pancytopenic and currently on BIPAP. He did have Pleurx catheter placed yesterday. Exam Exam Vital Signs Date Time Temp Pulse Resp B/P (MAP) Pulse Ox O2 Delivery O2 Flow Rate FiO2 02/02/17 06:39 105 17 97 40.00 02/02/17 06:00 16 02/02/17 06:00 105 15 94/57 97 NIV/Bilevel 40.00 02/02/17 05:00 104 10 84/52 98 NIV/Bilevel 40.00 02/02/17 04:12 105 17 98 40.00 02/02/17 04:00 103 9 95/67 98 NIV/Bilevel 40.00 02/02/17 04:00 NIV/Bilevel 40 02/02/17 04:00 97.6 NIV/Bilevel 40.00 02/02/17 03:00 104 11 92/55 98 NIV/Bilevel 40.00 02/02/17 02:28 106 18 96 40.00 02/02/17 02:00 107 12 92/66 95 NIV/Bilevel 40.00 02/02/17 01:31 111 02/02/17 01:30 111 14 81/62 96 NIV/Bilevel 40.00 02/02/17 00:00 98.9 02/02/17 00:00 High Flow NC 7.00 02/01/17 23:55 114 32 99 40.00 02/01/17 23:00 112 20 122/66 99 High Flow NC 7.00 02/01/17 22:34 107 19 98 40.00 02/01/17 22:00 111 15 113/49 95 High Flow NC 7.00 02/01/17 21:00 112 18 99/62 95 High Flow NC 7.00 02/01/17 20:00 High Flow NC 7.00 02/01/17 20:00 97.1 High Flow NC 7.00 02/01/17 20:00 100 14 105/51 98 High Flow NC 7.00 02/01/17 19:15 93 4.00 02/01/17 19:00 95 02/01/17 19:00 95 16 96/57 95 High Flow NC 7.00 02/01/17 18:00 114 23 100/56 94 High Flow NC 7.00 02/01/17 18:00 17 02/01/17 17:00 117 16 105/71 95 High Flow NC 7.00 02/01/17 16:00 94 High Flow NC 7.00 02/01/17 16:00 121 25 106/51 93 High Flow NC 7.00 02/01/17 16:00 97.9 High Flow NC 7.00 02/01/17 15:07 92 4.00 02/01/17 15:00 146 15 97/60 92 High Flow NC 7.00 02/01/17 14:00 75/65 High Flow NC 7.00 02/01/17 13:00 98.6 113 12 93/58 7.00 02/01/17 12:00 95 High Flow NC 7.00 02/01/17 12:00 98.2 High Flow NC 7.00 02/01/17 11:00 110 18 105/56 96 High Flow NC 15.00 02/01/17 10:55 97.8 110 15 100/70 95 7.00 02/01/17 10:45 95 7.00 02/01/17 10:40 98.2 108 25 91/62 95 15.00 02/01/17 10:00 105 15 91/62 96 High Flow NC 15.00 02/01/17 09:50 97.4 02/01/17 09:00 105 25 92/53 95 High Flow NC 15.00 02/01/17 08:00 98.0 High Flow NC 15.00 02/01/17 08:00 101 17 92/55 97 02/01/17 08:00 95 High Flow NC 15.00 I & O 02/02/17 07:00 Intake Total 4825 ml Output Total 2700 ml Balance 2125 ml General Appearance: Chronically ill HEENT: PERRL/EOMI Neck: Non Tender, Supple Respiratory: Crackles, Decreased Breath Sounds Cardiovascular: Tachycardia Capillary Refill: Less Than 3 Seconds Gastrointestinal: normal bowel sounds, non tender, soft Extremity: Pedal Edema (worsening R>L) Neurologic/Psychiatric: No Motor/Sensory Deficits Skin: Warm/Dry Lymphatic: No Adenopathy Results Lab Laboratory Tests 02/01/17 03:40 02/02/17 04:25 Assessment/Plan Assessment/Plan Acute respiratory failure - requiring BiPAP RLL pleural effusion- probably malignant -s/p t -pleurex catheter --BNP is only 56 pt has pitting edema bilaterally pancytopenic -oncology is following 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 I d/w with patient regarding code status. Dr. Paz, Dr. Lynch also at bedside. Pt states very clearly he does not want to be on life support. He does not want CPR (chest compressions, defibrillation, ect) He wants to be a DNR. I agree with his patients discission to be a DNR. Pt is also a good candidate for hospice/ comfort care only. I am going to have RN call family and DOPA to let them know what is going on. Clinical Quality Measures AMI/AHF: ASA po Prior to arrival: Yes DVT/VTE Risk/Contraindication: Risk Factor Score Per Nursin RFS Level Per Nursing on Admit: 4+=Very High ANALI ESPINOZA DO Feb 02, 2017 07:37
--- NOTE | 2017-02-02 08:05 | Diagnostic Imaging Report ---
INDICATION: Atelectasis. COMPARISON: 02/01/2017 FINDINGS: Single frontal radiographic view of the chest was obtained and demonstrates indwelling right-sided pleural catheter. There is persistent right basilar effusion with associated atelectasis and/or infiltrate. Left lung base may be slightly improved, although there is suspicion for residual effusion with associated atelectasis and/or infiltrate in the left base. No pneumothorax is seen on either side. Cardiac silhouette and pulmonary vasculature stable. Bony structures show no gross acute abnormalities. IMPRESSION: 1. Right-sided pleural catheter. No evidence of pneumothorax. 2. Perhaps slight improved aeration left base, but with residual effusion and associated atelectasis and/or infiltrate. 3. Residual mild to moderate right-sided effusion with associated atelectasis and/or infiltrate. Dictated by: Dictated on workstation # [id number]
[2017-02-02] MEDS: LIDOCAINE (LIDODERM) 5% PATCH TOP SCH (08:15)
--- NOTE | 2017-02-02 08:15 | Cardiology Progress Note ---
Subjective Subjective/Events-last exam patient is laying down in bed, lethargic, complaining of generalized body ache, lower extremity swelling and pain Review of Systems General: No Chills, No Night Sweats, Fatigue, Malaise, No Appetite, No Other HEENT: No Head Aches, No Visual Changes, No Eye Pain, No Ear Pain, No Dysphasia , No Sinus Congestion, No Post Nasal Drip, No Sore Throat, No Other Pulmonary: Dyspnea, Cough, Pleuritic Chest Pain, No Other Cardiovascular: Chest Pain, Edema, Orthopnea, No: Lt Headedness, Other, Palpitations, Paroxysmal Noc. Dyspnea Objective-Cardiology Exam Last Set of Vital Signs Vital Signs 02/02/17 02/02/17 02/02/17 02/02/17 04:00 06:00 06:39 07:50 Temp 97.6 Pulse 105 Resp 17 B/P (MAP) 94/57 Pulse Ox 97 O2 Delivery NIV/Bilevel O2 Flow Rate 4.00 FiO2 40 Capillary Refill : Less Than 3 Seconds I&O Intake and Output 02/02/17 00:00 Intake Total 4690 ml Output Total 2550 ml Balance 2140 ml Intake Oral 700 ml IV Total 3990 ml Output Urine Total 2050 ml Other 500 ml # Voids 1 General: Alert, Cooperative, Moderate Distress HEENT: Atraumatic, PERRLA Neck: Supple, No Thyromegaly Lungs: Normal Air Movement, Other (bilateral rhonchi) Heart: Normal S1, Normal S2, No Murmurs, Other (Tachycardic) Abdomen: Normal Bowel Sounds, Soft, No Tenderness, No Hepatosplenomegaly, No Masses Extremities: No Clubbing, No Cyanosis, Normal Pulses, Other (+3 BLE edema) Skin: No Rashes, No Breakdown, No Significant Lesion Neuro: Normal Speech, Normal Tone Psych/Mental Status: Other (depressed mood) Results Lab Laboratory Tests 02/02/17 04:25 A/P-Cardiology Admission Diagnosis Chest pain nonspecific etiology Back pain Tumor lysis syndrome Coronary artery disease Assessment/Plan Paroxysmal atrial fibrillation with rapid ventricular response, currently in sinus rhythm, still tachycardiac, I will use BB and Ca channel blockers as needed Tumor lysis syndrome, receiving large amount of fluid, anasarca at this time. Acute respiratory failure, status post Pleurx catheter placement, Breathing is better, followed and managed by Dr. Barrera. Chest pain, tachycardia, history of generalized body ache and back pain, had metastatic cancer to the liver, vertebrae, bone and lymph node, started on chemotherapy and followed by Dr. Katz. Coronary disease, Card cath of 09/27/16 showed CAD primarily consisting of 99% proximal stenosis of the right coronary artery to which successful stenting was carried out with Xience Alpine 4 x 18 mm stent, which reduced the stenosis to 0 % residual stenosis. Elsewhere, there is mild coronary artery disease. Normal left ventricular end-diastolic pressure. Posterobasal and diaphragmatic hypokinesis. Impairment of global left ventricular systolic function with an ejection fraction of approximately 45%. No significant mitral regurgitation. Continue on aspirin and Plavix and monitor Echo of 01/15/17 showed LVEF 60%, no significant valvular lesion, normal PASP, normal BNP. Continue to monitor. Noncardiogenic source of edema. Abnormal ECG: Chronic RBBB, LAFB, frequent PVCs (isolated, monomorphic)my T- wave inversion noted on his EKG, borderline tachycardic secondary to pain and comorbid condition. Continue to monitor closely. Acute renal failure, receiving IV fluid, continue to monitor renal function closely. H/o PVCs Hypothyroidism, followed and managed by primary care physician. Chronic tobacco use, quit 09/12/16. We have advised him to continue to refrain from tobacco use Hep C, treated with interferon in 1998, followed by pcp, elevated liver enzymes , continue to monitor Carotid u/s of August 23, 2016 showed mild bilateral carotid disease Patient requested to be DO NOT RESUSCITATE. Agree with the current management plan. Clinical Quality Measures AMI/AHF: ASA po Prior to arrival: Yes DVT/VTE Risk/Contraindication: Risk Factor Score Per Nursin RFS Level Per Nursing on Admit: 4+=Very High KVNG RANGEL MD Feb 02, 2017 08:15
[2017-02-02] MEDS: SENNA W/DOCUSATE (SENOKOT S) TABLET PO SCH (08:16)
[2017-02-02] MEDS: ASPIRIN E.C. 81 MG (ECOTRIN) TAB PO SCH (08:16)
[2017-02-02] MEDS: FUROSEMIDE 40 MG/4 ML INJ (LASIX) IVP SCH (08:16)
--- NOTE | 2017-02-02 08:16 | Progress Note (SOAP) ---
Subjective Subjective 66 yo M with chemotherapy induced tumor lysis- -Pt is more alert today. -OVN lower extremity doppler negative for DVT- -Right leg is oozing- with a large blister on medial aspect. -Pt expresses things are getting worse and on discussion on how he wants to proceed we discussed his code status- Pt does not want to be on any life support such as intubation. If his heart stops- he does not want CPR, defibrillation. Pt requests to be DNR. -Dr. Barrera, Dr. Paz present for this discussion. Review of Systems General: No Chills, No Night Sweats, Fatigue, Malaise, No Appetite, No Other HEENT: No Head Aches, No Visual Changes, No Eye Pain, No Ear Pain, No Dysphasia , No Sinus Congestion, No Post Nasal Drip, No Sore Throat, No Other Pulmonary: Dyspnea, Cough, No Other Cardiovascular: Chest Pain (right side), No: Edema, Lt Headedness, Orthopnea, Other, Palpitations, Paroxysmal Noc. Dyspnea Gastrointestinal: No: Abdominal Pain, Nausea, Vomiting Genitourinary: No Dysuria, No Frequency Musculoskeletal: leg pain (right > left), No: neck pain Neurological: Weakness, No: Change in speech, Numbness All Other Systems Reviewed All Other Systems Reviewed: Yes Objective Exam General Appearance: Chronically ill Eyes: Bilateral Eye EOMI, Bilateral Eye Normal Inspection, Bilateral Eye PERRL HEENT: PERRL/EOMI Neck: Non Tender, Supple Respiratory: Decreased Breath Sounds, Rhonci (throughout) Cardiovascular: Tachycardia Gastrointestinal: Normal Bowel Sounds, Non Tender, Soft, Distended Rectal: Deferred Back: Decreased Range of Motion Extremity: Pedal Edema (worsening R>L large blister on right leg), Other ( pain to touch/palpation in right leg.) Neurologic/Psychiatric: No Motor/Sensory Deficits Skin: Warm/Dry Lymphatic: No Adenopathy Results Lab Vital Signs Date Time Temp Pulse Resp B/P (MAP) Pulse Ox O2 Delivery O2 Flow Rate FiO2 02/02/17 07:50 4.00 02/02/17 06:39 105 17 97 40.00 02/02/17 06:00 16 02/02/17 06:00 105 15 94/57 97 NIV/Bilevel 40.00 02/02/17 05:00 104 10 84/52 98 NIV/Bilevel 40.00 02/02/17 04:12 105 17 98 40.00 02/02/17 04:00 103 9 95/67 98 NIV/Bilevel 40.00 02/02/17 04:00 NIV/Bilevel 40 02/02/17 04:00 97.6 NIV/Bilevel 40.00 02/02/17 03:00 104 11 92/55 98 NIV/Bilevel 40.00 02/02/17 02:28 106 18 96 40.00 02/02/17 02:00 107 12 92/66 95 NIV/Bilevel 40.00 02/02/17 01:31 111 02/02/17 01:30 111 14 81/62 96 NIV/Bilevel 40.00 02/02/17 00:00 98.9 02/02/17 00:00 High Flow NC 7.00 02/01/17 23:55 114 32 99 40.00 02/01/17 23:00 112 20 122/66 99 High Flow NC 7.00 02/01/17 22:34 107 19 98 40.00 02/01/17 22:00 111 15 113/49 95 High Flow NC 7.00 02/01/17 21:00 112 18 99/62 95 High Flow NC 7.00 02/01/17 20:00 High Flow NC 7.00 02/01/17 20:00 97.1 High Flow NC 7.00 02/01/17 20:00 100 14 105/51 98 High Flow NC 7.00 02/01/17 19:15 93 4.00 02/01/17 19:00 95 02/01/17 19:00 95 16 96/57 95 High Flow NC 7.00 02/01/17 18:00 114 23 100/56 94 High Flow NC 7.00 02/01/17 18:00 17 02/01/17 17:00 117 16 105/71 95 High Flow NC 7.00 02/01/17 16:00 94 High Flow NC 7.00 02/01/17 16:00 121 25 106/51 93 High Flow NC 7.00 02/01/17 16:00 97.9 High Flow NC 7.00 02/01/17 15:07 92 4.00 02/01/17 15:00 146 15 97/60 92 High Flow NC 7.00 02/01/17 14:00 75/65 High Flow NC 7.00 02/01/17 13:00 98.6 113 12 93/58 7.00 02/01/17 12:00 95 High Flow NC 7.00 02/01/17 12:00 98.2 High Flow NC 7.00 02/01/17 11:00 110 18 105/56 96 High Flow NC 15.00 02/01/17 10:55 97.8 110 15 100/70 95 7.00 02/01/17 10:45 95 7.00 02/01/17 10:40 98.2 108 25 91/62 95 15.00 02/01/17 10:00 105 15 91/62 96 High Flow NC 15.00 02/01/17 09:50 97.4 02/01/17 09:00 105 25 92/53 95 High Flow NC 15.00 I & O 02/02/17 07:00 Intake Total 4825 ml Output Total 2700 ml Balance 2125 ml WBC 1.1 Hgb 7.9 Platelets 45 Assessment/Plan Assessment/Plan Assessment/Plan 66 yo M admitted 01/26/17 Acute hypoxic Respiratory distress- shallow breathing contributing to this due to Right chest wall pain. Dr. Barrera consulted- RT consulted Right Exudative pleural effusion- suspect related to the cancer- Dr. 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 Katz consulted, started chemotherapy 01/25/17, chemo on hold currently getting granix injection cell lines are declining towards conrado. continue to trend Pancytopenia due to chemotherapy - trend to conrado- on granix - platelets given 02/01/17 holding heparin. transaminitis- will monitor, secondary from cancer involving the liver. hyperbilirubinemia- monitor cervical spinal stenosis- severe at C5/6, moderate C7 -pain management hypothyroidism- continue levothyroxine h/o hepatitis C - treated with interferon 1998 - hep C RNA undetected December 2016 coronary artery disease- s/p RCA stent 09/2016, Dr. Tinoco covering for Dr. [place]. COPD with hypoxia - MAT protocol, requiring oxygen NC h/o tobaccoism- quit ~Aug 2016 insomnia- trazodone weakness-/deconditioning - PT/OT Prognosis: guarded/poor continue ICU care status is worsening- Dispo: - --Pt acknowledges his condition is getting worse and on discussion on how he wants to proceed we discussed his code status- Pt does not want to be on any life support such as intubation. If his heart stops- he does not want CPR, defibrillation. Pt requests to be DNR. -Dr. Barrera, Dr. Paz present for this discussion. -Aunt and DPOA (Jie, friend) to be updated. -Likely will be comfort care soon. Problems: Clinical Quality Measures AMI/AHF: ASA po Prior to arrival: Yes DVT/VTE Risk/Contraindication: Risk Factor Score Per Nursin RFS Level Per Nursing on Admit: 4+=Very High JEFFREY PARKER MD Feb 02, 2017 08:16
[2017-02-02] MEDS: CLOPIDOGREL 75 MG (PLAVIX) TABLET PO SCH (08:51)
--- NOTE | 2017-02-02 09:02 | Progress Note ---
Subjective Subjective/Events-last exam Patient resting in bed. easily aroused. Made DNR today. Objective Exam Vital Signs Date Time Temp Pulse Resp B/P (MAP) Pulse Ox O2 Delivery O2 Flow Rate FiO2 02/02/17 07:50 4.00 02/02/17 06:39 105 17 97 40.00 02/02/17 06:00 16 02/02/17 06:00 105 15 94/57 97 NIV/Bilevel 40.00 02/02/17 05:00 104 10 84/52 98 NIV/Bilevel 40.00 02/02/17 04:12 105 17 98 40.00 02/02/17 04:00 103 9 95/67 98 NIV/Bilevel 40.00 02/02/17 04:00 NIV/Bilevel 40 02/02/17 04:00 97.6 NIV/Bilevel 40.00 02/02/17 03:00 104 11 92/55 98 NIV/Bilevel 40.00 02/02/17 02:28 106 18 96 40.00 02/02/17 02:00 107 12 92/66 95 NIV/Bilevel 40.00 02/02/17 01:31 111 02/02/17 01:30 111 14 81/62 96 NIV/Bilevel 40.00 02/02/17 00:00 98.9 02/02/17 00:00 High Flow NC 7.00 02/01/17 23:55 114 32 99 40.00 02/01/17 23:00 112 20 122/66 99 High Flow NC 7.00 02/01/17 22:34 107 19 98 40.00 02/01/17 22:00 111 15 113/49 95 High Flow NC 7.00 02/01/17 21:00 112 18 99/62 95 High Flow NC 7.00 02/01/17 20:00 High Flow NC 7.00 02/01/17 20:00 97.1 High Flow NC 7.00 02/01/17 20:00 100 14 105/51 98 High Flow NC 7.00 02/01/17 19:15 93 4.00 02/01/17 19:00 95 02/01/17 19:00 95 16 96/57 95 High Flow NC 7.00 02/01/17 18:00 114 23 100/56 94 High Flow NC 7.00 02/01/17 18:00 17 02/01/17 17:00 117 16 105/71 95 High Flow NC 7.00 02/01/17 16:00 94 High Flow NC 7.00 02/01/17 16:00 121 25 106/51 93 High Flow NC 7.00 02/01/17 16:00 97.9 High Flow NC 7.00 02/01/17 15:07 92 4.00 02/01/17 15:00 146 15 97/60 92 High Flow NC 7.00 02/01/17 14:00 75/65 High Flow NC 7.00 02/01/17 13:00 98.6 113 12 93/58 7.00 02/01/17 12:00 95 High Flow NC 7.00 02/01/17 12:00 98.2 High Flow NC 7.00 02/01/17 11:00 110 18 105/56 96 High Flow NC 15.00 02/01/17 10:55 97.8 110 15 100/70 95 7.00 02/01/17 10:45 95 7.00 02/01/17 10:40 98.2 108 25 91/62 95 15.00 02/01/17 10:00 105 15 91/62 96 High Flow NC 15.00 02/01/17 09:50 97.4 02/01/17 09:00 105 25 92/53 95 High Flow NC 15.00 I & O 02/02/17 07:00 Intake Total 4825 ml Output Total 2700 ml Balance 2125 ml Capillary Refill : Less Than 3 Seconds General Appearance: Chronically ill HEENT: PERRL/EOMI Neck: Non Tender, Supple Respiratory: Decreased Breath Sounds, Rhonci (throughout bilateral lungs.) Cardiovascular: Tachycardia Gastrointestinal: normal bowel sounds, non tender, soft Extremity: Pedal Edema (worsening R>L large blister on right leg), Other ( pain to touch/palpation in right leg.) Neurologic/Psychiatric: No Motor/Sensory Deficits Skin: Warm/Dry Lymphatic: No Adenopathy Results Lab Bad table Assessment/Plan Assessment/Plan Assessment/Plan S/P Pleur-X Catheter Pt requests to be DNR. -Dr. Barrera, Dr. Paz present for this discussion. will be comfort care soon Brandi- Patient breathing a little easier. Pleur-x catheter placed yesterday. Patient wants to be DNR at this time. Will sign off. If needed please call. Clinical Quality Measures AMI/AHF: ASA po Prior to arrival: Yes DVT/VTE Risk/Contraindication: Risk Factor Score Per Nursin RFS Level Per Nursing on Admit: 4+=Very High CANELO BARAHONA [employer] Feb 02, 2017 9:02 am ARIK PAZ DO Feb 02, 2017 12:01 pm
--- NOTE | 2017-02-02 11:15 | Physical Therapy Progress Note ---
Therapy Progress Note No treatment due to decline in medical status. PT will continue to monitor status. 1 visit KARMEN WRIGHT PT Feb 02, 2017 11:15
[2017-02-02] MEDS: NS IV 1000 ML 1,000 ML IV SCH ×2 (11:39→14:01)
--- NOTE | 2017-02-02 12:26 | Progress Note (SOAP) ---
Subjective Subjective/Events-last exam Patient is awake alert and excited about having a [employer] hamburger. He has chosen to not be resuscitated but has not chosen not to be treated. Objective Exam Vital Signs Date Time Temp Pulse Resp B/P (MAP) Pulse Ox O2 Delivery O2 Flow Rate FiO2 02/02/17 10:18 94 4.00 02/02/17 07:50 4.00 02/02/17 06:39 105 17 97 40.00 02/02/17 06:00 16 02/02/17 06:00 105 15 94/57 97 NIV/Bilevel 40.00 02/02/17 05:00 104 10 84/52 98 NIV/Bilevel 40.00 02/02/17 04:12 105 17 98 40.00 02/02/17 04:00 103 9 95/67 98 NIV/Bilevel 40.00 02/02/17 04:00 NIV/Bilevel 40 02/02/17 04:00 97.6 NIV/Bilevel 40.00 02/02/17 03:00 104 11 92/55 98 NIV/Bilevel 40.00 02/02/17 02:28 106 18 96 40.00 02/02/17 02:00 107 12 92/66 95 NIV/Bilevel 40.00 02/02/17 01:31 111 02/02/17 01:30 111 14 81/62 96 NIV/Bilevel 40.00 02/02/17 00:00 98.9 02/02/17 00:00 High Flow NC 7.00 02/01/17 23:55 114 32 99 40.00 02/01/17 23:00 112 20 122/66 99 High Flow NC 7.00 02/01/17 22:34 107 19 98 40.00 02/01/17 22:00 111 15 113/49 95 High Flow NC 7.00 02/01/17 21:00 112 18 99/62 95 High Flow NC 7.00 02/01/17 20:00 High Flow NC 7.00 02/01/17 20:00 97.1 High Flow NC 7.00 02/01/17 20:00 100 14 105/51 98 High Flow NC 7.00 02/01/17 19:15 93 4.00 02/01/17 19:00 95 02/01/17 19:00 95 16 96/57 95 High Flow NC 7.00 02/01/17 18:00 114 23 100/56 94 High Flow NC 7.00 02/01/17 18:00 17 02/01/17 17:00 117 16 105/71 95 High Flow NC 7.00 02/01/17 16:00 94 High Flow NC 7.00 02/01/17 16:00 121 25 106/51 93 High Flow NC 7.00 02/01/17 16:00 97.9 High Flow NC 7.00 02/01/17 15:07 92 4.00 02/01/17 15:00 146 15 97/60 92 High Flow NC 7.00 02/01/17 14:00 75/65 High Flow NC 7.00 02/01/17 13:00 98.6 113 12 93/58 7.00 I & O 02/02/17 07:00 Intake Total 4825 ml Output Total 2700 ml Balance 2125 ml Capillary Refill : Less Than 3 Seconds General Appearance: Chronically ill HEENT: PERRL/EOMI Respiratory: Crackles, Decreased Breath Sounds, Other (Pleurx catheter present right lung) Cardiovascular: Tachycardia Gastrointestinal: normal bowel sounds, non tender, soft Extremity: Swelling, Other (bullus lesion present right medial lower extremity) Results Lab Laboratory Tests 01/30/17 21:00: Potassium Level 3.3L 01/31/17 05:10: Potassium Level 3.3L, Red Blood Count 2.72L, Hemoglobin 9.0L, Hematocrit 26L, Red Cell Distribution Width 14.9H, Platelet Count 81L, Mean Platelet Volume 10.7H, Neutrophils (%) (Auto) 93H, Lymphocytes (%) (Auto) 5L, Lymphocytes # ( Auto) 0.3L, Sodium Level 134L, Blood Urea Nitrogen 46H, Calcium Level 7.0L 02/01/17 03:40: Red Blood Count 2.85L, Hemoglobin 9.2L, Hematocrit 27L, Red Cell Distribution Width 15.0H, Platelet Count 65L, Mean Platelet Volume 11.1H, Neutrophils (%) ( Auto) 95H, Lymphocytes (%) (Auto) 4L, Lymphocytes # (Auto) 0.1L, Blood Urea Nitrogen 36H, Calcium Level 7.4L, White Blood Count 2.8L, Phosphorus Level 1.4L 02/01/17 13:34: 02/02/17 02:15: Urine Color AMBERH, Urine Specific [place] 1.010L, Urine Protein 1+H, Urine Bilirubin 2+H, Urine Urobilinogen 8H, Urine Leukocyte Esterase 1+H, Urine RBC ( Auto) 2+H 02/02/17 04:25: White Blood Count 1.1*L, Red Blood Count 2.48L, Hemoglobin 7.9L, Hematocrit 24L , Red Cell Distribution Width 15.2H, Platelet Count 45L, Mean Platelet Volume 12.4H, Monocytes (%) (Auto) 22H, Neutrophils # (Auto) 0.7L, Lymphocytes # (Auto ) 0.2L, Blood Urea Nitrogen 32H, Calcium Level 6.8L, Phosphorus Level 2.2L, Magnesium Level 1.7L Laboratory Tests 02/01/17 03:40 02/02/17 04:25 Assessment/Plan Assessment/Plan Assess & Plan/Chief Complaint 1. 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 a. Status Post Cycle 1 days 1-2 of 3; Held day 3 etoposide; b. Currently receiving Granix and will continue until recovery from conrado c. Right pleural effusion likely related to patient's no malignancy. Thoracentesis with Pleurx catheter placement plan for later today, platelet transfusion prior to procedure. 2. Tumor lysis syndrome arising from recent chemotherapy treatment inpatient with very bulky tumor load of small cell carcinoma. Tumor lysis has resolved. Uric acid no longer elevated; K normal and Cr improved to 0.94. Decrease IV hydration. 3. Hypotension, Neutropenia, Leg wound--Suspect Sepsis; Cover for Cellulitis, also lung pathogens. Patient has been started on IV Vancomycin, Meropenem, and Clindamycin. 4. Pancytopenia--myelosuppression arising from recent chemotherapy; continue Granix; a. Transfuse PRBCs and platelets as indicated. Hypoxemia and tachycardia-patient currently in ICU and on BiPAP; cardiology is following. 5. Abnormal LFTs-arising from extensive liver involvement. 6. 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 Multiple comorbidities including CAD, COPD, hypothyroidism, history of hepatitis C, and history of cervical spinal stenosis. 9. Dr. Michaud and Dr. Levy will be covering this patient while I am away until 02/18/17. Clinical Quality Measures AMI/AHF: ASA po Prior to arrival: Yes DVT/VTE Risk/Contraindication: Risk Factor Score Per Nursin RFS Level Per Nursing on Admit: 4+=Very High NANCY WORTHY MD Feb 02, 2017 12:26
[2017-02-02] MEDS: CLINDAMYCIN 900 MG/NS 50 ML IVPB IV SCH ×4 (12:41→17:58)
--- NOTE | 2017-02-02 12:50 | OPERATIVE REPORT ---
PROCEDURE PHYSICIAN: ARIK HATHAWAY DATE OF PROCEDURE: 02/01/2017 PREOPERATIVE DIAGNOSIS: Right pleural effusion. POSTOPERATIVE DIAGNOSIS: Right pleural effusion. PROCEDURE: Right Pleurx catheter placement using ultrasound guidance. SURGEON: Brandi. ANESTHESIA: MAC with local. ESTIMATED BLOOD LOSS: Minimal. COMPLICATIONS: None. INDICATIONS: The patient is a 66-year-old male with small cell cancer with metastasis. He has a large pleural effusion, which is felt to be malignant. The patient refused thoracentesis. Dr. Barrera had talked to him about having a Pleurx catheter placed which patient is in agreement. I discussed with the patient alternatives, to Pleurx catheter including thoracentesis, pigtail catheter placement and Pleurx catheter placed and patient wishes to proceed with a Pleurx catheter placement. The patient understands that he is higher risk of bleeding due to being on Plavix and aspirin due to previous stent. I discussed with cardiology who would like to have him continue on Plavix and aspirin. The patient understands all the risks and benefits and wished to proceed a Pleurx catheter placement. A consent was signed on chart. PROCEDURE: The patient was taken to the operating suite. He was prepped and draped in the sterile fashion. A surgical pause was performed. Using ultrasound guidance, a good window into the pleural effusion was located. Local anesthetic was infiltrated into the area and also for tunneling of the catheter. A number 11 blade scalpel was used to make an incision and an Angiocath needle was inserted into the chest and once pleural fluid was withdrawn the catheter was inserted. A guidewire was then inserted through the catheter and the catheter was removed. Ultrasound demonstrating the wire within the chest cavity. The wire was then secured. A second incision inferiorly approximately 5 cm away was made and the Pleurx catheter was tunneled from the inferior incision to the superior incision. The dilator was then advanced over the guidewire and removed. The dilator sheath was then advanced over the guidewire and a dilator and wire were removed. The Pleurx catheter was inserted through the sheath. The patient then had the pleural fluid evacuated which was straw-colored with some blood-tinged coloring to it. A total of 1400 mL of fluid was removed. The superior incision was then closed with absorbable suture. The inferior incision was then closed using a silk suture and secured to the Pleurx catheter. The area was then washed and dried. Sterile bandage was applied. The patient tolerated procedure well. He was returned to the recovery room in unchanged condition. Job ID: [id number] Dictated Date: 02/01/2017 15:35:23 Back Up Scan Coordinator Date: 02/02/2017 12:40:06 / josie ALLAN
[2017-02-02] MEDS: TBO-FILGRASTIM 480 MCG/0.8 ML (GRANIX) SQ SCH ×2 (12:59→13:06)
[2017-02-02] MEDS: HYDROmorphone PCA 0.2 MG/ML 30 ML (DILAUDID) IV PRN ×2 (13:30→17:48)
--- NOTE | 2017-02-02 14:36 | Anesthesia-General Post-Op ---
MAC Patient Condition Mental Status/LOC: Same as Preop Cardiovascular: Satisfactory Nausea/Vomiting: Absent Respiratory: Satisfactory Pain: Controlled Complications: Absent Post Op Complications Complications None Follow Up Care/Instructions Patient Instructions None needed. Anesthesiology Discharge Order Discharge Order Patient is doing well, no complaints, stable vital signs, no apparent adverse anesthesia problems. No complications reported per nursing. CLEOPATRA CAMACHO CRNA Feb 02, 2017 14:36
--- NOTE | 2017-02-02 14:43 | Occ Therapy Progress Note ---
Therapy Progress Note [id number] Acevedo. Will see tomorrow. KEN CULLEN OT Feb 02, 2017 14:43
[2017-02-02] MEDS: traZODone 50 MG (DESYREL) TAB PO SCH (21:14)
[2017-02-02] MEDS: FAMOTIDINE 20 MG (PEPCID) TABLET PO SCH (21:14)
[2017-02-03] VITALS (17 sets, daily range): BP systolic 84–125; BP diastolic 51–91
[2017-02-03] MEDS: meTOprolol 5 MG/5 ML (LOPRESSOR) VIAL IV SCH ×4 (00:51→18:52)
[2017-02-03] MEDS: MEROPENEM 1 GM/NS 100 ML IVPB IV SCH ×6 (01:20→17:26)
[2017-02-03] MEDS: CLINDAMYCIN 900 MG/NS 50 ML IVPB IV SCH ×6 (01:20→17:58)
[2017-02-03] MEDS: VANCOMYCIN 1500 MG/NS 500 ML IVPB IV SCH ×4 (01:20→14:20)
[2017-02-03] MEDS: HYDROmorphone PCA 0.2 MG/ML 30 ML (DILAUDID) IV PRN ×2 (01:45→13:47)
[2017-02-03] MEDS: RT-ALBUTEROL/IPRATROPIUM 3 ML (DUONEB) VIAL IH SCH ×6 (02:32→22:11)
[2017-02-03 03:54] LABS: BASOPHILS % (AUTO) 1 % (0-10); EOSINOPHILS % (AUTO) 1 % (0-10); LYMPHOCYTES # (AUTO) 0.3 X 10^3 (1.0-4.0); LYMPHOCYTES % (AUTO) 14 % (12-44); MEAN CORPUSCULAR HEMOGLOBIN 32 PG (25-34); MEAN CORPUSCULAR HGB CONC 35 G/DL (32-36); MEAN CORPUSCULAR VOLUME 92 FL (80-99); MEAN PLATELET VOLUME 12.6 FL (7.4-10.4); MONOCYTES % (AUTO) 1 % (0-12); NEUTROPHILS # (AUTO) 1.9 X 10^3 (1.8-7.8); NEUTROPHILS % (AUTO) 83 % (42-75); RED BLOOD COUNT 3.11 10^6/uL (4.35-5.85); RED CELL DISTRIBUTION WIDTH 15.5 % (10.0-14.5); WHITE BLOOD COUNT 2.2 10^3/uL (4.3-11.0)
[2017-02-03 04:02] LABS: PLATELET COUNT 31 10^3/uL (130-400)
[2017-02-03 04:18] LABS: ANION GAP 12 MMOL/L (5-14); BLOOD UREA NITROGEN 33 MG/DL (7-18); BUN/CREATININE RATIO 50; CALCIUM 6.9 MG/DL (8.5-10.1); CARBON DIOXIDE 18 MMOL/L (21-32); CHLORIDE 109 MMOL/L (98-107); CREATININE SERUM 0.66 MG/DL (0.60-1.30); GFR ESTIMATED > 60; GLUCOSE 116 MG/DL (70-105); PHOSPHORUS 2.8 MG/DL (2.3-4.7); POTASSIUM 4.4 MMOL/L (3.6-5.0); SODIUM 139 MMOL/L (135-145)
[2017-02-03] MEDS: POTASSIUM CL 10MEQ/50ML IVPB 50 ML IV SCH (04:48)
[2017-02-03] MEDS: KCL 20 MEQ TAB (K-DUR) PO SCH (04:49)
[2017-02-03] MEDS: MAGNESIUM 1 GM/100 ML IVPB 100 ML IV SCH (04:49)
[2017-02-03] MEDS: NS IV 1000 ML 1,000 ML IV SCH (04:56)
--- NOTE | 2017-02-03 07:06 | Pulmonary Progress Note ---
Subjective Subjective/Events-last exam Pt states pain and SOB is controlled. Exam Exam Vital Signs Date Time Temp Pulse Resp B/P (MAP) Pulse Ox O2 Delivery O2 Flow Rate FiO2 02/03/17 06:00 88 10 105/59 97 High Flow NC 5.00 02/03/17 05:00 94 10 93/72 97 High Flow NC 5.00 02/03/17 04:15 96 High Flow NC 4.00 02/03/17 04:00 98.0 92 10 85/51 96 High Flow NC 4.00 02/03/17 02:32 97 5.00 02/03/17 02:00 96 12 92/60 96 High Flow NC 5.00 02/03/17 01:45 10 02/03/17 01:35 97.3 91 12 84/62 97 5.00 02/03/17 01:21 101 02/03/17 01:00 111 12 113/85 96 High Flow NC 5.00 02/03/17 00:00 98 High Flow NC 5.00 02/03/17 00:00 97.6 107 8 125/59 98 High Flow NC 5.00 02/02/17 23:15 97.6 110 13 97/46 97 96.00 02/02/17 23:00 105 11 100/53 98 High Flow NC 5.00 02/02/17 22:59 97.6 110 10 93/63 98 5.00 02/02/17 22:15 111 11 110/78 96 High Flow NC 5.00 02/02/17 21:33 97 5.00 02/02/17 21:05 97.3 110 14 104/59 97 5.00 02/02/17 21:00 109 17 104/59 97 High Flow NC 5.00 02/02/17 20:15 114 17 102/59 90 High Flow NC 5.00 02/02/17 20:00 98 High Flow NC 5.00 02/02/17 19:08 97.6 109 14 101/70 99 5.00 02/02/17 19:00 111 02/02/17 19:00 97.5 120 20 101/74 98 High Flow NC 5.00 02/02/17 18:42 96.6 111 23 102/69 98 5.00 02/02/17 18:37 96 5.00 4/13/17 18:00 16 02/02/17 17:00 112 11 113/66 97 High Flow NC 5.00 02/02/17 16:00 95 High Flow NC 5.00 02/02/17 16:00 112 17 102/62 100 High Flow NC 5.00 02/02/17 15:00 115 27 105/62 96 High Flow NC 5.00 02/02/17 14:16 96 5.00 02/02/17 14:00 115 17 95/62 97 High Flow NC 5.00 02/02/17 13:30 15 02/02/17 13:00 112 02/02/17 13:00 112 16 104/81 96 High Flow NC 5.00 02/02/17 12:00 97 High Flow NC 5.00 02/02/17 12:00 112 21 92/59 95 High Flow NC 5.00 02/02/17 12:00 97.6 High Flow NC 5.00 02/02/17 11:00 106 17 92/65 95 High Flow NC 5.00 02/02/17 10:18 94 4.00 02/02/17 10:00 106 11 91/62 95 High Flow NC 5.00 02/02/17 09:00 105 11 97/58 95 High Flow NC 5.00 02/02/17 08:00 97 High Flow NC 5.00 02/02/17 08:00 98.0 High Flow NC 5.00 02/02/17 08:00 109 16 98/69 94 High Flow NC 5.00 02/02/17 07:50 4.00 I & O 02/03/17 07:00 Intake Total 4585 ml Output Total 2325 ml Balance 2260 ml General Appearance: Chronically ill HEENT: PERRL/EOMI Neck: Non Tender, Supple Respiratory: Crackles, Decreased Breath Sounds, Other (Pleurx catheter present right lung) Cardiovascular: Tachycardia Capillary Refill: Less Than 3 Seconds Gastrointestinal: normal bowel sounds, non tender, soft Extremity: Swelling, Other (bullus lesion present right medial lower extremity) Neurologic/Psychiatric: No Motor/Sensory Deficits Skin: Warm/Dry Lymphatic: No Adenopathy Results Lab Laboratory Tests 02/02/17 04:25 02/03/17 03:30 Assessment/Plan Assessment/Plan Acute respiratory failure - BiPAP PRN RLL pleural effusion- probably malignant -s/p t -pleurex catheter -- drain PRN pancytopenic -oncology is following Extensive small cell cancer with mets to liver and bone. - undergoing chemotherapy Tumor lysis syndrome secondary to chemo and tumor load Pt's prognosis is very poor now DNR per pt wishes. Consider hospice/comfort care only. Clinical Quality Measures AMI/AHF: ASA po Prior to arrival: Yes DVT/VTE Risk/Contraindication: Risk Factor Score Per Nursin RFS Level Per Nursing on Admit: 4+=Very High ANALI ESPINOZA DO Feb 03, 2017 07:06
[2017-02-03] MEDS: LEVOTHYROXINE 100 MCG (LEVOTHROID) TAB PO SCH (07:08)
--- NOTE | 2017-02-03 07:51 | Diagnostic Imaging Report ---
Portable erect AP chest at 5:05 AM. INDICATION: Respiratory distress. When compared to the prior exam of 02/02/2017, the appearance of the chest has worsened somewhat. Specifically, there is somewhat greater involvement of both lung bases by atelectasis/infiltrate and fluid. The upper lungs remain clear. The heart is stable. The mediastinum is not widened. The osseous structures are intact. The supportive tubes and lines are unchanged. IMPRESSION: The appearance of the chest has worsened somewhat as there does seem to be slightly greater involvement of both lung bases by pneumonia/atelectasis and fluid. A followup exam would be recommended for continued evaluation. Dictated by: Dictated on workstation # [id number]
--- NOTE | 2017-02-03 08:58 | Progress Note (SOAP) ---
Subjective Subjective 66 yo M with chemotherapy induced tumor lysis- -Pt feels like he is breathing better this AM. Denies nausea/vomiting. He has not had a bowel movement in a day or two he thinks. He does not feel like he is distended. Wanting to get the catheter out and pee on his own. Wants to switch off PL[employer] if possible and get back on po pain meds and go back to [facility] as his aunt is there. Review of Systems General: No Chills, No Night Sweats, Fatigue, Malaise, No Appetite, No Other HEENT: No Head Aches Pulmonary: Dyspnea, Cough, No Other Cardiovascular: Chest Pain (right side) Gastrointestinal: No: Abdominal Pain, Nausea, Vomiting Genitourinary: No Dysuria Musculoskeletal: leg pain (right > left), No: neck pain Neurological: Weakness, No: Change in speech, Numbness All Other Systems Reviewed All Other Systems Reviewed: Yes Objective Exam Vital Signs Vital Signs Date Time Temp Pulse Resp B/P (MAP) Pulse Ox O2 Delivery O2 Flow Rate FiO2 02/03/17 07:39 97 4.00 02/03/17 07:00 101 02/03/17 06:00 88 10 105/59 97 High Flow NC 5.00 02/03/17 05:00 94 10 93/72 97 High Flow NC 5.00 02/03/17 04:15 96 High Flow NC 4.00 02/03/17 04:00 98.0 92 10 85/51 96 High Flow NC 4.00 02/03/17 02:32 97 5.00 02/03/17 02:00 96 12 92/60 96 High Flow NC 5.00 02/03/17 01:45 10 02/03/17 01:35 97.3 91 12 84/62 97 5.00 02/03/17 01:21 101 02/03/17 01:00 111 12 113/85 96 High Flow NC 5.00 02/03/17 00:00 98 High Flow NC 5.00 02/03/17 00:00 97.6 107 8 125/59 98 High Flow NC 5.00 02/02/17 23:15 97.6 110 13 97/46 97 96.00 02/02/17 23:00 105 11 100/53 98 High Flow NC 5.00 02/02/17 22:59 97.6 110 10 93/63 98 5.00 02/02/17 22:15 111 11 110/78 96 High Flow NC 5.00 02/02/17 21:33 97 5.00 02/02/17 21:05 97.3 110 14 104/59 97 5.00 02/02/17 21:00 109 17 104/59 97 High Flow NC 5.00 02/02/17 20:15 114 17 102/59 90 High Flow NC 5.00 02/02/17 20:00 98 High Flow NC 5.00 02/02/17 19:08 97.6 109 14 101/70 99 5.00 02/02/17 19:00 111 02/02/17 19:00 97.5 120 20 101/74 98 High Flow NC 5.00 02/02/17 18:42 96.6 111 23 102/69 98 5.00 02/02/17 18:37 96 5.00 02/02/17 18:00 16 02/02/17 17:00 112 11 113/66 97 High Flow NC 5.00 02/02/17 16:00 95 High Flow NC 5.00 02/02/17 16:00 112 17 102/62 100 High Flow NC 5.00 02/02/17 15:00 115 27 105/62 96 High Flow NC 5.00 02/02/17 14:16 96 5.00 02/02/17 14:00 115 17 95/62 97 High Flow NC 5.00 02/02/17 13:30 15 02/02/17 13:00 112 02/02/17 13:00 112 16 104/81 96 High Flow NC 5.00 02/02/17 12:00 97 High Flow NC 5.00 02/02/17 12:00 112 21 92/59 95 High Flow NC 5.00 02/02/17 12:00 97.6 High Flow NC 5.00 02/02/17 11:00 106 17 92/65 95 High Flow NC 5.00 02/02/17 10:18 94 4.00 02/02/17 10:00 106 11 91/62 95 High Flow NC 5.00 02/02/17 09:00 105 11 97/58 95 High Flow NC 5.00 I & O 02/03/17 07:00 Intake Total 4585 ml Output Total 2325 ml Balance 2260 ml General Appearance: Chronically ill Eyes: Bilateral Eye EOMI, Bilateral Eye Normal Inspection, Bilateral Eye PERRL HEENT: PERRL/EOMI Neck: Non Tender, Supple Respiratory: Decreased Breath Sounds, Rhonci (coarse throughout), Other ( Pleurx catheter present right lung) Cardiovascular: Tachycardia Gastrointestinal: Normal Bowel Sounds, Non Tender, Soft, Distended (improved) Rectal: Deferred Genital/Rectal: Other (scrotal edema- jones in place) Back: Decreased Range of Motion Extremity: Swelling, Other (bullous lesion present right medial lower extremity ) Neurologic/Psychiatric: No Motor/Sensory Deficits Skin: Warm/Dry Lymphatic: No Adenopathy Results Lab Laboratory Tests 02/03/17 03:30: White Blood Count 2.2L, Red Blood Count 3.11L, Hemoglobin 9.9#L, Hematocrit 29L , Mean Corpuscular Volume 92, Mean Corpuscular Hemoglobin 32, Mean Corpuscular Hemoglobin Concent 35, Red Cell Distribution Width 15.5H, Platelet Count 31*L, Mean Platelet Volume 12.6H, Neutrophils (%) (Auto) 83H, Lymphocytes (%) (Auto) 14, Monocytes (%) (Auto) 1, Eosinophils (%) (Auto) 1, Basophils (%) (Auto) 1, Neutrophils # (Auto) 1.9, Lymphocytes # (Auto) 0.3L, Monocytes # (Auto) 0.0, Eosinophils # (Auto) 0.0, Basophils # (Auto) 0.0, Sodium Level 139, Potassium Level 4.4, Chloride Level 109H, Carbon Dioxide Level 18L, Anion Gap 12, Blood Urea Nitrogen 33H, Creatinine 0.66, Estimat Glomerular Filtration Rate > 60, BUN /Creatinine Ratio 50, Glucose Level 116H, Calcium Level 6.9L, Phosphorus Level 2.8, Magnesium Level 2.0 Microbiology 02/01/17 Anaerobic Culture - Preliminary, Resulted 01/29/17 MRSA Screen - Final, Complete Assessment/Plan Assessment/Plan Assessment/Plan 66 yo M admitted 01/26/17 Acute hypoxic Respiratory distress- improved Dr. Barrera consulted- RT consulted Right Exudative pleural effusion- suspect related to the cancer- Dr. Paz consulted pleurex catheter placement 02/01/17 Intractable back pain due to metastatic cancer- dilaudid rn cardiovascular - fentanyl patch cancer with metastasis (small cell lung cancer) Dr. Katz consulted, started chemotherapy 01/25/17, chemo on hold currently getting granix injection cell lines are declining towards conrado. continue to trend Pancytopenia due to chemotherapy - trend to conrado- on granix - platelets given 02/01/17 , pRBC 02/02/17 holding heparin. transaminitis- will monitor, secondary from cancer involving the liver. hyperbilirubinemia- monitor cervical spinal stenosis- severe at C5/6, moderate C7 -pain management hypothyroidism- continue levothyroxine h/o hepatitis C - treated with interferon 1998 - hep C RNA undetected December 2016 coronary artery disease- s/p RCA stent 09/2016, Dr. Tinoco covering for Dr. Mesa. COPD with hypoxia - MAT protocol, requiring oxygen NC h/o tobaccoism- quit ~Aug 2016 insomnia- trazodone weakness-/deconditioning - PT/OT Prognosis: guarded/poor continue ICU care status is worsening- Dispo: - DNR -Aunt and DPOA (Jie, friend) updated. -Pt today does not want to continue with chemotherapy; I support his decision in not wanting to have chemotherapy again as I do not think his lungs/liver, kidneys have the reserve to recover. He would like to get his pain under control and go back to [facility]- will keep open discussion. Problems: Clinical Quality Measures AMI/AHF: ASA po Prior to arrival: Yes DVT/VTE Risk/Contraindication: Risk Factor Score Per Nursin RFS Level Per Nursing on Admit: 4+=Very High JEFFREY PARKER MD Feb 03, 2017 08:58
[2017-02-03] MEDS: FUROSEMIDE 40 MG/4 ML INJ (LASIX) IVP SCH (09:00)
[2017-02-03] MEDS: SENNA W/DOCUSATE (SENOKOT S) TABLET PO SCH (09:12)
[2017-02-03] MEDS: LIDOCAINE (LIDODERM) 5% PATCH TOP SCH (09:12)
[2017-02-03] MEDS: CLOPIDOGREL 75 MG (PLAVIX) TABLET PO SCH (09:12)
[2017-02-03] MEDS: ASPIRIN E.C. 81 MG (ECOTRIN) TAB PO SCH (09:12)
--- NOTE | 2017-02-03 09:49 | Physical Therapy Progress Note ---
Therapy Progress Note Patient adamantly declined PT stating, "I don't want to do s!" RN is present. Patient reports he is comfortable in bed and does not want to move. PT respects patient wishes. 1 ref KARMEN WRIGHT PT Feb 03, 2017 09:49
[2017-02-03] MEDS: TBO-FILGRASTIM 480 MCG/0.8 ML (GRANIX) SQ SCH (09:59)
--- NOTE | 2017-02-03 11:06 | Cardiology Progress Note ---
Cardiology SOAP Progress Note Objective: I&O/Vital Signs Vital Sign - Last 12Hours 02/03/17 02/03/17 02/03/17 02/03/17 01:00 01:21 01:35 01:45 Temp 97.3 Pulse 111 101 91 Resp 12 12 10 B/P (MAP) 113/85 84/62 Pulse Ox 96 97 O2 Delivery High Flow NC O2 Flow Rate 5.00 5.00 02/03/17 02/03/17 02/03/17 02/03/17 02:00 02:32 04:00 04:15 Temp 98.0 Pulse 96 92 Resp 12 10 B/P (MAP) 92/60 85/51 Pulse Ox 96 97 96 96 O2 Delivery High Flow NC High Flow NC High Flow NC O2 Flow Rate 5.00 5.00 4.00 4.00 02/03/17 02/03/17 02/03/17 02/03/17 05:00 06:00 07:00 07:39 Pulse 94 88 101 Resp 10 10 B/P (MAP) 93/72 105/59 Pulse Ox 97 97 97 O2 Delivery High Flow NC High Flow NC O2 Flow Rate 5.00 5.00 4.00 02/03/17 02/03/17 02/03/17 02/03/17 08:00 08:00 10:37 12:15 Temp 96.2 97.1 Pulse 106 Resp 20 B/P (MAP) 106/65 Pulse Ox 95 98 96 O2 Delivery High Flow NC High Flow NC O2 Flow Rate 4.00 4.00 4.00 Intake and Output 02/03/17 00:00 Intake Total 1520 ml Output Total 1075 ml Balance 445 ml Weight (Pounds): 250 Weight (Ounces): 0.0 Weight (Calculated Kilograms): [id number] Results/Procedures: Labs Laboratory Tests 02/03/17 03:30: White Blood Count 2.2L, Red Blood Count 3.11L, Hemoglobin 9.9#L, Hematocrit 29L , Mean Corpuscular Volume 92, Mean Corpuscular Hemoglobin 32, Mean Corpuscular Hemoglobin Concent 35, Red Cell Distribution Width 15.5H, Platelet Count 31*L, Mean Platelet Volume 12.6H, Neutrophils (%) (Auto) 83H, Lymphocytes (%) (Auto) 14, Monocytes (%) (Auto) 1, Eosinophils (%) (Auto) 1, Basophils (%) (Auto) 1, Neutrophils # (Auto) 1.9, Lymphocytes # (Auto) 0.3L, Monocytes # (Auto) 0.0, Eosinophils # (Auto) 0.0, Basophils # (Auto) 0.0, Sodium Level 139, Potassium Level 4.4, Chloride Level 109H, Carbon Dioxide Level 18L, Anion Gap 12, Blood Urea Nitrogen 33H, Creatinine 0.66, Estimat Glomerular Filtration Rate > 60, BUN /Creatinine Ratio 50, Glucose Level 116H, Calcium Level 6.9L, Phosphorus Level 2.8, Magnesium Level 2.0 02/03/17 11:01: Lab Scanned Report Transfusion Reaction Form Microbiology 02/01/17 Anaerobic Culture - Preliminary, Resulted 01/29/17 MRSA Screen - Final, Complete A/P: Assessment/Dx: Admission Diagnosis Chest pain nonspecific etiology Back pain Tumor lysis syndrome Coronary artery disease Plan: Assessment/Plan Paroxysmal atrial fibrillation with rapid ventricular response, currently in sinus rhythm, still tachycardiac, likely secondary to systemic illness. Low- dose beta kandi if blood pressure tolerates. Tumor lysis syndrome, receiving large amount of fluid, anasarca at this time. Acute respiratory failure, status post Pleurx catheter placement, Breathing is better, followed and managed by Dr. Barrera. Chest pain, tachycardia, history of generalized body ache and back pain, had metastatic cancer to the liver, vertebrae, bone and lymph node, started on chemotherapy and followed by Dr. Katz. Coronary disease, Card cath of 09/27/16 showed CAD primarily consisting of 99% proximal stenosis of the right coronary artery to which successful stenting was carried out with Xience Alpine 4 x 18 mm stent, which reduced the stenosis to 0 % residual stenosis. Elsewhere, there is mild coronary artery disease. Normal left ventricular end-diastolic pressure. Posterobasal and diaphragmatic hypokinesis. Impairment of global left ventricular systolic function with an ejection fraction of approximately 45%. No significant mitral regurgitation. Continue on aspirin and Plavix and monitor Echo of 01/15/17 showed LVEF 60%, no significant valvular lesion, normal PASP, normal BNP. Continue to monitor. Noncardiogenic source of edema. Abnormal ECG: Chronic RBBB, LAFB, frequent PVCs (isolated, monomorphic)my T- wave inversion noted on his EKG, borderline tachycardic secondary to pain and comorbid condition. Continue to monitor closely. Acute renal failure, receiving IV fluid, continue to monitor renal function closely. H/o PVCs Hypothyroidism, followed and managed by primary care physician. Chronic tobacco use, quit 09/12/16. We have advised him to continue to refrain from tobacco use Hep C, treated with interferon in 1998, followed by pcp, elevated liver enzymes , continue to monitor Carotid u/s of August 23, 2016 showed mild bilateral carotid disease Patient requested to be DO NOT RESUSCITATE. Agree with the current management plan. Thank you for your consultation. Please call me if you have any questions. Alma Aleman MD, FACP, FACC, FSCAI, FHRS, CCDS Interventional Cardiology Cardiac Electrophysiology Vascular Medicine and Endovascular Interventions Clinical Quality Measures AMI/AHF: ASA po Prior to arrival: Yes Elisabeth ALEMAN MD Feb 03, 2017 11:06 am
--- NOTE | 2017-02-03 12:44 | Occupational Ther Daily Note ---
OT Current Status-Daily Note Subjective Pt seen in room, up in bed, agreeable to OT. No pain mentioned. Appearance Alert, cooperative Mental Status/Objective Functional Pearson Measure 0=Not Assessed/NA 4=Minimal Assistance 1=Total Assistance 5=Supervision or Setup 2=Maximal Assistance 6=Modified Pearson 3=Moderate Assistance 7=Complete Pearson Other Treatment Pt agreeable to UE exercise and AROM. Has edema in hands but some wrinkling at joints. Pt educ on movement to help manage edema. Pt did 10 reps bilat AROM with hands and able to make visible difference in edema. Also did AROM at wrists , elbows and shoulders, 10 reps. pt was able to track repetitions but quality of movement faded at 7th or 8th rep. Pt encouraged to keep arms elevated on pillows (they were) and to "make a fist" as he was able throughout the day, to help keep his hands more functional. Pt left up in bed, all needs met. Education OT Patient Education: Exercise program Teaching Recipient: Patient Response to Teaching: Reinforcement Needed OT Short Term Goals Short Term Goals 1=Demonstrate adherence to instructed precautions during ADL tasks. 2=Patient will verbalize/demonstrate understanding of assistive devices/ modifications for ADL. 3=Patient will improve strength/tolerance for activity to enable patient to perform ADL's. OT Associate Director Goals Prison Goals Time Frame: Feb 14, 2017 Eating (FIM): 6 Grooming(FIM): 5 Bathing(FIM): 4 Upper Body Dressing(FIM): 5 Lower Body Dressing(FIM): 5 Toileting(FIM): 5 Toilet/Commode Transfer(FIM): 5 Shower Transfer(FIM): 5 Additional Goals: 2-Verbalize Understanding, 3-ImproveStrength/Martha 1=Demonstrate adherence to instructed precautions during ADL tasks. 2=Patient will verbalize/demonstrate understanding of assistive devices/ modifications for ADL. 3=Patient will improve strength/tolerance for activity to enable patient to perform ADL's. OT Education/Plan Problem List/Assessment Pt would benefit from skilled OT to increase his independence in basic self care to allow him to be as independent as possible and decrease caregiver burden Discharge Recommendations Plan/Recommendations: Continue POC Treatment Plan/Plan of Care Patient would benefit from OT for education, treatment and training to promote independence in ADL's, mobility, safety and/or upper extremity function for ADL' s. Plan of Care: ADL Retraining, Functional Mobility, UE Funct Exercise/Act, UE Neuromus Re-Ed/Coord Treatment Duration: Feb 14, 2017 Visits Per Week: 5 Agreement: Yes Rehab Potential: Guarded Time/GCodes Start Time: 11:35 Stop Time: 11:55 Total Time Billed (hr/min): 20 Billed Treatment Time visit, 20 minutes exercise KEN CULLEN OT Feb 03, 2017 12:44
[2017-02-03] MEDS ORDERED: TROUGH ORDER-PHARMACY XX ONE (13:00)
--- NOTE | 2017-02-03 17:14 | Oncology Progress Note ---
Subjective Subjective/Events-last exam Pt have decided to stop chemo since it made him more sick. Right leg blister and white necrosis/pus. 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 Data Review Labs Laboratory Tests 02/03/17 03:30 Laboratory Tests 02/01/17 03:40: White Blood Count 2.8L, Red Blood Count 2.85L, Hemoglobin 9.2L, Hematocrit 27L, Red Cell Distribution Width 15.0H, Platelet Count 65L, Mean Platelet Volume 11.1H, Neutrophils (%) (Auto) 95H, Lymphocytes (%) (Auto) 4L, Lymphocytes # ( Auto) 0.1L, Blood Urea Nitrogen 36H, Calcium Level 7.4L, Phosphorus Level 1.4L 02/01/17 13:34: 02/02/17 02:15: Urine Color AMBERH, Urine Specific [place] 1.010L, Urine Protein 1+H, Urine Bilirubin 2+H, Urine Urobilinogen 8H, Urine Leukocyte Esterase 1+H, Urine RBC ( Auto) 2+H 02/02/17 04:25: White Blood Count 1.1*L, Red Blood Count 2.48L, Hemoglobin 7.9L, Hematocrit 24L , Red Cell Distribution Width 15.2H, Platelet Count 45L, Mean Platelet Volume 12.4H, Lymphocytes # (Auto) 0.2L, Blood Urea Nitrogen 32H, Calcium Level 6.8L, Phosphorus Level 2.2L, Monocytes (%) (Auto) 22H, Neutrophils # (Auto) 0.7L, Magnesium Level 1.7L 02/03/17 03:30: White Blood Count 2.2L, Red Blood Count 3.11L, Hemoglobin 9.9#L, Hematocrit 29L , Red Cell Distribution Width 15.5H, Platelet Count 31*L, Mean Platelet Volume 12.6H, Neutrophils (%) (Auto) 83H, Lymphocytes # (Auto) 0.3L, Chloride Level 109H, Carbon Dioxide Level 18L, Blood Urea Nitrogen 33H, Glucose Level 116H, Calcium Level 6.9L 02/03/17 11:01: 02/03/17 13:05: Physical Exam Vital Signs Vital Sign - Last 12Hours 01/28/17 01/28/17 01/28/17 01/29/17 01:00 02:12 04:00 06:22 Temp 97.5 Pulse 111 Resp 17 B/P (MAP) 115/57 Pulse Ox 91 O2 Delivery Nasal Cannula O2 Flow Rate 6.00 FiO2 70 Capillary Refill : Less Than 3 Seconds General Appearance: No Apparent Distress HEENT: PERRL/EOMI Neck: Non Tender, Supple Respiratory: Crackles, Decreased Breath Sounds, Other (cathter on the right side and minimal drainage. ) Cardiovascular: Regular Rate, Rhythm, Tachycardia Gastrointestinal: Soft, Distended Extremity: Inflammation, Pedal Edema, Swelling Neurologic/Psychiatric: Alert, Oriented x3 Impression & Plan Impression & Plan Assess & Plan/Chief Complaint 1. 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 a. Status Post Cycle 1 days 1-2 of 3; Held day 3 etoposide; Tolerated poorly. Pt decided to stop the chemo. b. Currently receiving Granix and will continue until recovery from conrado and ANC to be close to 7 then stop. . c. Right pleural effusion likely related to patient's no malignancy. Thoracentesis with Pleurx catheter placement plan for later today, platelet transfusion prior to procedure. 2. Tumor lysis syndrome arising from recent chemotherapy treatment inpatient with very bulky tumor load of small cell carcinoma. Tumor lysis has resolved. Uric acid no longer elevated; K normal and Cr improved to 0.94. Decrease IV hydration. 3. Hypotension, Neutropenia, Leg wound--Suspect Sepsis; Cover for Cellulitis, also lung pathogens. Patient has been started on IV Vancomycin, Meropenem, and Clindamycin. 4. Pancytopenia--myelosuppression arising from recent chemotherapy; continue Granix; a. Transfuse PRBCs and platelets as indicated. Hypoxemia and tachycardia-patient currently in ICU and on BiPAP; cardiology is following. 5. Abnormal LFTs-arising from extensive liver involvement. 6. 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 Multiple comorbidities including CAD, COPD, hypothyroidism, history of hepatitis C, and history of cervical spinal stenosis. 8. I have told patient that we support his decision of discontinuation of chemo. Prognosis very poor. Pt is DNR. Clinical Quality Measures AMI/AHF: ASA po Prior to arrival: Yes DVT/VTE Risk/Contraindication: Risk Factor Score Per Nursin RFS Level Per Nursing on Admit: 4+=Very High PITO NOYOLA MD Feb 03, 2017 17:14
[2017-02-03] MEDS: FAMOTIDINE 20 MG (PEPCID) TABLET PO SCH (21:44)
[2017-02-03] MEDS: traZODone 50 MG (DESYREL) TAB PO SCH (21:44)
[2017-02-04] VITALS (13 sets, daily range): BP systolic 91–124; BP diastolic 55–79
[2017-02-04] MEDS: HYDROmorphone PCA 0.2 MG/ML 30 ML (DILAUDID) IV PRN ×3 (01:04→19:39)
[2017-02-04] MEDS: VANCOMYCIN 1500 MG/NS 500 ML IVPB IV SCH ×4 (01:30→14:23)
[2017-02-04] MEDS: NS IV 1000 ML 1,000 ML IV SCH ×3 (01:30→19:39)
[2017-02-04] MEDS: CLINDAMYCIN 900 MG/NS 50 ML IVPB IV SCH ×6 (01:58→17:14)
[2017-02-04] MEDS: MEROPENEM 1 GM/NS 100 ML IVPB IV SCH ×6 (01:59→18:31)
[2017-02-04] MEDS: fentaNYL PATCH 25 MCG (DURAGESIC) TD SCH (02:02)
[2017-02-04] MEDS: RT-ALBUTEROL/IPRATROPIUM 3 ML (DUONEB) VIAL IH SCH ×6 (02:18→22:40)
[2017-02-04] MEDS: KCL 20 MEQ TAB (K-DUR) PO SCH (06:00)
[2017-02-04] MEDS: meTOprolol 5 MG/5 ML (LOPRESSOR) VIAL IV SCH ×2 (06:00)
[2017-02-04] MEDS: POTASSIUM CL 10MEQ/50ML IVPB 50 ML IV SCH (06:00)
[2017-02-04] MEDS: MAGNESIUM 1 GM/100 ML IVPB 100 ML IV SCH (06:00)
[2017-02-04] MEDS: LEVOTHYROXINE 100 MCG (LEVOTHROID) TAB PO SCH (06:22)
[2017-02-04 06:43] LABS: BASOPHILS % (AUTO) 1 % (0-10); EOSINOPHILS % (AUTO) 0 % (0-10); LYMPHOCYTES # (AUTO) 0.4 X 10^3 (1.0-4.0); LYMPHOCYTES % (AUTO) 6 % (12-44); MEAN CORPUSCULAR HEMOGLOBIN 32 PG (25-34); MEAN CORPUSCULAR HGB CONC 34 G/DL (32-36); MEAN CORPUSCULAR VOLUME 92 FL (80-99); MEAN PLATELET VOLUME 12.5 FL (7.4-10.4); MONOCYTES # (AUTO) 0.1 X 10^3 (0.0-1.0); MONOCYTES % (AUTO) 1 % (0-12); NEUTROPHILS # (AUTO) 5.9 X 10^3 (1.8-7.8); NEUTROPHILS % (AUTO) 93 % (42-75); PLATELET COUNT 40 10^3/uL (130-400); RED CELL DISTRIBUTION WIDTH 16.2 % (10.0-14.5); WHITE BLOOD COUNT 6.4 10^3/uL (4.3-11.0)
[2017-02-04 07:03] LABS: ANION GAP 10 MMOL/L (5-14); BLOOD UREA NITROGEN 36 MG/DL (7-18); BUN/CREATININE RATIO 50; CALCIUM 7.1 MG/DL (8.5-10.1); CARBON DIOXIDE 22 MMOL/L (21-32); CHLORIDE 104 MMOL/L (98-107); CREATININE SERUM 0.72 MG/DL (0.60-1.30); GFR ESTIMATED > 60; GLUCOSE 79 MG/DL (70-105); MAGNESIUM 1.6 MG/DL (1.8-2.4); PHOSPHORUS 3.1 MG/DL (2.3-4.7); POTASSIUM 3.7 MMOL/L (3.6-5.0); SODIUM 136 MMOL/L (135-145)
--- NOTE | 2017-02-04 08:27 | Progress Note (SOAP) ---
Subjective Subjective/Events-last exam tumor lysis syndrome. Intractable pain. Patient states pain is better. Patient having pain right medial ankle where had blister. 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 To culture right medial ankle Objective Exam Vital Signs Date Time Temp Pulse Resp B/P (MAP) Pulse Ox O2 Delivery O2 Flow Rate FiO2 02/04/17 08:12 97.8 02/04/17 08:00 High Flow NC 5.00 02/04/17 07:09 96 6.00 02/04/17 07:00 98 02/04/17 06:46 105 17 104/56 96 OxyMask 4.00 02/04/17 06:00 18 02/04/17 05:00 98 9 94/63 97 OxyMask 4.00 02/04/17 04:00 15 91/60 95 OxyMask 4.00 02/04/17 04:00 OxyMask 4.00 02/04/17 04:00 98.8 OxyMask 4.00 02/04/17 03:00 105 23 123/79 96 OxyMask 4.00 02/04/17 02:19 95 6.00 02/04/17 02:08 OxyMask 4.00 02/04/17 02:00 96 11 112/78 95 High Flow NC 4.00 02/04/17 01:33 99 02/04/17 01:04 16 02/04/17 01:00 99 10 105/77 98 High Flow NC 4.00 02/04/17 00:00 105 12 94/66 94 High Flow NC 4.00 02/03/17 23:48 High Flow NC 4.00 02/03/17 23:46 98.9 High Flow NC 4.00 02/03/17 22:12 92 4.00 02/03/17 22:00 101 12 106/78 94 High Flow NC 4.00 02/03/17 21:00 105 20 115/65 93 High Flow NC 4.00 02/03/17 20:00 High Flow NC 4.00 02/03/17 20:00 99.1 High Flow NC 4.00 02/03/17 19:00 93 02/03/17 19:00 15 93/68 95 02/03/17 18:55 94 4.00 02/03/17 18:00 108 20 111/75 96 02/03/17 17:00 111 18 116/62 87 02/03/17 16:09 97.3 02/03/17 16:00 108 9 109/63 93 02/03/17 16:00 96 High Flow NC 4.00 02/03/17 15:00 14 94/61 95 02/03/17 14:40 95 4.00 02/03/17 14:00 105 9 95/91 95 02/03/17 13:47 20 02/03/17 13:00 112 02/03/17 13:00 108 9 114/63 93 02/03/17 12:15 97.1 02/03/17 12:00 98 High Flow NC 4.00 02/03/17 10:37 96 4.00 I & O 02/04/17 07:00 Intake Total 3511 ml Output Total 1075 ml Balance 2436 ml Capillary Refill : Less Than 3 SecondsLess Than 3 Seconds General Appearance: No Apparent Distress HEENT: Normal ENT Inspection Respiratory: No Accessory Muscle Use, No Respiratory Distress Results Lab Laboratory Tests 02/04/17 06:37 Laboratory Tests 02/03/17 11:01: Lab Scanned Report Transfusion Reaction Form 02/03/17 13:05: Vancomycin Level Trough 18.8 02/04/17 06:37: White Blood Count 6.4, Red Blood Count 3.30L, Hemoglobin 10.5L, Hematocrit 31L, Mean Corpuscular Volume 92, Mean Corpuscular Hemoglobin 32, Mean Corpuscular Hemoglobin Concent 34, Red Cell Distribution Width 16.2H, Platelet Count 40L, Mean Platelet Volume 12.5H, Neutrophils (%) (Auto) 93H, Lymphocytes (%) (Auto) 6L, Monocytes (%) (Auto) 1, Eosinophils (%) (Auto) 0, Basophils (%) (Auto) 1, Neutrophils # (Auto) 5.9, Lymphocytes # (Auto) 0.4L, Monocytes # (Auto) 0.1, Eosinophils # (Auto) 0.0, Basophils # (Auto) 0.0, Sodium Level 136, Potassium Level 3.7, Chloride Level 104, Carbon Dioxide Level 22, Anion Gap 10, Blood Urea Nitrogen 36H, Creatinine 0.72, Estimat Glomerular Filtration Rate > 60, BUN /Creatinine Ratio 50, Glucose Level 79, Calcium Level 7.1L, Phosphorus Level 3.1 , Magnesium Level 1.6L Microbiology 02/01/17 Anaerobic Culture - Preliminary, Resulted 01/29/17 MRSA Screen - Final, Complete Assessment/Plan Assessment/Plan Assess & Plan/Chief Complaint tumor lysis. Syndrome. Cancer of lung small cell. Metastasis to liver. Metastasis to bone. Leukopenia resolved. Patient concerned about medium right ankle with a blister that busted Clinical Quality Measures AMI/AHF: ASA po Prior to arrival: Yes DVT/VTE Risk/Contraindication: Risk Factor Score Per Nursin RFS Level Per Nursing on Admit: 4+=Very High JOSUE LIEBERMAN DO Feb 04, 2017 08:27
--- NOTE | 2017-02-04 08:35 | Diagnostic Imaging Report ---
EXAM: CHEST 1 VIEW, AP/PA ONLY INDICATION: Atelectasis. ICU management. COMPARISON: Chest radiograph 02/03/2017. FINDINGS: Increasing interstitial and airspace perihilar opacities. Cardiomegaly. Linear atelectasis in the right lung base. Stable, moderate right pleural effusion. Tiny left pleural effusion or thickening. No pneumothorax. No acute osseous findings. IMPRESSION: 1. Increasing perihilar interstitial and airspace opacity suspicious for fluid overload. 2. Mild improvement in the atelectasis in the right lung base. 3. Persistent moderate right pleural effusion. Tiny left pleural effusion or thickening. Dictated by: Dictated on workstation # [id number]
[2017-02-04] MEDS: FUROSEMIDE 40 MG/4 ML INJ (LASIX) IVP SCH (08:41)
[2017-02-04] MEDS: CLOPIDOGREL 75 MG (PLAVIX) TABLET PO SCH (08:58)
[2017-02-04] MEDS: LIDOCAINE (LIDODERM) 5% PATCH TOP SCH (08:58)
[2017-02-04] MEDS: SENNA W/DOCUSATE (SENOKOT S) TABLET PO SCH (08:58)
[2017-02-04] MEDS: ASPIRIN E.C. 81 MG (ECOTRIN) TAB PO SCH (08:58)
[2017-02-04] MEDS: TBO-FILGRASTIM 480 MCG/0.8 ML (GRANIX) SQ SCH (08:58)
--- NOTE | 2017-02-04 13:55 | Oncology Progress Note ---
Subjective Subjective/Events-last exam Pt was transferred to 4th floor today. 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 WINDOW INSTALLER WBC is up to 6.4 and ANC 5.9 today Data Review Labs Laboratory Tests 02/04/17 06:37 Laboratory Tests 02/02/17 02:15: Urine Color AMBERH, Urine Specific [place] 1.010L, Urine Protein 1+H, Urine Bilirubin 2+H, Urine Urobilinogen 8H, Urine Leukocyte Esterase 1+H, Urine RBC ( Auto) 2+H 02/02/17 04:25: White Blood Count 1.1*L, Red Blood Count 2.48L, Hemoglobin 7.9L, Hematocrit 24L , Red Cell Distribution Width 15.2H, Platelet Count 45L, Mean Platelet Volume 12.4H, Monocytes (%) (Auto) 22H, Neutrophils # (Auto) 0.7L, Lymphocytes # (Auto ) 0.2L, Blood Urea Nitrogen 32H, Calcium Level 6.8L, Phosphorus Level 2.2L, Magnesium Level 1.7L 02/03/17 03:30: White Blood Count 2.2L, Red Blood Count 3.11L, Hemoglobin 9.9#L, Hematocrit 29L , Red Cell Distribution Width 15.5H, Platelet Count 31*L, Mean Platelet Volume 12.6H, Lymphocytes # (Auto) 0.3L, Blood Urea Nitrogen 33H, Calcium Level 6.9L, Neutrophils (%) (Auto) 83H, Chloride Level 109H, Carbon Dioxide Level 18L, Glucose Level 116H 02/03/17 11:01: 02/03/17 13:05: 02/04/17 06:37: Red Blood Count 3.30L, Hemoglobin 10.5L, Hematocrit 31L, Red Cell Distribution Width 16.2H, Platelet Count 40L, Mean Platelet Volume 12.5H, Neutrophils (%) ( Auto) 93H, Lymphocytes (%) (Auto) 6L, Lymphocytes # (Auto) 0.4L, Blood Urea Nitrogen 36H, Calcium Level 7.1L, Magnesium Level 1.6L Physical Exam Vital Signs Vital Sign - Last 12Hours 01/29/17 01/29/17 00:00 06:22 Temp 97.1 Pulse 119 Resp 20 B/P (MAP) 105/60 Pulse Ox 90 O2 Delivery Nasal Cannula O2 Flow Rate 5.00 FiO2 70 Capillary Refill : Less Than 3 SecondsLess Than 3 Seconds General Appearance: No Apparent Distress Impression & Plan Impression & Plan Assess & Plan/Chief Complaint 1. 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 a. Status Post Cycle 1 days 1-2 of 3; Held day 3 etoposide; Tolerated poorly. Pt decided to stop the chemo. b. Had Granix and ANC 5.9 and WBC 6.4 today. Will stop Granix today.. c. Right pleural effusion likely related to patient's no malignancy. Thoracentesis with Pleurx catheter placement plan for later today, platelet transfusion prior to procedure. 2. Tumor lysis syndrome arising from recent chemotherapy treatment inpatient with very bulky tumor load of small cell carcinoma. Tumor lysis has resolved. Uric acid no longer elevated; K normal and Cr improved to 0.94. Decrease IV hydration. 3. Hypotension, Neutropenia, Leg wound--Suspect Sepsis; Cover for Cellulitis, also lung pathogens. Patient has been started on IV Vancomycin, Meropenem, and Clindamycin. 4. Pancytopenia--myelosuppression arising from recent chemotherapy; slowly recovering. Hypoxemia and tachycardia-patient currently in ICU and on BiPAP; cardiology is following. 5. Abnormal LFTs-arising from extensive liver involvement. 6. 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 Multiple comorbidities including CAD, COPD, hypothyroidism, history of hepatitis C, and history of cervical spinal stenosis. 8. I have told patient that we support his decision of discontinuation of chemo. Prognosis very poor. Pt is DNR. Clinical Quality Measures AMI/AHF: ASA po Prior to arrival: Yes DVT/VTE Risk/Contraindication: Risk Factor Score Per Nursin RFS Level Per Nursing on Admit: 4+=Very High PITO NOYOLA MD Feb 04, 2017 13:55
[2017-02-04] MEDS: FAMOTIDINE 20 MG (PEPCID) TABLET PO SCH (21:35)
[2017-02-04] MEDS: traZODone 50 MG (DESYREL) TAB PO SCH (21:35)
[2017-02-05] VITALS (7 sets, daily range): BP systolic 104–134; BP diastolic 64–83
[2017-02-05] MEDS: MEROPENEM 1 GM/NS 100 ML IVPB IV SCH ×6 (01:16→16:10)
[2017-02-05] MEDS: VANCOMYCIN 1500 MG/NS 500 ML IVPB IV SCH ×4 (01:27→13:52)
[2017-02-05] MEDS: RT-ALBUTEROL/IPRATROPIUM 3 ML (DUONEB) VIAL IH SCH ×6 (02:25→21:52)
[2017-02-05] MEDS: CLINDAMYCIN 900 MG/NS 50 ML IVPB IV SCH ×6 (04:31→19:30)
[2017-02-05 05:04] LABS: BASOPHILS % (AUTO) 0 % (0-10); EOSINOPHILS % (AUTO) 0 % (0-10); LYMPHOCYTES # (AUTO) 0.6 X 10^3 (1.0-4.0); LYMPHOCYTES % (AUTO) 5 % (12-44); MEAN CORPUSCULAR HEMOGLOBIN 32 PG (25-34); MEAN CORPUSCULAR HGB CONC 35 G/DL (32-36); MEAN CORPUSCULAR VOLUME 92 FL (80-99); MEAN PLATELET VOLUME 12.8 FL (7.4-10.4); MONOCYTES # (AUTO) 0.4 X 10^3 (0.0-1.0); MONOCYTES % (AUTO) 3 % (0-12); NEUTROPHILS % (AUTO) 91 % (42-75); PLATELET COUNT 56 10^3/uL (130-400); RED BLOOD COUNT 3.05 10^6/uL (4.35-5.85); RED CELL DISTRIBUTION WIDTH 16.2 % (10.0-14.5); WHITE BLOOD COUNT 12.1 10^3/uL (4.3-11.0)
[2017-02-05 05:41] LABS: ANION GAP 11 MMOL/L (5-14); BLOOD UREA NITROGEN 37 MG/DL (7-18); BUN/CREATININE RATIO 51; CALCIUM 7.1 MG/DL (8.5-10.1); CARBON DIOXIDE 21 MMOL/L (21-32); CHLORIDE 104 MMOL/L (98-107); CREATININE SERUM 0.72 MG/DL (0.60-1.30); GFR ESTIMATED > 60; GLUCOSE 73 MG/DL (70-105); MAGNESIUM 1.6 MG/DL (1.8-2.4); PHOSPHORUS 3.3 MG/DL (2.3-4.7); POTASSIUM 3.9 MMOL/L (3.6-5.0); SODIUM 136 MMOL/L (135-145)
[2017-02-05] MEDS: LEVOTHYROXINE 100 MCG (LEVOTHROID) TAB PO SCH (06:15)
[2017-02-05] MEDS: HYDROmorphone PCA 0.2 MG/ML 30 ML (DILAUDID) IV PRN ×2 (06:55→17:12)
[2017-02-05] MEDS: SENNA W/DOCUSATE (SENOKOT S) TABLET PO SCH (08:36)
[2017-02-05] MEDS: CLOPIDOGREL 75 MG (PLAVIX) TABLET PO SCH (08:36)
[2017-02-05] MEDS: ASPIRIN E.C. 81 MG (ECOTRIN) TAB PO SCH (08:37)
[2017-02-05] MEDS: LIDOCAINE (LIDODERM) 5% PATCH TOP SCH (08:37)
[2017-02-05] MEDS: FUROSEMIDE 40 MG/4 ML INJ (LASIX) IVP SCH (08:37)
[2017-02-05] MEDS: NS IV 1000 ML 1,000 ML IV SCH (08:38)
--- NOTE | 2017-02-05 09:48 | Progress Note (SOAP) ---
Subjective Subjective/Events-last exam patient feeling better today. Yesterday patient wanted comfort care but decided against it. Blood tests look better. Right medial ankle still doesn't look pretty. Tumor lysis syndrome. Metastatic cancer Objective Exam Vital Signs Date Time Temp Pulse Resp B/P (MAP) Pulse Ox O2 Delivery O2 Flow Rate FiO2 02/05/17 08:00 98.4 106 20 134/83 94 5.00 02/05/17 07:41 93 10.00 75 02/05/17 07:00 107 02/05/17 06:55 16 02/05/17 06:00 16 02/05/17 04:00 97.8 107 16 104/64 96 5.00 02/05/17 04:00 High Flow NC 5.00 02/05/17 02:26 94 10.00 75 02/05/17 01:39 108 02/05/17 00:00 97.9 117 18 125/75 97 02/05/17 00:00 High Flow NC 5.00 02/04/17 22:42 95 10.00 75 02/04/17 20:00 High Flow NC 5.00 02/04/17 19:39 16 02/04/17 19:05 97.3 112 14 111/68 96 02/04/17 18:55 109 02/04/17 18:45 95 5.00 02/04/17 18:00 16 02/04/17 15:34 97.6 108 20 124/73 95 02/04/17 11:09 High Flow NC 5.00 02/04/17 11:00 109 10 96/63 95 OxyMask 4.00 02/04/17 10:13 98 5.00 02/04/17 10:02 10 02/04/17 10:00 108 9 113/65 96 OxyMask 4.00 I & O 02/05/17 07:00 Intake Total 1966 ml Output Total 1400 ml Balance 566 ml Capillary Refill : Less Than 3 SecondsLess Than 3 Seconds General Appearance: No Apparent Distress, WD/WN HEENT: Normal ENT Inspection Neck: Normal Inspection Respiratory: No Accessory Muscle Use, No Respiratory Distress Cardiovascular: Regular Rate, Rhythm, Tachycardia Results Lab Laboratory Tests 02/05/17 04:20: White Blood Count 12.1H, Red Blood Count 3.05L, Hemoglobin 9.7L, Hematocrit 28L , Mean Corpuscular Volume 92, Mean Corpuscular Hemoglobin 32, Mean Corpuscular Hemoglobin Concent 35, Red Cell Distribution Width 16.2H, Platelet Count 56L, Mean Platelet Volume 12.8H, Neutrophils (%) (Auto) 91H, Lymphocytes (%) (Auto) 5L, Monocytes (%) (Auto) 3, Eosinophils (%) (Auto) 0, Basophils (%) (Auto) 0, Neutrophils # (Auto) 11.0H, Lymphocytes # (Auto) 0.6L, Monocytes # (Auto) 0.4, Eosinophils # (Auto) 0.0, Basophils # (Auto) 0.0, Sodium Level 136, Potassium Level 3.9, Chloride Level 104, Carbon Dioxide Level 21, Anion Gap 11, Blood Urea Nitrogen 37H, Creatinine 0.72, Estimat Glomerular Filtration Rate > 60, BUN /Creatinine Ratio 51, Glucose Level 73, Calcium Level 7.1L, Phosphorus Level 3.3 , Magnesium Level 1.6L Microbiology 02/01/17 Anaerobic Culture - Preliminary, Resulted No anaerobes isolated 01/29/17 MRSA Screen - Final, Complete Assessment/Plan Assessment/Plan Assess & Plan/Chief Complaint tumor lysis. Syndrome. Cancer of lung small cell. Metastasis to liver. Metastasis to bone. Leukopenia resolved. Patient concerned about medium right ankle with a blister that busted. .. 02/05/17. Tumor lysis syndrome. Cancer of the lung small cell the Metastasis to liver. Patient feeling better today. Patient wanted comfort care yesterday but went back on it still wants to be treated Clinical Quality Measures AMI/AHF: ASA po Prior to arrival: Yes DVT/VTE Risk/Contraindication: Risk Factor Score Per Nursin RFS Level Per Nursing on Admit: 4+=Very High JOSUE LIEBERMAN DO Feb 05, 2017 09:48
[2017-02-05] MEDS: MAGNESIUM 1 GM/100 ML IVPB 100 ML IV SCH ×2 (09:59→11:03)
--- NOTE | 2017-02-05 11:43 | Wound Care Progress Note ---
Subjective Subjective Subjective/Events-last exam The patient is a 66-year-old male recovering from tumor lysis syndrome, following chemotherapy for metastatic carcinoma. He has developed an ischemic area the right medial ankle, which appears more extensive and has changed from a white appearance to a livid appearance. The patient states she has a lot of pain in this area. The borders of the wound demonstrated a clear demarcation area which is irregular in pattern. Past medical history: Extensive metastatic small cell carcinoma, COPD, congestive heart failure. Family history: None pertinent. Review of Systems Pulmonary: Dyspnea Cardiovascular: Chest Pain Gastrointestinal: Abdominal Pain Musculoskeletal: back pain, leg pain Neurological: Confusion, Weakness Objective Exam Last Set of Vital Signs Vital Signs Date Time Temp Pulse Resp B/P (MAP) Pulse Ox O2 Delivery O2 Flow Rate FiO2 02/05/17 08:00 High Flow NC 5.00 02/05/17 08:00 98.4 106 20 134/83 94 02/05/17 07:41 75 Capillary Refill : Less Than 3 SecondsLess Than 3 Seconds I&O Intake and Output 02/05/17 00:00 Intake Total 3627 ml Output Total 1225 ml Balance 2402 ml Intake Oral 1910 ml IV Total 1717 ml Output Urine Total 1225 ml General: Alert, No Acute Distress Lungs: Normal Air Movement Skin: Other (right medial distal calf reveals an irregular 14.2 x 6.5 x 0.1 cm area of whitish to limited purplish tissue with a clear demarcation line. The wound appears ischemic although the dermis appears to be intact. Wound is very tender and painful. Patient has marked surrounding edema.) Results Lab Laboratory Tests 02/05/17 04:20: White Blood Count 12.1H, Red Blood Count 3.05L, Hemoglobin 9.7L, Hematocrit 28L , Mean Corpuscular Volume 92, Mean Corpuscular Hemoglobin 32, Mean Corpuscular Hemoglobin Concent 35, Red Cell Distribution Width 16.2H, Platelet Count 56L, Mean Platelet Volume 12.8H, Neutrophils (%) (Auto) 91H, Lymphocytes (%) (Auto) 5L, Monocytes (%) (Auto) 3, Eosinophils (%) (Auto) 0, Basophils (%) (Auto) 0, Neutrophils # (Auto) 11.0H, Lymphocytes # (Auto) 0.6L, Monocytes # (Auto) 0.4, Eosinophils # (Auto) 0.0, Basophils # (Auto) 0.0, Sodium Level 136, Potassium Level 3.9, Chloride Level 104, Carbon Dioxide Level 21, Anion Gap 11, Blood Urea Nitrogen 37H, Creatinine 0.72, Estimat Glomerular Filtration Rate > 60, BUN /Creatinine Ratio 51, Glucose Level 73, Calcium Level 7.1L, Phosphorus Level 3.3 , Magnesium Level 1.6L Microbiology 02/01/17 Anaerobic Culture - Preliminary, Resulted No anaerobes isolated 01/29/17 MRSA Screen - Final, Complete Assessment/Plan Assessment/Plan Assessment/Plan 1. Lesion of right distal medial calf with ischemic appearance. 2. Setting of extensive small cell carcinoma, undergoing chemotherapy with tumor lysis syndrome. Plan: Determination of the etiology would be assisted by multiple biopsies to for histology. This is discussed with Dr. Katz at this time and she does not feel that this is appropriate. The patient will be observed. No dressings are ordered as this lesion is indeterminate at this time. FRANCISCO DOLAN MD Feb 05, 2017 11:43
[2017-02-05] MEDS: traZODone 50 MG (DESYREL) TAB PO SCH (20:28)
[2017-02-05] MEDS: FAMOTIDINE 20 MG (PEPCID) TABLET PO SCH (20:28)
[2017-02-06] MEDS: VANCOMYCIN 1500 MG/NS 500 ML IVPB IV SCH ×4 (00:30→13:48)
[2017-02-06] MEDS: MEROPENEM 1 GM/NS 100 ML IVPB IV SCH ×6 (00:31→18:01)
[2017-02-06] MEDS: HYDROmorphone PCA 0.2 MG/ML 30 ML (DILAUDID) IV PRN ×4 (01:54→20:31)
[2017-02-06] MEDS: RT-ALBUTEROL/IPRATROPIUM 3 ML (DUONEB) VIAL IH SCH ×6 (02:22→22:37)
[2017-02-06] MEDS: CLINDAMYCIN 900 MG/NS 50 ML IVPB IV SCH ×6 (02:29→18:01)
[2017-02-06 04:28] VITALS: BP 104/66
[2017-02-06 05:06] LABS: BASOPHILS # (AUTO) 0.1 10^3/uL (0.0-0.1); BASOPHILS % (AUTO) 0 % (0-10); EOSINOPHILS % (AUTO) 0 % (0-10); LYMPHOCYTES # (AUTO) 0.6 X 10^3 (1.0-4.0); LYMPHOCYTES % (AUTO) 3 % (12-44); MEAN CORPUSCULAR HEMOGLOBIN 32 PG (25-34); MEAN CORPUSCULAR HGB CONC 35 G/DL (32-36); MEAN CORPUSCULAR VOLUME 93 FL (80-99); MEAN PLATELET VOLUME 11.6 FL (7.4-10.4); MONOCYTES # (AUTO) 0.2 X 10^3 (0.0-1.0); MONOCYTES % (AUTO) 1 % (0-12); NEUTROPHILS # (AUTO) 18.5 X 10^3 (1.8-7.8); NEUTROPHILS % (AUTO) 95 % (42-75); PLATELET COUNT 70 10^3/uL (130-400); RED BLOOD COUNT 3.17 10^6/uL (4.35-5.85); RED CELL DISTRIBUTION WIDTH 16.5 % (10.0-14.5); WHITE BLOOD COUNT 19.4 10^3/uL (4.3-11.0)
[2017-02-06] MEDS: LEVOTHYROXINE 100 MCG (LEVOTHROID) TAB PO SCH (05:32)
[2017-02-06 05:41] LABS: ALANINE AMINOTRANSFERASE 65 U/L (0-55); ALBUMIN 1.7 G/DL (3.2-4.5); ANION GAP 12 MMOL/L (5-14); ASPARTATE AMINO TRANSFERASE 72 U/L (5-34); BILIRUBIN,TOTAL 4.3 MG/DL (0.1-1.0); BLOOD UREA NITROGEN 31 MG/DL (7-18); BUN/CREATININE RATIO 43; CALCIUM 7.1 MG/DL (8.5-10.1); CARBON DIOXIDE 21 MMOL/L (21-32); CHLORIDE 104 MMOL/L (98-107); CREATININE SERUM 0.72 MG/DL (0.60-1.30); GFR ESTIMATED > 60; GLUCOSE 79 MG/DL (70-105); MAGNESIUM 1.7 MG/DL (1.8-2.4); PHOSPHORUS 3.4 MG/DL (2.3-4.7); POTASSIUM 3.8 MMOL/L (3.6-5.0); SODIUM 137 MMOL/L (135-145); TOTAL PROTEIN 4.1 G/DL (6.4-8.2)
[2017-02-06 08:00] VITALS: BP 151/71
--- NOTE | 2017-02-06 08:14 | Pulmonary Progress Note ---
Subjective Subjective/Events-last exam Pt is requiring 75% oxygen via thermaflow. Exam Exam Vital Signs Date Time Temp Pulse Resp B/P (MAP) Pulse Ox O2 Delivery O2 Flow Rate FiO2 02/06/17 07:36 92 10.00 75 02/06/17 04:28 98.5 98 20 104/66 94 5.00 02/06/17 02:22 93 10.00 75 02/06/17 01:54 22 02/06/17 01:00 105 02/05/17 23:17 97.6 88 22 130/72 93 5.00 02/05/17 21:52 88 02/05/17 20:30 High Flow NC 5.00 02/05/17 20:00 98.0 106 24 121/71 96 5.00 02/05/17 18:57 104 02/05/17 18:39 93 10.00 75 02/05/17 17:15 20 02/05/17 17:12 20 02/05/17 16:00 98.3 109 20 129/76 96 5.00 02/05/17 14:51 91 10.00 75 02/05/17 13:00 104 02/05/17 12:03 92 10.00 75 02/05/17 12:00 97.6 102 18 110/71 95 5.00 I & O 02/06/17 07:00 Intake Total 3836 ml Output Total 2350 ml Balance 1486 ml General Appearance: No Apparent Distress, WD/WN HEENT: Normal ENT Inspection Neck: Normal Inspection Respiratory: No Accessory Muscle Use, No Respiratory Distress Cardiovascular: Regular Rate, Rhythm, Tachycardia Capillary Refill: Less Than 3 Seconds Gastrointestinal: normal bowel sounds, non tender, soft Extremity: Inflammation, Pedal Edema, Swelling Neurologic/Psychiatric: Alert, Oriented x3 Skin: Warm/Dry Lymphatic: No Adenopathy Results Lab Laboratory Tests 02/05/17 04:20 02/06/17 04:30 Assessment/Plan Assessment/Plan Acute respiratory failure - BiPAP PRN RLL pleural effusion- probably malignant -s/p t -pleurex catheter -- drain PRN -Will have nursing drain pleurex catheter daily pancytopenic -oncology is following Extensive small cell cancer with mets to liver and bone. 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
[2017-02-06] MEDS: NS IV 1000 ML 1,000 ML IV SCH ×2 (08:59→12:26)
[2017-02-06] MEDS: FUROSEMIDE 40 MG/4 ML INJ (LASIX) IVP SCH (09:18)
[2017-02-06] MEDS: CLOPIDOGREL 75 MG (PLAVIX) TABLET PO SCH (09:20)
[2017-02-06] MEDS: ASPIRIN E.C. 81 MG (ECOTRIN) TAB PO SCH (09:20)
[2017-02-06] MEDS: SENNA W/DOCUSATE (SENOKOT S) TABLET PO SCH (09:20)
--- NOTE | 2017-02-06 09:42 | Occupational Ther Daily Note ---
OT Current Status-Daily Note Subjective Pt alert, lying in bed. IV started beeping, MARQUEZ alerted nrsg. Pt agreed to therapy. No c/o pain. Stated that he wanted to try an iPhone or iPad. Mental Status/Objective Patient Orientation: Person, Place, Time, Situation Functional [place] Measure 0=Not Assessed/NA 4=Minimal Assistance 1=Total Assistance 5=Supervision or Setup 2=Maximal Assistance 6=Modified [place] 3=Moderate Assistance 7=Complete [place] Attachments: Drains, Robertson Catheter, IV, Oxygen ADL-Treatment Pt handed cleansing wipes to complete face, upper body and saad area bathing. Pt unable to complete lower body bathing at this time. Pt was able to complete oral care in bed. Pt was able to lift B LE to change pads underneath. Pt demonstrated good UE ROM and strength during daily functional tasks. After therapy, pt lying in bed with call light/phone in reach. All needs met in room. OT Short Term Goals Short Term Goals 1=Demonstrate adherence to instructed precautions during ADL tasks. 2=Patient will verbalize/demonstrate understanding of assistive devices/ modifications for ADL. 3=Patient will improve strength/tolerance for activity to enable patient to perform ADL's. OT Senior Treasury Analyst Goals Senior Treasury Analyst Goals Time Frame: Feb 14, 2017 Eating (FIM): 6 Grooming(FIM): 5 Bathing(FIM): 4 Upper Body Dressing(FIM): 5 Lower Body Dressing(FIM): 5 Toileting(FIM): 5 Toilet/Commode Transfer(FIM): 5 Shower Transfer(FIM): 5 Additional Goals: 2-Verbalize Understanding, 3-ImproveStrength/Martha 1=Demonstrate adherence to instructed precautions during ADL tasks. 2=Patient will verbalize/demonstrate understanding of assistive devices/ modifications for ADL. 3=Patient will improve strength/tolerance for activity to enable patient to perform ADL's. OT Education/Plan Problem List/Assessment Pt would benefit from skilled OT to increase his independence in basic self care to allow him to be as independent as possible and decrease caregiver burden Discharge Recommendations Plan/Recommendations: Continue POC Treatment Plan/Plan of Care Patient would benefit from OT for education, treatment and training to promote independence in ADL's, mobility, safety and/or upper extremity function for ADL' s. Plan of Care: ADL Retraining, Functional Mobility, UE Funct Exercise/Act, UE Neuromus Re-Ed/Coord Treatment Duration: Feb 14, 2017 Visits Per Week: 5 Agreement: Yes Rehab Potential: Guarded Time/GCodes Start Time: 09:00 Stop Time: 09:30 Total Time Billed (hr/min): 30 Billed Treatment Time 1 visit-ADL 2 (30 min) APRYL LANGFORD Feb 06, 2017 09:42
--- NOTE | 2017-02-06 10:04 | Diagnostic Imaging Report ---
INDICATION: Lung cancer. TECHNIQUE: A PA chest was obtained at 0620 hours. COMPARISON: 02/04/2017. FINDINGS: The heart is borderline in size. There are extensive bilateral infiltrates, most prominent in the right perihilar region. There is no pneumothorax. There is a small pleural effusion or pleural thickening in the right costophrenic angle. IMPRESSION: Stable appearance compared to 02/04/2017. Bilateral patchy infiltrates are again noted, most prominent in the right perihilar region. Pleural thickening and/or fluid in the right costophrenic angle is again noted and appears stable. Dictated by: Dictated on workstation # [id number]
[2017-02-06] MEDS: LIDOCAINE (LIDODERM) 5% PATCH TOP SCH (10:29)
--- NOTE | 2017-02-06 10:57 | Physical Therapy Progress Note ---
Therapy Progress Note Patient declined PT intervention on this date and states he just wants to go back to the [facility]. PT educated patient on importance of bilateral LE ROM, which patient performs independently. PT to dismiss patient at this time secondary to patient "very Poor" prognosis, per dr report,and patient does not require skilled therapy intervention at this time. RN, Anahi, made aware and agrees to plan. 1 visit KARMEN OLVERA PT Feb 06, 2017 10:57
[2017-02-06 12:00] VITALS: BP 104/55
[2017-02-06 15:30] VITALS: BP 121/58
--- NOTE | 2017-02-06 19:34 | Progress Note (SOAP) ---
Subjective Subjective 66 yo M admitted with chemotherapy induced tumor lysis- Doing better- no new concerns. he is debating on whether to get an iphone or an ipad to use and facetime his aunt. Review of Systems General: No Chills, No Night Sweats, Fatigue, Malaise, No Appetite, No Other HEENT: No Head Aches Pulmonary: Dyspnea, Cough, No Other Cardiovascular: Chest Pain (right side) Gastrointestinal: No: Abdominal Pain, Nausea, Vomiting Genitourinary: No Dysuria Musculoskeletal: leg pain (right > left), No: neck pain Neurological: Weakness, No: Change in speech, Numbness All Other Systems Reviewed All Other Systems Reviewed: Yes Objective Exam Vital Signs Vital Sign - Last 12Hours 01/31/17 00:00 Temp 96.9 Pulse 97 Resp 13 B/P (MAP) 111/68 Pulse Ox 93 O2 Delivery NIV/Bilevel O2 Flow Rate 55.00 FiO2 55 Capillary Refill : Less Than 3 SecondsLess Than 3 Seconds General Appearance: No Apparent Distress Eyes: Bilateral Eye EOMI, Bilateral Eye Normal Inspection, Bilateral Eye PERRL HEENT: PERRL/EOMI Neck: Normal Inspection, Other (right neck central line noted) Respiratory: No Accessory Muscle Use, No Respiratory Distress Cardiovascular: Regular Rate, Rhythm, Tachycardia Gastrointestinal: Soft, Distended (improved) Rectal: Deferred Genital/Rectal: Other (scrotal edema- jones in place) Back: Decreased Range of Motion Extremity: Inflammation, Pedal Edema, Swelling Neurologic/Psychiatric: Alert, Oriented x3 Skin: Warm/Dry Lymphatic: No Adenopathy Results Lab Laboratory Tests 02/06/17 04:30: White Blood Count 19.4H, Red Blood Count 3.17L, Hemoglobin 10.2L, Hematocrit 29L , Mean Corpuscular Volume 93, Mean Corpuscular Hemoglobin 32, Mean Corpuscular Hemoglobin Concent 35, Red Cell Distribution Width 16.5H, Platelet Count 70L, Mean Platelet Volume 11.6H, Neutrophils (%) (Auto) 95H, Lymphocytes (%) (Auto) 3L, Monocytes (%) (Auto) 1, Eosinophils (%) (Auto) 0, Basophils (%) (Auto) 0, Neutrophils # (Auto) 18.5H, Lymphocytes # (Auto) 0.6L, Monocytes # (Auto) 0.2, Eosinophils # (Auto) 0.0, Basophils # (Auto) 0.1, Sodium Level 137, Potassium Level 3.8, Chloride Level 104, Carbon Dioxide Level 21, Anion Gap 12, Blood Urea Nitrogen 31H, Creatinine 0.72, Estimat Glomerular Filtration Rate > 60, BUN /Creatinine Ratio 43, Glucose Level 79, Calcium Level 7.1L, Phosphorus Level 3.4 , Magnesium Level 1.7L, Total Bilirubin 4.3H, Aspartate Amino Transf (AST/SGOT) 72H, Alanine Aminotransferase (ALT/SGPT) 65H, Alkaline Phosphatase 242H, Total Protein 4.1L, Albumin 1.7L Microbiology 02/01/17 Anaerobic Culture - Final, Complete No anaerobes isolated 01/29/17 MRSA Screen - Final, Complete Assessment/Plan Assessment/Plan Assessment/Plan 66 yo M admitted 01/26/17 Acute hypoxic Respiratory distress- improved Dr. Barrera consulted- RT consulted Right Exudative pleural effusion- suspect related to the cancer- Dr. 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 Katz consulted, started chemotherapy 01/25/17, Pt has decided to not do anymore chemo. granix dc'd as his cell lines improved- continue to trend Pancytopenia due to chemotherapy - trend to conrado- was on granix - platelets given 02/01/17 , pRBC 02/02/17 holding heparin. transaminitis- will monitor, secondary from cancer involving the liver. hyperbilirubinemia- monitor cervical spinal stenosis- severe at C5/6, moderate C7 -pain management hypothyroidism- continue levothyroxine h/o hepatitis C - treated with interferon 1998 - hep C RNA undetected December 2016 coronary artery disease- s/p RCA stent 09/2016, Cardiology consulted. COPD with hypoxia - RT protocol, requiring oxygen NC h/o tobaccoism- quit ~Aug 2016 insomnia- trazodone weakness-/deconditioning - PT/OT Right leg cellulitis- vanc, meropenem, clindamycin wound care consulted. Prognosis: guarded/poor Status stable right now- improved a little bit over last couple days- Dispo: - DNR -Aunt and DPOA (Jie, friend) up to date. - He would like to get his pain under control and go back to [facility]- will keep open discussion. -[facility] consult placed today- Suspect pt is too acute at this time to go to [facility]. Problems: Clinical Quality Measures AMI/AHF: ASA po Prior to arrival: Yes DVT/VTE Risk/Contraindication: Risk Factor Score Per Nursin RFS Level Per Nursing on Admit: 4+=Very High JEFFREY PARKER MD Feb 06, 2017 19:34
[2017-02-06 19:40] VITALS: BP 112/61
[2017-02-06] MEDS: FAMOTIDINE 20 MG (PEPCID) TABLET PO SCH (20:17)
[2017-02-06] MEDS: traZODone 50 MG (DESYREL) TAB PO SCH (20:17)
[2017-02-06] MEDS ORDERED: HYDROmorphone (DILAUDID) 2 MG TAB PO PRN ×2 (23:15)
[2017-02-07 00:54] VITALS: BP 125/61
[2017-02-07] MEDS: CLINDAMYCIN 900 MG/NS 50 ML IVPB IV SCH ×4 (01:14→09:39)
[2017-02-07] MEDS: MEROPENEM 1 GM/NS 100 ML IVPB IV SCH ×2 (02:01)
[2017-02-07] MEDS: fentaNYL PATCH 25 MCG (DURAGESIC) TD SCH (02:09)
[2017-02-07] MEDS: RT-ALBUTEROL/IPRATROPIUM 3 ML (DUONEB) VIAL IH SCH ×6 (02:42→22:45)
[2017-02-07] MEDS: VANCOMYCIN 1500 MG/NS 500 ML IVPB IV SCH ×2 (02:45)
[2017-02-07 04:44] VITALS: BP 141/66
[2017-02-07] MEDS: LEVOTHYROXINE 100 MCG (LEVOTHROID) TAB PO SCH (05:50)
[2017-02-07 06:57] LABS: BASOPHILS # (AUTO) 0.1 10^3/uL (0.0-0.1); BASOPHILS % (AUTO) 0 % (0-10); EOSINOPHILS % (AUTO) 0 % (0-10); LYMPHOCYTES # (AUTO) 0.8 X 10^3 (1.0-4.0); LYMPHOCYTES % (AUTO) 4 % (12-44); MEAN CORPUSCULAR HEMOGLOBIN 31 PG (25-34); MEAN CORPUSCULAR HGB CONC 34 G/DL (32-36); MEAN CORPUSCULAR VOLUME 93 FL (80-99); MEAN PLATELET VOLUME 11.7 FL (7.4-10.4); MONOCYTES # (AUTO) 0.6 X 10^3 (0.0-1.0); MONOCYTES % (AUTO) 3 % (0-12); NEUTROPHILS # (AUTO) 19.2 X 10^3 (1.8-7.8); NEUTROPHILS % (AUTO) 93 % (42-75); PLATELET COUNT 103 10^3/uL (130-400); RED BLOOD COUNT 3.13 10^6/uL (4.35-5.85); RED CELL DISTRIBUTION WIDTH 16.5 % (10.0-14.5); WHITE BLOOD COUNT 20.7 10^3/uL (4.3-11.0)
[2017-02-07 07:19] LABS: ANION GAP 11 MMOL/L (5-14); BLOOD UREA NITROGEN 26 MG/DL (7-18); BUN/CREATININE RATIO 37; CALCIUM 7.1 MG/DL (8.5-10.1); CARBON DIOXIDE 24 MMOL/L (21-32); CHLORIDE 103 MMOL/L (98-107); GFR ESTIMATED > 60; GLUCOSE 72 MG/DL (70-105); MAGNESIUM 1.5 MG/DL (1.8-2.4); PHOSPHORUS 3.4 MG/DL (2.3-4.7); POTASSIUM 3.7 MMOL/L (3.6-5.0); SODIUM 138 MMOL/L (135-145)
[2017-02-07 07:36] LABS: ANISOCYTOSIS MODERATE; BAND NEUTROPHILS 3 %; BASOPHILS % (MANUAL) 0 %; EOSINOPHILS % (MANUAL) 0 %; HYPOCHROMASIA SLIGHT; LYMPHOCYTES % (MANUAL) 2 %; NEUTROPHILS % (MANUAL) 94 %; POLYCHROMASIA SLIGHT
[2017-02-07 07:37] LABS: TARGET CELLS MODERATE
[2017-02-07 08:00] VITALS: BP 113/63
[2017-02-07] MEDS: HYDROmorphone PCA 0.2 MG/ML 30 ML (DILAUDID) IV PRN (09:21)
[2017-02-07] MEDS: CLOPIDOGREL 75 MG (PLAVIX) TABLET PO SCH (09:21)
[2017-02-07] MEDS: MAGNESIUM OXIDE (MAG-OX)400 MG TAB PO SCH ×2 (09:21→21:30)
[2017-02-07] MEDS: ASPIRIN E.C. 81 MG (ECOTRIN) TAB PO SCH (09:21)
[2017-02-07] MEDS: SENNA W/DOCUSATE (SENOKOT S) TABLET PO SCH (09:22)
[2017-02-07] MEDS: FUROSEMIDE 40 MG/4 ML INJ (LASIX) IVP SCH (09:22)
[2017-02-07] MEDS: LIDOCAINE (LIDODERM) 5% PATCH TOP SCH (09:22)
--- NOTE | 2017-02-07 09:41 | Progress Note (SOAP) ---
Subjective Subjective 66 yo M admitted with chemotherapy induced tumor lysis- Pt wants his jones removed and be transferred to [facility] today with hospice. Review of Systems General: No Chills, No Night Sweats, Fatigue, Malaise, No Appetite, No Other HEENT: No Head Aches Pulmonary: Dyspnea, Cough, No Other Cardiovascular: Chest Pain Gastrointestinal: No: Abdominal Pain, Nausea, Vomiting Genitourinary: No Dysuria Musculoskeletal: leg pain (right > left), No: neck pain Neurological: Weakness, No: Change in speech, Numbness All Other Systems Reviewed All Other Systems Reviewed: Yes Objective Exam Vital Signs Vital Signs Date Time Temp Pulse Resp B/P (MAP) Pulse Ox O2 Delivery O2 Flow Rate FiO2 02/07/17 09:21 16 02/07/17 08:00 97.2 100 16 113/63 94 High Flow NC 5.00 02/07/17 07:43 90 8.00 75 02/07/17 07:00 103 02/07/17 06:00 16 02/07/17 04:44 98.0 109 16 141/66 90 High Flow NC 5.00 02/07/17 02:42 93 8.00 75 02/07/17 01:00 106 02/07/17 00:54 97.8 105 20 125/61 92 High Flow NC 5.00 02/06/17 22:37 91 8.00 75 02/06/17 20:15 High Flow NC 8.00 02/06/17 20:14 16 02/06/17 20:14 16 02/06/17 19:40 96.8 105 20 112/61 94 High Flow NC 5.00 02/06/17 19:00 107 02/06/17 18:31 90 8.00 75 02/06/17 18:00 16 02/06/17 15:30 97.5 104 16 121/58 94 High Flow NC 5.00 02/06/17 15:14 92 8.00 75 02/06/17 13:17 106 02/06/17 12:00 97.4 104 16 104/55 94 High Flow NC 5.00 02/06/17 11:23 94 10.00 75 02/06/17 10:00 16 I & O 02/07/17 07:00 Intake Total 2031 ml Output Total 2650 ml Balance -619 ml General Appearance: Moderate Distress (working harder to breath) Eyes: Bilateral Eye EOMI, Bilateral Eye Normal Inspection, Bilateral Eye PERRL HEENT: PERRL/EOMI Neck: Normal Inspection, Other (right neck central line noted) Respiratory: Chest Non Tender, Decreased Breath Sounds (bases) Cardiovascular: Regular Rate, Rhythm Gastrointestinal: Soft, Distended (improved) Rectal: Deferred Genital/Rectal: Other (scrotal edema- jones in place) Back: Decreased Range of Motion Extremity: Inflammation, Pedal Edema, Swelling Neurologic/Psychiatric: Alert, Oriented x3 Skin: Warm/Dry Lymphatic: No Adenopathy Results Lab Laboratory Tests 02/07/17 06:15: White Blood Count 20.7H, Red Blood Count 3.13L, Hemoglobin 9.8L, Hematocrit 29L , Mean Corpuscular Volume 93, Mean Corpuscular Hemoglobin 31, Mean Corpuscular Hemoglobin Concent 34, Red Cell Distribution Width 16.5H, Platelet Count 103L, Mean Platelet Volume 11.7H, Neutrophils (%) (Auto) 93H, Lymphocytes (%) (Auto) 4L, Monocytes (%) (Auto) 3, Eosinophils (%) (Auto) 0, Basophils (%) (Auto) 0, Neutrophils # (Auto) 19.2H, Lymphocytes # (Auto) 0.8L, Monocytes # (Auto) 0.6, Eosinophils # (Auto) 0.0, Basophils # (Auto) 0.1, Neutrophils % (Manual) 94, Lymphocytes % (Manual) 2, Monocytes % (Manual) 1, Eosinophils % (Manual) 0, Basophils % (Manual) 0, Band Neutrophils 3, Polychromasia SLIGHT, Hypochromasia SLIGHT, Anisocytosis MODERATE, Target Cells MODERATE, Sodium Level 138, Potassium Level 3.7, Chloride Level 103, Carbon Dioxide Level 24, Anion Gap 11, Blood Urea Nitrogen 26H, Creatinine 0.70, Estimat Glomerular Filtration Rate > 60, BUN/Creatinine Ratio 37, Glucose Level 72, Calcium Level 7.1L, Phosphorus Level 3.4, Magnesium Level 1.5L Microbiology 02/01/17 Anaerobic Culture - Final, Complete No anaerobes isolated 01/29/17 MRSA Screen - Final, Complete Assessment/Plan Assessment/Plan Assessment/Plan 66 yo M admitted 01/26/17 Acute hypoxic Respiratory distress- Dr. Barrera consulted- RT consulted Right Exudative pleural effusion- suspect related to the cancer- Dr. Paz consulted pleurex catheter placement 02/01/17 Intractable back pain due to metastatic cancer- on dilaudid heel buffer - fentanyl patch cancer with metastasis (small cell lung cancer) Dr. Katz consulted, started chemotherapy 01/25/17, Pt has decided to not do anymore chemo. granix dc'd as his cell lines improved- continue to trend Pancytopenia due to chemotherapy - resolved was on granix -platelets given 02/01/17 , pRBC 02/02/17 transaminitis- will monitor, secondary from cancer involving the liver. hyperbilirubinemia- monitor cervical spinal stenosis- severe at C5/6, moderate C7 -pain management hypothyroidism- continue levothyroxine h/o hepatitis C - treated with interferon 1998 - hep C RNA undetected December 2016 coronary artery disease- s/p RCA stent 09/2016, Cardiology consulted. COPD with hypoxia - RT protocol, requiring oxygen NC h/o tobaccoism- quit ~Aug 2016 insomnia- trazodone weakness-/deconditioning - PT/OT Right leg cellulitis- vanc, meropenem, clindamycin wound care consulted. Prognosis: guarded/poor Dispo: - DNR - He would like to go back to [facility]- on Hospice- Pt wants to go there today. -palliative care consult placed - [facility] will be contacted for evaluation- -stopped dilaudid heel buffer- put pt on morphine 60mg TID, morphine IR 15mg q4hr prn , fentanyl patch 25mcg q72hr- will monitor today and plan to transfer to [facility] 02/08/17 if pain is controlled. Problems: Clinical Quality Measures AMI/AHF: ASA po Prior to arrival: Yes DVT/VTE Risk/Contraindication: Risk Factor Score Per Nursin RFS Level Per Nursing on Admit: 4+=Very High JEFFREY PARKER MD Feb 07, 2017 09:41
--- NOTE | 2017-02-07 09:56 | Physician Progress Note ---
Progress Note Assessment/Plan Events since last exam Pt wants to go to [facility] with hosp[facility]. I believe he made right decision. His main concern is the pain control. Make sure adequately address his pain issues and have a close follow up on this issue when he is in [facility]. Assessment/Plan 1. 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 a. Status Post Cycle 1 days 1-2 of 3; Held day 3 etoposide; Tolerated poorly. Pt decided to stop the chemo. b. Pt decided to go for hospice. Hospice consult initiated. c. Make sure we have adequate pain control and close follow up. I suggest Morphine ER 60mg tid and Morphine IR 15mg q4hrs PRN as the start. Then converting the IR morphine to ER morphine. Please call me if you have any questions. Make sure we have constipation prophylaxis while on morphine. 2. Tumor lysis syndrome arising from recent chemotherapy treatment inpatient with very bulky tumor load of small cell carcinoma. Tumor lysis has resolved. 3. Hypotension, Neutropenia, Leg wound--Suspect Sepsis; Cover for Cellulitis, also lung pathogens. Patient has been started on IV Vancomycin, Meropenem, and Clindamycin. 4. Pancytopenia--myelosuppression arising from recent chemotherapy; WBC recovered. 5. Abnormal LFTs-arising from extensive liver involvement. 6. Cancer related pain--patient has been started on Dilaudid PONY TRIMMER 7. Multiple comorbidities including CAD, COPD, hypothyroidism, history of hepatitis C, and history of cervical spinal stenosis. 8. I have told patient that we support his decision of discontinuation of chemo. Prognosis very poor. Pt is DNR. Vitals Last set of Vitals Signs Vital Signs Date Time Temp Pulse Resp B/P (MAP) Pulse Ox O2 Delivery O2 Flow Rate FiO2 02/07/17 09:21 16 02/07/17 08:00 97.2 100 113/63 94 High Flow NC 5.00 02/07/17 07:43 75 I&O I&O Intake and Output 02/06/17 23:59 Intake Total 3240 ml Output Total 2650 ml Balance 590 ml Intake Oral 1960 ml IV Total 1280 ml Output Urine Total 2650 ml Labs Laboratory Tests 02/07/17 06:15: White Blood Count 20.7H, Red Blood Count 3.13L, Hemoglobin 9.8L, Hematocrit 29L , Mean Corpuscular Volume 93, Mean Corpuscular Hemoglobin 31, Mean Corpuscular Hemoglobin Concent 34, Red Cell Distribution Width 16.5H, Platelet Count 103L, Mean Platelet Volume 11.7H, Neutrophils (%) (Auto) 93H, Lymphocytes (%) (Auto) 4L, Monocytes (%) (Auto) 3, Eosinophils (%) (Auto) 0, Basophils (%) (Auto) 0, Neutrophils # (Auto) 19.2H, Lymphocytes # (Auto) 0.8L, Monocytes # (Auto) 0.6, Eosinophils # (Auto) 0.0, Basophils # (Auto) 0.1, Neutrophils % (Manual) 94, Lymphocytes % (Manual) 2, Monocytes % (Manual) 1, Eosinophils % (Manual) 0, Basophils % (Manual) 0, Band Neutrophils 3, Polychromasia SLIGHT, Hypochromasia SLIGHT, Anisocytosis MODERATE, Target Cells MODERATE, Sodium Level 138, Potassium Level 3.7, Chloride Level 103, Carbon Dioxide Level 24, Anion Gap 11, Blood Urea Nitrogen 26H, Creatinine 0.70, Estimat Glomerular Filtration Rate > 60, BUN/Creatinine Ratio 37, Glucose Level 72, Calcium Level 7.1L, Phosphorus Level 3.4, Magnesium Level 1.5L Microbiology 02/01/17 Anaerobic Culture - Final, Complete No anaerobes isolated 01/29/17 MRSA Screen - Final, Complete Clinical Quality Measures AMI/AHF: ASA po Prior to arrival: Yes DVT/VTE Risk/Contraindication: Risk Factor Score Per Nursin RFS Level Per Nursing on Admit: 4+=Very High PITO NOYOLA MD Feb 07, 2017 09:56
[2017-02-07 12:00] VITALS: BP 115/61
[2017-02-07] MEDS: morphine IMMEDIATE RELEASE 15 MG TABLET PO PRN ×2 (13:04→17:40)
--- NOTE | 2017-02-07 13:15 | Occupational Ther Daily Note ---
OT Current Status-Daily Note Subjective Pt alert, lying in bed. Pt agreed to therapy. No c/o pain at this time. Physician came to check on pt and talked to pt about discharging tomorrow. Mental Status/Objective Patient Orientation: Person, Place, Time, Situation Functional Julian Measure 0=Not Assessed/NA 4=Minimal Assistance 1=Total Assistance 5=Supervision or Setup 2=Maximal Assistance 6=Modified Julian 3=Moderate Assistance 7=Complete Julian Other Treatment After set up, pt able to wash face and complete oral care. Pt demonstrates WFL of UE's during functional tasks. Pt is able to lift each leg off bed to change pads under legs. After therapy, pt lying in bed with call light/phone in reach. All needs met in room. OT Short Term Goals Short Term Goals 1=Demonstrate adherence to instructed precautions during ADL tasks. 2=Patient will verbalize/demonstrate understanding of assistive devices/ modifications for ADL. 3=Patient will improve strength/tolerance for activity to enable patient to perform ADL's. OT Fpc Goals Fpc Goals Time Frame: Feb 14, 2017 Eating (FIM): 6 Grooming(FIM): 5 Bathing(FIM): 4 Upper Body Dressing(FIM): 5 Lower Body Dressing(FIM): 5 Toileting(FIM): 5 Toilet/Commode Transfer(FIM): 5 Shower Transfer(FIM): 5 Additional Goals: 2-Verbalize Understanding, 3-ImproveStrength/Martha 1=Demonstrate adherence to instructed precautions during ADL tasks. 2=Patient will verbalize/demonstrate understanding of assistive devices/ modifications for ADL. 3=Patient will improve strength/tolerance for activity to enable patient to perform ADL's. OT Education/Plan Problem List/Assessment Pt would benefit from skilled OT to increase his independence in basic self care to allow him to be as independent as possible and decrease caregiver burden Discharge Recommendations Plan/Recommendations: Continue POC Treatment Plan/Plan of Care Patient would benefit from OT for education, treatment and training to promote independence in ADL's, mobility, safety and/or upper extremity function for ADL' s. Plan of Care: ADL Retraining, Functional Mobility, UE Funct Exercise/Act, UE Neuromus Re-Ed/Coord Treatment Duration: Feb 14, 2017 Visits Per Week: 5 Agreement: Yes Rehab Potential: Guarded Time/GCodes Start Time: 10:10 Stop Time: 10:25 Total Time Billed (hr/min): 15 Billed Treatment Time 1 visit-FA 1 (15 min) APRYL LANGFORD Feb 07, 2017 13:15
[2017-02-07] MEDS: morphine ER 30 MG (MS CONTIN) TAB PO SCH ×2 (14:22→21:30)
[2017-02-07 15:40] VITALS: BP 126/62
[2017-02-07 19:35] VITALS: BP 126/75
[2017-02-07] MEDS: POLYETHYLENE GLYCOL 17 GM (MIRALAX) PACK PO SCH (21:30)
[2017-02-07] MEDS: FAMOTIDINE 20 MG (PEPCID) TABLET PO SCH (21:31)
[2017-02-07] MEDS: traZODone 50 MG (DESYREL) TAB PO SCH (21:31)
[2017-02-08 00:30] VITALS: BP 122/69
[2017-02-08] MEDS: RT-ALBUTEROL/IPRATROPIUM 3 ML (DUONEB) VIAL IH SCH ×3 (02:58→10:38)
[2017-02-08 04:00] VITALS: BP 113/63
[2017-02-08 06:08] LABS: BASOPHILS # (AUTO) 0.1 10^3/uL (0.0-0.1); BASOPHILS % (AUTO) 1 % (0-10); EOSINOPHILS % (AUTO) 0 % (0-10); LYMPHOCYTES # (AUTO) 0.8 X 10^3 (1.0-4.0); LYMPHOCYTES % (AUTO) 4 % (12-44); MEAN CORPUSCULAR HEMOGLOBIN 32 PG (25-34); MEAN CORPUSCULAR HGB CONC 34 G/DL (32-36); MEAN CORPUSCULAR VOLUME 93 FL (80-99); MEAN PLATELET VOLUME 11.8 FL (7.4-10.4); MONOCYTES # (AUTO) 0.9 X 10^3 (0.0-1.0); MONOCYTES % (AUTO) 4 % (0-12); NEUTROPHILS # (AUTO) 18.1 X 10^3 (1.8-7.8); NEUTROPHILS % (AUTO) 91 % (42-75); PLATELET COUNT 138 10^3/uL (130-400); RED BLOOD COUNT 3.26 10^6/uL (4.35-5.85); RED CELL DISTRIBUTION WIDTH 16.9 % (10.0-14.5); WHITE BLOOD COUNT 19.9 10^3/uL (4.3-11.0)
[2017-02-08 06:31] LABS: ANION GAP 11 MMOL/L (5-14); BLOOD UREA NITROGEN 26 MG/DL (7-18); BUN/CREATININE RATIO 35; CALCIUM 7.3 MG/DL (8.5-10.1); CARBON DIOXIDE 25 MMOL/L (21-32); CHLORIDE 101 MMOL/L (98-107); CREATININE SERUM 0.75 MG/DL (0.60-1.30); GFR ESTIMATED > 60; GLUCOSE 79 MG/DL (70-105); MAGNESIUM 1.5 MG/DL (1.8-2.4); PHOSPHORUS 3.7 MG/DL (2.3-4.7); POTASSIUM 3.8 MMOL/L (3.6-5.0); SODIUM 137 MMOL/L (135-145)
[2017-02-08] MEDS: morphine IMMEDIATE RELEASE 15 MG TABLET PO PRN ×2 (06:45→11:44)
[2017-02-08] MEDS: LEVOTHYROXINE 100 MCG (LEVOTHROID) TAB PO SCH (06:45)
[2017-02-08 07:41] VITALS: BP 83/55
[2017-02-08] MEDS: ASPIRIN E.C. 81 MG (ECOTRIN) TAB PO SCH (08:26)
[2017-02-08] MEDS: CLOPIDOGREL 75 MG (PLAVIX) TABLET PO SCH (08:26)
[2017-02-08] MEDS: morphine ER 30 MG (MS CONTIN) TAB PO SCH (08:26)
[2017-02-08] MEDS: MAGNESIUM OXIDE (MAG-OX)400 MG TAB PO SCH (08:26)
[2017-02-08] MEDS: LIDOCAINE (LIDODERM) 5% PATCH TOP SCH (08:27)
[2017-02-08] MEDS: POLYETHYLENE GLYCOL 17 GM (MIRALAX) PACK PO SCH (08:27)
[2017-02-08] MEDS: FUROSEMIDE 40 MG/4 ML INJ (LASIX) IVP SCH (08:27)
[2017-02-08] MEDS ORDERED: POLY17PO23 PO (09:34)
[2017-02-08] MEDS ORDERED: MORP15TA PO (09:34)
[2017-02-08] MEDS ORDERED: FENT1PAT8 TD (09:34)
[2017-02-08] MEDS ORDERED: MORP-34 PO (09:34)
--- NOTE | 2017-02-08 09:38 | Discharge Inst-Simple/Standard ---
Discharge Inst-Standard Discharge Medications New, Converted or Re-Newed RX: RX on Chart Patient Instructions/Follow Up Plan of Care/Instructions/FU: Discharge to hospice- [facility]- Pt will be at [facility] Activity as Tolerated: Yes Discharge Diet: No Restrictions JEFFREY PARKER MD Feb 08, 2017 09:38
--- NOTE | 2017-02-08 09:40 | Discharge Summary ---
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) Pancytopenia transaminitis- hyperbilirubinemia- cervical spinal stenosis- hypothyroidism h/o hepatitis C - coronary artery disease- COPD with hypoxia - h/o tobaccoism insomnia weakness-/deconditioning Right leg cellulitis- Discharge Diagnosis 66 yo M admitted 01/26/17 Acute hypoxic Respiratory distress- Right Exudative pleural effusion- Intractable back pain due to metastatic cancer- 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 Although on the biopsy report lymphoma could not be ruled out. Pt initially presented to [facility] for uncontrolled pain management and was going to be discharged back to [facility] when his labs indicated tumor lysis syndrome. He did have some chest pain but troponins were <0.3. No issues urinating but does not remember having a bowel movement recently. Respiratory status is stable on 3.5L oxygen via [place]. Since admission he was started on IVF and allopurinol with dilaudid iv for pain management. Labs from this AM are not improving. He is making urine and he notes improvement since getting IV fluids overnight. No other overnight events but Chao would like his pain controlled better- he does admit though that he does not like any pain and anticipates it, so his worrying likely makes it worse. Discharge Summary Hospital Course Hospital Course 66 yo M admitted 01/26/17 for intractable back pain and acute hypoxic respiratory distress. Pt's respiratory status gradually declined requiring more aggressive respiratory care. He also developed more wheezing but no consolidation. In regards to his medical conditions we treated as below- Acute hypoxic Respiratory distress- Dr. Barrera consulted- RT consulted - improved after pleurex catheter placed. down to [place] oxygen on discharge. Right Exudative pleural effusion- For his newly dx'd effusion, Dr. Paz was consulted and pleurex catheter placement 02/01/17 Intractable back pain due to metastatic cancer- controlled with dilaudid [employer]. 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 Pancytopenia was noted due to chemotherapy improved with granix hypothyroidism- continued his levothyroxine. Decision was made to consult [facility] for hospice care - as pt likely does not have the reserve in his kidneys, liver, lungs to bounc back. Patient was transferred to [facility] with hospice on 02/08/17. I expect pt will like over the weekend. Labs Laboratory Tests 02/08/17 05:37: White Blood Count 19.9H, Red Blood Count 3.26L, Hemoglobin 10.3L, Hematocrit 30L , Red Cell Distribution Width 16.9H, Mean Platelet Volume 11.8H, Neutrophils (% ) (Auto) 91H, Lymphocytes (%) (Auto) 4L, Neutrophils # (Auto) 18.1H, Lymphocytes # (Auto) 0.8L, Blood Urea Nitrogen 26H, Calcium Level 7.3L, Magnesium Level 1.5L Procedures None. Consultations Surgery, Pulmonology, Heme/onc Discharge Physical Examination Allergies: Coded Allergies: NKANo Known Allergies (Verified Allergy, Unknown, 09/03/07) Vitals & I&Os Vital Signs Date Time Temp Pulse Resp B/P (MAP) Pulse Ox O2 Delivery O2 Flow Rate FiO2 02/08/17 15:56 106 18 83/55 88 8.00 02/08/17 08:45 Nasal Cannula 02/08/17 07:41 98.1 02/07/17 07:43 75 General Appearance: Alert, Oriented X3 HEENT: Atraumatic Respiratory: Clear to Auscultation, Other (right pleurxcatheter) Abdominal: Normal Bowel Sounds Extremities: Other (edema-pitting- right medial ankle skin breakdown.) Neuro: Normal Speech Psych/Mental Status: Mental Status NL (declining. ) Discharge Home Medications Reviewed and agree with Discharge Medication list on patient's Discharge Instruction sheet Condition at Discharge prognosis poor- condition- declining Instructions to Patient/Family Please see electronic discharge instructions given to patient. Clinical Quality Measures AMI/AHF: ASA po Prior to arrival: Yes DVT/VTE Risk/Contraindication: Risk Factor Score Per Nursin RFS Level Per Nursing on Admit: 4+=Very High Comfort Measures/ Type of Care: Comfort Measures (to [facility]), Pallative Care JEFFREY PARKER MD Feb 08, 2017 09:40
[2017-02-08 15:56] VITALS: BP 83/55
--- OUTSIDE RECORDS SUMMARY | 2017-02-26 22:27 | XMS REPORT | Continuity of Care Document ---
Author Author [facility] Organization [facility] Address Unknown Phone Unavailable Care Team Providers Care Letter Of Credit Document Examiner Name Role Phone NO, LOCAL PHYSICIAN PP Unavailable Insurance Providers Payer Name Policy Number Subscriber Name Relationship [facility] [id number] Nick Strauss 01 Self / Same As Patient Advance Directives Directive Response Recorded Date Advance Directives N 08/10/13 11:10pm Organ Donor N 08/10/13 11:10pm Problems No Known Problems or Medical conditions. Family History History Response Recorded Date/Time Hx Family Cancer N 09/03/07 1:40pm Hx Family Myocardial Infarction Y MAT.GRANPA 09/03/07 1:40pm Social History History Response Recorded Date/Time Alcohol Use Denies Use 08/10/13 11:10pm Recreational Drug Use Y "little pot" 11:10pm Allergies, Adverse Reactions, Alerts Allergen Type Severity Reaction Last Updated No Known Allergies Allergy Unknown 09/03/07 Medications Medication Dose Units Route Sig Qty Days Naproxen (Naprosyn) 1 Each PO BID PRN 20 Hydrocodone Bit/Acetaminophen (Hydrocodon-Acetaminophen 5-325) 1 - 2 Each PO Q6H PRN 20 Ciprofloxacin (Cipro) 1 Tab PO BID 5 [Levothroid] Response Recorded Date/Time Status not known Unknown Results No Known Relevant Diagnostic Tests, Laboratory Data and/or Discharge Summary. Encounters Encounter Location Date/Time Departed Emergency Room [facility] 11:02pm Discharged Inpatient [facility] 12: 00am
== END 2017-02-08 13:35 | disposition hospice, inpatient (51) | DRG 682 ==
LOC: EDUNIT# 16:45 → ER 16:47 → 4TH 19:08 → ICU 01-29 06:40 → 4TH 02-04 15:24
PROVIDERS: ADMIT Family Medicine; ATTEND Family Medicine
PROC: 0W9930Z Drainage of Right Pleural Cavity with Drainage Device, Percutaneous Approach (ICD-10-PCS; principal; 2017-02-01 13:01)
DX: E88.3 Tumor lysis syndrome (principal); T45.1X5A Adverse effect of antineoplastic and immunosuppressive drugs, initial encounter; J96.00 Acute respiratory failure, unspecified whether with hypoxia or hypercapnia; J90 Pleural effusion, not elsewhere classified; D61.810 Antineoplastic chemotherapy induced pancytopenia; L03.115 Cellulitis of right lower limb; N17.9 Acute kidney failure, unspecified; G89.3 Neoplasm related pain (acute) (chronic); Z66 Do not resuscitate; E87.5 Hyperkalemia; E79.0 Hyperuricemia without signs of inflammatory arthritis and tophaceous disease; C34.90 Malignant neoplasm of unspecified part of unspecified bronchus or lung; C79.51 Secondary malignant neoplasm of bone; C78.7 Secondary malignant neoplasm of liver and intrahepatic bile duct; C78.89 Secondary malignant neoplasm of other digestive organs; C77.8 Secondary and unspecified malignant neoplasm of lymph nodes of multiple regions; I11.0 Hypertensive heart disease with heart failure; I50.20 Unspecified systolic (congestive) heart failure; I47.1 Supraventricular tachycardia; R17 Unspecified jaundice; I48.0 Paroxysmal atrial fibrillation; I25.10 Atherosclerotic heart disease of native coronary artery without angina pectoris; E78.00 Pure hypercholesterolemia, unspecified; K21.9 Gastro-esophageal reflux disease without esophagitis; E03.9 Hypothyroidism, unspecified; J44.9 Chronic obstructive pulmonary disease, unspecified; G47.00 Insomnia, unspecified; Z95.1 Presence of aortocoronary bypass graft; Z86.19 Personal history of other infectious and parasitic diseases; Z87.891 Personal history of nicotine dependence
CPT/HCPCS: 36415; 71010; 71250; 73706; 74176; 76604; 80048; 80053; 80061; 80069; 80202; 81000; 82150; 82438; 82550; 82945; 83615; 83690; 83735; 83874; 83880; 84100; 84132; 84157; 84484; 84550; 85007; 85025; 85027; 85610; 85730; 86850; 86900; 86901; 86920; 87070; 87075; 87081; 87205; 88112; 88305; 89051; 93005; 93041; 93970; 94640; 94660; 94760; 96374